=== PATIENT | female | born 1935 | race Caucasian/White ===

== ENCOUNTER → 2017-06-23 15:14 | Outpatient (CLI) | payer MEDICARE, MEDICAID, SELFPAY ==
[2017-06-23 16:36] LABS: Absolute Lymphocyte Count 1.92 X10^3/ul (0.83-4.51); Absolute Neutrophil Count 1.9 X10^3/uL (2.0-7.7); Basophil# 0.05 X10^3/uL; Basophil% 1.1 % (0-1); Eosinophil# 0.12 X10^3/uL; Eosinophils% 2.5 % (0-5); Hematocrit 35.6 % (37-47); Hemoglobin 11.7 g/dl (12.0-15.0); Lymphocyte # 1.92 X10^3/ul (4.0); Lymphocyte % 40.7 % (19-41); Mean Corp Hgb Conc 32.9 g/gl (32-36); Mean Corpuscular Hgb 28.5 pg (27.0-32.0); Mean Corpuscular Volume 86.8 fL (81-99); Mean Platelet Vol. 11.1 fl (6.2-12.0); Monocyte# 0.74 X10^3/uL; Monocyte% 15.7 % (0-10); Neutrophil # 1.89 X10^3/uL (2.7-7.7); Platelet Count 269 K/mm3 (150-450); RBC Distribution Width CV 16.8 % (11.6-14.6); RBC Distribution Width SD 52.7 fl (35.1-43.9); White Blood Count 4.7 K/mm3 (4.4-11.0)
[2017-06-23 16:58] LABS: POSITIVE COUNT NO; POSITIVE DIFFERENTIAL NO; POSITIVE MORPHOLOGY NO
[2017-06-23 17:02] LABS: ALB/GLOB Ratio 0.8 RATIO (0.9-2.4); AST(SGOT) 22 U/L (15-37); Alanine Aminotransfer ALT/SGPT 17 U/L (13-56); Albumin, Serum 3.4 g/dL (3.2-5.0); Alkaline Phosphatase 83 U/L (45-117); Anion Gap 9 (5-15); BUN 13 mg/dL (7-18); BUN/Creat Ratio 24.4 RATIO (10-20); Calcium,Total 8.8 mg/dL (8.5-10.1); Chloride 101 mmol/L (98-107); Creatinine, Serum 0.53 mg/dL (0.55-1.02); EST Glomerular Filtration Rate 117 mL/min (>60); Est Glom Filt Rate - Afr Amer 142 mL/min (>60); Glucose 79 mg/dL (74-106); Potassium 3.8 mmol/L (3.5-5.1); Protein, Total 7.4 g/dL (6.4-8.2); Sodium Level 138 mmol/L (136-145); Thyroid Stim Hormone (TSH) 1.51 uIU/mL (0.358-3.74)
[2017-06-24 08:25] LABS: Vitamin D,25 Hydroxy 19.9 ng/mL (29.95-100.01)
== END ==
PROVIDERS: Family Provider Family Medicine Geriatric Medicine; PCP Family Medicine Geriatric Medicine; Visit Provider Family Medicine Geriatric Medicine
DX: I10 Essential (primary) hypertension (principal); E55.9 Vitamin D deficiency, unspecified
CPT/HCPCS: 36415; 80053; 82306; 84443; 85025

== ENCOUNTER → 2017-07-20 14:45 | Outpatient (CLI) | payer MEDICARE, MEDICAID, SELFPAY ==
--- NOTE | 2017-07-20 14:55 | RAD_ITS ---
STUDY: X-RAY CHEST REASON FOR EXAM: Female, 81 years old. Productive cough, bronchitis. TECHNIQUE: PA and lateral chest COMPARISON: 01/13/2017 FINDINGS: Cholecystectomy. There is chronic prominent elevation of the right hemidiaphragm, bowel interposed between the hemidiaphragm and the superior surface of the liver (Chilaiditi sign). Stable compared to prior imaging of 2017. The right lung appears to be otherwise clear. The right lung base is obscured. On the left very mild hazy interstitial opacities in the lung without dense focal infiltrate or consolidation and without effusion or pneumothorax. These features may be chronic. They may also reflect mild pneumonitis. There is no significant cardiomegaly. Mildly ectatic aortic arch with mild atherosclerosis and tortuous descending thoracic aorta. Normal arlene and pleural margins. No acute osseous or upper abdominal process. RAD/Chest PA and Lateral IMPRESSION: Minimal hazy interstitial opacities of the left lung, probably chronic. Mild pneumonitis may be present. No dense focal pneumonia. Electronically Signed: Julio Castaneda, at 16:46 EDT Tel , Service support ,
== END ==
PROVIDERS: Family Provider Family Medicine Geriatric Medicine; PCP Family Medicine Geriatric Medicine; Visit Provider Family Medicine Geriatric Medicine
DX: J40 Bronchitis, not specified as acute or chronic (principal); R68.83 Chills (without fever)
CPT/HCPCS: 71046; 87633

== ENCOUNTER 2017-09-15 14:35 | Emergency (ER) | payer MEDICARE, MEDICAID, SELFPAY ==
[2017-09-15 14:36] VITALS: BP 127/67; PULSE 105; RESP 16; TEMP 36.7; O2SAT 92; BMI 33.3
--- NOTE | 2017-09-15 15:13 | ED.VISSUMM ---
- ER Visit Summary Date of Service: 09/15/17 Chief Complaint: Atraumatic left elbow pain History of Present Illness: The patient is a 81 F hand dominant. Said yesterday morning she noticed pain in her left elbow worse with movement. Denies any redness, fever, chills or swelling. Absolutely no trauma. She is right-hand dominant. She denies ever having any surgery on the entire left upper extremity. She has normal left hand top dyeing machine tender strength and sensation. Physical Examination: Well-appearing older female. Vital signs are stable afebrile. No distress. H EENT exam unremarkable. Neck nontender no lymphadenopathy. Lungs clear to auscultation bilaterally. Heart regular rhythm rate about 95. 3/6 systolic ejection murmur. Abdomen is soft and nontender. Normal bowel sounds no peritoneal signs. Extremities she is moving all 4. Neurovascularly intact. She has trace edema both lower extremities. The left elbow is bent at about 45?. She does not do full extension. There is no gross bony deformity. There appears to be some chronic bone changes. There is no significant swelling. No redness or warmth. She has increasing discomfort trying to do full extension but she does not do full extension. The left shoulder is nontender. There is no lymphadenopathy. No deformity. The left forearm wrist and hand are nontender neurovascular intact with 5 out of 5 top dyeing machine tender strength. Normal touch sensation. Strong radial pulse. Test Results: X-ray was obtained of the left elbow multiple views which showed some soft tissue swelling and significant degenerative arthrosis consistent with arthritis. Cannot rule out old healed fractures but no obvious acute fracture. That would also go along with her history of trauma. This was read both by myself and radiologist. Emergency Department Course and Treatment: 1 p.o. [place] here. Treatment Plan: [place] for pain. Ice to decrease inflammation. And follow-up with orthopedic surgeon. Dr. Samm Bingham is on-call today. Disposition: Discharge Impression: Acute left elbow pain secondary to degenerative arthritis This note was generated with [employer] dictation software. It may contain incorrect words, spelling, and punctuation that were not noted in review of the chart prior to signing ED Disposition - Plan for ED Patient: Chief Complaint: Upper Extremity Injury Referrals: Sunday Mclaughlin Chi, MD [Primary Care Provider] -
--- NOTE | 2017-09-15 15:16 | ED.DCSUM_ITS ---
- ER Visit Summary Date of Service: 09/15/17 Chief Complaint: Atraumatic left elbow pain History of Present Illness: The patient is a 81 F hand dominant. Said yesterday morning she noticed pain in her left elbow worse with movement. Denies any redness, fever, chills or swelling. Absolutely no trauma. She is right-hand dominant. She denies ever having any surgery on the entire left upper extremity. She has normal left hand foreign language stenographer strength and sensation. Physical Examination: Well-appearing older female. Vital signs are stable afebrile. No distress. H EENT exam unremarkable. Neck nontender no lymphadenopathy. Lungs clear to auscultation bilaterally. Heart regular rhythm rate about 95. 3/6 systolic ejection murmur. Abdomen is soft and nontender. Normal bowel sounds no peritoneal signs. Extremities she is moving all 4. Neurovascularly intact. She has trace edema both lower extremities. The left elbow is bent at about 45?. She does not do full extension. There is no gross bony deformity. There appears to be some chronic bone changes. There is no significant swelling. No redness or warmth. She has increasing discomfort trying to do full extension but she does not do full extension. The left shoulder is nontender. There is no lymphadenopathy. No deformity. The left forearm wrist and hand are nontender neurovascular intact with 5 out of 5 foreign language stenographer strength. Normal touch sensation. Strong radial pulse. Test Results: X-ray was obtained of the left elbow multiple views which showed some soft tissue swelling and significant degenerative arthrosis consistent with arthritis. Cannot rule out old healed fractures but no obvious acute fracture. That would also go along with her history of trauma. This was read both by myself and radiologist. Emergency Department Course and Treatment: 1 p.o. [place] here. Treatment Plan: [place] for pain. Ice to decrease inflammation. And follow-up with orthopedic surgeon. Dr. Samm Bingham is on-call today. Disposition: Discharge Impression: Acute left elbow pain secondary to degenerative arthritis This note was generated with [employer] dictation software. It may contain incorrect words, spelling, and punctuation that were not noted in review of the chart prior to signing ED Disposition - Plan for ED Patient: Chief Complaint: Upper Extremity Injury Referrals: Sunday Mclaughlin Chi, MD [Primary Care Provider] -
--- NOTE | 2017-09-15 15:35 | RAD_ITS ---
STUDY: X-RAY - LEFT ELBOW REASON FOR EXAM: Female, 81 years old. Pain swelling TECHNIQUE: For view(s) of the elbow. COMPARISON: None. FINDINGS: The bones are diffusely demineralized, contour abnormality is noted in the distal humerus and proximal radius and ulna consistent with old healed fractures. There is degenerative arthrosis. No demonstrated acute fracture but there is diffuse soft tissue swelling and a subtle occult fracture cannot be excluded. If fracture is a strong clinical concern, recommend further evaluation with cross-sectional imaging. RAD/Elbow min 3 Views IMPRESSION: Diffuse osteopenia with contour abnormality suggesting old healed fractures of the distal humerus in both the proximal radius and ulna. Degenerative arthrosis, no demonstrated fracture but there is soft tissue swelling if acute fracture is a strong clinical suspicion, recommend further evaluation with cross-sectional imaging Electronically Signed: Vladimir Solitario MD at 16:09 EDT , Service support ,
[2017-09-15] MEDS: HYDROcodone Bitartrate/Apap 5/325 Tablet PO (15:56)
--- NOTE | 2017-09-15 16:22 | ED.DEP ---
ED Disposition - Plan for ED Patient: Disposition: Home or Assisted Living Chief Complaint: Upper Extremity Injury Instructions: ED Degenerative Joint Disease Prescriptions: Hydrocodone/Acetaminophen [[place] 5-325 Tablet] 1 ea PO Q4H PRN PRN #20 tab PRN Reason: Pain Referrals: Sunday Mclaughlin Chi, MD [Primary Care Provider] - As Needed Samm Bingham MD [STAFF PHYSICIAN] - Additional Instructions: Ice 2? left elbow pain and swelling. [place] for pain. Call and follow-up with the orthopedic surgeon for further evaluation.
--- NOTE | 2017-09-15 16:29 | DCINST.ED_ITS ---
ED Disposition - Plan for ED Patient: Disposition: Home or Assisted Living Chief Complaint: Upper Extremity Injury Instructions: ED Degenerative Joint Disease Prescriptions: Hydrocodone/Acetaminophen [[place] 5-325 Tablet] 1 ea PO Q4H PRN PRN #20 tab PRN Reason: Pain Referrals: Sunday Mclaughlin Chi, MD [Primary Care Provider] - As Needed Samm Bingham MD [STAFF PHYSICIAN] - Additional Instructions: Ice 2? left elbow pain and swelling. [place] for pain. Call and follow-up with the orthopedic surgeon for further evaluation.
== END 2017-09-15 16:40 | disposition home or self-care (01) ==
PROVIDERS: Emergency Provider Emergency Medicine; Family Provider Family Medicine Geriatric Medicine; PCP Family Medicine Geriatric Medicine
DX: M19.022 Primary osteoarthritis, left elbow (principal); R01.1 Cardiac murmur, unspecified
CPT/HCPCS: 73080; 99282

== ENCOUNTER → 2017-10-25 14:54 | Outpatient (CLI) | payer MEDICARE, MEDICAID, SELFPAY | PROVIDERS: Family Provider Family Medicine Geriatric Medicine; PCP Family Medicine Geriatric Medicine; Visit Provider Family Medicine Geriatric Medicine | DX: M54.9 Dorsalgia, unspecified (principal) | CPT/HCPCS: 72114 ==

== ENCOUNTER → 2017-10-26 14:07 | Outpatient (CLI) | payer MEDICARE, MEDICAID, SELFPAY | PROVIDERS: Family Provider Family Medicine Geriatric Medicine; PCP Family Medicine Geriatric Medicine; Visit Provider Family Medicine Geriatric Medicine | DX: N39.0 Urinary tract infection, site not specified (principal) | CPT/HCPCS: 87086; 87088 ==

== ENCOUNTER 2017-11-04 00:26 | Inpatient (IN) | payer MEDICARE, MEDICAID, SELFPAY ==
[2017-11-04] VITALS (10 sets, daily range): BP systolic 99–150; BP diastolic 54–90; PULSE 78–108; RESP 12–18; TEMP 36.6–37.1; O2SAT 89–96; BMI 28.5; BMI 21.5
[2017-11-04] MEDS: Ondansetron 4 MG/2 ML Vial IM (01:05)
[2017-11-04] MEDS: Morphine 4 MG/ML Syringe IM (01:09)
--- NOTE | 2017-11-04 02:54 | ED.VISSUMM ---
- ER Visit Summary Date of Service: 11/04/17 Chief Complaint: [Fall and injury to both knees] History of Present Illness: The patient is a 81 F [presents the emergency department after sustaining a fall from her wheelchair this evening. Patient's family member was pushing her in the wheelchair when she slipped out and fell onto both knees. Patient denies striking her head. She had no loss of consciousness. Patient is normally wheelchair-bound and unable to extend her legs at the knees. Patient denies any neck pain. She denies chest pain. She denies abdominal pain. Patient denies back pain.] Physical Examination: [HEENT-PERRLA, EOMI. Cranial nerves II through XII grossly intact. TMs clear. Mucous membranes moist. No adenopathy. No C-spine tenderness on palpation. No external evidence of trauma to her head. Cardiovascular-regular rate and rhythm without murmur or ectopy Lungs-clear to auscultation, chest wall stable without crepitus or subcu emphysema Abdomen-normoactive bowel sounds, soft, nontender, no rebound or rigidity, no peritoneal signs. Extremities-intact ?4, normal range of motion, normal pulses. Right knee-patient has tenderness diffusely about the right knee with some ecchymosis and bruising noted. Patient has some mild soft tissue swelling. Patient has tenderness over the proximal tibia. She has normal range of motion at the knee. Left knee-patient has diffuse tenderness with soft tissue swelling noted. Patient has some faint ecchymosis noted. She is nervously intact distally. Again patient unable to move the knees. Test Results: [X-ray of the right knee showed a fracture of the proximal tibia. X-rays of the left knee showed a fracture of the distal femur. Pelvis x-rays were unremarkable.] Emergency Department Course and Treatment: [Patient on arrival was medicated with morphine 4 mg IM and Zofran 4 mg IM] Treatment Plan: [Admit for pain control and orthopedic evaluation.] Disposition: [Admit] Impression: [Right proximal tibia fracture Left distal femur fracture Fall] This note was generated with [employer] dictation software. It may contain incorrect words, spelling, and punctuation that were not noted in review of the chart prior to signing ED Disposition - Plan for ED Patient: Chief Complaint: Fall Referrals: Sunday Mclaughlin Chi, MD [Primary Care Provider] -
--- NOTE | 2017-11-04 02:56 | HP.PCM_ITS ---
Problem List (1) HTN (hypertension), benign Status: Chronic (2) Depression Status: Chronic (3) Anxiety Status: Chronic (4) Hypertension Status: Chronic (5) Hyperkalemia Status: Acute (6) Hypocalcemia Status: Acute (7) Abdominal pain Status: Resolved (8) Cellulitis of right lower extremity Status: Resolved (9) Incarcerated left inguinal hernia Status: Resolved History of Present Illness Date of Admission: 11/04/17 Chief Complaint: Fall The patient is a 81 year old F with a significant history of hypertension, depression, anxiety; bilateral knee; replacements and wheelchair-bound who presents with a fall. Patient was being wheeled by family and she slipped out of her wheelchair landing on her knees. She complained of bilateral knee pain of 10 out of 10. 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; EGD 09/2012 - mild gastritis, grade 2 esophageal varices (liver biopsy no cirrhosis) History of Clostridium difficile infection (Chronic) Depression (Chronic) Anxiety (Chronic) Hypokalemia (Chronic) OAB (overactive bladder) (Chronic) GERD (gastroesophageal reflux disease) (Chronic) Constipation (Chronic) Diarrhea (Chronic) Edema (Chronic) Debility (Chronic) IBS (irritable bowel syndrome) (Chronic) Knee pain (Chronic) Generalized osteoarthritis (Chronic) GI bleed (Chronic) Esophageal varices (Chronic) Hypertension (Chronic) Allergies belladonna alkaloids [Belladonna Alkaloids] Allergy (Verified 11/04/17 00:31) Unknown celecoxib [From Celebrex] Adverse Reaction (Verified 11/04/17 00:31) Diarrhea Home Medications: Ambulatory Orders Medication Instructions Recorded Famotidine [Pepcid] 40 mg PO DAILY 04/14/16 Lorazepam [Ativan] 0.5 mg PO DAILY PRN PRN #3 tablet 01/13/17 Iron Polysaccharide Complex 150 mg PO DAILYCM #30 capsule 01/24/17 [Ferrex 150] Cholestyramine (with Sugar) 4 g PO DAILY 09/15/17 [Cholestyramine Powder] Furosemide [Lasix] 40 mg PO DAILY 09/15/17 Hydrocodone/Acetaminophen [[place] 1 ea PO Q4H PRN PRN #20 tab 09/15/17 5-325 Tablet] Megestrol Acetate [Megace Udc] 400 mg PO DAILY 09/15/17 Mirabegron [Myrbetriq] 25 mg PO DAILY 09/15/17 Potassium Chloride [Klor-Con M20] 20 meq PO TID 09/15/17 Surgical History: appendectomy, cataract, cholecystectomy, herniorrhaphy, hysterectomy, total knee arthroplasty - Bilateral. 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 Skin: Denies: Rash, Wounds Neurological: Denies: Numbness, Tingling, Focal weakness Psychiatric: Denies: Anxiety, Depression, Homicidal Ideations, Suicidal Ideations Hematologic/ Lymphatic: Denies: Easy Bruising, Easy Bleeding VTE Information - Inpt Only VTE Present on Admission: No VTE Mechan Device Prophylaxis: None VTE Pharm Prophylaxis ordered?: Yes Patient Problems: Active and Suspected Problems Hyperkalemia (Acute) Hypocalcemia (Acute) - Physical Exam General: Alert, Oriented x3, Cooperative HEENT: Atraumatic, PERRLA, EOMI, Normocephalic Neck: Supple, No JVD, Negative Carotid Bruits Lungs: Clear to auscultation, Normal air movement Cardiovascular: Normal S1, Normal S2, Tachycardic Abdomen: Bowel Sounds Present, Soft, Non Tender Extremities: Tenderness - Bilateral sosa proximal to knee. Skin: No rashes, No breakdown, - - Ecchymosis of right sosa proximal to the knee. Musculoskeletal: - - Deformed bilateral legs. Neurological: Cranial nerves II-XII grossly intact Psych/Mental Status: Normal Affect, Appropriate Vital Signs Temp Pulse Resp BP Pulse Ox 98.7 F 108 H 18 150/90 H 94 11/04/17 00:27 11/04/17 00:27 11/04/17 00:27 11/04/17 00:27 11/04/17 00:27 Oxygen Delivery Method Room Air Weight: 66.3 kg Body Mass Index (BMI) 28.5 Assessment/Plan All Active Problems Hyperkalemia (Acute) Hypocalcemia (Acute) Cellulitis of right lower extremity (Resolved) Abdominal pain (Resolved) Incarcerated left inguinal hernia (Resolved) The patient is a 81 year old F with a significant history of hypertension, depression, anxiety; bilateral knee; replacements and wheelchair-bound who slipped out of her wheelchair; complaining of excruciating pain; and with radiographic findings of acute oblique proximal tibia fracture; and nondisplaced distal femur fracture. Fall with acute oblique proximal tibia fracture; and nondisplaced distal femur fracture Home hydrocodone-acetaminophen as needed continued Morphine as needed ordered. Orthopedic consult. Hyperkalemia Potassium on admission was 5.4 Home potassium held Home Lasix continued Trend BMP Hypocalcemia Calcium on admit was 7.9 We will check albumin level. Anxiety Ativan continued GERD Pepcid continue DVT prophylaxis with subcutaneous heparin. Code Visit OBSV E&M: 05351 Initial observation care L3
[2017-11-04 03:11] LABS: Absolute Lymphocyte Count 0.77 X10^3/ul (0.83-4.51); Absolute Neutrophil Count 10.7 X10^3/uL (2.0-7.7); Basophil# 0.02 X10^3/uL; Basophil% 0.1 % (0-1); Eosinophil# 0.02 X10^3/uL; Eosinophils% 0.1 % (0-5); Hematocrit 25.8 % (37-47); Hemoglobin 8.8 g/dl (12.0-15.0); Lymphocyte # 0.77 X10^3/ul (4.0); Lymphocyte % 5.6 % (19-41); Mean Corp Hgb Conc 34.1 g/gl (32-36); Mean Corpuscular Hgb 29.9 pg (27.0-32.0); Mean Corpuscular Volume 87.8 fL (81-99); Mean Platelet Vol. 10.6 fl (6.2-12.0); Monocyte# 2.22 X10^3/uL; Neutrophil # 10.67 X10^3/uL (2.7-7.7); Neutrophil % 77.1 % (47-70); Platelet Count 298 K/mm3 (150-450); RBC Distribution Width CV 15.8 % (11.6-14.6); Red Blood Count 2.94 M/mm3 (4.2-5.4); White Blood Count 13.9 K/mm3 (4.4-11.0)
[2017-11-04 03:14] LABS: Differential Indicated SCAN CRITERIA MET; POSITIVE COUNT NO; POSITIVE DIFFERENTIAL YES; POSITIVE MORPHOLOGY NO
[2017-11-04 03:35] LABS: Differential Comment SCANNED
[2017-11-04 03:51] LABS: Anion Gap 7 (5-15); BUN 34 mg/dL (7-18); BUN/Creat Ratio 55.3 RATIO (10-20); Calcium,Total 7.9 mg/dL (8.5-10.1); Chloride 101 mmol/L (98-107); Creatinine, Serum 0.62 mg/dL (0.55-1.02); EST Glomerular Filtration Rate 99 mL/min (>60); Est Glom Filt Rate - Afr Amer 120 mL/min (>60); Estimated Creatinine Clearance 31.69 ml/min; Glucose 102 mg/dL (74-106); Potassium 5.4 mmol/L (3.5-5.1); Sodium Level 135 mmol/L (136-145)
[2017-11-04 04:58] LABS: Albumin, Serum 2.9 g/dL (3.2-5.0)
[2017-11-04] MEDS: HYDROcodone Bitartrate/Apap 5/325 Tablet PO ×3 (09:16→21:31)
[2017-11-04] MEDS: Iron Polysaccharide Complex 150 MG CAPSULE PO (10:13)
[2017-11-04] MEDS: Heparin Injection (Vial) 5,000 UNIT/ML VIAL 5000 UNIT SC ×2 (10:14→21:32)
[2017-11-04] MEDS: Megestrol Acetate 400 MG/10 ML UDC PO (10:14)
[2017-11-04] MEDS: Furosemide 40 MG Tablet PO (10:14)
[2017-11-04] MEDS: Famotidine 20 MG Tablet 40 MG PO (10:15)
[2017-11-04] MEDS: Mirabegron 25 MG TAB.ER.24H PO (10:15)
[2017-11-04] MEDS: Senna Tablet 1 TABLET PO ×2 (10:15→21:31)
[2017-11-04] MEDS: Cholestyramine/Sucrose 4 GM/PACKET PO (10:15)
--- NOTE | 2017-11-04 11:45 | CASEMGMT ---
GABRIEL OLIVAS Face to Face with patient for initial transition planning/care coordination assessment. RN BRENDON introduced self and role at [facility]. Patient lying in bed, alert and oriented. Patient willing to participate in assessment and is able to answer all questions appropriately. Care providers, pharmacy, and demographics verified. See link attached. Patient wishes to discharge home, patient unsure if HHC needed. Currently has aide services through [facility]. Receives Passport/Waiver program. Patient states she has no further needs or concerns at this time. CM to follow for discharge planning needs that may arise. Disposition Plan: Patient to discharge home with family support, resumption of aide services, and follow-up plans in place. Patient currently on oxygen will monitor for need for home oxygen setup. Meghann CABAN, RN, CM
--- NOTE | 2017-11-04 11:55 | PCM.CONS.GEN ---
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; EGD 09/2012 - mild gastritis, grade 2 esophageal varices (liver biopsy no cirrhosis) History of Clostridium difficile infection (Chronic) Depression (Chronic) Anxiety (Chronic) Hypokalemia (Chronic) OAB (overactive bladder) (Chronic) GERD (gastroesophageal reflux disease) (Chronic) Constipation (Chronic) Diarrhea (Chronic) Edema (Chronic) Debility (Chronic) IBS (irritable bowel syndrome) (Chronic) Knee pain (Chronic) Generalized osteoarthritis (Chronic) GI bleed (Chronic) Esophageal varices (Chronic) Hypertension (Chronic) Allergies belladonna alkaloids [Belladonna Alkaloids] Allergy (Verified 11/04/17 00:31) Unknown celecoxib [From Celebrex] Adverse Reaction (Verified 11/04/17 00:31) Diarrhea Home Medications: Ambulatory Orders Medication Instructions Recorded Famotidine [Pepcid] 40 mg PO DAILY 04/14/16 Lorazepam [Ativan] 0.5 mg PO DAILY PRN PRN #3 tablet 01/13/17 Iron Polysaccharide Complex 150 mg PO DAILYCM #30 capsule 01/24/17 [Ferrex 150] Cholestyramine (with Sugar) 4 g PO DAILY 09/15/17 [Cholestyramine Powder] Furosemide [Lasix] 40 mg PO DAILY 09/15/17 Hydrocodone/Acetaminophen [[place] 1 ea PO Q4H PRN PRN #20 tab 09/15/17 5-325 Tablet] Megestrol Acetate [Megace Udc] 400 mg PO DAILY 09/15/17 Mirabegron [Myrbetriq] 25 mg PO DAILY 09/15/17 Potassium Chloride [Klor-Con M20] 20 meq PO TID 09/15/17 Surgical History: appendectomy, cataract, cholecystectomy, herniorrhaphy, hysterectomy, total knee arthroplasty - Bilateral. 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 Lives: With Family Smoking Status: Never smoker Alcohol: None - *Family History Maternal History Items: No pertinent history Review of Systems Musculoskeletal: Reports: Joint stiffness, Leg Pain Neurological: Reports: Numbness - denies Patient Problems: Active and Suspected Problems Hyperkalemia (Acute) Hypocalcemia (Acute) - Physical Exam General: Alert, Oriented x3, Cooperative Extremities: Edema - 2-3+chronic b/l LE, Tenderness - Left femur and right tibia, R>L Psych/Mental Status: Normal Affect, Appropriate Vital Signs Temp Pulse Resp BP Pulse Ox 98.3 F 78 12 118/57 L 96 11/04/17 08:06 11/04/17 08:06 11/04/17 08:06 11/04/17 08:06 11/04/17 08:06 Oxygen Delivery Method Room Air Weight: 129 lb 10.109 oz Body Mass Index (BMI) 21.5 Intake and Output for Last 24 Hours 11/02/17 11/03/17 11/04/17 23:59 23:59 23:59 Intake Total 300 / 300 Balance 300 / 300 Assessment/Plan All Active Problems Hyperkalemia (Acute) Hypocalcemia (Acute) Cellulitis of right lower extremity (Resolved) Abdominal pain (Resolved) Incarcerated left inguinal hernia (Resolved) Left periprosthetic femur fracture Right periprosthetic tibia fracture 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 No operative intervention for either fracture at this time. NWB b/l LE Follow up in office 1 week post discharge for new xrays of b/l knees. DVT prophylaxis would be appropriate per hospitalist.
--- NOTE | 2017-11-04 12:18 | NURSING ---
Primary RN aware of vital signs
--- NOTE | 2017-11-04 14:56 | CASEMGMT ---
Social Work Note RN BRENDON Anderson updated this worker that pt has PASSPORT services and pt's CM is either Gilson or Nicole. SW placed a call to [facility] and pt's CM is Nicole Gonzalez. NISHANT left message for Nicole updating her on pt's admission into [facility]. Per GABRIEL Hannaah Monica pt had complaints that some of her aides don't show up on days that they are supposed to to give her a bath. NISHANT updated Nicole of this. Meghann Estevez ORDER CONTROL CLERK BLOOD BANK, [employer]
--- NOTE | 2017-11-04 15:09 | PCM.HOSP.N ---
Hospitalist Note The patient is a 81 year old F with a significant history of hypertension, depression, anxiety; bilateral knee; replacements and wheelchair-bound who slipped out of her wheelchair; complaining of excruciating pain; and with radiographic findings of acute oblique proximal tibia fracture; and nondisplaced distal femur fracture. Patient seen by orthopedic surgeon, Dr. Hunt. 1. left periprosthetic femur fracture and right periprosthetic tibial fracture No operative intervention for either fracture was recommended by orthopedic surgeon. Patient is wheelchair-bound is very low functional capacity. Patient has chronic flexion contractures of both legs, therefore would not tolerate immobilizers. Nonweightbearing of both lower extremities. Pain control. Follow-up in office 1 week post discharge for new x-ray bilateral knees. Hyperkalemia, K5.4 most probably from home potassium supplement. Patient is on Lasix. Hold potassium. Repeat BMP tomorrow a.m. Hypocalcemia, calcium 7.9. Albumin 2.9. Corrected calcium is 8.78. On heparin 5000 subcu units twice daily
[2017-11-05] MEDS: Morphine 2 MG/ML Syringe IV (00:07)
[2017-11-05 05:17] VITALS: BP 121/54; PULSE 86; RESP 16; TEMP 36.8; O2SAT 98
[2017-11-05] MEDS: HYDROcodone Bitartrate/Apap 5/325 Tablet PO ×3 (05:36→20:13)
--- NOTE | 2017-11-05 05:36 | NURSING ---
PT EXPRESSES CONCERNS ABOUT GOING HOME AND PUTTING STRESS ON FAMILY. PT EXPRESSES CONCERN ABOUT FAMILY'S ABILITY TO HANDLE HER CARE AT THIS POINT IN TIME. PT REASSURED. REPOSITIONED AND RESTING IN BED COMFORTABLY
[2017-11-05 07:20] LABS: Hematocrit 22.8 % (37-47); Hemoglobin 7.6 g/dl (12.0-15.0); Mean Corp Hgb Conc 33.3 g/gl (32-36); Mean Corpuscular Hgb 29.1 pg (27.0-32.0); Mean Corpuscular Volume 87.4 fL (81-99); Mean Platelet Vol. 9.9 fl (6.2-12.0); Platelet Count 234 K/mm3 (150-450); RBC Distribution Width CV 16.2 % (11.6-14.6); Red Blood Count 2.61 M/mm3 (4.2-5.4); White Blood Count 12.6 K/mm3 (4.4-11.0)
[2017-11-05 07:21] LABS: Scan Indicated on CBC? Y/N NO
[2017-11-05 07:29] LABS: Anion Gap 8 (5-15); BUN 28 mg/dL (7-18); Calcium,Total 7.5 mg/dL (8.5-10.1); Chloride 98 mmol/L (98-107); Creatinine, Serum 0.42 mg/dL (0.55-1.02); EST Glomerular Filtration Rate 154 mL/min (>60); Est Glom Filt Rate - Afr Amer 187 mL/min (>60); Glucose 92 mg/dL (74-106); Potassium 4.3 mmol/L (3.5-5.1); Sodium Level 132 mmol/L (136-145)
[2017-11-05] MEDS: Iron Polysaccharide Complex 150 MG CAPSULE PO (09:28)
[2017-11-05] MEDS: Heparin Injection (Vial) 5,000 UNIT/ML VIAL 5000 UNIT SC ×2 (09:30→21:52)
[2017-11-05] MEDS: Famotidine 20 MG Tablet 40 MG PO (09:31)
[2017-11-05] MEDS: Cholestyramine/Sucrose 4 GM/PACKET PO (09:31)
[2017-11-05] MEDS: Furosemide 40 MG Tablet PO (09:31)
[2017-11-05] MEDS: Senna Tablet 1 TABLET PO (09:32)
[2017-11-05] MEDS: Megestrol Acetate 400 MG/10 ML UDC PO (09:32)
--- NOTE | 2017-11-05 09:47 | CASEMGMT ---
SW was told that patient is concerned about going home as she needs more care than her family can provide. SW spoke with patient, introduced self and role at [facility]. Patient said she has been to [facility] before and her daughter works at [facility]. She asked SW to talk with her daughter. SW explained to her that she will be here at [facility] until her insurance approves her to go to a SNF. SW told her SW will make referrals and the SW on Tuesday will follow up with her. NISHANT called patient's daughter, Delaney. She agreed it would be best if patient went to a SNF short term. She was okay with [facility] or [facility]. NISHANT told her SW can fax referrals and the SW on Tuesday can follow up with both facilities. SW told her the SW will contact her as well as keep patient informed. She thanked NISHANT. NISHANT faxed referrals to [facility] and [facility]. Convalescent started on . SW to follow up on Tuesday. Coretta LÓPEZ MSW
[2017-11-05 11:00] VITALS: BP 138/69; PULSE 98; RESP 18; TEMP 37.1; O2SAT 95
[2017-11-05] MEDS: oxyCODONE CR 15 MG Tablet PO ×2 (12:19→21:50)
[2017-11-05] MEDS: Polyethylene Glycol 3350 17 GM PACKET PO (12:20)
[2017-11-05] MEDS: Senna/Docusate Sodium 1 Tablet 2 TABLET PO ×2 (12:20→21:58)
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
[2017-11-05 15:56] VITALS: BP 105/61; PULSE 82; RESP 18; TEMP 36.8; O2SAT 95
[2017-11-05 16:56] VITALS: PULSE 80; RESP 18
[2017-11-05] MEDS: Menthol/Lanolin/Calamine/Znox 113 GM Tube 1 APPLIC TOPICAL (21:58)
[2017-11-05] MEDS: Nystatin Powder 15gm Bottle 1 APPLIC TOPICAL (21:59)
[2017-11-05 22:00] VITALS: BP 139/73; PULSE 92; RESP 16; TEMP 37.1; O2SAT 97
[2017-11-06] VITALS (7 sets, daily range): BP systolic 101–112; BP diastolic 47–68; PULSE 78–96; RESP 16; TEMP 36.6–37; O2SAT 80–100
[2017-11-06] MEDS: oxyCODONE 5 MG Tablet 10 MG PO ×2 (06:30→14:17)
[2017-11-06] MEDS: Nystatin Powder 15gm Bottle 1 APPLIC TOPICAL ×3 (06:31→22:10)
[2017-11-06] MEDS: Menthol/Lanolin/Calamine/Znox 113 GM Tube 1 APPLIC TOPICAL ×3 (06:31→22:10)
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
[2017-11-06] MEDS: Heparin Injection (Vial) 5,000 UNIT/ML VIAL 5000 UNIT SC (09:50)
[2017-11-06] MEDS: Iron Polysaccharide Complex 150 MG CAPSULE PO (09:50)
[2017-11-06] MEDS: Mirabegron 25 MG TAB.ER.24H PO (09:51)
[2017-11-06] MEDS: Famotidine 20 MG Tablet 40 MG PO (09:51)
[2017-11-06] MEDS: Furosemide 40 MG Tablet PO (09:51)
[2017-11-06] MEDS: Cholestyramine/Sucrose 4 GM/PACKET PO (09:51)
[2017-11-06] MEDS: Megestrol Acetate 400 MG/10 ML UDC PO (09:51)
[2017-11-06] MEDS: oxyCODONE CR 15 MG Tablet PO ×2 (09:57→22:08)
[2017-11-06] MEDS: Senna/Docusate Sodium 1 Tablet 2 TABLET PO ×2 (09:58→22:09)
[2017-11-06] MEDS: Polyethylene Glycol 3350 17 GM PACKET PO (10:03)
--- NOTE | 2017-11-06 10:51 | PCM.PN.HOSP ---
Patient Problems: Active and Suspected Problems Hyperkalemia (Acute) Hypocalcemia (Acute) Subjective: SOB on 3 L/m of O2. Has functional debility in pain. H/o cryptogenic cirrhosis decompensated with esophageal varices on lasix 40 mg daily. Low HH, DROPPED to 8.8 to 7.6 gm%. No obvious external bleeding. Heparin discontinued. Vitals/I&O's: Vital Signs Temp Pulse Resp BP Pulse Ox 98.6 F 96 16 112/54 L 90 11/06/17 08:05 11/06/17 08:05 11/06/17 08:05 11/06/17 08:05 11/06/17 08:05 Oxygen Flow Rate (L/min) 4 Oxygen Delivery Method Nasal Cannula Weight: 129 lb 10.109 oz Body Mass Index (BMI) 21.5 Intake and Output for Last 24 Hours 11/04/17 11/05/17 11/06/17 23:59 23:59 23:59 Intake Total 1200 / 1200 900 / 900 Balance 1200 / 1200 900 / 900 General: Alert, Oriented x3, Cooperative HEENT: Atraumatic, PERRLA, EOMI, Normocephalic Neck: Supple, No JVD, Negative Carotid Bruits Lungs: Diminished, Rales, Short of Breath Cardiovascular: Regular rate, Normal S1, Normal S2, Murmur Abdomen: Bowel Sounds Present, Soft, Non Tender, Non-Distended Extremities: Capillary Refill Less than 3 Seconds, Edema Skin: No rashes, No breakdown Musculoskeletal: Arthritic Changes, Muscle Wasting, Tenderness - of B/L Lower legs with fracture and contractures Neurological: Cranial nerves II-XII grossly intact Psych/Mental Status: Normal Affect, Appropriate Current Medications Hydrocodone Bitart/Acetaminophen ([place] 5mg-325mg) 1 tablet PO Q4H PRN PRN PRN Reason: mod pain Last Admin: 11/05/17 20:13 Dose: 1 tablet Calamine/Phenol (Calmoseptine Ointment) 1 applic TOPICAL TID [facility] PRN Reason: Protocol Last Admin: 11/06/17 06:31 Dose: 1 applicatio Cholestyramine Resin (Questran 4gm Packet) 4 gm PO DAILY [facility] Last Admin: 11/06/17 09:51 Dose: 4 gm Famotidine (Pepcid) 40 mg PO DAILY [facility] Last Admin: 11/06/17 09:51 Dose: 40 mg Furosemide (Lasix) 40 mg PO DAILY [facility] Last Admin: 11/06/17 09:51 Dose: 40 mg Furosemide (Lasix) 20 mg IV X1 ONE Stop: 11/06/17 10:48 Lorazepam (Ativan) 0.5 mg PO DAILY PRN PRN PRN Reason: ANXIETY Magnesium Hydroxide (Milk Of Magnesia) 30 ml PO DAILY PRN PRN PRN Reason: Constipation Megestrol Acetate (Megace Udc) 400 mg PO DAILY [facility] Last Admin: 11/06/17 09:51 Dose: 400 mg Morphine Sulfate () 1 - 2 mg IV Q4H PRN PRN PRN Reason: SEVERE PAIN (6-10/10) Last Admin: 11/05/17 00:07 Dose: 2 mg Nutritional Formula (Lactose Free) (Ensure Enlive) 120 ml PO 4X/DAY [facility] Last Admin: 11/06/17 09:58 Dose: 120 ml Nystatin (Mycostatin Powder) 1 applic TOPICAL TID [facility] PRN Reason: Protocol Last Admin: 11/06/17 06:31 Dose: 1 applicatio Oxycodone HCl (Oxyir) 10 mg PO Q4H PRN PRN PRN Reason: SEVERE PAIN (6-10/10) Last Admin: 11/06/17 06:30 Dose: 10 mg Oxycodone HCl (Oxycontin) 15 mg PO BID [facility] Last Admin: 11/06/17 09:57 Dose: 15 mg Polyethylene Glycol (Miralax) 17 gm PO DAILY [facility] Last Admin: 11/06/17 10:03 Dose: 17 gm Polysaccharide Iron Complex ([facility]rex 150) [facility] Last Admin: 11/06/17 09:50 Dose: 150 mg Senna/Docusate Sodium (Senokot-S, Lynette-Colace) 2 tablet PO BID [facility] Last Admin: 11/06/17 09:58 Dose: 2 tablet Medical Necessity - Tobacco Use Smoking Status: Never smoker Assessment/Plan All Active Problems Hyperkalemia (Acute) Hypocalcemia (Acute) Cellulitis of right lower extremity (Resolved) Abdominal pain (Resolved) Incarcerated left inguinal hernia (Resolved) This is a 81-year-old female with history of hypertension, depression, anxiety; bilateral knee; replacements and wheelchair-and bedbound and has not been on feet for long time was admitted with fall. Patient was being wheeled by family and she slipped out of her wheelchair landing on her knees. She complained of bilateral knee pain of 10 out of 10. Patient is functionally debilitated. She had bilateral knee replacement in the past. 1. Pathological fracture of left periprosthetic femur fracture and right periprosthetic tibial fracture: Has chronic flexion contracture of both lower legs and hands notable tolerated immobilizers. No operative intervention for fracture.Nonweightbearing on both lower extremities. Seen by orthopedic surgeon and recommended follow-up in office 1 week postdischarge. Patient has venous edema on dependent portion of legs because of weight. X-rays shows diffuse demineralization of the bones and osteoporosis. Needs position change every 2 hours to avoid bedsore/pressure ulcer. Nutritional care. 2. Acute on chronic anemia, possible due to cirrhosis or chronic disease or heparin SQ: Stool for occult BLOOD. CBC now AND HH monitoring. DC Heparin SQ. SCDs. 3 Acute hypoxic resp failure Present since admission, probably due to IV fluid and cirrhosis, hypervolemia state. CXR Portable ordered. Lasix 40 mg daily and extra dose ordered. Functional debilitation with failure to thrive: Nursing care. Needs halfway placement. 4 Hyperkalemia, K5.4 most probably from home potassium supplement. Patient is on Lasix. Potassium is 4.3. Hyperkalemia corrected. Hypocalcemia, calcium 7.9. Albumin 2.9. Corrected calcium is 8.78. D/C Heparin and B/L SCDS Clinical Impression(s) from Imaging Studies Pelvis X-Ray 11/04/17 00:53 IMPRESSION: Limited evaluation by overlying artifact. There is no displaced fracture or dislocation identified. If there is continuing clinical concern consider removal of the artifact and repeat radiograph. Alternatively CT scan can be performed to further evaluate. Knee X-Ray 11/04/17 00:55 IMPRESSION: Nondisplaced distal femur fracture. Age-indeterminate patella janett. Knee X-Ray 11/04/17 01:35 IMPRESSION: Acute oblique fracture of the proximal tibia as described. Laboratory Results 11/05/17 06:30: Sodium 132 L, Potassium 4.3, Chloride 98, Carbon Dioxide 26.0, Anion Gap 8, BUN 28 H, Creatinine 0.42 L, Estim Creat Clear Calc 39.70, Est GFR (MDRD) Af Amer 187, Est GFR (MDRD) Non-Af 154, BUN/Creatinine Ratio 67.0 H, Glucose 92, Calcium 7.5 L 11/05/17 06:30: WBC 12.6 H, RBC 2.61 L, Hgb 7.6 L, Hct 22.8 L, MCV 87.4, MCH 29.1, MCHC 33.3, RDW 16.2 H, RDW Differential 51.0 H, Plt Count 234, MPV 9.9 Code Visit Inpatient E&M: 57862 Subs Hosp L3
--- NOTE | 2017-11-06 10:56 | PN_ITS ---
Patient Problems: Active and Suspected Problems Hyperkalemia (Acute) Hypocalcemia (Acute) Subjective: SOB on 3 L/m of O2. Has functional debility in pain. H/o cryptogenic cirrhosis decompensated with esophageal varices on lasix 40 mg daily. Low HH, DROPPED to 8.8 to 7.6 gm%. No obvious external bleeding. Heparin discontinued. Vitals/I&O's: Vital Signs Temp Pulse Resp BP Pulse Ox 98.6 F 96 16 112/54 L 90 11/06/17 08:05 11/06/17 08:05 11/06/17 08:05 11/06/17 08:05 11/06/17 08:05 Oxygen Flow Rate (L/min) 4 Oxygen Delivery Method Nasal Cannula Weight: 129 lb 10.109 oz Body Mass Index (BMI) 21.5 Intake and Output for Last 24 Hours 11/04/17 11/05/17 11/06/17 23:59 23:59 23:59 Intake Total 1200 / 1200 900 / 900 Balance 1200 / 1200 900 / 900 General: Alert, Oriented x3, Cooperative HEENT: Atraumatic, PERRLA, EOMI, Normocephalic Neck: Supple, No JVD, Negative Carotid Bruits Lungs: Diminished, Rales, Short of Breath Cardiovascular: Regular rate, Normal S1, Normal S2, Murmur Abdomen: Bowel Sounds Present, Soft, Non Tender, Non-Distended Extremities: Capillary Refill Less than 3 Seconds, Edema Skin: No rashes, No breakdown Musculoskeletal: Arthritic Changes, Muscle Wasting, Tenderness - of B/L Lower legs with fracture and contractures Neurological: Cranial nerves II-XII grossly intact Psych/Mental Status: Normal Affect, Appropriate Current Medications Hydrocodone Bitart/Acetaminophen ([place] 5mg-325mg) 1 tablet PO Q4H PRN PRN PRN Reason: mod pain Last Admin: 11/05/17 20:13 Dose: 1 tablet Calamine/Phenol (Calmoseptine Ointment) 1 applic TOPICAL TID [facility] PRN Reason: Protocol Last Admin: 11/06/17 06:31 Dose: 1 applicatio Cholestyramine Resin (Questran 4gm Packet) 4 gm PO DAILY [facility] Last Admin: 11/06/17 09:51 Dose: 4 gm Famotidine (Pepcid) 40 mg PO DAILY [facility] Last Admin: 11/06/17 09:51 Dose: 40 mg Furosemide (Lasix) 40 mg PO DAILY [facility] Last Admin: 11/06/17 09:51 Dose: 40 mg Furosemide (Lasix) 20 mg IV X1 ONE Stop: 11/06/17 10:48 Lorazepam (Ativan) 0.5 mg PO DAILY PRN PRN PRN Reason: ANXIETY Magnesium Hydroxide (Milk Of Magnesia) 30 ml PO DAILY PRN PRN PRN Reason: Constipation Megestrol Acetate (Megace Udc) 400 mg PO DAILY [facility] Last Admin: 11/06/17 09:51 Dose: 400 mg Morphine Sulfate () 1 - 2 mg IV Q4H PRN PRN PRN Reason: SEVERE PAIN (6-10/10) Last Admin: 11/05/17 00:07 Dose: 2 mg Nutritional Formula (Lactose Free) (Ensure Enlive) 120 ml PO 4X/DAY [facility] Last Admin: 11/06/17 09:58 Dose: 120 ml Nystatin (Mycostatin Powder) 1 applic TOPICAL TID [facility] PRN Reason: Protocol Last Admin: 11/06/17 06:31 Dose: 1 applicatio Oxycodone HCl (Oxyir) 10 mg PO Q4H PRN PRN PRN Reason: SEVERE PAIN (6-10/10) Last Admin: 11/06/17 06:30 Dose: 10 mg Oxycodone HCl (Oxycontin) 15 mg PO BID [facility] Last Admin: 11/06/17 09:57 Dose: 15 mg Polyethylene Glycol (Miralax) 17 gm PO DAILY [facility] Last Admin: 11/06/17 10:03 Dose: 17 gm Polysaccharide Iron [facility] ([facility]rex 150) [facility] Last Admin: 11/06/17 09:50 Dose: 150 mg Senna/Docusate Sodium (Senokot-S, Lynette-Colace) 2 tablet PO BID [facility] Last Admin: 11/06/17 09:58 Dose: 2 tablet Medical Necessity - Tobacco Use Smoking Status: Never smoker Assessment/Plan All Active Problems Hyperkalemia (Acute) Hypocalcemia (Acute) Cellulitis of right lower extremity (Resolved) Abdominal pain (Resolved) Incarcerated left inguinal hernia (Resolved) This is a 81-year-old female with history of hypertension, depression , anxiety; bilateral knee; replacements and wheelchair-and bedbound and has not been on feet for long time was admitted with fall. Patient was being wheeled by family and she slipped out of her wheelchair landing on her knees. She complained of bilateral knee pain of 10 out of 10. Patient is functionally debilitated. She had bilateral knee replacement in the past. 1. Pathological fracture of left periprosthetic femur fracture and right periprosthetic tibial fracture: Has chronic flexion contracture of both lower legs and hands notable tolerated immobilizers. No operative intervention for fracture.Nonweightbearing on both lower extremities. Seen by orthopedic surgeon and recommended follow-up in office 1 week postdischarge. Patient has venous edema on dependent portion of legs because of weight. X- rays shows diffuse demineralization of the bones and osteoporosis. Needs position change every 2 hours to avoid bedsore/pressure ulcer. Nutritional care. 2. Acute on chronic anemia, possible due to cirrhosis or chronic disease or heparin SQ: Stool for occult BLOOD. CBC now AND HH monitoring. DC Heparin SQ. SCDs. 3 Acute hypoxic resp failure Present since admission, probably due to IV fluid and cirrhosis, hypervolemia state. CXR Portable ordered. Lasix 40 mg daily and extra dose ordered. Functional debilitation with failure to thrive: Nursing care. Needs custodial placement. 4 Hyperkalemia, K5.4 most probably from home potassium supplement. Patient is on Lasix. Potassium is 4.3. Hyperkalemia corrected. Hypocalcemia, calcium 7.9. Albumin 2.9. Corrected calcium is 8.78. D/C Heparin and B/L SCDS Clinical Impression(s) from Imaging Studies Pelvis X-Ray 11/04/17 00:53 IMPRESSION: Limited evaluation by overlying artifact. There is no displaced fracture or dislocation identified. If there is continuing clinical concern consider removal of the artifact and repeat radiograph. Alternatively CT scan can be performed to further evaluate. Knee X-Ray 11/04/17 00:55 IMPRESSION: Nondisplaced distal femur fracture. Age-indeterminate patella janett. Knee X-Ray 11/04/17 01:35 IMPRESSION: Acute oblique fracture of the proximal tibia as described. Laboratory Results 11/05/17 06:30: Sodium 132 L, Potassium 4.3, Chloride 98, Carbon Dioxide 26.0, Anion Gap 8, BUN 28 H, Creatinine 0.42 L, Estim Creat Clear Calc 39.70, Est GFR (MDRD) Af Amer 187, Est GFR (MDRD) Non-Af 154, BUN/Creatinine Ratio 67.0 H, Glucose 92, Calcium 7.5 L 11/05/17 06:30: WBC 12.6 H, RBC 2.61 L, Hgb 7.6 L, Hct 22.8 L, MCV 87.4, MCH 29.1, MCHC 33.3, RDW 16.2 H, RDW Differential 51.0 H, Plt Count 234, MPV 9.9 Code Visit Inpatient E&M: [id number] Subs Hosp L3
[2017-11-06 12:16] LABS: Absolute Lymphocyte Count 0.76 X10^3/ul (0.83-4.51); Absolute Neutrophil Count 11.3 X10^3/uL (2.0-7.7); Eosinophil# 0.11 X10^3/uL; Eosinophils% 0.8 % (0-5); Hematocrit 22.4 % (37-47); Hemoglobin 7.5 g/dl (12.0-15.0); Lymphocyte # 0.76 X10^3/ul (4.0); Lymphocyte % 5.3 % (19-41); Mean Corp Hgb Conc 33.5 g/gl (32-36); Mean Corpuscular Hgb 29.5 pg (27.0-32.0); Mean Corpuscular Volume 88.2 fL (81-99); Mean Platelet Vol. 9.8 fl (6.2-12.0); Monocyte# 2.26 X10^3/uL; Monocyte% 15.6 % (0-10); Neutrophil # 11.26 X10^3/uL (2.7-7.7); Neutrophil % 77.7 % (47-70); Platelet Count 235 K/mm3 (150-450); RBC Distribution Width CV 16.3 % (11.6-14.6); RBC Distribution Width SD 51.4 fl (35.1-43.9); Red Blood Count 2.54 M/mm3 (4.2-5.4); White Blood Count 14.5 K/mm3 (4.4-11.0)
[2017-11-06 12:17] LABS: Differential Indicated SCAN CRITERIA MET; POSITIVE COUNT NO; POSITIVE DIFFERENTIAL YES; POSITIVE MORPHOLOGY NO
[2017-11-06] MEDS: Furosemide 20 MG/2 ML VIAL IV (12:34)
[2017-11-06 12:41] LABS: ALB/GLOB Ratio 0.8 RATIO (0.9-2.4); AST(SGOT) 27 U/L (15-37); Alanine Aminotransfer ALT/SGPT 21 U/L (13-56); Albumin, Serum 2.4 g/dL (3.2-5.0); Alkaline Phosphatase 65 U/L (45-117); Anion Gap 8 (5-15); BUN 20 mg/dL (7-18); BUN/Creat Ratio 52.9 RATIO (10-20); Bilirubin, Direct 0.16 mg/dL (0.00-0.30); Calcium,Total 7.7 mg/dL (8.5-10.1); Chloride 96 mmol/L (98-107); Creatinine, Serum 0.38 mg/dL (0.55-1.02); EST Glomerular Filtration Rate 173 mL/min (>60); Est Glom Filt Rate - Afr Amer 210 mL/min (>60); Globulin 2.9 g/dL (2.2-4.2); Glucose 116 mg/dL (74-106); Potassium 4.1 mmol/L (3.5-5.1); Protein, Total 5.3 g/dL (6.4-8.2); Sodium Level 132 mmol/L (136-145)
--- NOTE | 2017-11-06 20:05 | NURSING ---
pt straight cath'ed x1 via sterile technique for order for urine samples- as pt completely incontinent. (Pt had been incontinent with x-lg amt urine prior. care provided) Pt had 550cc of urine out as result of straight cath. this RN notified shift boss to monitor- as pt may be retaining and overflow is what is coming out- will make pt susceptible to uti.
[2017-11-06 20:07] LABS: M R Staph aureus DNA By PCR Negative (Negative); Probe Check PASS; Specimen Processing Control PASS
[2017-11-06 20:25] LABS: Hematocrit 22.3 % (37-47); Hemoglobin 7.3 g/dl (12.0-15.0)
[2017-11-06 20:41] LABS: Bacteria 0 SEEN /hpf (None Seen); Mucous, Urine 0 SEEN /hpf (<or=2+); Red Blood Cells-Urine 0 SEEN /hpf (0-5); Squamous Epithelial Cells - UA 0 SEEN /hpf (5-10)
[2017-11-06 20:43] LABS: Color, Urine Yellow (Yellow); Glucose, Dipstick Normal (Normal); Ketone-Dipstick Negative (Negative); Leukocyte Esterase-Dipstick 25 /ul (Negative); Nitrite-Dipstick Negative (Negative); Occult Blood-Urine Negative /ul (Negative); Protein-Dipstick Negative (Negative); Urine Bilirubin Dipstick Negative (Negative); Urine Clarity Clear (Clear); Urine Urobilinogen Normal (Normal)
[2017-11-06 20:57] LABS: White Blood Cells 0-5 SEEN /hpf (0-5)
[2017-11-07] VITALS (10 sets, daily range): BP systolic 113–150; BP diastolic 61–76; PULSE 86–98; RESP 16–18; TEMP 36.5–37.3; O2SAT 92–98
[2017-11-07] MEDS: oxyCODONE 5 MG Tablet 10 MG PO ×2 (04:31→19:18)
[2017-11-07] MEDS: Nystatin Powder 15gm Bottle 1 APPLIC TOPICAL ×3 (04:47→21:17)
[2017-11-07] MEDS: Menthol/Lanolin/Calamine/Znox 113 GM Tube 1 APPLIC TOPICAL ×3 (04:47→21:17)
[2017-11-07 06:32] LABS: Absolute Lymphocyte Count 0.85 X10^3/ul (0.83-4.51); Absolute Neutrophil Count 10.4 X10^3/uL (2.0-7.7); Basophil# 0.02 X10^3/uL; Basophil% 0.1 % (0-1); Eosinophil# 0.12 X10^3/uL; Eosinophils% 0.9 % (0-5); Hematocrit 21.5 % (37-47); Hemoglobin 7.1 g/dl (12.0-15.0); Lymphocyte # 0.85 X10^3/ul (4.0); Lymphocyte % 6.3 % (19-41); Mean Corpuscular Hgb 29.7 pg (27.0-32.0); Mean Platelet Vol. 10.5 fl (6.2-12.0); Monocyte# 1.87 X10^3/uL; Neutrophil # 10.41 X10^3/uL (2.7-7.7); Neutrophil % 77.8 % (47-70); Platelet Count 259 K/mm3 (150-450); RBC Distribution Width CV 16.5 % (11.6-14.6); RBC Distribution Width SD 50.9 fl (35.1-43.9); Red Blood Count 2.39 M/mm3 (4.2-5.4); White Blood Count 13.4 K/mm3 (4.4-11.0)
[2017-11-07 06:55] LABS: Differential Indicated SCAN CRITERIA MET; POSITIVE COUNT NO; POSITIVE DIFFERENTIAL YES; POSITIVE MORPHOLOGY NO
[2017-11-07 06:57] LABS: Anion Gap 9 (5-15); BUN 19 mg/dL (7-18); BUN/Creat Ratio 47.9 RATIO (10-20); Calcium,Total 7.9 mg/dL (8.5-10.1); Chloride 95 mmol/L (98-107); EST Glomerular Filtration Rate 164 mL/min (>60); Est Glom Filt Rate - Afr Amer 198 mL/min (>60); Glucose 104 mg/dL (74-106); Potassium 4.7 mmol/L (3.5-5.1); Sodium Level 132 mmol/L (136-145)
[2017-11-07 07:26] LABS: Differential Comment SCANNED
[2017-11-07 09:21] LABS: Vitamin B12 200 pg/mL (211-911)
--- NOTE | 2017-11-07 09:52 | CASEMGMT ---
Addendum entered by Meghann Estevez 11/07/17 10:41: SW received message from Marta at [facility]. Per Marta she has no female beds available. SW waiting to hear from [facility] if they are able to accept pt. Original Note: Social Work Note SW placed a call to both [facility] and [facility] to check on referrals that were sent over the weekend. SW waiting to hear back from [facility] and [facility] in regards to referral. Plan: SNF pending acceptance and pre-cert Meghann Estevez AIR ANALYST, BPM DEVELOPER
[2017-11-07] MEDS: Furosemide 40 MG Tablet PO (10:44)
[2017-11-07] MEDS: Megestrol Acetate 400 MG/10 ML UDC PO (10:44)
[2017-11-07] MEDS: Iron Polysaccharide Complex 150 MG CAPSULE PO (10:44)
[2017-11-07] MEDS: Famotidine 20 MG Tablet 40 MG PO (10:45)
[2017-11-07] MEDS: Mirabegron 25 MG TAB.ER.24H PO (10:45)
[2017-11-07] MEDS: Cholestyramine/Sucrose 4 GM/PACKET PO (10:46)
[2017-11-07] MEDS: 0.9% NaCl Peripheral Flush Adult/Peds IV ×2 (10:50→21:18)
[2017-11-07] MEDS: oxyCODONE CR 15 MG Tablet PO ×2 (10:50→21:17)
[2017-11-07] MEDS: Senna/Docusate Sodium 1 Tablet 2 TABLET PO ×2 (11:01→21:18)
[2017-11-07] MEDS: Polyethylene Glycol 3350 17 GM PACKET PO (11:01)
--- NOTE | 2017-11-07 11:18 | PCM.PN.HOSP ---
Patient Problems: Active and Suspected Problems Hyperkalemia (Acute) Hypocalcemia (Acute) Subjective: In good spirits, pain controlled, no lighteadedness or dizziness Objective: General: Alert, Oriented x3, Cooperative HEENT: Atraumatic, EOMI, Normocephalic Neck: Supple, No JVD Lungs: Diminished, CTAB no wrrc Cardiovascular: Regular rate, regular rhythm, Normal S1, Normal S2, 3/6 RAFIQ at the apex Abdomen: Soft, Non Tender, Non-Distended Extremities: Capillary Refill Less than 3 Seconds, Edema Skin: No rashes, No breakdown Musculoskeletal: Arthritic Changes, Muscle Wasting, Tenderness - of B/L Lower legs with fracture and contractures Psych/Mental Status: Normal Affect, Appropriate Vitals/I&O's: Vital Signs Temp Pulse Resp BP Pulse Ox 98.8 F 87 17 122/61 H 98 11/07/17 10:07 11/07/17 10:07 11/07/17 10:07 11/07/17 10:07 11/07/17 10:07 Oxygen Flow Rate (L/min) 2 Oxygen Delivery Method Nasal Cannula Weight: 129 lb 10.109 oz Body Mass Index (BMI) 21.5 Intake and Output for Last 24 Hours 11/05/17 11/06/17 11/07/17 23:59 23:59 23:59 Intake Total 900 / 900 1000 / 1000 662 / 662 Output Total 550 / 550 Balance 900 / 900 450 / 450 662 / 662 Microbiology Past 72 Hours 11/06/17 16:30 Urine Catheter - Catheter Streptococcus pneumoniae Antigen (M - Final 11/06/17 16:30 Urine Catheter - Catheter Legionella Antigen - Final Laboratory Results 11/06/17 12:03: Sodium 132 L, Potassium 4.1, Chloride 96 L, Carbon Dioxide 28.0, Anion Gap 8, BUN 20 H, Creatinine 0.38 L, Estim Creat Clear Calc 39.70, Est GFR (MDRD) Af Amer 210, Est GFR (MDRD) Non-Af 173, BUN/Creatinine Ratio 52.9 H, Glucose 116 H, Calcium 7.7 L, Total Bilirubin 0.60, Direct Bilirubin 0.16, AST 27, ALT 21, Alkaline Phosphatase 65, Total Protein 5.3 L, Albumin 2.4 L, Globulin 2.9, Albumin/Globulin Ratio 0.8 L 11/06/17 12:03: WBC 14.5 H, RBC 2.54 L, Hgb 7.5 L, Hct 22.4 L, MCV 88.2, MCH 29.5, MCHC 33.5, RDW 16.3 H, RDW Differential 51.4 H, Plt Count 235, MPV 9.8, Immature Gran % (Auto) 0.600, Neut % (Auto) 77.7 H, Lymph % (Auto) 5.3 L, [place] % (Auto) 15.6 H, Eos % (Auto) 0.8, Baso % (Auto) 0.0, Absolute Neuts (auto) 11.3 H, Absolute Lymphs (auto) 0.76 L, Total Counted Not Reportable, Diff Path Review [facility] 11/06/17 16:30: Urine Color Yellow, Urine Clarity Clear, Urine pH 6.0, Ur Specific [place] 1.010, Urine Protein Negative, Urine Glucose (UA) Normal, Urine Ketones Negative, Urine Occult Blood Negative, Urine Nitrite Negative, Urine Bilirubin Negative, Urine Urobilinogen Normal, Ur Leukocyte Esterase 25 H, Urine RBC 0 SEEN, Urine WBC 0-5 SEEN, Ur Squamous Epith Cells 0 SEEN, Urine Bacteria 0 SEEN, Urine Mucus 0 SEEN 11/06/17 16:40: MRSA (PCR) Negative 11/06/17 19:57: Hgb 7.3 L, Hct 22.3 L 11/07/17 06:04: WBC 13.4 H, RBC 2.39 L, Hgb 7.1 L, Hct 21.5 L, MCV 90.0, MCH 29.7, MCHC 33.0, RDW 16.5 H, RDW Differential 50.9 H, Plt Count 259, MPV 10.5, Immature Gran % (Auto) 0.900, Neut % (Auto) 77.8 H, Lymph % (Auto) 6.3 L, [place] % (Auto) 14.0 H, Eos % (Auto) 0.9, Baso % (Auto) 0.1, Absolute Neuts (auto) 10.4 H, Absolute Lymphs (auto) 0.85, Total Counted Not Reportable, Differential Comment SCANNED, Diff Path Review [facility] 11/07/17 06:04: Sodium 132 L, Potassium 4.7, Chloride 95 L, Carbon Dioxide 28.0, Anion Gap 9, BUN 19 H, Creatinine 0.40 L, Estim Creat Clear Calc 39.70, Est GFR (MDRD) Af Amer 198, Est GFR (MDRD) Non-Af 164, BUN/Creatinine Ratio 47.9 H, Glucose 104, Calcium 7.9 L, Folate 14.50 11/07/17 06:04: Vitamin B12 200 L, Vitamin D 25-Hydroxy 12.0 L 11/07/17 08:10: Blood Type A POSITIVE, Antibody Screen NEGATIVE, Crossmatch See Detail Current Medications Hydrocodone Bitart/Acetaminophen ([place] 5mg-325mg) 1 tablet PO Q4H PRN PRN PRN Reason: mod pain Last Admin: 11/05/17 20:13 Dose: 1 tablet Calamine/Phenol (Calmoseptine Ointment) 1 applic TOPICAL TID [facility] PRN Reason: Protocol Last Admin: 11/07/17 04:47 Dose: 1 applicatio Cholestyramine Resin (Questran 4gm Packet) 4 gm PO DAILY [facility] Last Admin: 11/07/17 10:46 Dose: 4 gm Famotidine (Pepcid) 40 mg PO DAILY [facility] Last Admin: 11/07/17 10:45 Dose: 40 mg Furosemide (Lasix) 40 mg PO DAILY [facility] Last Admin: 11/07/17 10:44 Dose: 40 mg Pantoprazole Sodium 40 mg/ (Sodium Chloride) 110 mls @ 330 mls/hr IV Q12 [facility] Last Admin: 11/07/17 10:46 Dose: 330 mls/hr Lorazepam (Ativan) 0.5 mg PO DAILY PRN PRN PRN Reason: ANXIETY Magnesium Hydroxide (Milk Of Magnesia) 30 ml PO DAILY PRN PRN PRN Reason: Constipation Megestrol Acetate (Megace Udc) 400 mg PO DAILY [facility] Last Admin: 11/07/17 10:44 Dose: 400 mg Morphine Sulfate () 1 - 2 mg IV Q4H PRN PRN PRN Reason: SEVERE PAIN (6-12/07) Last Admin: 11/05/17 00:07 Dose: 2 mg Nutritional Formula (Lactose Free) (Ensure Enlive) 120 ml PO 4X/DAY [facility] Last Admin: 11/07/17 11:01 Dose: 120 ml Nystatin (Mycostatin Powder) 1 applic TOPICAL TID [place] PRN Reason: Protocol Last Admin: 11/07/17 04:47 Dose: 1 applicatio Oxycodone HCl (Oxyir) 10 mg PO Q4H PRN PRN PRN Reason: SEVERE PAIN (-12/07) Last Admin: 11/07/17 04:31 Dose: 10 mg Oxycodone HCl (Oxycontin) 15 mg PO BID [facility] Last Admin: 11/07/17 10:50 Dose: 15 mg Polyethylene Glycol (Miralax) 17 gm PO DAILY [facility] Last Admin: 11/07/17 11:01 Dose: 17 gm [facility]ysaccharide [facility] ([facility] 150[facility] Last Admin: 11/07/17 10:44 Dose: 150 mg Senna/Docusate Sodium (Senokot-S, Lynette-Colace) 2 tablet PO BID [facility] Last Admin: 11/07/17 11:01 Dose: 2 tablet Medical Necessity - Tobacco Use Smoking Status: Never smoker Assessment/Plan All Active Problems Hyperkalemia (Acute) Hypocalcemia (Acute) Cellulitis of right lower extremity (Resolved) Abdominal pain (Resolved) Incarcerated left inguinal hernia (Resolved) 1. 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 Acute hypoxic resp failure- resolved - given an extra dose of lasix - Will monitor 3. Cirrhosis - LFT normal but has a history of varices 4. Murmur - In here apex 3-/6 - No echo in recent history and given her current health, no intervention could be performed 5. 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
--- NOTE | 2017-11-07 12:17 | CASEMGMT ---
Addendum entered by Meghann Estevez 11/07/17 15:05: NISHANT spoke with Bel at [facility]. Per PT/OT notes pt has refused to work with PT/OT at this time. Bel states that can [facility]. Bel states that she needs convalescent 7000 completed in [facility] NISHANT completed convalescent 7000 in [place] and faxed to Bel at [facility]. Bel asked for documentation regarding ADLs. SW in to speak with pt. SW informed pt that at a SNF she will have to participate in therapy and she needs to attempt therapy at [facility]. Pt states understanding. SW informed pt that she will need to have a skilled need for insurance to pay and if she doesn't then it would be private pay. Pt states understanding. Pt states that she lives at home with her , daughter, daughter's fiance and granddaughter. Pt states that she has good relationships with these family members. Pt denied physical/emotional abuse. Pt states that she has a history of anxiety and depression and is currently taking medications. Pt states that she gets anxiety and depression medication through her PCP. NISHANT placed a call to Bel at [facility] and updated her that this SW encouraged pt to attempt PT/OT so pre-cert can be obtained. Bel states that [facility] Original Note: Social Work Note SW received message from Bel at [facility] stating that she is able to accept pt. NISHANT faxed updated clinicals including PT/OT to Bel at [facility] and informed Bel to submit for pre-cert. Plan: [facility] pending pre-cert Meghann Estevez ARCHEOLOGIST, FOOD PREPARATION SUPERVISOR
[2017-11-07 13:59] LABS: Pathologist Review Reviewed
[2017-11-07 14:02] LABS: Pathologist Review Reviewed
--- NOTE | 2017-11-07 19:18 | NURSING ---
came to desk yelling at nurses that his was not getting care. This RN to bedside and and patient arguing. Patient reports she is in pain and food has been withheld all day. This nurse heated up the dinner that was sat within reach. And medicated for pain.
[2017-11-07] MEDS: LORazepam 0.5 MG Tablet PO (21:17)
[2017-11-08 03:00] VITALS: BP 130/81; PULSE 97; RESP 18; TEMP 37.2; O2SAT 94
[2017-11-08] MEDS: Menthol/Lanolin/Calamine/Znox 113 GM Tube 1 APPLIC TOPICAL ×3 (05:54→21:02)
[2017-11-08] MEDS: Nystatin Powder 15gm Bottle 1 APPLIC TOPICAL ×3 (05:55→21:02)
[2017-11-08 06:06] LABS: Absolute Neutrophil Count 11.7 X10^3/uL (2.0-7.7); Basophil# 0.01 X10^3/uL; Basophil% 0.1 % (0-1); Differential Indicated SCAN CRITERIA MET; Eosinophil# 0.25 X10^3/uL; Eosinophils% 1.7 % (0-5); Hemoglobin 7.2 g/dl (12.0-15.0); Lymphocyte % 5.3 % (19-41); Mean Corp Hgb Conc 32.7 g/gl (32-36); Mean Corpuscular Hgb 29.3 pg (27.0-32.0); Mean Corpuscular Volume 89.4 fL (81-99); Mean Platelet Vol. 10.3 fl (6.2-12.0); Monocyte# 2.26 X10^3/uL; Neutrophil # 11.69 X10^3/uL (2.7-7.7); Neutrophil % 77.4 % (47-70); POSITIVE COUNT NO; POSITIVE DIFFERENTIAL YES; POSITIVE MORPHOLOGY NO; Platelet Count 234 K/mm3 (150-450); RBC Distribution Width CV 16.4 % (11.6-14.6); RBC Distribution Width SD 50.6 fl (35.1-43.9); Red Blood Count 2.46 M/mm3 (4.2-5.4); White Blood Count 15.1 K/mm3 (4.4-11.0)
[2017-11-08 06:11] LABS: Anion Gap 7 (5-15); BUN 19 mg/dL (7-18); BUN/Creat Ratio 54.6 RATIO (10-20); Calcium,Total 7.8 mg/dL (8.5-10.1); Chloride 97 mmol/L (98-107); Creatinine, Serum 0.35 mg/dL (0.55-1.02); EST Glomerular Filtration Rate 191 mL/min (>60); Est Glom Filt Rate - Afr Amer 231 mL/min (>60); Glucose 104 mg/dL (74-106); Potassium 4.5 mmol/L (3.5-5.1); Sodium Level 134 mmol/L (136-145)
[2017-11-08 06:45] LABS: Differential Comment SCANNED
[2017-11-08 09:00] VITALS: BP 116/65; PULSE 102; RESP 18; TEMP 37.3; O2SAT 96
--- NOTE | 2017-11-08 09:40 | CASEMGMT ---
Addendum entered by Meghann Estevez 11/08/17 12:13: SW received message from Bel at [facility] stating that she got approval from pt's [facility] to bring pt to [facility]. Per Physician pt is not ready for discharge today. SW placed a call to Bel at [facility] and updated her on this. Pt is able to discharge to [facility] when medically cleared. Original Note: Social Work Note NISHANT faxed updated clinicals to Bel at [facility]. Plan: [facility] pending pre-cert Meghann Estevez INSIDE WIREMAN, TANK FILLER
[2017-11-08] MEDS: Cholestyramine/Sucrose 4 GM/PACKET PO (10:13)
[2017-11-08] MEDS: Polyethylene Glycol 3350 17 GM PACKET PO (10:13)
[2017-11-08] MEDS: Mirabegron 25 MG TAB.ER.24H PO (10:14)
[2017-11-08] MEDS: Senna/Docusate Sodium 1 Tablet 2 TABLET PO ×2 (10:14→21:02)
[2017-11-08] MEDS: Furosemide 40 MG Tablet PO (10:14)
[2017-11-08] MEDS: Iron Polysaccharide Complex 150 MG CAPSULE PO (10:15)
[2017-11-08] MEDS: Famotidine 20 MG Tablet 40 MG PO (10:17)
[2017-11-08] MEDS: Megestrol Acetate 400 MG/10 ML UDC PO (10:17)
[2017-11-08] MEDS: oxyCODONE CR 15 MG Tablet PO ×2 (10:26→21:03)
[2017-11-08] MEDS: Cyanocobalamin 500 MCG Tablet 1000 MCG PO (10:26)
--- NOTE | 2017-11-08 10:41 | PCM.PN.HOSP ---
Patient Problems: Active and Suspected Problems Hyperkalemia (Acute) Hypocalcemia (Acute) Subjective: States she is feeling ok today and her pain is controlled, no lightheadedness or dizziness Objective: General: Alert, Oriented x3, Cooperative HEENT: Atraumatic, EOMI, Normocephalic Neck: Supple, No JVD Lungs: Diminished, CTAB no wrrc Cardiovascular: Regular rate, regular rhythm, Normal S1, Normal S2, 3/6 RAFIQ at the apex Abdomen: Soft, Non Tender, Non-Distended Extremities: Capillary Refill Less than 3 Seconds, Edema Skin: No rashes, No breakdown Musculoskeletal: Arthritic Changes, Muscle Wasting, Tenderness - of B/L Lower legs with fracture and contractures, significant ecchymosis of the RLE Psych/Mental Status: Normal Affect, Appropriate Vitals/I&O's: Vital Signs Temp Pulse Resp BP Pulse Ox 99 F 97 18 130/81 H 94 11/08/17 03:00 11/08/17 03:00 11/08/17 03:00 11/08/17 03:00 11/08/17 03:00 Oxygen Flow Rate (L/min) 2 Oxygen Delivery Method Nasal Cannula Weight: 129 lb 10.109 oz Body Mass Index (BMI) 21.5 Intake and Output for Last 24 Hours 11/06/17 11/07/17 11/08/17 23:59 23:59 23:59 Intake Total 1000 / 1000 1475 / 1475 750 / 750 Output Total 550 / 550 250 / 250 Balance 450 / 450 1225 / 1225 750 / 750 Microbiology Past 72 Hours 11/07/17 12:10 Stool Stool Occult Blood (GRIS) - Final Occult Blood Positive 11/06/17 16:30 Urine Catheter - Catheter Streptococcus pneumoniae Antigen (M - Final 11/06/17 16:30 Urine Catheter - Catheter Legionella Antigen - Final Laboratory Results 11/06/17 12:03: Diff Path Review Reviewed 11/07/17 06:04: Diff Path Review Reviewed 11/07/17 08:10: Blood Type A POSITIVE, Antibody Screen NEGATIVE, Crossmatch See Detail 11/08/17 05:20: WBC 15.1 H, RBC 2.46 L, Hgb 7.2 L, Hct 22.0 L, MCV 89.4, MCH 29.3, MCHC 32.7, RDW 16.4 H, RDW Differential 50.6 H, Plt Count 234, MPV 10.3, Immature Gran % (Auto) 0.500, Neut % (Auto) 77.4 H, Lymph % (Auto) 5.3 L, [place] % (Auto) 15.0 H, Eos % (Auto) 1.7, Baso % (Auto) 0.1, Absolute Neuts (auto) 11.7 H, Absolute Lymphs (auto) 0.80 L, Total Counted Not Reportable, Differential Comment SCANNED, Diff Path Review June [facility]oll 11/08/17 05:20: Sodium 134 L, Potassium 4.5, Chloride 97 L, Carbon Dioxide 30.0, Anion Gap 7, BUN 19 H, Creatinine 0.35 L, Estim Creat Clear Calc 39.70, Est GFR (MDRD) Af Amer 231, Est GFR (MDRD) Non-Af 191, BUN/Creatinine Ratio 54.6 H, Glucose 104, Calcium 7.8 L Current Medications Hydrocodone Bitart/Acetaminophen ([place] 5mg-325mg) 1 tablet PO Q4H PRN PRN PRN Reason: mod pain Last Admin: 11/05/17 20:13 Dose: 1 tablet Calamine/Phenol (Calmoseptine Ointment) 1 applic TOPICAL TID [facility] PRN Reason: Protocol Last Admin: 11/08/17 05:54 Dose: 1 applicatio Cholestyramine Resin (Questran 4gm Packet) 4 gm PO DAILY [facility] Last Admin: 11/08/17 10:13 Dose: 4 gm Cyanocobalamin (Vitamin B12) 1,000 mcg PO DAILY@0800 [facility] Last Admin: 11/08/17 10:26 Dose: 1,000 mcg Ergocalciferol (Vitamin D) 50,000 unit PO Q7D [facility] Last Admin: 11/08/17 10:26 Dose: 50,000 unit Famotidine (Pepcid) 40 mg PO DAILY [facility] Last Admin: 11/08/17 10:17 Dose: 40 mg Furosemide (Lasix) 40 mg PO DAILY [facility] Last Admin: 11/08/17 10:14 Dose: 40 mg Lorazepam (Ativan) 0.5 mg PO DAILY PRN PRN PRN Reason: ANXIETY Last Admin: 11/07/17 21:17 Dose: 0.5 mg Magnesium Hydroxide (Milk Of Magnesia) 30 ml PO DAILY PRN PRN PRN Reason: Constipation Megestrol Acetate (Megace Udc) 400 mg PO DAILY [facility] Last Admin: 11/08/17 10:17 Dose: 400 mg Morphine Sulfate () 1 - 2 mg IV Q4H PRN PRN PRN Reason: SEVERE PAIN (6-12/07) Last Admin: 11/05/17 00:07 Dose: 2 mg Nutritional Formula (Lactose Free) (Ensure Enlive) 120 ml PO 4X/DAY [facility] Last Admin: 11/08/17 10:17 Dose: 120 ml Nystatin (Mycostatin Powder) 1 applic TOPICAL TID [facility] PRN Reason: Protocol Last Admin: 11/08/17 05:55 Dose: 1 applicatio Oxycodone HCl (Oxyir) 10 mg PO Q4H PRN PRN PRN Reason: SEVERE PAIN (6-12/07) Last Admin: 11/07/17 19:18 Dose: 10 mg Oxycodone HCl (Oxycontin) 15 mg PO BID [facility] Last Admin: 11/08/17 10:26 Dose: 15 mg Polyethylene Glycol (Miralax) 17 gm PO DAILY [facility] Last Admin: 11/08/17 10:13 Dose: 17 gm Polysaccharide Iron [facility] (Ferrex 150) [facility] Last Admin: 11/08/17 10:15 Dose: 150 mg Senna/Docusate Sodium (Senokot-S, Lynette-Colace) 2 tablet PO BID [facility] Last Admin: 11/08/17 10:14 Dose: 2 tablet Medical Necessity - Tobacco Use Smoking Status: Never smoker Assessment/Plan All Active Problems Hyperkalemia (Acute) Hypocalcemia (Acute) Cellulitis of right lower extremity (Resolved) Abdominal pain (Resolved) Incarcerated left inguinal hernia (Resolved) 1. fracture of the left femur and right tibial fracture after fall/chronic contractures/Anemia acute on chronic - She is chronically imobile and is wheel chair bound and has her to transfer her - Ortho wants non-op management given her chronic contractures - H/H is dropping which is concerning in the setting of a femur fracture, will transfuse and monitor H/H - The anemia may force repair, if necessary will contact ortho - Hemoccult is positive for blood and given her h/o GI Bleed, will switch from pepcid to a PPI and c/s surgery for possible EGD - She had an AVM in her ascending colon and that may be where it is again - DC DVT ppx 2. Acute hypoxic resp failure- resolved - given an extra dose of lasix - Will monitor 3. Cirrhosis - LFT normal but has a history of varices 4. Murmur - In here apex 3-06/03 - No echo in recent history and given her current health, no intervention could be performed 5. 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
--- NOTE | 2017-11-08 10:44 | PN_ITS ---
Patient Problems: Active and Suspected Problems Hyperkalemia (Acute) Hypocalcemia (Acute) Subjective: States she is feeling ok today and her pain is controlled, no lightheadedness or dizziness Objective: General: Alert, Oriented x3, Cooperative HEENT: Atraumatic, EOMI, Normocephalic Neck: Supple, No JVD Lungs: Diminished, CTAB no wrrc Cardiovascular: Regular rate, regular rhythm, Normal S1, Normal S2, 3/6 RAFIQ at the apex Abdomen: Soft, Non Tender, Non-Distended Extremities: Capillary Refill Less than 3 Seconds, Edema Skin: No rashes, No breakdown Musculoskeletal: Arthritic Changes, Muscle Wasting, Tenderness - of B/L Lower legs with fracture and contractures, significant ecchymosis of the RLE Psych/Mental Status: Normal Affect, Appropriate Vitals/I&O's: Vital Signs Temp Pulse Resp BP Pulse Ox 99 F 97 18 130/81 H 94 11/08/17 03:00 11/08/17 03:00 11/08/17 03:00 11/08/17 03:00 11/08/17 03:00 Oxygen Flow Rate (L/min) 2 Oxygen Delivery Method Nasal Cannula Weight: 129 lb 10.109 oz Body Mass Index (BMI) 21.5 Intake and Output for Last 24 Hours 11/06/17 11/07/17 11/08/17 23:59 23:59 23:59 Intake Total 1000 / 1000 1475 / 1475 750 / 750 Output Total 550 / 550 250 / 250 Balance 450 / 450 1225 / 1225 750 / 750 Microbiology Past 72 Hours 11/07/17 12:10 Stool Stool Occult Blood (GRIS) - Final Occult Blood Positive 11/06/17 16:30 Urine Catheter - Catheter Streptococcus pneumoniae Antigen ( M - Final 11/06/17 16:30 Urine Catheter - Catheter Legionella Antigen - Final Laboratory Results 11/06/17 12:03: Diff Path Review Reviewed 11/07/17 06:04: Diff Path Review Reviewed 11/07/17 08:10: Blood Type A POSITIVE, Antibody Screen NEGATIVE, Crossmatch See Detail 11/08/17 05:20: WBC 15.1 H, RBC 2.46 L, Hgb 7.2 L, Hct 22.0 L, MCV 89.4, MCH 29.3, MCHC 32.7, RDW 16.4 H, RDW Differential 50.6 H, Plt Count 234, MPV 10.3, Immature Gran % (Auto) 0.500, Neut % (Auto) 77.4 H, Lymph % (Auto) 5.3 L, [place] % (Auto) 15.0 H, Eos % (Auto) 1.7, Baso % (Auto) 0.1, Absolute Neuts (auto) 11.7 H, Absolute Lymphs (auto) 0.80 L, Total Counted Not Reportable, Differential Comment SCANNED, Diff Path Review June foll 11/08/17 05:20: Sodium 134 L, Potassium 4.5, Chloride 97 L, Carbon Dioxide 30.0 , Anion Gap 7, BUN 19 H, Creatinine 0.35 L, Estim Creat Clear Calc 39.70, Est GFR (MDRD) Af Amer 231, Est GFR (MDRD) Non-Af 191, BUN/Creatinine Ratio 54.6 H, Glucose 104, Calcium 7.8 L Current Medications Hydrocodone Bitart/Acetaminophen ([place] 5mg-325mg) 1 tablet PO Q4H PRN PRN PRN Reason: mod pain Last Admin: 11/05/17 20:13 Dose: 1 tablet Calamine/Phenol (Calmoseptine Ointment) 1 applic TOPICAL TID [facility] PRN Reason: Protocol Last Admin: 11/08/17 05:54 Dose: 1 applicatio Cholestyramine Resin (Questran 4gm Packet) 4 gm PO DAILY [facility] Last Admin: 11/08/17 10:13 Dose: 4 gm Cyanocobalamin (Vitamin B12) 1,000 mcg PO DAILY@0800 [facility] Last Admin: 11/08/17 10:26 Dose: 1,000 mcg Ergocalciferol (Vitamin D) 50,000 unit PO Q7D [facility] Last Admin: 11/08/17 10:26 Dose: 50,000 unit Famotidine (Pepcid) 40 mg PO DAILY [facility] Last Admin: 11/08/17 10:17 Dose: 40 mg Furosemide (Lasix) 40 mg PO DAILY [facility] Last Admin: 11/08/17 10:14 Dose: 40 mg Lorazepam (Ativan) 0.5 mg PO DAILY PRN PRN PRN Reason: ANXIETY Last Admin: 11/07/17 21:17 Dose: 0.5 mg Magnesium Hydroxide (Milk Of Magnesia) 30 ml PO DAILY PRN PRN PRN Reason: Constipation Megestrol Acetate (Megace Udc) 400 mg PO DAILY [facility] Last Admin: 11/08/17 10:17 Dose: 400 mg Morphine Sulfate () 1 - 2 mg IV Q4H PRN PRN PRN Reason: SEVERE PAIN (6-12/07) Last Admin: 11/05/17 00:07 Dose: 2 mg Nutritional Formula (Lactose Free) (Ensure Enlive) 120 ml PO 4X/DAY [facility] Last Admin: 11/08/17 10:17 Dose: 120 ml Nystatin (Mycostatin Powder) 1 applic TOPICAL TID [facility] PRN Reason: Protocol Last Admin: 11/08/17 05:55 Dose: 1 applicatio Oxycodone HCl (Oxyir) 10 mg PO Q4H PRN PRN PRN Reason: SEVERE PAIN (6-12/07) Last Admin: 11/07/17 19:18 Dose: 10 mg Oxycodone HCl (Oxycontin) 15 mg PO BID [facility] Last Admin: 11/08/17 10:26 Dose: 15 mg Polyethylene Glycol (Miralax) 17 gm PO DAILY [facility] Last Admin: 11/08/17 10:13 Dose: 17 gm Polysaccharide [facility] ([facility]rex 150) [facility] Last Admin: 11/08/17 10:15 Dose: 150 mg Senna/Docusate Sodium (Senokot-S, Lynette-Colace) 2 tablet PO BID [facility] Last Admin: 11/08/17 10:14 Dose: 2 tablet Medical Necessity - Tobacco Use Smoking Status: Never smoker Assessment/Plan All Active Problems Hyperkalemia (Acute) Hypocalcemia (Acute) Cellulitis of right lower extremity (Resolved) Abdominal pain (Resolved) Incarcerated left inguinal hernia (Resolved) 1. fracture of the left femur and right tibial fracture after fall/chronic contractures/Anemia acute on chronic - She is chronically imobile and is wheel chair bound and has her to transfer her - Ortho wants non-op management given her chronic contractures - H/H is dropping which is concerning in the setting of a femur fracture, will transfuse and monitor H/H - The anemia may force repair, if necessary will contact ortho - Hemoccult is positive for blood and given her h/o GI Bleed, will switch from pepcid to a PPI and c/s surgery for possible EGD - She had an AVM in her ascending colon and that may be where it is again - DC DVT ppx 2. Acute hypoxic resp failure- resolved - given an extra dose of lasix - Will monitor 3. Cirrhosis - LFT normal but has a history of varices 4. Murmur - In here apex 3-06/03 - No echo in recent history and given her current health, no intervention could be performed 5. 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
[2017-11-08 11:12] VITALS: O2SAT 93
[2017-11-08 11:21] VITALS: O2SAT 93
[2017-11-08] MEDS: oxyCODONE 5 MG Tablet 10 MG PO ×2 (13:23→18:53)
--- NOTE | 2017-11-08 14:31 | CHAPLAIN ---
patient was eating lunch; pt agreed that coming back another time would be better so she can focus on eating lunch;
[2017-11-08 15:00] VITALS: BP 136/84; PULSE 101; RESP 18; TEMP 36.8; O2SAT 97
[2017-11-08 15:09] LABS: Absolute Lymphocyte Count 0.67 X10^3/ul (0.83-4.51); Basophil# 0.01 X10^3/uL; Basophil% 0.1 % (0-1); Eosinophil# 0.09 X10^3/uL; Eosinophils% 0.5 % (0-5); Hematocrit 24.1 % (37-47); Hemoglobin 8.1 g/dl (12.0-15.0); Lymphocyte # 0.67 X10^3/ul (4.0); Lymphocyte % 4.1 % (19-41); Mean Corp Hgb Conc 33.6 g/gl (32-36); Mean Corpuscular Hgb 30.3 pg (27.0-32.0); Mean Corpuscular Volume 90.3 fL (81-99); Mean Platelet Vol. 9.8 fl (6.2-12.0); Monocyte# 1.71 X10^3/uL; Monocyte% 10.3 % (0-10); Neutrophil # 13.98 X10^3/uL (2.7-7.7); Neutrophil % 84.5 % (47-70); Platelet Count 252 K/mm3 (150-450); RBC Distribution Width CV 16.5 % (11.6-14.6); RBC Distribution Width SD 51.2 fl (35.1-43.9); Red Blood Count 2.67 M/mm3 (4.2-5.4); White Blood Count 16.5 K/mm3 (4.4-11.0)
[2017-11-08 15:15] LABS: Differential Indicated SCAN CRITERIA MET; POSITIVE COUNT NO; POSITIVE DIFFERENTIAL YES; POSITIVE MORPHOLOGY NO
[2017-11-08 15:16] LABS: Pathologist Review Reviewed
--- NOTE | 2017-11-08 15:23 | ECHOD_ITS ---
Reason For Study: MURMUR Procedure This was a 2D Doppler, Color Flow transthoracic echocardiogram. The study was technically difficult. Pt supine and tachycardic. Exam performed portable in patient room. Left Ventricle Normal LV size. Left ventricular systolic function is hyperdynamic. The estimated ejection fraction is 70 %. Transmitral and pulmonary venous doppler flow suggestive of impaired relaxation of left ventricle. Transmitral diastolic flow velocities suggest mild (stage 1) diastolic dysfunction (reversed pattern). No regional wall motion abnormalities noted. Right Ventricle Normal RV size. Normal systolic function. Atria Normal left atrium. Normal right atrium. Mitral Valve Normal mitral valve. Tricuspid Valve Normal tricuspid valve. Mild (1+) tricuspid valve insufficiency. Pulmonary artery systolic pressure is 33 mmHg. Aortic Valve Trisinus/trileaflet aortic valve. Moderate focal aortic valve calcification. Mild to moderate aortic stenosis. Peak aortic valve gradient 38 mmHg. Mean aortic valve gradient 27 mmHg. Calculated aortic valve area (continuity equation) is 1.4 cm2. Pulmonic Valve Normal pulmonic valve. Great Vessels Normal aortic root. The pulmonary artery is normal size. Normal inferior vena cava. Pericardium/Pleural No pericardial effusion. MMode/2D Measurements & Calculations LVIDd: 3.3 cm IVSd: 1.1 cm LVOT diam: 2.0 cm LVIDs: 1.9 cm LVPWd: 1.0 cm LVOT area: 3.1 cm2 FS: 43.2 % Ao root diam: 3.4 cm LAV(MOD-bp): 82.5 ml Aortic Valve Planimetry: 1.4 cm2 LA dimension: 4.3 cm LAV(MOD-bp) Indexed: 50.3 ml/m2 LAV(MOD-sp2): 107.3 ml LAV(MOD-sp4): 50.6 ml LA A4 area: 18.2 cm2 RA A4 area: 12.7 cm2 Time Measurements MV dec time: 0.22 sec Doppler Measurements & Calculations MV E max balwinder: 92.6 cm/sec Lat Peak E' Balwinder: 9.4 cm/sec Med Peak E' Balwinder: 6.2 cm/sec MV A max balwinder: 205.0 cm/sec E/E' lat: 9.9 E/E' med: 14.8 MV E/A: 0.45 MV V2 max: 238.4 cm/sec Ao V2 max: 308.8 cm/sec TR max balwinder: 264.6 cm/sec MV max P.8 mmHg Ao max P.6 mmHg TR max P.0 mmHg MV V2 mean: 137.4 cm/sec Ao V2 mean: 251.7 cm/sec MV mean P.1 mmHg Ao mean P.8 mmHg MV V2 VTI: 32.6 cm Ao V2 VTI: 44.7 cm Interpretation Summary Normal LV size. Left ventricular systolic function is hyperdynamic. The estimated ejection fraction is 70 %. Transmitral diastolic flow velocities suggest mild (stage 1) diastolic dysfunction (reversed pattern). Moderate focal aortic valve calcification. Mild to moderate aortic stenosis. Calculated aortic valve area (continuity equation) is 1.4 cm2. Ordering Physician: Kotsonis, Reid Referring Physician: SHERICE GUTIÉRREZ CHI Performed By: Margaret Mccarthy, MARY, RVT
--- NOTE | 2017-11-08 16:43 | CASEMGMT ---
Social Work Note SW placed a call to pt's CM Nicole Dubon at [facility] and left her a message informing her that pt is still at [facility] and the plan is for pt to go to [facility] when medically cleared. Meghann Estevez AIRCRAFT FUSELAGE FRAMER, VULCANIZING MACHINE OPERATOR
[2017-11-08] MEDS: HYDROcodone Bitartrate/Apap 5/325 Tablet PO (16:55)
--- NOTE | 2017-11-08 17:20 | CON.PCM_ITS ---
Reason for Consult Date of Consultation: 11/08/17 Reason for Consultation: Hemoccult positive stools, anemia History of Present Illness: The patient is a 81 year old F with a complex medical history. She fell last week on both knees. She sustained a right tibial fracture and a left distal femur fracture. the patient was noted to have anemia when she presented. Since hospitalization, her hemoglobin has dropped mildly, but continuously. she received one unit of packed red cells yesterday but her hemoglobin did not respond appropriately. Stool was obtained for Hemoccult and this was Hemoccult positive. The patient denies abdominal pain. She notes no nausea or vomiting or other GI complaints. She noted darker stools a few months previously, but now notes relatively normal to slightly yuriy-colored stools. She denies true melena, hematochezia, or hematemesis. I performed upper and lower endoscopy for GI bleeding in 2012. At that time, the patient was found to have mild gastritis and mild duodenitis with what appeared to be some old blood in the stomach. She was also noted to have grade 2 esophageal varices but those were not felt to have been a cause of recent bleeding. Colonoscopy was performed which was normal save for a very small AVM in the ascending colon. Currently, the patient notes significant leg pain with moving. Due to her overall debilitated status, the fact that she is pretty much wheelchair dependent, and that she cannot straighten her legs currently due to contractures , it was not felt that splinting or surgical repair would be advisable. The patient notes pain with attempts to move her bowels just from movement trying to get on and off the commode. 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; EGD 09/2012 - mild gastritis, grade 2 esophageal varices (liver biopsy no cirrhosis) History of Clostridium difficile infection (Chronic) Depression (Chronic) Anxiety (Chronic) Hypokalemia (Chronic) OAB (overactive bladder) (Chronic) GERD (gastroesophageal reflux disease) (Chronic) Constipation (Chronic) Diarrhea (Chronic) Edema (Chronic) Debility (Chronic) IBS (irritable bowel syndrome) (Chronic) Knee pain (Chronic) Generalized osteoarthritis (Chronic) GI bleed (Chronic) Esophageal varices (Chronic) Hypertension (Chronic) Allergies belladonna alkaloids [Belladonna Alkaloids] Allergy (Verified 11/04/17 00:31) Unknown celecoxib [From Celebrex] Adverse Reaction (Verified 11/04/17 00:31) Diarrhea Home Medications: Ambulatory Orders Medication Instructions Recorded Famotidine [Pepcid] 40 mg PO DAILY 04/14/16 Lorazepam [Ativan] 0.5 mg PO DAILY PRN PRN #3 tablet 01/13/17 Iron Polysaccharide Complex 150 mg PO DAILYCM #30 capsule 01/24/17 [Ferrex 150] Cholestyramine (with Sugar) 4 g PO DAILY 09/15/17 [Cholestyramine Powder] Furosemide [Lasix] 40 mg PO DAILY 09/15/17 Hydrocodone/Acetaminophen [[place] 1 ea PO Q4H PRN PRN #20 tab 09/15/17 5-325 Tablet] Megestrol Acetate [Megace Udc] 400 mg PO DAILY 09/15/17 Mirabegron [Myrbetriq] 25 mg PO DAILY 09/15/17 Potassium Chloride [Klor-Con M20] 20 meq PO TID 09/15/17 Surgical History: appendectomy, cataract, cholecystectomy, herniorrhaphy, hysterectomy, total knee arthroplasty - Bilateral. 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 CONSULTANT History: No pertinent SUCCESSFACTORS CONSULTANT history Lives: With Family Smoking Status: Never smoker Alcohol: None - *Family History Maternal History Items: No pertinent history Review of Systems Constitutional: Reports: Weakness, Fatigue Cardiovascular: Denies: Chest Pain, Palpitations Respiratory: Denies: Cough, Shortness of breath at rest, Sputum production Gastrointestinal: Denies: Abdominal Pain, Nausea, Vomiting Patient Problems: Active and Suspected Problems Hyperkalemia (Acute) Hypocalcemia (Acute) - Physical Exam General: Alert, Oriented x3, Cooperative Lungs: Clear to auscultation, Normal air movement Cardiovascular: Regular rate, Murmur - loud systolic murmur which seems to radiate to both carotid arteries Abdomen: Bowel Sounds Present, Soft, Non Tender Vital Signs Temp Pulse Resp BP Pulse Ox 98.2 F 101 H 18 136/84 H 97 11/08/17 15:00 11/08/17 15:00 11/08/17 15:00 11/08/17 15:00 11/08/17 15:00 Oxygen Flow Rate (L/min) 2 Oxygen Delivery Method Nasal Cannula Weight: 58.8 kg Body Mass Index (BMI) 21.5 Intake and Output for Last 24 Hours 11/06/17 11/07/17 11/08/17 23:59 23:59 23:59 Intake Total 1000 / 1000 1475 / 1475 750 / 750 Output Total 550 / 550 250 / 250 Balance 450 / 450 1225 / 1225 750 / 750 Microbiology Past 72 Hours 11/06/17 16:30 Urine Culture - Final Urine Catheter - Catheter Gabi albicans 11/07/17 12:10 Stool Occult Blood (GRIS) - Final Stool Occult Blood Positive 11/06/17 16:30 Streptococcus pneumoniae Antigen (M - Final Urine Catheter - Catheter 11/06/17 16:30 Legionella Antigen - Final Urine Catheter - Catheter Laboratory Tests Past 24 Hrs 11/07/17 11/08/17 11/08/17 08:10 05:20 05:20 WBC 15.1 H RBC 2.46 L Hgb 7.2 L Hct 22.0 L MCV 89.4 MCH 29.3 MCHC 32.7 RDW 16.4 H RDW Differential 50.6 H Plt Count 234 MPV 10.3 Immature Gran % (Auto) 0.500 Neut % (Auto) 77.4 H Lymph % (Auto) 5.3 L Glynn % (Auto) 15.0 H Eos % (Auto) 1.7 Baso % (Auto) 0.1 Absolute Neuts (auto) 11.7 H Absolute Lymphs (auto) 0.80 L Total Counted Not Reportable Differential Comment SCANNED Diff Path Review Reviewed Sodium 134 L Potassium 4.5 Chloride 97 L Carbon Dioxide 30.0 Anion Gap 7 BUN 19 H Creatinine 0.35 L Estim Creat Clear Calc 39.70 Est GFR (MDRD) Af Amer 231 Est GFR (MDRD) Non-Af 191 BUN/Creatinine Ratio 54.6 H Glucose 104 Calcium 7.8 L Crossmatch See Detail 11/08/17 14:45 WBC 16.5 H RBC 2.67 L Hgb 8.1 L Hct 24.1 L MCV 90.3 MCH 30.3 MCHC 33.6 RDW 16.5 H RDW Differential 51.2 H Plt Count 252 MPV 9.8 Immature Gran % (Auto) 0.500 Neut % (Auto) 84.5 H Lymph % (Auto) 4.1 L Glynn % (Auto) 10.3 H Eos % (Auto) 0.5 Baso % (Auto) 0.1 Absolute Neuts (auto) 14.0 H Absolute Lymphs (auto) 0.67 L Total Counted Not Reportable Differential Comment Diff Path Review May foll Sodium Potassium Chloride Carbon Dioxide Anion Gap BUN Creatinine Estim Creat Clear Calc Est GFR (MDRD) Af Amer Est GFR (MDRD) Non-Af BUN/Creatinine Ratio Glucose Calcium Crossmatch Assessment/Plan All Active Problems Hyperkalemia (Acute) Hypocalcemia (Acute) Cellulitis of right lower extremity (Resolved) Abdominal pain (Resolved) Incarcerated left inguinal hernia (Resolved) Hemoccult positive stools, questionable chronic GI bleed, GI history as noted above, bilateral lower extremity fractures, questionable murmur consistent with aortic stenosis. the patient was found to be Hemoccult-positive, but does not seem to be have any significant active bleeding currently. Bowel preparation would be a challenge given the patient's lower leg fractures and mobility difficulties. She does not seem to clinically have bleeding consistent with variceal bleeding , or even a true ulcer. At this point in time, I would be inclined to place her on a proton pump inhibitor and follow her clinical hemoglobin level. I agree that some of the drop in hematocrit could be due to her femur fracture. The exact etiology of the anemia is therefore somewhat challenging. I would ask that an echocardiogram be obtained to assess if this truly is a murmur consistent with aortic stenosis, as this would increase her risk for sedation. If the patient's hemoglobin seemed to drop more precipitously, I would consider/recommend a bleeding scan to see if this did seem to be more lower in origin or upper. If her hemoglobin continues to decrease more quickly than we expect at this point, I would be comfortable performing upper endoscopy. I discussed with the patient the options of bowel prep for colonoscopy, upper endoscopy, bleeding scan, or doing no active treatment at this time other than proton pump inhibitors. The patient was uncertain which way she wished to proceed.-I will reevaluate the patient the morning and ask her opinion that time.
[2017-11-08 19:26] VITALS: BP 119/66; PULSE 100; RESP 16; TEMP 36.8; O2SAT 97
[2017-11-09 03:01] VITALS: BP 137/66; PULSE 96; RESP 20; TEMP 36.9; O2SAT 97
[2017-11-09] MEDS: Menthol/Lanolin/Calamine/Znox 113 GM Tube 1 APPLIC TOPICAL ×2 (05:26→16:11)
[2017-11-09] MEDS: Nystatin Powder 15gm Bottle 1 APPLIC TOPICAL ×2 (05:27→16:11)
[2017-11-09 06:21] LABS: Anion Gap 6 (5-15); BUN 16 mg/dL (7-18); BUN/Creat Ratio 49.7 RATIO (10-20); Calcium,Total 8.1 mg/dL (8.5-10.1); Chloride 95 mmol/L (98-107); Creatinine, Serum 0.32 mg/dL (0.55-1.02); EST Glomerular Filtration Rate 209 mL/min (>60); Est Glom Filt Rate - Afr Amer 252 mL/min (>60); Glucose 96 mg/dL (74-106); Potassium 4.6 mmol/L (3.5-5.1); Sodium Level 131 mmol/L (136-145)
[2017-11-09 06:52] VITALS: O2SAT 92
[2017-11-09 06:59] LABS: Absolute Lymphocyte Count 1.15 X10^3/ul (0.83-4.51); Absolute Neutrophil Count 12.2 X10^3/uL (2.0-7.7); Basophil# 0.01 X10^3/uL; Basophil% 0.1 % (0-1); Eosinophil# 0.24 X10^3/uL; Eosinophils% 1.5 % (0-5); Hematocrit 23.7 % (37-47); Hemoglobin 7.7 g/dl (12.0-15.0); Lymphocyte # 1.15 X10^3/ul (4.0); Lymphocyte % 7.2 % (19-41); Mean Corp Hgb Conc 32.5 g/gl (32-36); Mean Corpuscular Hgb 29.4 pg (27.0-32.0); Mean Corpuscular Volume 90.5 fL (81-99); Mean Platelet Vol. 10.3 fl (6.2-12.0); Monocyte# 2.34 X10^3/uL; Monocyte% 14.6 % (0-10); Neutrophil # 12.21 X10^3/uL (2.7-7.7); Neutrophil % 76.1 % (47-70); Platelet Count 251 K/mm3 (150-450); RBC Distribution Width CV 16.5 % (11.6-14.6); RBC Distribution Width SD 51.8 fl (35.1-43.9); Red Blood Count 2.62 M/mm3 (4.2-5.4)
[2017-11-09 07:02] LABS: Differential Indicated SCAN CRITERIA MET; POSITIVE COUNT NO; POSITIVE DIFFERENTIAL YES; POSITIVE MORPHOLOGY NO
[2017-11-09] MEDS: oxyCODONE CR 15 MG Tablet PO (08:59)
[2017-11-09] MEDS: HYDROcodone Bitartrate/Apap 5/325 Tablet PO (08:59)
[2017-11-09] MEDS: Furosemide 40 MG Tablet PO (09:00)
[2017-11-09] MEDS: Mirabegron 25 MG TAB.ER.24H PO (09:00)
[2017-11-09] MEDS: Iron Polysaccharide Complex 150 MG CAPSULE PO (09:00)
[2017-11-09] MEDS: Cyanocobalamin 500 MCG Tablet 1000 MCG PO (09:00)
[2017-11-09] MEDS: Senna/Docusate Sodium 1 Tablet 2 TABLET PO (09:00)
[2017-11-09] MEDS: Polyethylene Glycol 3350 17 GM PACKET PO (09:01)
[2017-11-09] MEDS: Megestrol Acetate 400 MG/10 ML UDC PO (09:01)
[2017-11-09] MEDS: Cholestyramine/Sucrose 4 GM/PACKET PO (09:02)
[2017-11-09 10:55] VITALS: BP 131/67; PULSE 104; RESP 20; TEMP 37.2; O2SAT 95
[2017-11-09] MEDS: Pantoprazole Sodium 40 MG Tablet PO (10:57)
[2017-11-09] MEDS: oxyCODONE 5 MG Tablet 10 MG PO ×2 (11:00→19:52)
--- NOTE | 2017-11-09 15:56 | DCINST_ITS ---
- Discharge Diagnoses Current Active Problems: Current Active and Chronic Problems Left femur periprosthetic pathological fracture Right tibial periprosthetic pathological fracture failure to thrive Contractures Hyperkalemia (Acute) Hypocalcemia (Acute) You will use the following diet at home:: No restrictions, Regular Your food should be the consistency of: Regular Allergies/Adverse Reactions: Allergies belladonna alkaloids [Belladonna Alkaloids] Allergy (Verified 11/04/17 00:31) Unknown celecoxib [From Celebrex] Adverse Reaction (Verified 11/04/17 00:31) Diarrhea Medications to take at Discharge Lorazepam [Ativan] 0.5 mg PO DAILY PRN PRN #3 tablet 01/13/17 Iron Polysaccharide Complex [Ferrex 150] 150 mg PO DAILYCM #30 capsule 01/24/17 Cholestyramine (with Sugar) [Cholestyramine Powder] 4 g PO DAILY 09/15/17 Megestrol Acetate [Megace Suspension] 400 mg PO DAILY 09/15/17 Mirabegron [Myrbetriq] 25 mg PO DAILY 09/15/17 Calcium Carbonate 500 mg PO TID 30 Days #90 tab 11/09/17 Cyanocobalamin [Vitamin B12] 1,000 mcg PO DAILY@0800 tablet 11/09/17 Ensure Enlive 120 ml PO 4X/DAY liquid 11/09/17 Ergocalciferol [Vitamin D] 50,000 unit PO Q7D capsule 11/09/17 Furosemide [Lasix] 20 mg PO DAILY #0 11/09/17 Magnesium Hydroxide [Milk Of Magnesia] 30 ml PO DAILY PRN PRN udc 11/09/17 Menthol/Lanolin/Calamine/Znox [Calmoseptine Ointment] 1 applic TOPICAL TID tube 11/09/17 Oxycodone CR [Oxycontin] 15 mg PO BID 7 Days #14 tablet 11/09/17 Oxycodone [Oxyir] 10 mg PO Q4H PRN PRN 7 Days #42 tablet 11/09/17 Pantoprazole Sodium [Protonix] 40 mg PO DAILY tablet 11/09/17 Polyethylene Glycol 3350 [Miralax] 17 gm PO DAILY packet 11/09/17 Potassium Chloride [Klor-Con M20] 20 meq PO DAILY #30 11/09/17 Senna/Docusate Sodium [Senokot-S] 2 tablet PO BID tablet 11/09/17 The following prescriptions were given: Oxycodone [Oxyir] 10 mg PO Q4H PRN PRN 7 Days #42 tablet PRN Reason: Severe Pain (-12/07) Oxycodone CR [Oxycontin] 15 mg PO BID 7 Days #14 tablet Calcium Carbonate 500 mg PO TID 30 Days #90 tab Primary Care Physician: Sunday Mclaughlin Chi, MD [Primary Care Provider] - Test Results: Test results from this visit will be discussed in further detail at your follow- up appointment, if applicable. Proposed Discharge Date: 11/09/17
--- NOTE | 2017-11-09 15:56 | PCM.TXEXTCAR ---
- Diet 11/04/17 04:09 Diet: Regular Diet Food consistency:: Regular Liquid Consistency:: Regular/Thin - Wound(s) Right Buttock/Hip Wound Type: Blisters - Therapies Weight Bearing: Non weight bearing Extremity Affected:: Bilateral Lower Physical Therapy: Eval and Treat Occupational Therapy: Eval and Treat - Allergies/Procedures Done in Hospital Allergies/Adverse Reactions: Allergies belladonna alkaloids [Belladonna Alkaloids] Allergy (Verified 11/04/17 00:31) Unknown celecoxib [From Celebrex] Adverse Reaction (Verified 11/04/17 00:31) Diarrhea - Type of Care/Length of Stay Estimated LOS: More Than 30 Days Type of Care Needed: Skilled Rehab Potential: Poor Prognosis: Fair - Additional Orders/Day of Discharge Day of Discharge: 11/09/17 - Dietary and Speech Recommendations Dietitian Recommendations/Changes: Continue Regular diet and ensure enlive on medpass. - Follow Up Care Primary Care Physician: Sunday Mclaughlin Chi, MD [Primary Care Provider] -
--- NOTE | 2017-11-09 15:57 | PCM.DC.SUM ---
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; EGD 09/2012 - mild gastritis, grade 2 esophageal varices (liver biopsy no cirrhosis) History of Clostridium difficile infection (Chronic) Depression (Chronic) Anxiety (Chronic) Hypokalemia (Chronic) OAB (overactive bladder) (Chronic) GERD (gastroesophageal reflux disease) (Chronic) Constipation (Chronic) Diarrhea (Chronic) Edema (Chronic) Debility (Chronic) IBS (irritable bowel syndrome) (Chronic) Knee pain (Chronic) Generalized osteoarthritis (Chronic) GI bleed (Chronic) Esophageal varices (Chronic) Hypertension (Chronic) Hospital Course and Treatment orthopedic surgery Operations: None, - - Hernia repair. Procedures: None Summary of Care Provided: The patient is a 81 year old F who is essentially wheelchair bound and with significant contractures. unfortunately fell out of her wheelchair and landed on her knees and suffered bilateral fractures involving the left femur and right tibia. These were periprosthetic and likely pathological fractures. Patient was seen by orthopedic surgery but due to he contractures deemed not to be a candidate for surgery. Treatment therefore will be nonoperative and patient will be going to rehab in a SNF She is stable otherwise. Pain has been well controlled.[] Weight Bearing Status: No weight bearing Home Medications: Medications to take at Discharge Lorazepam [Ativan] 0.5 mg PO DAILY PRN PRN #3 tablet 01/13/17 Iron Polysaccharide Complex [Ferrex 150] 150 mg PO DAILYCM #30 capsule 01/24/17 Cholestyramine (with Sugar) [Cholestyramine Powder] 4 g PO DAILY 09/15/17 Megestrol Acetate [Megace Suspension] 400 mg PO DAILY 09/15/17 Mirabegron [Myrbetriq] 25 mg PO DAILY 09/15/17 Calcium Carbonate 500 mg PO TID 30 Days #90 tab 11/09/17 Cyanocobalamin [Vitamin B12] 1,000 mcg PO DAILY@0800 tablet 11/09/17 Ensure Enlive 120 ml PO 4X/DAY liquid 11/09/17 Ergocalciferol [Vitamin D] 50,000 unit PO Q7D capsule 11/09/17 Furosemide [Lasix] 20 mg PO DAILY #0 11/09/17 Magnesium Hydroxide [Milk Of Magnesia] 30 ml PO DAILY PRN PRN udc 11/09/17 Menthol/Lanolin/Calamine/Znox [Calmoseptine Ointment] 1 applic TOPICAL TID tube 11/09/17 Oxycodone CR [Oxycontin] 15 mg PO BID 7 Days #14 tablet 11/09/17 Oxycodone [Oxyir] 10 mg PO Q4H PRN PRN 7 Days #42 tablet 11/09/17 Pantoprazole Sodium [Protonix] 40 mg PO DAILY tablet 11/09/17 Polyethylene Glycol 3350 [Miralax] 17 gm PO DAILY packet 11/09/17 Potassium Chloride [Klor-Con M20] 20 meq PO DAILY #30 11/09/17 Senna/Docusate Sodium [Senokot-S] 2 tablet PO BID tablet 11/09/17 Following Prescrptions Were Given to Patient: Oxycodone [Oxyir] 10 mg PO Q4H PRN PRN 7 Days #42 tablet PRN Reason: Severe Pain (6-10/10) Oxycodone CR [Oxycontin] 15 mg PO BID 7 Days #14 tablet Calcium Carbonate 500 mg PO TID 30 Days #90 tab Primary Care Physician: Sunday Mclaughlin Chi, MD [Primary Care Provider] - Disposition: Intermediate facility Minutes spent on discharge:: 30 Patient Condition:: Fair Medical Necessity - Tobacco Use Smoking Status: Never smoker Meaningful Use Info Meaningful Use Diagnoses (Choose all that apply): None applicable Code Visit Inpatient E&M: 75388 Disch Hosp
[2017-11-09 16:07] VITALS: BP 126/65; PULSE 101; RESP 18; TEMP 37; O2SAT 95
--- NOTE | 2017-11-09 17:02 | CASEMGMT ---
Social Work Note Pt is being discharged to [facility] today. NISHANT waiting for script for Oxycodone as per med list pt will be discharged on this. NISHANT updated Dr. Allen that script is needed for Oxycodone. NISHANT updated [place] that once the physician completes script for Oxycodone, the transfer to extended care facility, signed medication list and script will need to be faxed to [facility]. NISHANT went ahead and set up transportation through [place] via cot for 7:30pm. Transportation form on SNF folder and copy on pt's chart. NISHANT completed [facility] in [place]. Original in SNF folder and copy on pt's chart. NISHANT updated GABRIEL Troy, financial secretary Leigh, pt, and placed a call to Bel at [facility] to update on transportation time. Pt states that she would like this worker to call her daughter to update her on discharge. NISHANT placed a call to pt's daughter Delaney and left her a message informing her on discharge. Plan: Pt to discharge to [facility] today via cot through [place] at 7:30pm. Meghann Estevez COAL DIGGER, SPRING UP SUPERVISOR
--- NOTE | 2017-11-09 17:06 | CHAPLAIN ---
Type of Pastoral Visit ___ Initial Visit _x__ Follow-up Visit ___ On-call Visit ___ General Patient Visit ___ Spiritual Assessment ___ Family Conference ___ Bereavement ___ Rapid Response ___ Code Blue ___ Other (describe below) Pastoral Care Referral From _x__ Patient ___ Family ___ Nurse ___ Physician ___ Farm Assistant ___ Log Clerk ___ Other (describe below) Sacrament/Intervention _x__ Active listening ___ Anointing ___ Hindu ___ Bereavement ___ Communion ___ Anika exploration ___ ___ Life review _x__ Prayer ___ Reconciliation ___ Sacrament of Sick _x__ Supportive presence ___ Wedding ___ Other (describe below) Pastoral Comments patient describes discouragement over fall and resulting health need; pt reveals emotional state of accepting how the fall occurred at home; pt is Congregational but not active in any advent; pt would like this room cleaner to pray for her; pt is tearful
--- NOTE | 2017-11-09 18:07 | PCM.PN.SRG ---
Patient Problems: Active and Suspected Problems Hyperkalemia (Acute) Hypocalcemia (Acute) Subjective: no complaints of bleeding - Physical Exam General: Alert, Oriented x3 Lungs: Clear to auscultation, Normal air movement Cardiovascular: Regular rate, Murmur - 2/3 over 6 systolic ejection Abdomen: Bowel Sounds Present, Soft, Non Tender Vital Signs Temp Pulse Resp BP Pulse Ox 98.6 F 101 H 18 126/65 H 95 11/09/17 16:07 11/09/17 16:07 11/09/17 16:07 11/09/17 16:07 11/09/17 16:07 Oxygen Flow Rate (L/min) 2 Oxygen Delivery Method Nasal Cannula Weight: 58.8 kg Body Mass Index (BMI) 21.5 Intake and Output for Last 24 Hours 11/07/17 11/08/17 11/09/17 23:59 23:59 23:59 Intake Total 1475 / 1475 750 / 750 100 / 100 Output Total 250 / 250 Balance 1225 / 1225 750 / 750 100 / 100 Microbiology Past 72 Hours 11/06/17 16:30 Urine Culture - Final Urine Catheter - Catheter Gabi albicans 11/07/17 12:10 Stool Occult Blood (GRIS) - Final Stool Occult Blood Positive 11/06/17 16:30 Streptococcus pneumoniae Antigen (M - Final Urine Catheter - Catheter 11/06/17 16:30 Legionella Antigen - Final Urine Catheter - Catheter Laboratory Tests Past 24 Hrs 11/09/17 11/09/17 05:36 05:36 WBC 16.0 H RBC 2.62 L Hgb 7.7 L Hct 23.7 L MCV 90.5 MCH 29.4 MCHC 32.5 RDW 16.5 H RDW Differential 51.8 H Plt Count 251 MPV 10.3 Immature Gran % (Auto) 0.500 Neut % (Auto) 76.1 H Lymph % (Auto) 7.2 L [place] % (Auto) 14.6 H Eos % (Auto) 1.5 Baso % (Auto) 0.1 Absolute Neuts (auto) 12.2 H Absolute Lymphs (auto) 1.15 Total Counted Not Reportable Diff Path Review May foll Sodium 131 L Potassium 4.6 Chloride 95 L Carbon Dioxide 30.0 Anion Gap 6 BUN 16 Creatinine 0.32 L Estim Creat Clear Calc 39.70 Est GFR (MDRD) Af Amer 252 Est GFR (MDRD) Non-Af 209 BUN/Creatinine Ratio 49.7 H Glucose 96 Calcium 8.1 L Medical Necessity - Tobacco Use Smoking Status: Never smoker Assessment/Plan All Active Problems Hyperkalemia (Acute) Hypocalcemia (Acute) Cellulitis of right lower extremity (Resolved) Abdominal pain (Resolved) Incarcerated left inguinal hernia (Resolved) Hemoccult positive stools, questionable chronic GI bleed, GI history as noted above, bilateral lower extremity fractures, questionable murmur consistent with aortic stenosis. the patient was found to be Hemoccult-positive, but does not seem to be have any significant active bleeding currently. Bowel preparation would be a challenge given the patient's lower leg fractures and mobility difficulties. She does not seem to clinically have bleeding consistent with variceal bleeding, or even a true ulcer. At this point in time, I would be inclined to place her on a proton pump inhibitor and follow her clinical hemoglobin level. I agree that some of the drop in hematocrit could be due to her femur fracture. The exact etiology of the anemia is therefore somewhat challenging. Echocardiogram does demonstrate aortic stenosis which is consistent with the auscultated murmur consistent with aortic stenosis, as this would be a mild increase her risk for sedation. If the patient's hemoglobin seemed to drop more precipitously, I would consider/recommend a bleeding scan to see if this did seem to be more lower in origin or upper. If her hemoglobin continues to decrease more quickly than we expect at this point, I would be comfortable performing upper endoscopy. I discussed with the patient the options of bowel prep for colonoscopy, upper endoscopy, bleeding scan, or doing no active treatment at this time other than proton pump inhibitors. The patient was uncertain which way she wished to proceed.- I discussed the options with the patient again, this morning. we will hold off on endoscopy at this time.
[2017-11-09 20:20] VITALS: BP 141/74; PULSE 104; RESP 20; TEMP 37.2; O2SAT 94
[2017-11-09 20:36] VITALS: O2SAT 94
[2017-11-10 14:15] LABS: Pathologist Review Reviewed
[2017-11-10 14:18] LABS: Pathologist Review Reviewed
== END 2017-11-09 20:40 | disposition skilled nursing facility (03) | DRG 542 ==
LOC: ED 01:18 → MS3 03:05
PROVIDERS: Family Medicine; Internal Medicine; Admitting Provider Hospitalist; Emergency Provider Emergency Medicine; Family Provider Family Medicine Geriatric Medicine; PCP Family Medicine Geriatric Medicine; Visit Provider Internal Medicine
DX: M84.461A Pathological fracture, right tibia, initial encounter for fracture (principal); J96.01 Acute respiratory failure with hypoxia; M97.11XA Periprosthetic fracture around internal prosthetic right knee joint, initial encounter; M97.12XA Periprosthetic fracture around internal prosthetic left knee joint, initial encounter; E87.1 Hypo-osmolality and hyponatremia; M84.452A Pathological fracture, left femur, initial encounter for fracture; Z99.3 Dependence on wheelchair; I10 Essential (primary) hypertension; E87.5 Hyperkalemia; E83.51 Hypocalcemia; K21.9 Gastro-esophageal reflux disease without esophagitis; F41.9 Anxiety disorder, unspecified; R62.7 Adult failure to thrive; K74.69 Other cirrhosis of liver; D64.9 Anemia, unspecified
CPT/HCPCS: 36415; 71045; 72170; 73562; 80048; 80053; 80076; 81001; 82040; 82274; 82306; 82607; 82746; 85014; 85018; 85025; 85027; 86850; 86900; 86920; 86922; 87086; 87088; 87449; 87641; 93306; 97162; 97166; 97530; 97802; 99284; J7040; P9016; A4216; J1940; J2405

== ENCOUNTER → 2017-11-16 08:15 | Outpatient (CLI) | payer MEDICARE, MEDICAID, SELFPAY ==
[2017-11-16] VITALS (9 sets, daily range): BP systolic 104–138; BP diastolic 60–76; PULSE 45–99; RESP 18–22; TEMP 36.6–37.5; O2SAT 93–96; BMI 24.2
[2017-11-16] MEDS: oxyCODONE 5 MG Tablet 10 MG PO (11:33)
--- NOTE | 2017-11-16 15:29 | NURSING ---
PT TURNED, CHANGED BRIEF AND BEDDING. PT CLEANED WITH WIPES. [facility] CALLED AND TOLD PT IS WAITING FOR SQUAD BACK TO [facility]ISON. [facility] INFORMED BY GABRIEL COMBS THAT PT RECEIVED 10MG OXYCODONE AT 1133 AND WILL NEED SAME MEDICATION WHEN SHE GETS BACK TO PRISON PER PT REQUEST AND 4HOUR PRN ORDER.
== END ==
PROVIDERS: Family Provider Family Medicine Geriatric Medicine; PCP Family Medicine Geriatric Medicine; Visit Provider Family Medicine
DX: K92.2 Gastrointestinal hemorrhage, unspecified (principal)
CPT/HCPCS: 36415; 36430; 86850; 86900; 86920; 86922; J7040; P9016; A4216

== ENCOUNTER 2018-01-03 17:26 | Inpatient (IN) | payer MEDICARE, MEDICAID, SELFPAY ==
[2018-01-03 17:28] VITALS: BP 138/67; PULSE 129; RESP 18; TEMP 38.1; O2SAT 95; BMI 32.9
--- NOTE | 2018-01-03 17:47 | EKG12_ITS ---
Test Reason : TACHY Blood Pressure : / mmHG Vent. Rate : 126 BPM Atrial Rate : 126 BPM P-R Int : 140 ms QRS Dur : 070 ms QT Int : 300 ms P-R-T Axes : 028 025 044 degrees QTc Int : 434 ms Sinus tachycardia Low voltage QRS Borderline ECG Confirmed by DMITRY GONZALEZ MD ([id number]), desk editor NU DECKER ([id number]) on 01/05/2018 3:17:41 PM Referred By: Elieser Nicholson Confirmed By:DMITRY GONZALEZ MD
--- NOTE | 2018-01-03 17:55 | RAD_ITS ---
STUDY: X-RAY CHEST REASON FOR EXAM: Female, 82 years old. Hypoxia TECHNIQUE: Single frontal view of the chest. COMPARISON: November 06, 2017 FINDINGS: As well as the right hemidiaphragm elevated. The lungs are clear and expanded. There is no demonstrated pleural abnormality. Normal size heart. Normal mediastinum and arlene. Normal visualized pulmonary arteries. Normal visualized aortic arch and descending thoracic aorta. Normal visualized thoracic spine. There is degenerative osteoarthritis of the bilateral shoulders. There is no demonstrated abnormality of the visualized soft tissue structures of the upper abdomen. RAD/Chest 1 View (Portable) IMPRESSION: No acute disease Electronically Signed: Gabriel Whipple MD at 18:40 EST , Service support ,
[2018-01-03 18:30] LABS: Absolute Lymphocyte Count 0.42 X10^3/ul (0.83-4.51); Absolute Neutrophil Count 16.8 X10^3/uL (2.0-7.7); Basophil# 0.03 X10^3/uL; Basophil% 0.2 % (0-1); Differential Indicated SCAN CRITERIA MET; Eosinophil# 0.01 X10^3/uL; Eosinophils% 0.1 % (0-5); Hematocrit 31.4 % (37-47); Hemoglobin 10.4 g/dl (12.0-15.0); International Normalized Ratio 1.3; Lymphocyte # 0.42 X10^3/ul (4.0); Lymphocyte % 2.3 % (19-41); Mean Corp Hgb Conc 33.1 g/gl (32-36); Mean Corpuscular Hgb 28.2 pg (27.0-32.0); Mean Corpuscular Volume 85.1 fL (81-99); Mean Platelet Vol. 10.1 fl (6.2-12.0); Monocyte# 0.94 X10^3/uL; Monocyte% 5.2 % (0-10); Neutrophil # 16.81 X10^3/uL (2.7-7.7); POSITIVE COUNT NO; POSITIVE DIFFERENTIAL YES; POSITIVE MORPHOLOGY NO; Partial Thromboplast Time 32.6 Seconds (24.1-36.2); Platelet Count 471 K/mm3 (150-450); Prothrombin Time (Protime)PT. 15.7 SECONDS (11.7-14.9); RBC Distribution Width CV 16.8 % (11.6-14.6); RBC Distribution Width SD 51.1 fl (35.1-43.9); Red Blood Count 3.69 M/mm3 (4.2-5.4); White Blood Count 18.3 K/mm3 (4.4-11.0)
[2018-01-03 18:38] LABS: ALB/GLOB Ratio 0.5 RATIO (0.9-2.4); AST(SGOT) 24 U/L (15-37); Alanine Aminotransfer ALT/SGPT 12 U/L (13-56); Albumin, Serum 2.1 g/dL (3.2-5.0); Alkaline Phosphatase 199 U/L (45-117); Anion Gap 4 (5-15); BUN 7 mg/dL (7-18); BUN/Creat Ratio 21.2 RATIO (10-20); Calcium,Total 7.8 mg/dL (8.5-10.1); Chloride 95 mmol/L (98-107); Creatinine, Serum 0.33 mg/dL (0.55-1.02); EST Glomerular Filtration Rate 203 mL/min (>60); Est Glom Filt Rate - Afr Amer 245 mL/min (>60); Globulin 4.1 g/dL (2.2-4.2); Glucose 98 mg/dL (74-106); Potassium 4.1 mmol/L (3.5-5.1); Protein, Total 6.2 g/dL (6.4-8.2); Sodium Level 132 mmol/L (136-145)
[2018-01-03 18:39] LABS: Lactic Acid 1.3 mmol/L (0.4-2.0)
[2018-01-03 18:51] LABS: Acanthocytes 1+
[2018-01-03 18:52] LABS: Crenated RBC RARE; Ovalocyte 1+; Schistocytes RARE
[2018-01-03 18:54] LABS: Hypochromasia 1+; Target Cells RARE
[2018-01-03 18:55] LABS: Differential Comment SCANNED
[2018-01-03 18:57] LABS: Bacteria 0 SEEN /hpf (None Seen); Mucous, Urine 0 SEEN /hpf (<or=2+); Squamous Epithelial Cells - UA 0 SEEN /hpf (5-10)
[2018-01-03 18:59] LABS: Color, Urine Yellow (Yellow); Glucose, Dipstick Normal (Normal); Ketone-Dipstick 5 mg/dl (Negative); Leukocyte Esterase-Dipstick 100 /ul (Negative); Nitrite-Dipstick Negative (Negative); Occult Blood-Urine 10 /ul (Negative); Protein-Dipstick Negative (Negative); Urine Bilirubin Dipstick Negative (Negative); Urine Clarity Clear (Clear); Urine Urobilinogen 1 mg/dl (Normal)
[2018-01-03] MEDS: Acetaminophen 325 MG Tablet 650 MG PO (18:59)
[2018-01-03] MEDS: 0.9% Normal Saline 1,000 ML 150 ML IV (18:59)
[2018-01-03 19:02] VITALS: BP 132/83; PULSE 124; RESP 27; TEMP 39; O2SAT 93
[2018-01-03 19:08] LABS: Red Blood Cells-Urine 0-5 SEEN /hpf (0-5); White Blood Cells 0-5 SEEN /hpf (0-5); Yeast-Urine 2+ /hpf (None Seen)
--- NOTE | 2018-01-03 19:46 | ED.VISSUMM ---
- ER Visit Summary Date of Service: 01/03/18 Chief Complaint: [facility] from [facility] facility because of low pulse ox. History of Present Illness: The patient is a 82 F who is not a good informant. was unable to add much. He did inform me that she is on chronic oxygen. She may have had a slight cough. She does not complain of much. Physical Examination: Vital signs are remarkable for a temperature 102.2 respiratory rate of 27 and a heart rate of 124. 02 saturation on oxygen is 93% patient is arousable. HEENT exam is remarkable for dry mucosa. Heart is rapid and regular. Lungs reveal end inspiratory rales. She is tachypnic. Abdomen is soft nontender. She has lymphedema of the right upper extremity, right lower extremity and left lower externally. She has significant contractures. There is evidence of cellulitis involving the left patella region. There is a wound medial side of the right knee with granulation tissue. There is no evidence of cellulitis. Question of inguinal lymphadenopathy on the left. Difficult to perform neurologic exam. Test Results: White count is 18.3 thousand 92 segs no bands. H&H 10.4 and 31.4. Electro panels marked for an elevated CO2 of 33. Hepatic profile is unremarkable. Coags are unremarkable. Urine is remarkable for yeast. Single view chest x-ray was no acute process. EKG reveals a sinus tachycardia rate of 124 with low voltage. The AR interval is normal. QRS durations are normal. QT interval is normal and axis is normal. Lactate is normal at 1.2 Emergency Department Course and Treatment: Sepsis workup was undertaken. Presume this is secondary to scan will obtain chest x-ray because she is tachypnic and pulse ox was low at the jail facility. Since her source is scant and concern for streptococcal versus staphylococcal source she was treated with vancomycin. Treatment Plan: The hospitalist was contacted for admission. She is DNR CC arrest. Disposition: Admission medical surgical floor Impression: 1. Sepsis 2. Cellulitis left knee 3. Chronic respiratory failure with hypoxia This note was generated with [employer] dictation software. It may contain incorrect words, spelling, and punctuation that were not noted in review of the chart prior to signing ED Disposition - Plan for ED Patient: Chief Complaint: Upper Extremity Injury Referrals: Sunday Mclaughlin Chi, MD [Primary Care Provider] -
--- NOTE | 2018-01-03 19:51 | ED.DCSUM_ITS ---
- ER Visit Summary Date of Service: 01/03/18 Chief Complaint: Sent from assisted facility because of low pulse ox. History of Present Illness: The patient is a 82 F who is not a good informant. was unable to add much. He did inform me that she is on chronic oxygen. She may have had a slight cough. She does not complain of much. Physical Examination: Vital signs are remarkable for a temperature 102.2 respiratory rate of 27 and a heart rate of 124. 02 saturation on oxygen is 93% patient is arousable. HEENT exam is remarkable for dry mucosa. Heart is rapid and regular. Lungs reveal end inspiratory rales. She is tachypnic. Abdomen is soft nontender. She has lymphedema of the right upper extremity, right lower extremity and left lower externally. She has significant contractures. There is evidence of cellulitis involving the left patella region. There is a wound medial side of the right knee with granulation tissue. There is no evidence of cellulitis. Question of inguinal lymphadenopathy on the left. Difficult to perform neurologic exam. Test Results: White count is 18.3 thousand 92 segs no bands. H&H 10.4 and 31.4. Electro panels marked for an elevated CO2 of 33. Hepatic profile is unremarkable. Coags are unremarkable. Urine is remarkable for yeast. Single view chest x-ray was no acute process. EKG reveals a sinus tachycardia rate of 124 with low voltage. The VA interval is normal. QRS durations are normal. QT interval is normal and axis is normal. Lactate is normal at 1.2 Emergency Department Course and Treatment: Sepsis workup was undertaken. Presume this is secondary to scan will obtain chest x-ray because she is tachypnic and pulse ox was low at the assisted facility. Since her source is scant and concern for streptococcal versus staphylococcal source she was treated with vancomycin. Treatment Plan: The hospitalist was contacted for admission. She is DNR CC arrest. Disposition: Admission medical surgical floor Impression: 1. Sepsis 2. Cellulitis left knee 3. Chronic respiratory failure with hypoxia This note was generated with [employer] dictation software. It may contain incorrect words, spelling, and punctuation that were not noted in review of the chart prior to signing ED Disposition - Plan for ED Patient: Chief Complaint: Upper Extremity Injury Referrals: Sunday Mclaughlin Chi, MD [Primary Care Provider] -
[2018-01-03 20:03] VITALS: BP 114/61; PULSE 117; RESP 24; TEMP 38.8; O2SAT 94
--- NOTE | 2018-01-03 20:31 | HP.PCM_ITS ---
Problem List (1) Cellulitis Status: Acute (2) Hyperkalemia Status: Acute (3) Hypocalcemia Status: Acute (4) Anxiety Status: Chronic (5) Constipation Status: Chronic (6) Cryptogenic cirrhosis Status: Chronic (7) Debility Status: Chronic (8) Depression Status: Chronic (9) Diarrhea Status: Chronic (10) Edema Status: Chronic (11) Esophageal varices Status: Chronic (12) GERD (gastroesophageal reflux disease) Status: Chronic (13) GI bleed Status: Chronic (14) Generalized osteoarthritis Status: Chronic (15) HTN (hypertension), benign Status: Chronic (16) History of Clostridium difficile infection Status: Chronic (17) History of GI bleed Status: Chronic Comment: Colonoscopy 09/2012 - 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; EGD 09/2012 - mild gastritis, grade 2 esophageal varices (liver biopsy no cirrhosis) (18) Hypertension Status: Chronic (19) Hypokalemia Status: Chronic (20) IBS (irritable bowel syndrome) Status: Chronic (21) Knee pain Status: Chronic (22) OAB (overactive bladder) Status: Chronic (23) Abdominal pain Status: Resolved (24) Cellulitis of right lower extremity Status: Resolved History of Present Illness Date of Admission: 01/03/18 Chief Complaint: Shortness of breath cellulitis and right upper extremity swelling The patient is a 82 year old F with multiple comorbidities but not diabetes mellitus was sent from [facility] for shortness of breath, right arm swelling. In ED, she was found to have left knee cellulitis with purulent and bloody discharge from a small ulcer and right knee ulcer, chronic in nature. She also has right arm swelling for which she was sent to ER. Patient is poor historian and is not able to tell the duration of right arm swelling but in ER she was found to have temperature 102.2?F, respiratory rate 27, heart rate 124. Patient has contracture of bilateral lower extremities and has not stated her knees I think probably for last 5 years and has been on wheelchair/sedentary for about 10 years as per the who is near the bedside. Patient is on 2 L l of oxygen and probably as per alf documentation was 88% on 2 L of oxygen in ED, she is 93% on 3 L of oxygen. The is also not able to add much on the history. 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; EGD 09/2012 - mild gastritis, grade 2 esophageal varices (liver biopsy no cirrhosis) History of Clostridium difficile infection (Chronic) Depression (Chronic) Anxiety (Chronic) Hypokalemia (Chronic) OAB (overactive bladder) (Chronic) GERD (gastroesophageal reflux disease) (Chronic) Constipation (Chronic) Diarrhea (Chronic) Edema (Chronic) Debility (Chronic) IBS (irritable bowel syndrome) (Chronic) Knee pain (Chronic) Generalized osteoarthritis (Chronic) GI bleed (Chronic) Esophageal varices (Chronic) Hypertension (Chronic) Allergies belladonna alkaloids [Belladonna Alkaloids] Allergy (Verified 01/03/18 17:36) Unknown halobetasol Allergy (Verified 01/03/18 17:36) Unknown celecoxib [From Celebrex] Adverse Reaction (Verified 01/03/18 17:36) Diarrhea Home Medications: Ambulatory Orders Medication Instructions Recorded Calcium Carbonate 500 mg PO TID 30 Days #90 tab 11/09/17 Magnesium Hydroxide [Milk Of 30 ml PO DAILY PRN PRN udc 11/09/17 Magnesia] Oxycodone [Oxyir] 10 mg PO Q4H PRN PRN 7 Days #42 11/09/17 tablet Cephalexin [Keflex] 500 mg PO BID 11/16/17 Omeprazole [Prilosec] 20 mg PO BID 11/16/17 Iron Polysaccharide Complex 150 mg PO TIDCM 01/03/18 [Ferrex 150] Mag Hydrox/Al Hydrox/Simeth 30 ml PO Q4H PRN PRN 01/03/18 [Antacid Suspension] Menthol/Lanolin/Calamine/Znox 1 applic TOPICAL TID 01/03/18 [Calmoseptine Ointment] Oxycodone CR [Oxycontin] 15 mg PO BID 01/03/18 Polyethylene Glycol 3350 [Miralax] 17 gm PO DAILY 01/03/18 Potassium Chloride [Klor-Con M20] 20 meq PO DAILY 01/03/18 Senna/Docusate Sodium [Senokot-S] 2 tablet PO BID 01/03/18 Surgical History: appendectomy, cataract, cholecystectomy, herniorrhaphy, hysterectomy, total knee arthroplasty - Bilateral. 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 pertinent TONGUE LINING STITCHER history Smoking Status: Former smoker - *Family History Maternal History Items: No pertinent history Review of Systems Constitutional: Reports: Weakness, Fatigue HEENT: Denies: Head Aches, Sinus Congestion, Sinus Drainage Respiratory: Reports: Shortness of Breath Musculoskeletal: Reports: Joint Pain, Joint stiffness, Leg Pain, Muscle pain Skin: Reports: Rash, Skin Changes, Wounds Unable to obtain accurate/complete ROS d/t: Probably due to dementia/lethargy VTE Information - Inpt Only VTE Present on Admission: No VTE Mechan Device Prophylaxis: None VTE Pharm Prophylaxis ordered?: Yes Patient Problems: Active and Suspected Problems Cellulitis (Acute) - Physical Exam General: Cooperative, Disoriented - To time but oriented to place and person, Lethargic HEENT: Atraumatic, PERRLA, EOMI, Normocephalic Oral: Dry Mucosa Neck: Supple, No JVD, Negative Carotid Bruits Lungs: Clear to auscultation, No rhonchi, No wheeze, No rales, Diminished - Air entry diminished in bilateral lung bases Cardiovascular: Regular rate, Regular Rhythm, Normal S1, Normal S2, No murmurs Abdomen: Bowel Sounds Present, Soft, Non Tender, Non-Distended Extremities: Capillary Refill Less than 3 Seconds, Edema Skin: Ulcer/ Wound, Rash Present - Erythema present with a small ulcer with purulent and sanguinous discharge on medial portion of left knee. Chronic ulcer on the medial portion of the right knee. Both lower extremities cannot be exam ined secondary to chronic contracture which is not able to straighten. Musculoskeletal: No Tenderness to Palpation of Joints or Extremities Neurological: Cranial nerves II-XII grossly intact Psych/Mental Status: Normal Affect, Appropriate Vital Signs Temp Pulse Resp BP Pulse Ox 101.9 F H 117 H 24 H 114/61 94 01/03/18 20:03 01/03/18 20:03 01/03/18 20:03 01/03/18 20:03 01/03/18 20:03 Oxygen Flow Rate (L/min) 3 Oxygen Delivery Method Nasal Cannula Weight: 180 lb Body Mass Index (BMI) 32.9 Laboratory Tests Past 24 Hrs 01/03/18 01/03/18 01/03/18 18:10 18:10 18:10 WBC 18.3 H RBC 3.69 L Hgb 10.4 L Hct 31.4 L MCV 85.1 MCH 28.2 MCHC 33.1 RDW 16.8 H RDW Differential 51.1 H Plt Count 471 H MPV 10.1 Immature Gran % (Auto) 0.200 Neut % (Auto) 92.0 H Lymph % (Auto) 2.3 L [place] % (Auto) 5.2 Eos % (Auto) 0.1 Baso % (Auto) 0.2 Absolute Neuts (auto) 16.8 H Absolute Lymphs (auto) 0.42 L Total Counted Not Reportable Differential Comment SCANNED RBC Morphology RARE Hypochromasia 1+ Target Cells RARE Ovalocytes 1+ Acanthocytes (Spur) 1+ Schistocytes RARE PT 15.7 H INR 1.3 APTT 32.6 Sodium 132 L Potassium 4.1 Chloride 95 L Carbon Dioxide 33.0 H Anion Gap 4 L BUN 7 Creatinine 0.33 L Estim Creat Clear Calc 34.30 Est GFR (MDRD) Af Amer 245 Est GFR (MDRD) Non-Af 203 BUN/Creatinine Ratio 21.2 H Glucose 98 Lactic Acid Calcium 7.8 L Total Bilirubin 0.60 AST 24 ALT 12 L Alkaline Phosphatase 199 H Total Protein 6.2 L Albumin 2.1 L Globulin 4.1 Albumin/Globulin Ratio 0.5 L Urine Color Urine Clarity Urine pH Ur Specific [place] Urine Protein Urine Glucose (UA) Urine Ketones Urine Occult Blood Urine Nitrite Urine Bilirubin Urine Urobilinogen Ur Leukocyte Esterase Urine RBC Urine WBC Ur Squamous Epith Cells Urine Bacteria Urine Mucus Urine Yeast 01/03/18 01/03/18 18:10 18:52 WBC RBC Hgb Hct MCV MCH MCHC RDW RDW Differential Plt Count MPV Immature Gran % (Auto) Neut % (Auto) Lymph % (Auto) [place] % (Auto) Eos % (Auto) Baso % (Auto) Absolute Neuts (auto) Absolute Lymphs (auto) Total Counted Differential Comment RBC Morphology Hypochromasia Target Cells Ovalocytes Acanthocytes (Spur) Schistocytes PT INR APTT Sodium Potassium Chloride Carbon Dioxide Anion Gap BUN Creatinine Estim Creat Clear Calc Est GFR (MDRD) Af Amer Est GFR (MDRD) Non-Af BUN/Creatinine Ratio Glucose Lactic Acid 1.3 Calcium Total Bilirubin AST ALT Alkaline Phosphatase Total Protein Albumin Globulin Albumin/Globulin Ratio Urine Color Yellow Urine Clarity Clear Urine pH 7.0 Ur Specific [place] 1.010 Urine Protein Negative Urine Glucose (UA) Normal Urine Ketones 5 H Urine Occult Blood 10 H Urine Nitrite Negative Urine Bilirubin Negative Urine Urobilinogen 1 H Ur Leukocyte Esterase 100 H Urine RBC 0-5 SEEN Urine WBC 0-5 SEEN Ur Squamous Epith Cells 0 SEEN Urine Bacteria 0 SEEN Urine Mucus 0 SEEN Urine Yeast 2+ Assessment/Plan All Active Problems Hyperkalemia (Acute) Hypocalcemia (Acute) Cellulitis (Acute) Cellulitis of right lower extremity (Resolved) Abdominal pain (Resolved) Incarcerated left inguinal hernia (Resolved) The patient is a 82 year old F with multiple comorbidities but not diabetes mellitus was sent from [facility] for shortness of breath, right arm swelling. In ED, she was found to have left knee cellulitis with purulent and bloody discharge from a small ulcer and right knee ulcer, chronic in nature. She also has right arm swelling for which she was sent to ER. Patient is poor historian and is not able to tell the duration of right arm swelling but in ER she was found to have temperature 102.2?F, respiratory rate 27, heart rate 124. Patient has contracture of bilateral lower extremities and has not stated her knees I think probably for last 5 years and has been on wheelchair/sedentary for about 10 years as per the who is near the bedside. Patient is on 2 L l of oxygen and probably as per alf documentation was 88% on 2 L of oxygen in ED, she is 93% on 3 L of oxygen. The is also not able to add much on the history. 1. SIRS with sepsis (fever, 102.2 Fahrenheit, tachycardia, tachypnea and hypoxia) mostly secondary to skin/soft tissue cellulitis with left knee ulcer with possibility of knee joint infection, present on admission: Bedside right knee was tried to aspirated but because of contracture of knee/position, about 1 mL purulent and bloody aspirate near the left knee ulcer site. This was sent for culture. Orthotic consult, Dr. Samm Bingham for further opinion and recommendation. ID consult. Patient was started on IV vancomycin and Zosyn. Blood culture and urine culture is ordered. MRSA wound culture. Wound nurse consult. Lower extremity venous Doppler ordered. 2. Chronic ulcer over the medial aspect of the right knee, present since admission 3. 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 4. Patient has calcium 7.8 but corrected calcium is 9.32 with patient albumin 2.1. Does not need correction. 4. Recent hospital admission in October 2017 for right tibial periprosthetic and pathological fracture and left femur fracture which was deemed nonoperative because of chronic knee contractures and wheelchair and bedbound. At that time patient was seen by Dr. Hunt. 5. Multiple comorbidities include generalized osteoarthritis, history of cryptogenic cirrhosis with esophageal varices, previous history of GI bleed, neurogenic bladder, anxiety and depression, hypertension, very low functional capacity with wheelchair and bedbound for many years with contracture. DVT prophylaxis: On Lovenox 40 mg subcut daily Code Visit Inpatient E&M: 82671 Init Hosp L3 Procedures: n/Inj garcía/juanita w/o us
--- NOTE | 2018-01-03 20:32 | RAD_ITS ---
STUDY: X-RAY - LEFT KNEE REASON FOR EXAM: Female, 82 years old. Left knee ulcer. Swelling. TECHNIQUE: 3 view(s) of the knee. COMPARISON: November 04, 2017. FINDINGS: Alignment is normal. Patella janett also noted previously. There is callus formation at the level of a previously noted fracture distal femoral diaphysis slightly proximal to the total knee arthroplasty. Due to patient positioning is difficult to determine if the femoral component of the total knee arthroplasty is in normal alignment. Tibial component appears in normal position. Calcifications in the region of the patellar tendon noted previously. There is now significant edema of the upper leg including the soft tissue adjacent to the knee. RAD/Knee 1 or 2 Views IMPRESSION: Soft tissue edema of the upper leg and adjacent to the knee. No ulcer identified. Limited evaluation of the total knee arthroplasty. Patella janett. Fracture of the distal femur noted previously with findings suggestive of healing. If further imaging is warranted consider CT. Electronically Signed: Morgan Greenberg MD at 0:10 EST , Service support ,
[2018-01-03 20:34] VITALS: BP 110/60; PULSE 117; RESP 24; TEMP 38.2; O2SAT 96
[2018-01-03 20:37] VITALS: BMI 25.2
[2018-01-03 21:04] LABS: Erythrocyte Sedimentation Rate 44 mm/hr (0-30)
--- NOTE | 2018-01-03 21:22 | PCM.OP.BLANK ---
Problem List (1) Cellulitis Status: Acute (2) Hyperkalemia Status: Acute (3) Hypocalcemia Status: Acute (4) Anxiety Status: Chronic (5) Constipation Status: Chronic (6) Cryptogenic cirrhosis Status: Chronic (7) Debility Status: Chronic (8) Depression Status: Chronic (9) Diarrhea Status: Chronic (10) Edema Status: Chronic (11) Esophageal varices Status: Chronic (12) GERD (gastroesophageal reflux disease) Status: Chronic (13) GI bleed Status: Chronic (14) Generalized osteoarthritis Status: Chronic (15) HTN (hypertension), benign Status: Chronic (16) History of Clostridium difficile infection Status: Chronic (17) History of GI bleed Status: Chronic Comment: Colonoscopy 09/2012 - 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 Small ulcer with purulent bloody discharge with surrounding cellulitis. With 18-gauge needle about 1 mL sanguinous and purulent discharge was aspirated and sent to culture. Unsuccessful attempt for left knee arthrocentesis Code Visit Procedures: Drn/Inj jnt/brsa w/o us
[2018-01-03 21:23] LABS: Hemoglobin A1c 5.3 % (4.2-6.3)
[2018-01-03 21:24] VITALS: BMI 25.2
[2018-01-03] MEDS: Piperacil/Tazobactam 3.375 GM/50 ML ML IV (22:08)
[2018-01-03] MEDS: 0.9% Normal Saline 1,000 ML 100 ML IV (22:09)
[2018-01-03] MEDS: Enoxaparin 40 MG/0.4 ML Syringe SC (22:09)
[2018-01-03 22:13] VITALS: BP 108/59; PULSE 111; RESP 24; TEMP 37.4; O2SAT 96
[2018-01-03 22:34] LABS: M R Staph aureus DNA By PCR POSITIVE (Negative); Probe Check PASS; Staph aureus DNA By PCR POSITIVE (Negative)
--- NOTE | 2018-01-03 23:00 | RAD_ITS ---
STUDY: X-RAY - RIGHT KNEE REASON FOR EXAM: Female, 82 years old. Knee swelling, ulcer. TECHNIQUE: 3 view(s) of the knee. COMPARISON: November 04, 2017. FINDINGS: Again noted is a total knee arthroplasty is in normal alignment. Patella janett noted previously. There is diffuse demineralization. Fractures of the proximal tibial and fibular diaphyses. The proximal tibial fracture was present previously. Due to patient positioning it is difficult to determine alignment on AP view. The fractures of the tibia and fibula appear displaced. Multiple ovoid calcifications in the soft tissue of the lower leg. No significant soft tissue swelling appreciated. RAD/Knee 1 or 2 Views IMPRESSION: Fractures of the proximal tibia and fibula. Diffuse demineralization. Total knee arthroplasty. Patella janett. Consider correlation with CT. Electronically Signed: Morgan Greenberg MD at 0:44 EST , Service support ,
[2018-01-03 23:15] VITALS: BP 103/58; PULSE 108; RESP 22; TEMP 36.9; O2SAT 94
--- NOTE | 2018-01-03 23:31 | PCM.RX.CS ---
Consult Pharmacy has been consulted to manage selected antiobiotic: Vancomycin Type of Consult: New start Suspected Infection: Skin/Soft tissue Prior Doses of Antibiotics Received/Current Regimen: Medications Vancomycin HCl 750 mg/ Sodium (Chloride) 265 mls @ 250 mls/hr IV Q24H [facility] Discontinued Medications Vancomycin HCl 1,250 mg/ (Sodium Chloride) 275 mls @ 167 mls/hr IV X1 ONE Stop: 01/03/18 21:38 Last Admin: 01/03/18 20:03 Dose: 167 mls/hr Labs: Sodium 132 mmol/L (136-145) L 01/03/18 18:10 Potassium 4.1 mmol/L (3.5-5.1) 01/03/18 18:10 Chloride 95 mmol/L (98-107) L 01/03/18 18:10 Carbon Dioxide 33.0 mmol/L (21.0-32.0) H 01/03/18 18:10 Anion Gap 4 (5-15) L 01/03/18 18:10 BUN 7 mg/dL (7-18) 01/03/18 18:10 Creatinine 0.33 mg/dL (0.55-1.02) L 01/03/18 18:10 Est GFR (MDRD) Af Amer 245 mL/min (>60) 01/03/18 18:10 Est GFR (MDRD) Non-Af 203 mL/min (>60) 01/03/18 18:10 BUN/Creatinine Ratio 21.2 RATIO (10-20) H 01/03/18 18:10 Glucose 98 mg/dL (74-106) 01/03/18 18:10 Weight used for dosin.5 kg Estimated Creatinine Clearance: 34 Goal Trough: 10-15 mcg/mL Pharmacy Plan for Drug Dosing: Pharmacy Service will continue to monitor and adjust dosing as required. Follow-Up Labs: Trough Vancomycin Labs to be done on [date and time ordered]: 01/05/18 @1930
[2018-01-04] VITALS (15 sets, daily range): BP systolic 101–131; BP diastolic 59–76; PULSE 91–115; RESP 22–26; TEMP 36.6–37.3; O2SAT 94–99
[2018-01-04] MEDS: Menthol/Lanolin/Calamine/Znox 113 GM Tube 1 APPLIC TOPICAL ×3 (02:26→20:09)
[2018-01-04] MEDS: 0.9% Normal Saline 1,000 ML 999 ML IV (02:26)
[2018-01-04] MEDS: Nystatin Powder 15gm Bottle 1 APPLIC TOPICAL ×3 (02:26→22:17)
[2018-01-04] MEDS: 0.9% Normal Saline 1,000 ML 150 ML IV ×2 (03:35→11:24)
[2018-01-04] MEDS: Piperacil/Tazobactam 3.375 GM/50 ML ML IV (05:05)
[2018-01-04 05:59] LABS: Absolute Lymphocyte Count 1.06 X10^3/ul (0.83-4.51); Absolute Neutrophil Count 11.4 X10^3/uL (2.0-7.7); Basophil# 0.02 X10^3/uL; Basophil% 0.1 % (0-1); Eosinophil# 0.04 X10^3/uL; Eosinophils% 0.3 % (0-5); Hematocrit 27.5 % (37-47); Lymphocyte # 1.06 X10^3/ul (4.0); Lymphocyte % 7.7 % (19-41); Mean Corp Hgb Conc 32.7 g/gl (32-36); Mean Corpuscular Hgb 28.1 pg (27.0-32.0); Mean Corpuscular Volume 85.9 fL (81-99); Mean Platelet Vol. 10.3 fl (6.2-12.0); Monocyte# 1.14 X10^3/uL; Monocyte% 8.3 % (0-10); Neutrophil # 11.44 X10^3/uL (2.7-7.7); Neutrophil % 83.4 % (47-70); Platelet Count 405 K/mm3 (150-450); RBC Distribution Width CV 16.6 % (11.6-14.6); RBC Distribution Width SD 50.2 fl (35.1-43.9); White Blood Count 13.7 K/mm3 (4.4-11.0)
[2018-01-04 06:03] LABS: POSITIVE COUNT NO; POSITIVE DIFFERENTIAL NO; POSITIVE MORPHOLOGY NO
[2018-01-04 06:07] LABS: Anion Gap 7 (5-15); BUN 8 mg/dL (7-18); BUN/Creat Ratio 33.6 RATIO (10-20); Calcium,Total 7.4 mg/dL (8.5-10.1); Chloride 101 mmol/L (98-107); Creatinine, Serum 0.24 mg/dL (0.55-1.02); EST Glomerular Filtration Rate 296 mL/min (>60); Est Glom Filt Rate - Afr Amer 358 mL/min (>60); Glucose 88 mg/dL (74-106); Potassium 3.6 mmol/L (3.5-5.1); Sodium Level 137 mmol/L (136-145)
--- NOTE | 2018-01-04 08:48 | NURSING ---
wound photo: left medial lower leg
--- NOTE | 2018-01-04 08:49 | NURSING ---
wound photo: bilateral knees
--- NOTE | 2018-01-04 10:03 | CASEMGMT ---
Social Work Note Physician put in consult for Hospice. SW placed a call to Emilie at [facility] and provided referral. SW faxed referral to [facility]. Meghann Estevez EMPLOYMENT SECURITY OFFICER, EMBEDDED NURSE
--- NOTE | 2018-01-04 11:00 | CASEMGMT ---
Social work Note SW met with pt to confirm discharge plans as pt is listed as being from [facility]. SW introduced self and role at [facility]. Pt is alert and orientated. Pt states that she came from [facility] but she wasn't a truck terminal manager resident. Pt states that she is unsure if she wants to return to [facility] at discharge. SW asked pt where else she would like to go. Pt states that she would like to go to [facility]. SW explained that this worker will have to check if [facility] is in network with pt's insurance. Pt states understanding. SW checked [employer] Medicare website, and [facility] is not in network with pt's insurance. Hospice is to meet with pt later today. SW will check with Hospice later today and will meet with pt to confirm discharge plans. Plan: SNF pending acceptance and pre-cert Meghann Estevez SHOWROOM SALES ASSISTANT, STABLE ATTENDANT
--- NOTE | 2018-01-04 11:25 | PCM.PN.HOSP ---
Patient Problems: Active and Suspected Problems Cellulitis (Acute) Subjective: Patient seen and examined. She was admitted from a alf with a complaint of shortness of breath, right upper extremity swelling and left knee cellulitis with purulent drainage as well as right knee also which is chronic in nature. She was found to be hypoxic as well saturating 88% on 2 L of oxygen which improved to 93% on 3 L of oxygen. She is been admitted to be managed for sepsis due to cellulitis of the knee. Patient seen. He states he feels much better than yesterday. Head is still swollen but is less painful. She denies any fever or chills, any shortness of breath, abdominal pain, any diarrhea vomiting. Review of systems otherwise negative. Discussed with Dr. Bingham of orthopedics this morning. He stated that he has been seeing patient in the clinic and I recommended bilateral above-knee amputation because of the chronic ulcers are not resolving. This is worsened by her severe contractures. Patient and her family had refused above-knee amputation. Dr. Bingham was of the opinion that patient should be presented with the option of emergent bilateral above-knee amputation during this admission; if she refused that, then the next option would be DNR CC. These options were presented to patient that she wants hospice to be consulted to evaluate her and then should be able to make a decision about above-knee amputation or comfort care and hospice. Vitals/I&O's: Vital Signs Temp Pulse Resp BP Pulse Ox 98.8 F 98 22 H 116/68 98 01/04/18 08:06 01/04/18 08:06 01/04/18 08:06 01/04/18 08:06 01/04/18 08:06 Oxygen Flow Rate (L/min) 3 Oxygen Delivery Method Nasal Cannula Weight: 137 lb 12.623 oz Body Mass Index (BMI) 25.2 Intake and Output for Last 24 Hours 01/02/18 01/03/18 01/04/18 23:59 23:59 23:59 Intake Total 2079 / 2079 Output Total 295 / 295 Balance 1785 / 1785 General: Alert, Oriented x3, Cooperative, No apparent distress HEENT: Atraumatic, PERRLA, EOMI, Normocephalic Oral: Moist Mucosa Neck: Supple, No JVD, Negative Carotid Bruits Lungs: Clear to auscultation, Normal air movement, No rhonchi, No wheeze, No rales Cardiovascular: Regular rate, Regular Rhythm, Normal S1, Normal S2, No murmurs Abdomen: Bowel Sounds Present, Soft, Non Tender, Non-Distended, No Hepato-splenomegaly Extremities: - - moderate swelling of RUE; no tenderness or ulceration. Skin: Ulcer/ Wound - over both knees. Musculoskeletal: - - severe contractures of LEs bilaterally. Has ulcerations over medial aspect of both knees, covered with dressing. Was dressed by wound care this morning. Lymphatic: No Cervical, Supraclavicular, or Inguinal Adenopathy Neurological: Cranial nerves II-XII grossly intact Psych/Mental Status: Normal Affect, Appropriate, Alert and oriented to time, place, person, mood and affect Microbiology Past 72 Hours 01/03/18 20:50 Wound Drainage - Leg Gram Stain - Final Laboratory Results 01/03/18 18:10: WBC 18.3 H, RBC 3.69 L, Hgb 10.4 L, Hct 31.4 L, MCV 85.1, MCH 28.2, MCHC 33.1, RDW 16.8 H, RDW Differential 51.1 H, Plt Count 471 H, MPV 10.1, Immature Gran % (Auto) 0.200, Neut % (Auto) 92.0 H, Lymph % (Auto) 2.3 L, [place] % (Auto) 5.2, Eos % (Auto) 0.1, Baso % (Auto) 0.2, Absolute Neuts (auto) 16.8 H, Absolute Lymphs (auto) 0.42 L, Total Counted Not Reportable, Differential Comment SCANNED, RBC Morphology RARE, Hypochromasia 1+, Target Cells RARE, Ovalocytes 1+, Acanthocytes (Spur) 1+, Schistocytes RARE 01/03/18 18:10: PT 15.7 H, INR 1.3, APTT 32.6 01/03/18 18:10: Sodium 132 L, Potassium 4.1, Chloride 95 L, Carbon Dioxide 33.0 H, Anion Gap 4 L, BUN 7, Creatinine 0.33 L, Estim Creat Clear Calc 34.30, Est GFR (MDRD) Af Amer 245, Est GFR (MDRD) Non-Af 203, BUN/Creatinine Ratio 21.2 H, Glucose 98, Calcium 7.8 L, Total Bilirubin 0.60, AST 24, ALT 12 L, Alkaline Phosphatase 199 H, Total Protein 6.2 L, Albumin 2.1 L, Globulin 4.1, Albumin/Globulin Ratio 0.5 L 01/03/18 18:10: Lactic Acid 1.3 01/03/18 18:10: ESR 44 H 01/03/18 18:10: Hemoglobin A1c 5.3 01/03/18 18:52: Urine Color Yellow, Urine Clarity Clear, Urine pH 7.0, Ur Specific [place] 1.010, Urine Protein Negative, Urine Glucose (UA) Normal, Urine Ketones 5 H, Urine Occult Blood 10 H, Urine Nitrite Negative, Urine Bilirubin Negative, Urine Urobilinogen 1 H, Ur Leukocyte Esterase 100 H, Urine RBC 0-5 SEEN, Urine WBC 0-5 SEEN, Ur Squamous Epith Cells 0 SEEN, Urine Bacteria 0 SEEN, Urine Mucus 0 SEEN, Urine Yeast 2+ 01/03/18 20:50: S.aureus Protein A PCR POSITIVE H, MRSA (PCR) POSITIVE H 01/04/18 05:14: WBC 13.7 H, RBC 3.20 L, Hgb 9.0 L, Hct 27.5 L, MCV 85.9, MCH 28.1, MCHC 32.7, RDW 16.6 H, RDW Differential 50.2 H, Plt Count 405, MPV 10.3, Immature Gran % (Auto) 0.200, Neut % (Auto) 83.4 H, Lymph % (Auto) 7.7 L, [place] % (Auto) 8.3, Eos % (Auto) 0.3, Baso % (Auto) 0.1, Absolute Neuts (auto) 11.4 H, Absolute Lymphs (auto) 1.06, Total Counted Not Reportable 01/04/18 05:14: Sodium 137, Potassium 3.6, Chloride 101, Carbon Dioxide 29.0, Anion Gap 7, BUN 8, Creatinine 0.24 L, Estim Creat Clear Calc 34.30, Est GFR (MDRD) Af Amer 358, Est GFR (MDRD) Non-Af 296, BUN/Creatinine Ratio 33.6 H, Glucose 88, Calcium 7.4 L Diagnostic Data Chest X-Ray 01/03/18 17:55 IMPRESSION: No acute disease Electronically Signed: Gabriel Whipple MD at 18:40 EST , Service support , Knee X-Ray 01/03/18 23:00 IMPRESSION: Fractures of the proximal tibia and fibula. Diffuse demineralization. Total knee arthroplasty. Patella janett. Consider correlation with CT. Electronically Signed: Morgan Greenberg MD at 0:44 EST , Service support , Current Medications Acetaminophen (Tylenol) 650 mg PO Q6H PRN PRN PRN Reason: Mild Pain (scale 0-3)/T>100.7 Bisacodyl (Dulcolax) 10 mg RECTAL DAILY PRN PRN PRN Reason: Constipation Calamine/Phenol (Calmoseptine Ointment) 1 applic TOPICAL BID [facility]; Protocol Last Admin: 01/04/18 02:26 Dose: 1 applicatio Docusate Sodium (Colace) 200 mg PO BID PRN PRN PRN Reason: Constipation Enoxaparin Sodium (Lovenox) 40 mg SC DAILY [facility] Piperacillin Sod/Tazobactam Sod (Zosyn) 3.375 gm in 50 mls @ 12.5 mls/hr IV Q8 [facility] Last Admin: 01/04/18 05:05 Dose: 12.5 mls/hr Vancomycin IV Pharmacy to Dose (1 ea/ Sodium Chloride) 500 mls @ 250 mls/hr IV PRN PRN; Protocol Sodium Chloride () 250 mls @ 15 mls/hr IV .[id number] PRN PRN Reason: SALINE FLUSH Vancomycin HCl 750 mg/ Sodium (Chloride) 265 mls @ 250 mls/hr IV Q24H [facility] Sodium Chloride () 1,000 mls @ 150 mls/hr IV .[id number] [facility] Last Admin: 01/04/18 03:35 Dose: 150 mls/hr Morphine Sulfate () 1 - 2 mg IV Q4H PRN PRN PRN Reason: SEVERE PAIN (6-10/10) Nutritional Formula (Lactose Free) (Ensure Enlive) 120 ml PO 4X/DAY [facility] Nystatin (Mycostatin Powder) 1 applic TOPICAL BID [facility]; Protocol Last Admin: 01/04/18 02:26 Dose: 1 applicatio Ondansetron HCl (Zofran) 4 mg IV Q8H PRN PRN PRN Reason: Nausea Oxycodone HCl (Oxyir) 5 mg PO Q4H PRN PRN PRN Reason: Moderate Pain (pain scale 4-5) Polyethylene Glycol (Miralax) 17 gm PO DAILY [facility] Sodium Chloride () 5 - 30 ml IV UD PRN PRN Reason: SALINE FLUSH Medical Necessity - Tobacco Use Smoking Status: Former smoker Assessment/Plan All Active Problems Hyperkalemia (Acute) Hypocalcemia (Acute) Cellulitis (Acute) Cellulitis of right lower extremity (Resolved) Abdominal pain (Resolved) Incarcerated left inguinal hernia (Resolved) 1. Sepsis due to soft tissue cellulits of the knee Patient had SIRS criteria 3 out of 4 on admission yesterday. Temperatures trended down and was 99 Fahrenheit at time of review this morning. Remains tachypneic. White cell count has trended down to 13.7 from 18.3 on admission. On IV vancomycin and IV Zosyn. Blood cultures and urine cultures pending. Aspirate of the abscess done and sent for analysis. Cultures pending. continue IV vancomycin and IV zosyn. ID consulted. await [facility]'s wound nurse on board Patient was offered option of above-knee amputation by orthopedic surgeon on outpatient basis. However she and family refused. Patient counseled this morning again about above knee amputation, as per ortho, it will need to be done in a tertiary center as it cannot be done here. Other option is hospice evaluation. patient agreed to hospice evaluation to help her make up her mind. Duplex of lower extremities was ordered but it was not done on account of severe contractures. orthopedics on board 2. Chronic ulcers over right knee (medial aspect) has been present since admission. Wound care on board. 3. Right upper extremity swelling duplex was negative likely due to lymphedema will monitor 4. Hyponatremia: Resolved. Sodium was 132 on admission is now down to 137. 5. Hypocalcemia: Calcium is 7.4. However corrected for albumin is 8.9. We will continue to monitor. 6. Right tibial periprosthetic fracture and left femur fracture Chronic. Was admitted and October 2017 for this and decision was made for to be nonoperative due to chronic knee contractures because she is bedbound. 7. Cryptogenic cirrhosis with esophageal varices stable ALP is 199; AST and ALT not elevated will monitor 8. History of GI bleed: Stable. 9. Fungal rash: Erythematous rash over abdominal pannus. Nystatin powder. 10. Hypertension: Controlled. Not on medication. Blood pressure has been running in 100 systolic. We will continue to monitor. 11. Anxiety and depression: Stable DVT prophylaxis: lovenox GI prophylaxis: pantoprazole Code Visit Inpatient E&M: 08999 Subs Hosp L3
--- NOTE | 2018-01-04 11:31 | PN_ITS ---
Patient Problems: Active and Suspected Problems Cellulitis (Acute) Subjective: Patient seen and examined. She was admitted from a [facility] with a complaint of shortness of breath, right upper extremity swelling and left knee cellulitis with purulent drainage as well as right knee also which is chronic in nature. She was found to be hypoxic as well saturating 88% on 2 L of oxygen which improved to 93% on 3 L of oxygen. She is been admitted to be managed for sepsis due to cellulitis of the knee. Patient seen. He states he feels much better than yesterday. Head is still swollen but is less painful. She denies any fever or chills, any shortness of breath, abdominal pain, any diarrhea vomiting. Review of systems otherwise negative. Discussed with Dr. Bingham of orthopedics this morning. He stated that he has been seeing patient in the clinic and I recommended bilateral above- knee amputation because of the chronic ulcers are not resolving. This is worsened by her severe contractures. Patient and her family had refused above- knee amputation. Dr. Bingham was of the opinion that patient should be presented with the option of emergent bilateral above-knee amputation during this admission; if she refused that, then the next option would be DNR CC. These options were presented to patient that she wants hospice to be consulted to evaluate her and then should be able to make a decision about above-knee amputation or comfort care and hospice. Vitals/I&O's: Vital Signs Temp Pulse Resp BP Pulse Ox 98.8 F 98 22 H 116/68 98 01/04/18 08:06 01/04/18 08:06 01/04/18 08:06 01/04/18 08:06 01/04/18 08:06 Oxygen Flow Rate (L/min) 3 Oxygen Delivery Method Nasal Cannula Weight: 137 lb 12.623 oz Body Mass Index (BMI) 25.2 Intake and Output for Last 24 Hours 01/02/18 01/03/18 01/04/18 23:59 23:59 23:59 Intake Total 2079 / 2079 Output Total 295 / 295 Balance 1785 / 1785 General: Alert, Oriented x3, Cooperative, No apparent distress HEENT: Atraumatic, PERRLA, EOMI, Normocephalic Oral: Moist Mucosa Neck: Supple, No JVD, Negative Carotid Bruits Lungs: Clear to auscultation, Normal air movement, No rhonchi, No wheeze, No rales Cardiovascular: Regular rate, Regular Rhythm, Normal S1, Normal S2, No murmurs Abdomen: Bowel Sounds Present, Soft, Non Tender, Non-Distended, No Hepato- splenomegaly Extremities: - - moderate swelling of RUE; no tenderness or ulceration. Skin: Ulcer/ Wound - over both knees. Musculoskeletal: - - severe contractures of LEs bilaterally. Has ulcerations over medial aspect of both knees, covered with dressing. Was dressed by wound care this morning. Lymphatic: No Cervical, Supraclavicular, or Inguinal Adenopathy Neurological: Cranial nerves II-XII grossly intact Psych/Mental Status: Normal Affect, Appropriate, Alert and oriented to time, place, person, mood and affect Microbiology Past 72 Hours 01/03/18 20:50 Wound Drainage - Leg Gram Stain - Final Laboratory Results 01/03/18 18:10: WBC 18.3 H, RBC 3.69 L, Hgb 10.4 L, Hct 31.4 L, MCV 85.1, MCH 28.2, MCHC 33.1, RDW 16.8 H, RDW Differential 51.1 H, Plt Count 471 H, MPV 10.1, Immature Gran % (Auto) 0.200, Neut % (Auto) 92.0 H, Lymph % (Auto) 2.3 L, [place] % (Auto) 5.2, Eos % (Auto) 0.1, Baso % (Auto) 0.2, Absolute Neuts (auto) 16.8 H, Absolute Lymphs (auto) 0.42 L, Total Counted Not Reportable, Differential Comment SCANNED, RBC Morphology RARE, Hypochromasia 1+, Target Cells RARE, Ovalocytes 1+, Acanthocytes (Spur) 1+, Schistocytes RARE 01/03/18 18:10: PT 15.7 H, INR 1.3, APTT 32.6 01/03/18 18:10: Sodium 132 L, Potassium 4.1, Chloride 95 L, Carbon Dioxide 33.0 H, Anion Gap 4 L, BUN 7, Creatinine 0.33 L, Estim Creat Clear Calc 34.30, Est GFR (MDRD) Af Amer 245, Est GFR (MDRD) Non-Af 203, BUN/Creatinine Ratio 21.2 H, Glucose 98, Calcium 7.8 L, Total Bilirubin 0.60, AST 24, ALT 12 L, Alkaline Phosphatase 199 H, Total Protein 6.2 L, Albumin 2.1 L, Globulin 4.1, Albumin/Globulin Ratio 0.5 L 01/03/18 18:10: Lactic Acid 1.3 01/03/18 18:10: ESR 44 H 01/03/18 18:10: Hemoglobin A1c 5.3 01/03/18 18:52: Urine Color Yellow, Urine Clarity Clear, Urine pH 7.0, Ur Specific [place] 1.010, Urine Protein Negative, Urine Glucose (UA) Normal, Urine Ketones 5 H, Urine Occult Blood 10 H, Urine Nitrite Negative, Urine Bilirubin Negative, Urine Urobilinogen 1 H, Ur Leukocyte Esterase 100 H, Urine RBC 0-5 SEEN, Urine WBC 0-5 SEEN, Ur Squamous Epith Cells 0 SEEN, Urine Bacteria 0 SEEN, Urine Mucus 0 SEEN, Urine Yeast 2+ 01/03/18 20:50: S.aureus Protein A PCR POSITIVE H, MRSA (PCR) POSITIVE H 01/04/18 05:14: WBC 13.7 H, RBC 3.20 L, Hgb 9.0 L, Hct 27.5 L, MCV 85.9, MCH 28.1, MCHC 32.7, RDW 16.6 H, RDW Differential 50.2 H, Plt Count 405, MPV 10.3, Immature Gran % (Auto) 0.200, Neut % (Auto) 83.4 H, Lymph % (Auto) 7.7 L, [place] % (Auto) 8.3, Eos % (Auto) 0.3, Baso % (Auto) 0.1, Absolute Neuts (auto) 11.4 H, Absolute Lymphs (auto) 1.06, Total Counted Not Reportable 01/04/18 05:14: Sodium 137, Potassium 3.6, Chloride 101, Carbon Dioxide 29.0, Anion Gap 7, BUN 8, Creatinine 0.24 L, Estim Creat Clear Calc 34.30, Est GFR (MDRD) Af Amer 358, Est GFR (MDRD) Non-Af 296, BUN/Creatinine Ratio 33.6 H, Glucose 88, Calcium 7.4 L Diagnostic Data Chest X-Ray 01/03/18 17:55 IMPRESSION: No acute disease Electronically Signed: Gabriel Whipple MD at 18:40 EST , Service support , Knee X-Ray 01/03/18 23:00 IMPRESSION: Fractures of the proximal tibia and fibula. Diffuse demineralization. Total knee arthroplasty. Patella janett. Consider correlation with CT. Electronically Signed: Morgan Greenberg MD at 0:44 EST , Service support , Current Medications Acetaminophen (Tylenol) 650 mg PO Q6H PRN PRN PRN Reason: Mild Pain (scale 0-3)/T>100.7 Bisacodyl (Dulcolax) 10 mg RECTAL DAILY PRN PRN PRN Reason: Constipation Calamine/Phenol (Calmoseptine Ointment) 1 applic TOPICAL BID [facility]; Protocol Last Admin: 01/04/18 02:26 Dose: 1 applicatio Docusate Sodium (Colace) 200 mg PO BID PRN PRN PRN Reason: Constipation Enoxaparin Sodium (Lovenox) 40 mg SC DAILY [facility] Piperacillin Sod/Tazobactam Sod (Zosyn) 3.375 gm in 50 mls @ 12.5 mls/hr IV Q8 [facility] Last Admin: 01/04/18 05:05 Dose: 12.5 mls/hr Vancomycin IV Pharmacy to Dose (1 ea/ Sodium Chloride) 500 mls @ 250 mls/hr IV PRN PRN; Protocol Sodium Chloride () 250 mls @ 15 mls/hr IV .[id number] PRN PRN Reason: SALINE FLUSH Vancomycin HCl 750 mg/ Sodium (Chloride) 265 mls @ 250 mls/hr IV Q24H [facility] Sodium Chloride () 1,000 mls @ 150 mls/hr IV .[id number] [facility] Last Admin: 01/04/18 03:35 Dose: 150 mls/hr Morphine Sulfate () 1 - 2 mg IV Q4H PRN PRN PRN Reason: SEVERE PAIN (6-10/10) Nutritional Formula (Lactose Free) (Ensure Enlive) 120 ml PO 4X/DAY [facility] Nystatin (Mycostatin Powder) 1 applic TOPICAL BID [facility]; Protocol Last Admin: 01/04/18 02:26 Dose: 1 applicatio Ondansetron HCl (Zofran) 4 mg IV Q8H PRN PRN PRN Reason: Nausea Oxycodone HCl (Oxyir) 5 mg PO Q4H PRN PRN PRN Reason: Moderate Pain (pain scale 4-5) Polyethylene Glycol (Miralax) 17 gm PO DAILY [facility] Sodium Chloride () 5 - 30 ml IV UD PRN PRN Reason: SALINE FLUSH Medical Necessity - Tobacco Use Smoking Status: Former smoker Assessment/Plan All Active Problems Hyperkalemia (Acute) Hypocalcemia (Acute) Cellulitis (Acute) Cellulitis of right lower extremity (Resolved) Abdominal pain (Resolved) Incarcerated left inguinal hernia (Resolved) 1. Sepsis due to soft tissue cellulits of the knee * Patient had SIRS criteria 3 out of 4 on admission yesterday. * Temperatures trended down and was 99 Fahrenheit at time of review this morning. Remains tachypneic. * White cell count has trended down to 13.7 from 18.3 on admission. * On IV vancomycin and IV Zosyn. * Blood cultures and urine cultures pending. * Aspirate of the abscess done and sent for analysis. Cultures pending. * continue IV vancomycin and IV zosyn. * ID consulted. await rec's * wound nurse on board * Patient was offered option of above-knee amputation by orthopedic surgeon on outpatient basis. However she and family refused. Patient counseled this morning again about above knee amputation, as per ortho, it will need to be done in a tertiary center as it cannot be done here. Other option is hospice evaluation. * patient agreed to hospice evaluation to help her make up her mind. * Duplex of lower extremities was ordered but it was not done on account of se wally contractures. * orthopedics on board * 2. Chronic ulcers over right knee (medial aspect) * has been present since admission. Wound care on board. * 3. Right upper extremity swelling * duplex was negative * likely due to lymphedema * will monitor * 4. Hyponatremia: Resolved. Sodium was 132 on admission is now down to 137. 5. Hypocalcemia: Calcium is 7.4. However corrected for albumin is 8.9. We will continue to monitor. 6. Right tibial periprosthetic fracture and left femur fracture * Chronic. Was admitted and October 2017 for this and decision was made for to be nonoperative due to chronic knee contractures because she is bedbound. 7. Cryptogenic cirrhosis with esophageal varices * stable * ALP is 199; AST and ALT not elevated * will monitor * 8. History of GI bleed: Stable. 9. Fungal rash: Erythematous rash over abdominal pannus. Nystatin powder. 10. Hypertension: Controlled. Not on medication. Blood pressure has been running in 100 systolic. We will continue to monitor. 11. Anxiety and depression: Stable DVT prophylaxis: lovenox GI prophylaxis: pantoprazole Code Visit Inpatient E&M: 25805 Subs Hosp L3
--- NOTE | 2018-01-04 12:31 | PCM.HP.ID ---
Problem List (1) Cellulitis Status: Acute Reason for Consult: sepsis Consulted by: Dr. Nicholson History of Present Illness: The patient is a 82 year old F who presented with confusion, fever. Had several days of RUE swelling and redness. Fell out of wheelchair a few months ago, developed progressive swelling/redness/pain in knees with ulceration. Had fever in ED to 102.2, started on vanc/zosyn, admitted. Ortho consulted. Pus aspirated and showing MRSA. Feeling better today. Full ROS performed and neg except as noted above. 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; EGD 09/2012 - mild gastritis, grade 2 esophageal varices (liver biopsy no cirrhosis) History of Clostridium difficile infection (Chronic) Depression (Chronic) Anxiety (Chronic) Hypokalemia (Chronic) OAB (overactive bladder) (Chronic) GERD (gastroesophageal reflux disease) (Chronic) Constipation (Chronic) Diarrhea (Chronic) Edema (Chronic) Debility (Chronic) IBS (irritable bowel syndrome) (Chronic) Knee pain (Chronic) Generalized osteoarthritis (Chronic) GI bleed (Chronic) Esophageal varices (Chronic) Hypertension (Chronic) Allergies/Adverse Reactions: Allergies belladonna alkaloids [Belladonna Alkaloids] Allergy (Verified 01/03/18 17:36) Unknown halobetasol Allergy (Verified 01/03/18 17:36) Unknown celecoxib [From Celebrex] Adverse Reaction (Verified 01/03/18 17:36) Diarrhea Home Medications: Ambulatory Orders Medication Instructions Recorded Magnesium Hydroxide [Milk Of 30 ml PO DAILY PRN PRN udc 11/09/17 Magnesia] Oxycodone [Oxyir] 10 mg PO Q4H PRN PRN 7 Days #42 11/09/17 tablet Cephalexin [Keflex] 500 mg PO BID 11/16/17 Omeprazole [Prilosec] 20 mg PO BID 11/16/17 Calcium Carbonate 500 mg PO TID 01/03/18 Iron Polysaccharide Complex 150 mg PO TIDCM 01/03/18 [Ferrex 150] Mag Hydrox/Al Hydrox/Simeth 30 ml PO Q4H PRN PRN 01/03/18 [Antacid Suspension] Menthol/Lanolin/Calamine/Znox 1 applic TOPICAL TID 01/03/18 [Calmoseptine Ointment] Oxycodone CR [Oxycontin] 15 mg PO BID 01/03/18 Polyethylene Glycol 3350 [Miralax] 17 gm PO QHS 01/03/18 Potassium Chloride [Klor-Con M20] 20 meq PO DAILY 01/03/18 Senna/Docusate Sodium [Senokot-S] 2 tablet PO BID 01/03/18 - Social History SMOKING STATUS:: Former smoker Vital Signs Temp Pulse Resp BP Pulse Ox 99.0 F 98 24 H 101/60 98 01/04/18 10:30 01/04/18 10:30 01/04/18 10:30 01/04/18 10:30 01/04/18 10:30 Oxygen Flow Rate (L/min) 3 Oxygen Delivery Method Nasal Cannula Weight: 62.5 kg Body Mass Index (BMI) 25.2 Microbiology Past 72 Hours 01/03/18 20:50 Gram Stain - Final Wound Drainage - Leg Wound Culture - Preliminary Gram positive organism Laboratory Tests Past 24 Hrs 01/03/18 01/03/18 01/03/18 18:10 18:10 18:10 WBC 18.3 H RBC 3.69 L Hgb 10.4 L Hct 31.4 L MCV 85.1 MCH 28.2 MCHC 33.1 RDW 16.8 H RDW Differential 51.1 H Plt Count 471 H MPV 10.1 Immature Gran % (Auto) 0.200 Neut % (Auto) 92.0 H Lymph % (Auto) 2.[address] [place] % (Auto) 5.2 Eos % (Auto) 0.1 Baso % (Auto) 0.2 Absolute Neuts (auto) 16.8 H Absolute Lymphs (auto) 0.42 L Total Counted Not Reportable Differential Comment SCANNED RBC Morphology RARE Hypochromasia 1+ Target Cells RARE Ovalocytes 1+ Acanthocytes (Spur) 1+ Schistocytes RARE ESR PT 15.7 H INR 1.3 APTT 32.6 Sodium 132 L Potassium 4.1 Chloride 95 L Carbon Dioxide 33.0 H Anion Gap 4 L BUN 7 Creatinine 0.33 L Estim Creat Clear Calc 34.30 Est GFR (MDRD) Af Amer 245 Est GFR (MDRD) Non-Af 203 BUN/Creatinine Ratio 21.2 H Glucose 98 Hemoglobin A1c Lactic Acid Calcium 7.8 L Total Bilirubin 0.60 AST 24 ALT 12 L Alkaline Phosphatase 199 H Total Protein 6.2 L Albumin 2.1 L Globulin 4.1 Albumin/Globulin Ratio 0.5 L Urine Color Urine Clarity Urine pH Ur Specific [place] Urine Protein Urine Glucose (UA) Urine Ketones Urine Occult Blood Urine Nitrite Urine Bilirubin Urine Urobilinogen Ur Leukocyte Esterase Urine RBC Urine WBC Ur Squamous Epith Cells Urine Bacteria Urine Mucus Urine Yeast S.aureus Protein A PCR MRSA (PCR) 01/03/18 01/03/18 01/03/18 18:10 18:10 18:10 WBC RBC Hgb Hct MCV MCH MCHC RDW RDW Differential Plt Count MPV Immature Gran % (Auto) Neut % (Auto) Lymph % (Auto) [place] % (Auto) Eos % (Auto) Baso % (Auto) Absolute Neuts (auto) Absolute Lymphs (auto) Total Counted Differential Comment RBC Morphology Hypochromasia Target Cells Ovalocytes Acanthocytes (Spur) Schistocytes ESR 44 H PT INR APTT Sodium Potassium Chloride Carbon Dioxide Anion Gap BUN Creatinine Estim Creat Clear Calc Est GFR (MDRD) Af Amer Est GFR (MDRD) Non-Af BUN/Creatinine Ratio Glucose Hemoglobin A1c 5.3 Lactic Acid 1.3 Calcium Total Bilirubin AST ALT Alkaline Phosphatase Total Protein Albumin Globulin Albumin/Globulin Ratio Urine Color Urine Clarity Urine pH Ur Specific [place] Urine Protein Urine Glucose (UA) Urine Ketones Urine Occult Blood Urine Nitrite Urine Bilirubin Urine Urobilinogen Ur Leukocyte Esterase Urine RBC Urine WBC Ur Squamous Epith Cells Urine Bacteria Urine Mucus Urine Yeast S.aureus Protein A PCR MRSA (PCR) 01/03/18 01/03/18 01/04/18 18:52 20:50 05:14 WBC 13.7 H RBC 3.20 L Hgb 9.0 L Hct 27.5 L MCV 85.9 MCH 28.1 MCHC 32.7 RDW 16.6 H RDW Differential 50.2 H Plt Count 405 MPV 10.3 Immature Gran % (Auto) 0.200 Neut % (Auto) 83.4 H Lymph % (Auto) 7.[address] [place] % (Auto) 8.3 Eos % (Auto) 0.3 Baso % (Auto) 0.1 Absolute Neuts (auto) 11.4 H Absolute Lymphs (auto) 1.06 Total Counted Not Reportable Differential Comment RBC Morphology Hypochromasia Target Cells Ovalocytes Acanthocytes (Spur) Schistocytes ESR PT INR APTT Sodium Potassium Chloride Carbon Dioxide Anion Gap BUN Creatinine Estim Creat Clear Calc Est GFR (MDRD) Af Amer Est GFR (MDRD) Non-Af BUN/Creatinine Ratio Glucose Hemoglobin A1c Lactic Acid Calcium Total Bilirubin AST ALT Alkaline Phosphatase Total Protein Albumin Globulin Albumin/Globulin Ratio Urine Color Yellow Urine Clarity Clear Urine pH 7.0 Ur Specific [place] 1.010 Urine Protein Negative Urine Glucose (UA) Normal Urine Ketones 5 H Urine Occult Blood 10 H Urine Nitrite Negative Urine Bilirubin Negative Urine Urobilinogen 1 H Ur Leukocyte Esterase 100 H Urine RBC 0-5 SEEN Urine WBC 0-5 SEEN Ur Squamous Epith Cells 0 SEEN Urine Bacteria 0 SEEN Urine Mucus 0 SEEN Urine Yeast 2+ S.aureus Protein A PCR POSITIVE H MRSA (PCR) POSITIVE H 01/04/18 05:14 WBC RBC Hgb Hct MCV MCH MCHC RDW RDW Differential Plt Count MPV Immature Gran % (Auto) Neut % (Auto) Lymph % (Auto) [place] % (Auto) Eos % (Auto) Baso % (Auto) Absolute Neuts (auto) Absolute Lymphs (auto) Total Counted Differential Comment RBC Morphology Hypochromasia Target Cells Ovalocytes Acanthocytes (Spur) Schistocytes ESR PT INR APTT Sodium 137 Potassium 3.6 Chloride 101 Carbon Dioxide 29.0 Anion Gap 7 BUN 8 Creatinine 0.24 L Estim Creat Clear Calc 34.30 Est GFR (MDRD) Af Amer 358 Est GFR (MDRD) Non-Af 296 BUN/Creatinine Ratio 33.6 H Glucose 88 Hemoglobin A1c Lactic Acid Calcium 7.4 L Total Bilirubin AST ALT Alkaline Phosphatase Total Protein Albumin Globulin Albumin/Globulin Ratio Urine Color Urine Clarity Urine pH Ur Specific [place] Urine Protein Urine Glucose (UA) Urine Ketones Urine Occult Blood Urine Nitrite Urine Bilirubin Urine Urobilinogen Ur Leukocyte Esterase Urine RBC Urine WBC Ur Squamous Epith Cells Urine Bacteria Urine Mucus Urine Yeast S.aureus Protein A PCR MRSA (PCR) - Other Studies Radiology: [] reviewed Other Studies: [] Route of nutrition/ use of supplements: [] Nutritional Intake: [] IV Site: [] Bradshaw Catheter: [] - Physical Exam General: Alert, Oriented x3, Cooperative, No apparent distress HEENT: Atraumatic, PERRLA, EOMI Neck: Supple, No Nodes Lungs: Clear to auscultation, Normal air movement Cardiovascular: Regular rate, Regular Rhythm, Murmur Abdomen: Soft, Non Tender, Non-Distended Extremities: Edema Skin: Ulcer/ Wound - Bilateral knee ulcers with redness IV Site: Peripheral, without redness Musculoskeletal: No Tenderness to Palpation of Joints or Extremities Neurological: Cranial nerves II-XII grossly intact - Assessment/Plan Antibiotics: [] Assessment/Plan: [] Active and Suspected Problems Cellulitis (Acute) Sepsis due to MRSA knee infected ulcer and abscess - cx with staph aureus. Ortho to see. Bilateral TKAs. R knee xray showed fracture. Continue vanc, will narrow zosyn to cefazolin for now. Will follow, thank you.
[2018-01-04] MEDS: Acetaminophen 325 MG Tablet 650 MG PO ×2 (14:16→22:35)
[2018-01-04] MEDS: Cefazolin 2 GM in 0.9% Normal Saline 100 ML IV ×2 (14:17→22:16)
--- NOTE | 2018-01-04 14:38 | PCA ---
Hospice is here to talk to patient and family. Hospice wanted me to go in to see if patient knows she is coming in to talk to her about it so she don't get upset. Patient told me doctor did say a lot of stuff this morning but she is confused and also the nurse told her hospice was coming at 1430 to talk to her. I went and talked to the patient and the patient told me there is a lot going on and she wants hospice to talk to the family first to explain it to them first before they meet as a family so she can better understand what the hospice nurse is trying to explain, that it is better for her to comprehend when they do it that way.
[2018-01-04] MEDS: oxyCODONE 5 MG Tablet PO ×2 (17:01→22:35)
[2018-01-04] MEDS: 0.9% Normal Saline 1,000 ML 100 ML IV (18:48)
[2018-01-04] MEDS: Enoxaparin 40 MG/0.4 ML Syringe SC (22:16)
--- NOTE | 2018-01-04 23:04 | RAD_ITS ---
STUDY: X-RAY CHEST REASON FOR EXAM: Female, 82 years old. Shortness of breath. TECHNIQUE: Single AP portable view of the chest. COMPARISON: January 03, 2018. FINDINGS: Again seen is elevation right hemidiaphragm. There is patchy infiltrate in the left hilar region not previously seen. Lungs appear otherwise clear. There is no demonstrated pleural abnormality. Normal size heart. Normal mediastinum and arlene. Normal visualized pulmonary arteries. There is atherosclerotic calcification of the aortic arch with tortuosity. No visualized osseous changes. Dilated loops of bowel beneath the right hemidiaphragm. RAD/Chest 1 View (Portable) IMPRESSION: 1. Questionable patchy infiltrate in the left mid lung not seen on the prior study. 2. No other significant interval change. Electronically Signed: Zain Shin DO at 23:18 EST Tel [phone], Service support ,
[2018-01-04] MEDS: Furosemide 20 MG/2 ML VIAL IV (23:11)
[2018-01-04] MEDS: 0.9% NaCl Peripheral Flush Adult/Peds IV (23:12)
[2018-01-05 00:15] VITALS: BP 120/76; PULSE 95; RESP 20; TEMP 36.6; O2SAT 99
[2018-01-05] MEDS: oxyCODONE 5 MG Tablet PO ×4 (03:47→22:55)
[2018-01-05 03:57] VITALS: BP 124/74; PULSE 93; RESP 16; TEMP 36.8; O2SAT 98
[2018-01-05] MEDS: Cefazolin 2 GM in 0.9% Normal Saline 100 ML IV (06:00)
[2018-01-05 06:07] LABS: Anion Gap 8 (5-15); BUN 7 mg/dL (7-18); BUN/Creat Ratio 31.8 RATIO (10-20); Calcium,Total 7.3 mg/dL (8.5-10.1); Chloride 101 mmol/L (98-107); Creatinine, Serum 0.22 mg/dL (0.55-1.02); EST Glomerular Filtration Rate 324 mL/min (>60); Est Glom Filt Rate - Afr Amer 392 mL/min (>60); Glucose 76 mg/dL (74-106); Potassium 2.9 mmol/L (3.5-5.1); Sodium Level 137 mmol/L (136-145)
[2018-01-05 06:08] LABS: Absolute Lymphocyte Count 0.61 X10^3/ul (0.83-4.51); Absolute Neutrophil Count 5.4 X10^3/uL (2.0-7.7); Basophil# 0.03 X10^3/uL; Basophil% 0.4 % (0-1); Eosinophil# 0.09 X10^3/uL; Eosinophils% 1.3 % (0-5); Hematocrit 29.5 % (37-47); Hemoglobin 9.5 g/dl (12.0-15.0); Lymphocyte # 0.61 X10^3/ul (4.0); Lymphocyte % 8.6 % (19-41); Mean Corp Hgb Conc 32.2 g/gl (32-36); Mean Corpuscular Hgb 27.8 pg (27.0-32.0); Mean Corpuscular Volume 86.3 fL (81-99); Mean Platelet Vol. 10.5 fl (6.2-12.0); Monocyte# 0.95 X10^3/uL; Monocyte% 13.3 % (0-10); Neutrophil # 5.41 X10^3/uL (2.7-7.7); Platelet Count 417 K/mm3 (150-450); RBC Distribution Width CV 16.9 % (11.6-14.6); RBC Distribution Width SD 51.5 fl (35.1-43.9); Red Blood Count 3.42 M/mm3 (4.2-5.4); White Blood Count 7.1 K/mm3 (4.4-11.0)
[2018-01-05] MEDS: Acetaminophen 325 MG Tablet 650 MG PO (06:11)
[2018-01-05 06:33] LABS: POSITIVE COUNT NO; POSITIVE DIFFERENTIAL NO; POSITIVE MORPHOLOGY NO
[2018-01-05 08:25] VITALS: O2SAT 98
[2018-01-05] MEDS: Menthol/Lanolin/Calamine/Znox 113 GM Tube 1 APPLIC TOPICAL ×2 (09:20→22:56)
[2018-01-05] MEDS: Enoxaparin 40 MG/0.4 ML Syringe SC (09:20)
[2018-01-05] MEDS: Nystatin Powder 15gm Bottle 1 APPLIC TOPICAL ×2 (09:26→22:56)
[2018-01-05 09:53] VITALS: BP 164/80; PULSE 83; RESP 18; TEMP 36.8; O2SAT 98
--- NOTE | 2018-01-05 11:12 | PN.ID_ITS ---
Patient Problems: Active and Suspected Problems Cellulitis (Acute) Subjective: Has decided to go with hospice. No fever, legs feeling ok. - Physical Exam General: Alert, Cooperative, No apparent distress Lungs: Clear to auscultation, Normal air movement Cardiovascular: Regular rate, Regular Rhythm Abdomen: Soft, Non Tender, Non-Distended Skin: Ulcer/ Wound - bandaged Vital Signs Temp Pulse Resp BP Pulse Ox 98.3 F 83 18 164/80 H 98 01/05/18 09:53 01/05/18 09:53 01/05/18 09:53 01/05/18 09:53 01/05/18 09:53 Oxygen Flow Rate (L/min) 3 Oxygen Delivery Method Nasal Cannula Weight: 62.5 kg Body Mass Index (BMI) 25.2 Intake and Output for Last 24 Hours 01/03/18 01/04/18 01/05/18 23:59 23:59 23:59 Intake Total 4560 / 4560 1345 / 1345 Output Total 670 / 670 900 / 900 Balance 3890 / 3890 445 / 445 Microbiology Past 72 Hours 01/03/18 20:50 Gram Stain - Final Wound Drainage - Leg Wound Culture - Preliminary Gram negative carmen Staphylococcus aureus Anaerobic Culture - Preliminary Checking for anaerobes, further studies to follow. Laboratory Tests Past 24 Hrs 01/05/18 01/05/18 05:16 05:16 WBC 7.1 RBC 3.42 L Hgb 9.5 L Hct 29.5 L MCV 86.3 MCH 27.8 MCHC 32.2 RDW 16.9 H RDW Differential 51.5 H Plt Count 417 MPV 10.5 Immature Gran % (Auto) 0.400 Neut % (Auto) 76.0 H Lymph % (Auto) 8.6 L [place] % (Auto) 13.3 H Eos % (Auto) 1.3 Baso % (Auto) 0.4 Absolute Neuts (auto) 5.4 Absolute Lymphs (auto) 0.61 L Total Counted Not Reportable Sodium 137 Potassium 2.9 L Chloride 101 Carbon Dioxide 28.0 Anion Gap 8 BUN 7 Creatinine 0.22 L Estim Creat Clear Calc 34.30 Est GFR (MDRD) Af Amer 392 Est GFR (MDRD) Non-Af 324 BUN/Creatinine Ratio 31.8 H Glucose 76 Calcium 7.3 L Medical Necessity - Tobacco Use Smoking Status: Former smoker Route of nutrition/ use of supplements: [] Nutritional Intake: [] IV Site: [] Bradshaw Catheter: [] - Assessment/Plan Antibiotics: [] Assessment/Plan: [] Active and Suspected Problems Cellulitis (Acute) Sepsis due to MRSA knee infected ulcer and abscess - cx with staph aureus and proteus-like. Pt has decided to go with hospice. Will narrow iv abx to po doxy and omnicef, susceptibilities should be back tomorrow. Plan on d/c to [facility]CF with 10 days po abx. Will follow
--- NOTE | 2018-01-05 11:12 | PCM.PN.HOSP ---
Patient Problems: Active and Suspected Problems Cellulitis (Acute) Subjective: Patient seen and examined. He had no complaints and had an uneventful night. She denied any fever or chills, any cough or chest pain, shortness of breath, abdominal pain, any diarrhea vomiting. Hospice spoke to patient yesterday and according to her, she was having a coughing spell at the time hospice was talking to her so she quit a year with it was saying. However per discussion with nurse, hospice discussed with patient and her family about hospice options and decide on for hospice care at her [place] [facility] when she is stable for discharge. Review of systems otherwise negative. Vitals/I&O's: Vital Signs Temp Pulse Resp BP Pulse Ox 98.3 F 83 18 164/80 H 98 01/05/18 09:53 01/05/18 09:53 01/05/18 09:53 01/05/18 09:53 01/05/18 09:53 Oxygen Flow Rate (L/min) 3 Oxygen Delivery Method Nasal Cannula Weight: 137 lb 12.623 oz Body Mass Index (BMI) 25.2 Intake and Output for Last 24 Hours 01/03/18 01/04/18 01/05/18 23:59 23:59 23:59 Intake Total 4560 / 4560 1345 / 1345 Output Total 670 / 670 900 / 900 Balance 3890 / 3890 445 / 445 General: Alert, Oriented x3, Cooperative, No apparent distress HEENT: Atraumatic, PERRLA, EOMI, Normocephalic Oral: Moist Mucosa Neck: Supple, No JVD, Negative Carotid Bruits, Negative Hepatojugular Reflux, No Nodes Lungs: - - few crackles bibasally. No wheezing or rhonchi Cardiovascular: Regular rate, Regular Rhythm, Normal S1, Normal S2, No murmurs Abdomen: Bowel Sounds Present, Soft, Non Tender, Non-Distended, No Hepato-splenomegaly Extremities: Edema - 2+ pitting edema of both LEs, - Skin: - - ulcerations and chronic wounds on both LEs at knees. WOunds currently dressed Musculoskeletal: - - severe contractures of both LEs, especially at her knees. Ulcerations on both LEs bilaterally. Lymphatic: No Cervical, Supraclavicular, or Inguinal Adenopathy Neurological: Cranial nerves II-XII grossly intact Psych/Mental Status: Normal Affect, Appropriate, Alert and oriented to time, place, person, mood and affect Microbiology Past 72 Hours 01/03/18 20:50 Wound Drainage - Leg Gram Stain - Final 01/03/18 20:50 Wound Drainage - Leg Wound Culture - Preliminary Gram negative carmen Staphylococcus aureus 01/03/18 20:50 Wound Drainage - Leg Anaerobic Culture - Preliminary Checking for anaerobes, further studies to follow. Laboratory Results 01/05/18 05:16: WBC 7.1, RBC 3.42 L, Hgb 9.5 L, Hct 29.5 L, MCV 86.3, MCH 27.8, MCHC 32.2, RDW 16.9 H, RDW Differential 51.5 H, Plt Count 417, MPV 10.5, Immature Gran % (Auto) 0.400, Neut % (Auto) 76.0 H, Lymph % (Auto) 8.6 L, [place] % (Auto) 13.3 H, Eos % (Auto) 1.3, Baso % (Auto) 0.4, Absolute Neuts (auto) 5.4, Absolute Lymphs (auto) 0.61 L, Total Counted Not Reportable 01/05/18 05:16: Sodium 137, Potassium 2.9 L, Chloride 101, Carbon Dioxide 28.0, Anion Gap 8, BUN 7, Creatinine 0.22 L, Estim Creat Clear Calc 34.30, Est GFR (MDRD) Af Amer 392, Est GFR (MDRD) Non-Af 324, BUN/Creatinine Ratio 31.8 H, Glucose 76, Calcium 7.3 L Diagnostic Data Knee X-Ray 01/03/18 23:00 IMPRESSION: Fractures of the proximal tibia and fibula. Diffuse demineralization. Total knee arthroplasty. Patella janett. Consider correlation with CT. Electronically Signed: Morgan Greenberg MD at 0:44 EST , Service support , Chest X-Ray 01/04/18 23:04 IMPRESSION: 1. Questionable patchy infiltrate in the left mid lung not seen on the prior study. 2. No other significant interval change. Electronically Signed: Zain Shin DO at 23:18 EST Tel [phone], Service support , Current Medications Acetaminophen (Tylenol) 650 mg PO Q6H PRN PRN PRN Reason: Mild Pain (scale 0-3)/T>100.7 Last Admin: 01/05/18 06:11 Dose: 650 mg Bisacodyl (Dulcolax) 10 mg RECTAL DAILY PRN PRN PRN Reason: Constipation Calamine/Phenol (Calmoseptine Ointment) 1 applic TOPICAL BID [facility]; Protocol Last Admin: 01/05/18 09:20 Dose: 1 applicatio Cefdinir (Omnicef [Equiv]) 300 mg PO Q12 [facility] Docusate Sodium (Colace) 200 mg PO BID PRN PRN PRN Reason: Constipation Doxycycline Monohydrate (Doxycycline) 100 mg PO BID [facility] Enoxaparin Sodium (Lovenox) 40 mg SC DAILY [facility] Last Admin: 01/05/18 09:20 Dose: 40 mg Potassium Chloride (Kcl 10meq/100ml) 10 meq in 100 mls @ 100 mls/hr IV BOLUS Q1H [facility] Stop: 01/05/18 11:59 Last Admin: 01/05/18 09:19 Dose: 100 mls/hr Morphine Sulfate () 1 - 2 mg IV Q4H PRN PRN PRN Reason: SEVERE PAIN (6-10/10) Nutritional Formula (Lactose Free) (Ensure Enlive) 120 ml PO 4X/DAY [facility] Last Admin: 01/05/18 09:20 Dose: 120 ml Nystatin (Mycostatin Powder) 1 applic TOPICAL BID [facility]; Protocol Last Admin: 01/05/18 09:26 Dose: 1 applicatio Ondansetron HCl (Zofran) 4 mg IV Q8H PRN PRN PRN Reason: Nausea Oxycodone HCl (Oxyir) 5 mg PO Q4H PRN PRN PRN Reason: Moderate Pain (pain scale 4-5) Last Admin: 01/05/18 10:48 Dose: 5 mg Polyethylene Glycol (Miralax) 17 gm PO DAILY [facility] Last Admin: 01/05/18 09:21 Dose: Not Given Sodium Chloride () 5 - 30 ml IV UD PRN PRN Reason: SALINE FLUSH Last Admin: 01/04/18 23:12 Dose: 5 ml Medical Necessity - Tobacco Use Smoking Status: Former smoker Assessment/Plan All Active Problems Hyperkalemia (Acute) Hypocalcemia (Acute) Cellulitis (Acute) Cellulitis of right lower extremity (Resolved) Abdominal pain (Resolved) Incarcerated left inguinal hernia (Resolved) 1. Sepsis due to soft tissue cellulits of the knee Resolving. Temperature settled and white cell count has trended out to 9. Has no complaints today. Had I&D done of abscess of the knee. Was on IV vancomycin and IV Zosyn. ID on board and is transition her to oral doxycycline and cefdinir wound care and orthopedics on board abscess cultures Staph aureus and proteus like organism per ID, plan is for PO antibiotics for 10 days Duplex of lower extremities not done as vascular said they could not do it on account of his severe lower extremity contractures. Patient does not want above-knee amputation as recommended by orthopedics and would prefer to go back to her SNF with hospice. 2. 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 Wound care on board. 3. Right upper extremity swelling duplex was negative likely due to lymphedema will monitor 4. Hyponatremia: Resolved. 5. Hypocalcemia: Calcium is 7.3. is WNL when corrected for albumin. 6. Right tibial periprosthetic fracture and left femur fracture Chronic. Was admitted in October 2017 for this and decision was made for to be nonoperative due to chronic knee contractures because she is bedbound. 7. Cryptogenic cirrhosis with esophageal varices stable will monitor 8. History of GI bleed: Stable. 9. Fungal rash: Erythematous rash over abdominal pannus. Nystatin powder. 10. Hypertension: Controlled for age. continue to monitor. 11. Anxiety and depression: Stable DVT prophylaxis: lovenox GI prophylaxis: pantoprazole Disposition: for DC to SNF with hospice once patient is stable. Patient states due to cough and felt she did not remember what hospital yesterday. However her family had a good sign of hospice per documentation from yesterday. However patient states that hospice is coming back to talk to her today. Likely DC tomorrow after hospice speaks to her again. Code status: DNRCCA Code Visit Inpatient E&M: 63014 Subs Hosp L3
--- NOTE | 2018-01-05 11:18 | PN_ITS ---
Patient Problems: Active and Suspected Problems Cellulitis (Acute) Subjective: Patient seen and examined. He had no complaints and had an uneventful night. She denied any fever or chills, any cough or chest pain, shortness of breath, abdominal pain, any diarrhea vomiting. Hospice spoke to patient yesterday and according to her, she was having a coughing spell at the time hospice was talking to her so she quit a year with it was saying. However per discussion with nurse, hospice discussed with patient and her family about hospice options and decide on for hosp[facility] care at her [facility] when she is stable for discharge. Review of systems otherwise negative. Vitals/I&O's: Vital Signs Temp Pulse Resp BP Pulse Ox 98.3 F 83 18 164/80 H 98 01/05/18 09:53 01/05/18 09:53 01/05/18 09:53 01/05/18 09:53 01/05/18 09:53 Oxygen Flow Rate (L/min) 3 Oxygen Delivery Method Nasal Cannula Weight: 137 lb 12.623 oz Body Mass Index (BMI) 25.2 Intake and Output for Last 24 Hours 01/03/18 01/04/18 01/05/18 23:59 23:59 23:59 Intake Total 4560 / 4560 1345 / 1345 Output Total 670 / 670 900 / 900 Balance 3890 / 3890 445 / 445 General: Alert, Oriented x3, Cooperative, No apparent distress HEENT: Atraumatic, PERRLA, EOMI, Normocephalic Oral: Moist Mucosa Neck: Supple, No JVD, Negative Carotid Bruits, Negative Hepatojugular Reflux, No Nodes Lungs: - - few crackles bibasally. No wheezing or rhonchi Cardiovascular: Regular rate, Regular Rhythm, Normal S1, Normal S2, No murmurs Abdomen: Bowel Sounds Present, Soft, Non Tender, Non-Distended, No Hepato- splenomegaly Extremities: Edema - 2+ pitting edema of both LEs, - Skin: - - ulcerations and chronic wounds on both LEs at knees. WOunds currently dressed Musculoskeletal: - - severe contractures of both LEs, especially at her knees. Ulcerations on both LEs bilaterally. Lymphatic: No Cervical, Supraclavicular, or Inguinal Adenopathy Neurological: Cranial nerves II-XII grossly intact Psych/Mental Status: Normal Affect, Appropriate, Alert and oriented to time, place, person, mood and affect Microbiology Past 72 Hours 01/03/18 20:50 Wound Drainage - Leg Gram Stain - Final 01/03/18 20:50 Wound Drainage - Leg Wound Culture - Preliminary Gram negative carmen Staphylococcus aureus 01/03/18 20:50 Wound Drainage - Leg Anaerobic Culture - Preliminary Checking for anaerobes, further studies to follow. Laboratory Results 01/05/18 05:16: WBC 7.1, RBC 3.42 L, Hgb 9.5 L, Hct 29.5 L, MCV 86.3, MCH 27.8, MCHC 32.2, RDW 16.9 H, RDW Differential 51.5 H, Plt Count 417, MPV 10.5, Immature Gran % (Auto) 0.400, Neut % (Auto) 76.0 H, Lymph % (Auto) 8.6 L, [place] % (Auto) 13.3 H, Eos % (Auto) 1.3, Baso % (Auto) 0.4, Absolute Neuts (auto) 5.4, Absolute Lymphs (auto) 0.61 L, Total Counted Not Reportable 01/05/18 05:16: Sodium 137, Potassium 2.9 L, Chloride 101, Carbon Dioxide 28.0, Anion Gap 8, BUN 7, Creatinine 0.22 L, Estim Creat Clear Calc 34.30, Est GFR (MDRD) Af Amer 392, Est GFR (MDRD) Non-Af 324, BUN/Creatinine Ratio 31.8 H, Glucose 76, Calcium 7.3 L Diagnostic Data Knee X-Ray 01/03/18 23:00 IMPRESSION: Fractures of the proximal tibia and fibula. Diffuse demineralization. Total knee arthroplasty. Patella janett. Consider correlation with CT. Electronically Signed: Morgan Greenberg MD at 0:44 EST , Service support , Chest X-Ray 01/04/18 23:04 IMPRESSION: 1. Questionable patchy infiltrate in the left mid lung not seen on the prior study. 2. No other significant interval change. Electronically Signed: Zain Shin DO at 23:18 EST Tel [phone], Service support , Current Medications Acetaminophen (Tylenol) 650 mg PO Q6H PRN PRN PRN Reason: Mild Pain (scale 0-3)/T>100.7 Last Admin: 01/05/18 06:11 Dose: 650 mg Bisacodyl (Dulcolax) 10 mg RECTAL DAILY PRN PRN PRN Reason: Constipation Calamine/Phenol (Calmoseptine Ointment) 1 applic TOPICAL BID [facility]; Protocol Last Admin: 01/05/18 09:20 Dose: 1 applicatio Cefdinir (Omnicef [Equiv]) 300 mg PO Q12 [facility] Docusate Sodium (Colace) 200 mg PO BID PRN PRN PRN Reason: Constipation Doxycycline Monohydrate (Doxycycline) 100 mg PO BID [facility] Enoxaparin Sodium (Lovenox) 40 mg SC DAILY [facility] Last Admin: 01/05/18 09:20 Dose: 40 mg Potassium Chloride (Kcl 10meq/100ml) 10 meq in 100 mls @ 100 mls/hr IV BOLUS Q1H [facility] Stop: 01/05/18 11:59 Last Admin: 01/05/18 09:19 Dose: 100 mls/hr Morphine Sulfate () 1 - 2 mg IV Q4H PRN PRN PRN Reason: SEVERE PAIN (6-10/10) Nutritional Formula (Lactose Free) (Ensure Enlive) 120 ml PO 4X/DAY [facility] Last Admin: 01/05/18 09:20 Dose: 120 ml Nystatin (Mycostatin Powder) 1 applic TOPICAL BID [facility]; Protocol Last Admin: 01/05/18 09:26 Dose: 1 applicatio Ondansetron HCl (Zofran) 4 mg IV Q8H PRN PRN PRN Reason: Nausea Oxycodone HCl (Oxyir) 5 mg PO Q4H PRN PRN PRN Reason: Moderate Pain (pain scale 4-5) Last Admin: 01/05/18 10:48 Dose: 5 mg Polyethylene Glycol (Miralax) 17 gm PO DAILY [facility] Last Admin: 01/05/18 09:21 Dose: Not Given Sodium Chloride () 5 - 30 ml IV UD PRN PRN Reason: SALINE FLUSH Last Admin: 01/04/18 23:12 Dose: 5 ml Medical Necessity - Tobacco Use Smoking Status: Former smoker Assessment/Plan All Active Problems Hyperkalemia (Acute) Hypocalcemia (Acute) Cellulitis (Acute) Cellulitis of right lower extremity (Resolved) Abdominal pain (Resolved) Incarcerated left inguinal hernia (Resolved) 1. Sepsis due to soft tissue cellulits of the knee * Resolving. Temperature settled and white cell count has trended out to 9. * Has no complaints today. Had I&D done of abscess of the knee. * Was on IV vancomycin and IV Zosyn. ID on board and is transition her to oral doxycycline and cefdinir * wound care and orthopedics on board * abscess cultures Staph aureus and proteus like organism * per ID, plan is for PO antibiotics for 10 days * Duplex of lower extremities not done as vascular said they could not do it on account of his severe lower extremity contractures. * Patient does not want above-knee amputation as recommended by orthopedics and would prefer to go back to her SNF with hospice. * * 2. 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 Wound care on board. * 3. Right upper extremity swelling * duplex was negative * likely due to lymphedema * will monitor * 4. Hyponatremia: Resolved. 5. Hypocalcemia: Calcium is 7.3. is WNL when corrected for albumin. 6. Right tibial periprosthetic fracture and left femur fracture * Chronic. * Was admitted in October 2017 for this and decision was made for to be nonoperative due to chronic knee contractures because she is bedbound. 7. Cryptogenic cirrhosis with esophageal varices * stable * will monitor * 8. History of GI bleed: Stable. 9. Fungal rash: Erythematous rash over abdominal pannus. Nystatin powder. 10. Hypertension: Controlled for age. continue to monitor. 11. Anxiety and depression: Stable DVT prophylaxis: lovenox GI prophylaxis: pantoprazole Disposition: for DC to SNF with hospice once patient is stable. Patient states due to cough and felt she did not remember what hospital yesterday. However her family had a good sign of hospice per documentation from yesterday. However patient states that hospice is coming back to talk to her today. Likely DC tomorrow after hospice speaks to her again. Code status: DNRCCA Code Visit Inpatient E&M: 33343 Subs Hosp L3
[2018-01-05] MEDS: Doxycycline 100 MG CAPSULE PO ×2 (12:38→22:55)
[2018-01-05] MEDS: Cefdinir 300 MG Capsule PO ×2 (12:38→22:55)
--- NOTE | 2018-01-05 12:56 | CASEMGMT ---
Addendum entered by Meghann Estevez 01/05/18 14:36: Physician states she is not discharging pt today. NISHANT faxed updated clinicals to Bel at [facility] and updated her that pt is not ready for discharge today. Original Note: Social Work Note SW spoke with [facility] who states pt and pt's family signed Hospice paperwork yesterday. Per previous conversation, pt is interested in [facility]. NISHANT placed a call to Marta at [facility] who states she doesn't have beds at this time and [facility] isn't in network with pt's primary insurance. SW updated pt of this. Pt unsure of what other SNF she could go to. NISHANT explained that the only other one in [place] is [facility] but that this worker is unsure if she would be accepted to [facility]. Pt gave this worker permission to call her daughter Delaney to confirm plans. NISHANT placed a call to pt's daughter Delaney. Delaney states that pt will be returning to [facility] at discharge. Delaney asked this worker about [facility]. NISHANT informed Delaney that [facility] is not in network with pt's insurance and they currently don't have beds. NISHANT explained that once pt is at [facility] pt can always transition to a different SNF. Delaney states understanding. NISHANT met with pt. NISHANT explained that this worker spoke with Delaney and she would like pt to return to [facility] and then pt could transition to a different facility from [facility]. Pt agreeable to returning to [facility] at this time. NISHANT updated physician of this. Per previous notes, pt is able to return to [facility] when medically cleared Meghann Estevez FLATTENING MACHINE OPERATOR, SALES [employer]NA[employer]MENT [employer]AD
[2018-01-05 15:08] VITALS: BP 134/85; PULSE 108; RESP 18; TEMP 37.1; O2SAT 98
[2018-01-05 20:25] LABS: Vancomycin, Trough Level 6.7 ug/mL (5.0-15.0)
[2018-01-05 22:48] VITALS: BP 128/76; PULSE 111; RESP 22; TEMP 37.1; O2SAT 97
[2018-01-06] VITALS (9 sets, daily range): BP systolic 121–139; BP diastolic 73–76; PULSE 97–111; RESP 20–24; TEMP 36.6–37.1; O2SAT 94–98
[2018-01-06] MEDS: Furosemide 20 MG/2 ML VIAL IV (02:37)
[2018-01-06] MEDS: 0.9% NaCl Peripheral Flush Adult/Peds IV (02:37)
[2018-01-06] MEDS: Ipratropium/Albuterol Sulfate 3 ML AMPUL.NEB INHALATION (02:50)
[2018-01-06] MEDS: oxyCODONE 5 MG Tablet PO ×2 (06:11→11:47)
[2018-01-06 06:18] LABS: Absolute Neutrophil Count 5.2 X10^3/uL (2.0-7.7); Basophil# 0.03 X10^3/uL; Basophil% 0.4 % (0-1); Eosinophil# 0.14 X10^3/uL; Hematocrit 30.6 % (37-47); Lymphocyte % 11.3 % (19-41); Mean Corp Hgb Conc 32.7 g/gl (32-36); Mean Corpuscular Hgb 27.9 pg (27.0-32.0); Mean Corpuscular Volume 85.5 fL (81-99); Monocyte# 0.87 X10^3/uL; Monocyte% 12.3 % (0-10); Neutrophil # 5.22 X10^3/uL (2.7-7.7); Neutrophil % 73.7 % (47-70); Platelet Count 419 K/mm3 (150-450); RBC Distribution Width CV 16.9 % (11.6-14.6); RBC Distribution Width SD 51.2 fl (35.1-43.9); Red Blood Count 3.58 M/mm3 (4.2-5.4); White Blood Count 7.1 K/mm3 (4.4-11.0)
[2018-01-06 06:21] LABS: POSITIVE COUNT NO; POSITIVE DIFFERENTIAL NO; POSITIVE MORPHOLOGY NO
[2018-01-06 06:29] LABS: Anion Gap 8 (5-15); BUN 9 mg/dL (7-18); BUN/Creat Ratio 35.2 RATIO (10-20); Calcium,Total 7.7 mg/dL (8.5-10.1); Chloride 100 mmol/L (98-107); Creatinine, Serum 0.26 mg/dL (0.55-1.02); EST Glomerular Filtration Rate 272 mL/min (>60); Est Glom Filt Rate - Afr Amer 329 mL/min (>60); Glucose 90 mg/dL (74-106); Potassium 3.2 mmol/L (3.5-5.1); Sodium Level 136 mmol/L (136-145)
[2018-01-06] MEDS: Morphine 2 MG/ML Syringe IV (08:55)
[2018-01-06] MEDS: Enoxaparin 40 MG/0.4 ML Syringe SC (09:05)
[2018-01-06] MEDS: Menthol/Lanolin/Calamine/Znox 113 GM Tube 1 APPLIC TOPICAL (09:11)
[2018-01-06] MEDS: Nystatin Powder 15gm Bottle 1 APPLIC TOPICAL (09:12)
[2018-01-06] MEDS: Polyethylene Glycol 3350 17 GM PACKET PO (09:13)
--- NOTE | 2018-01-06 10:27 | PCM.TXEXTCAR ---
- Diet 01/03/18 21:46 Diet: 2 Gram Sodium Is pt able to select menu?: Yes - Routine Orders/Code Status Enema Type: Fleetz Enema Frequency: Daily PRN Suppository Type: Dulcolax 10mg Suppository Frequency: Daily PRN O2 Liters per Minute: 2 O2 Frequency: Continuous Code Status: DNC-A - Wound(s) Left Knee Wound Type: Pressure Injury Dressing Change: Mepilex Left Leg Wound Type: Stasis Ulcer Dressing Change: Dry Sterile Dressing Right Knee Wound Type: Pressure Injury Dressing Change: Mepilex - Therapies Weight Bearing: Weight bearing as tolerated Physical Therapy: Eval and Treat Occupational Therapy: Eval and Treat - Allergies/Procedures Done in Hospital Allergies/Adverse Reactions: Allergies belladonna alkaloids [Belladonna Alkaloids] Allergy (Verified 01/03/18 17:36) Unknown halobetasol Allergy (Verified 01/03/18 17:36) Unknown celecoxib [From Celebrex] Adverse Reaction (Verified 01/03/18 17:36) Diarrhea Procedures: None - Type of Care/Length of Stay Estimated LOS: Convalescent Care Less Than 30 days Type of Care Needed: Skilled - with hospice Rehab Potential: Poor Prognosis: Fair - Additional Orders/Day of Discharge Day of Discharge: 01/06/18 - Dietary and Speech Recommendations Dietitian Recommendations/Changes: Recommend continuing 2g sodium diet. Will continue to provide Ensure Enlive w/ medpass and will add Ensure Pudding TID w/ meals d/t poor intake. May benefit from 1 packet Chalo BID for skin healing. - Follow Up Care Primary Care Physician: Sunday Mclaughlin Chi, MD [Primary Care Provider] - Please follow up with your Primary Care Physician in: one week
--- NOTE | 2018-01-06 10:31 | PCM.DC.SUM ---
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; EGD 09/2012 - mild gastritis, grade 2 esophageal varices (liver biopsy no cirrhosis) History of Clostridium difficile infection (Chronic) Depression (Chronic) Anxiety (Chronic) Hypokalemia (Chronic) OAB (overactive bladder) (Chronic) GERD (gastroesophageal reflux disease) (Chronic) Constipation (Chronic) Diarrhea (Chronic) Edema (Chronic) Debility (Chronic) IBS (irritable bowel syndrome) (Chronic) Knee pain (Chronic) Generalized osteoarthritis (Chronic) GI bleed (Chronic) Esophageal varices (Chronic) Hypertension (Chronic) Hospital Course and Treatment Imaging Results: Diagnostic Data Knee X-Ray 01/03/18 23:00 IMPRESSION: Fractures of the proximal tibia and fibula. Diffuse demineralization. Total knee arthroplasty. Patella janett. Consider correlation with CT. Electronically Signed: Morgan Greenberg MD at 0:44 EST , Service support , Chest X-Ray 01/04/18 23:04 IMPRESSION: 1. Questionable patchy infiltrate in the left mid lung not seen on the prior study. 2. No other significant interval change. Electronically Signed: Zain Shin DO at 23:18 EST Tel [phone], Service support , Consultations 01/03/18 21:10 Consult: Onc/Wound/upholstery sewer Routine Comment: ID- Dr Guerra orthopedic surgery- Dr Bingham Operations: None, - - Hernia repair. Procedures: None Summary of Care Provided: Patient is an 82-year-old female with an extensive past medical history as listed below. She was admitted from her group home from [facility] complaint of shortness of breath and right arm swelling. She has a history of severe contractures and ulcers of both knees. In the ED she was found to have left knee cellulitis with purulent and bloody discharge and also chronic right knee ulcer. She also had right upper arm swelling is acute. Duplex done of the right upper extremity was negative. Vitals in the ED showed respiratory rate of 27, heart rate of 124 and temperature of 102.2 Fahrenheit. She was managed for sepsis due to cellulitis. She was started on IV vancomycin and IV Zosyn orthopedics was consulted as well as ID. Blood and urine cultures were ordered and wound culture ordered after an aspirate of the left knee abscess with that. Discussed with orthopedics, patient had been seen on outpatient basis and offered above-knee amputation bilaterally and secured to her severe cellulitis and ulcerations. However patient refused. Orthopedics, she was therefore hospice of emergent bilateral above-knee amputation. Hospice was consulted and per extensive discussion with patient and her family, decision was made to discharge patient to a group home with hospice. Wound culture MRSA and Proteus mirabilis. Per discussion with ID, patient was discharged to group home with hospice on a 10-day course of p.o. doxycycline and p.o. Omnicef. She is follow-up with her primary care doctor, and ID. Patient seen and examined prior to discharge. She felt well and had no complaints. She denied any fever or chills, she is on her baseline 2 L of oxygen. She denied any cough or chest pain, shortness of breath, abdominal pain, diarrhea vomiting. Review of systems otherwise negative. Labs and vitals reviewed. Patient does have concerns about going to [facility] as she said she was not sure that could provide level of care that she needed. However per discussion with case work aide, her insurance is not covering the group home that she wants to go to. He had been discussed with patient and daughter extensively and they had agreed to go to [facility] again. Home medications reveiwed and reconciled prior to discharge. o/e Vital Signs Height 5 ft 2 in Weight: 137 lb 12.623 oz Weight in Pounds 137.8 lbs Pulse Ox 94 Temperature 98.6 F Pulse Rate 107 Respiratory Rate 20 Blood Pressure 127/74 Blood Pressure Position Semi-Fowlers General: Alert, Oriented x3, Cooperative, No apparent distress HEENT: Atraumatic, PERRLA, EOMI, Normocephalic Oral: Moist Mucosa Neck: Supple, No JVD, Negative Carotid Bruits, Negative Hepatojugular Reflux, No Nodes Lungs: - - few crackles bibasally. No wheezing or rhonchi Cardiovascular: Regular rate, Regular Rhythm, Normal S1, Normal S2, No murmurs Abdomen: Bowel Sounds Present, Soft, Non Tender, Non-Distended, No Hepato-splenomegaly Extremities: Edema - 2+ pitting edema of both LEs, - Skin: - - ulcerations and chronic wounds on both LEs at knees. WOunds currently dressed Musculoskeletal: - - severe contractures of both LEs, especially at her knees. Ulcerations on both LEs bilaterally. Lymphatic: No Cervical, Supraclavicular, or Inguinal Adenopathy Neurological: Cranial nerves II-XII grossly intact Psych/Mental Status: Normal Affect, Appropriate, Alert and oriented to time, place, person, mood and affect Plan as stated above. She is being discharged to her SNF under hospice care. Patient Problems: Active and Suspected Problems Cellulitis (Acute) - Physical Exam Vital Signs Temp Pulse Resp BP Pulse Ox 98.6 F 102 H 20 H 128/76 H 97 01/06/18 08:59 01/06/18 08:59 01/06/18 08:59 01/06/18 08:59 01/06/18 08:59 Oxygen Flow Rate (L/min) 2 Oxygen Delivery Method Nasal Cannula Weight: 137 lb 12.623 oz Body Mass Index (BMI) 25.2 Intake and Output for Last 24 Hours 01/04/18 01/05/18 01/06/18 23:59 23:59 23:59 Intake Total 4560 / 4560 2595 / 2595 500 / 500 Output Total 670 / 670 1230 / 1230 900 / 900 Balance 3890 / 3890 1365 / 1365 -400 / -400 Microbiology Past 72 Hours 01/03/18 20:50 Gram Stain - Final Wound Drainage - Leg Wound Culture - Final Proteus mirabilis Meth. resistant Staph. aureus Anaerobic Culture - Final No anaerobic bacteria isolated. 01/03/18 18:10 Blood Culture - Preliminary Blood Culture (Wb) - Anticubital Left No growth in 48 hours. 01/03/18 18:16 Blood Culture - Preliminary Blood Culture (Wb) - Left Forearm No growth in 48 hours. 01/03/18 18:52 Urine Culture - Final Urine Catheter - Catheter Presumptive C albicans Laboratory Tests Past 24 Hrs 01/05/18 01/06/18 01/06/18 19:28 05:48 05:48 WBC 7.1 RBC 3.58 L Hgb 10.0 L Hct 30.6 L MCV 85.5 MCH 27.9 MCHC 32.7 RDW 16.9 H RDW Differential 51.2 H Plt Count 419 MPV 10.0 Immature Gran % (Auto) 0.300 Neut % (Auto) 73.7 H Lymph % (Auto) 11.3 L [place] % (Auto) 12.3 H Eos % (Auto) 2.0 Baso % (Auto) 0.4 Absolute Neuts (auto) 5.2 Absolute Lymphs (auto) 0.80 L Total Counted Not Reportable Sodium 136 Potassium 3.2 L Chloride 100 Carbon Dioxide 28.0 Anion Gap 8 BUN 9 Creatinine 0.26 L Estim Creat Clear Calc 34.30 Est GFR (MDRD) Af Amer 329 Est GFR (MDRD) Non-Af 272 BUN/Creatinine Ratio 35.2 H Glucose 90 Calcium 7.7 L Vancomycin Trough 6.7 Discharge Diet: Low fat/ Low Cholesterol Weight Bearing Status: Weight bearing as tolerated Call your doctor if you observe: Fever of 101 or Higher, Increased palpitations (irregular heartbeat) Home Medications: Medications to take at Discharge Magnesium Hydroxide [Milk Of Magnesia] 30 ml PO DAILY PRN PRN udc 11/09/17 Oxycodone [Oxyir] 10 mg PO Q4H PRN PRN 7 Days #42 tablet 11/09/17 Omeprazole [Prilosec] 20 mg PO BID 11/16/17 Calcium Carbonate 500 mg PO TID 01/03/18 Iron Polysaccharide Complex [Ferrex 150] 150 mg PO TIDCM 01/03/18 Mag Hydrox/Al Hydrox/Simeth [Antacid Suspension] 30 ml PO Q4H PRN PRN 01/03/18 Menthol/Lanolin/Calamine/Znox [Calmoseptine Ointment] 1 applic TOPICAL TID 01/03/18 Oxycodone CR [Oxycontin] 15 mg PO BID 01/03/18 Polyethylene Glycol 3350 [Miralax] 17 gm PO QHS 01/03/18 Potassium Chloride [Klor-Con M20] 20 meq PO DAILY 01/03/18 Senna/Docusate Sodium [Senokot-S] 2 tablet PO BID 01/03/18 Cefdinir [Omnicef [equiv]] 300 mg PO Q12 #20 capsule 01/06/18 Doxycycline 100 mg PO BID #20 capsule 01/06/18 Following Prescrptions Were Given to Patient: Cefdinir [Omnicef [equiv]] 300 mg PO Q12 #20 capsule Doxycycline 100 mg PO BID #20 capsule Primary Care Physician: Sunday Mclaughlin Chi, MD [Primary Care Provider] - Please follow up with your Primary Care Physician in: one week Disposition: Retirement facility - with hospice Minutes spent on discharge:: 35 Patient Condition:: Fair Medical Necessity - Tobacco Use Smoking Status: Former smoker Meaningful Use Info Meaningful Use Diagnoses (Choose all that apply): None applicable Code Visit Inpatient E&M: 11324 Disch Hosp
--- NOTE | 2018-01-06 11:33 | CASEMGMT ---
Social Work Note Physician is discharging pt today. SW spoke with pt. Pt confirms that she will be returning to [facility] at discharge. SW explained that once pt returns to [facility] and if she would like to transition to a different usp she is able to do so and the usp can assist with that. Pt states understanding. SW will fax discharge paperwork once available. SW waiting for signed medication list and any scripts. NISHANT spoke with Jose at [facility] and updated them that pt will be discharged today and that once transportation is set up this worker will call [facility] and updated them on transportation time. Plan: Discharge to [facility] today Meghann Estevez AMPOULE FILLER AND SEALER, FIRST AID TRAINER
--- NOTE | 2018-01-06 11:50 | PCM.PN.ID ---
Patient Problems: Active and Suspected Problems Cellulitis (Acute) Subjective: Feeling ok, legs sore, no fever, no n/v/d. - Physical Exam General: Alert, Cooperative, No apparent distress Lungs: Clear to auscultation, Normal air movement Cardiovascular: Regular rate, Regular Rhythm Abdomen: Soft, Non Tender, Non-Distended Skin: Ulcer/ Wound - on knees Vital Signs Temp Pulse Resp BP Pulse Ox 98.6 F 102 H 20 H 128/76 H 95 01/06/18 08:59 01/06/18 08:59 01/06/18 08:59 01/06/18 08:59 01/06/18 10:49 Oxygen Flow Rate (L/min) 2 Oxygen Delivery Method Nasal Cannula Weight: 62.5 kg Body Mass Index (BMI) 25.2 Intake and Output for Last 24 Hours 01/04/18 01/05/18 01/06/18 23:59 23:59 23:59 Intake Total 4560 / 4560 2595 / 2595 500 / 500 Output Total 670 / 670 1230 / 1230 900 / 900 Balance 3890 / 3890 1365 / 1365 -400 / -400 Microbiology Past 72 Hours 01/03/18 20:50 Gram Stain - Final Wound Drainage - Leg Wound Culture - Final Proteus mirabilis Meth. resistant Staph. aureus Anaerobic Culture - Final No anaerobic bacteria isolated. 01/03/18 18:10 Blood Culture - Preliminary Blood Culture (Wb) - Anticubital Left No growth in 48 hours. 01/03/18 18:16 Blood Culture - Preliminary Blood Culture (Wb) - Left Forearm No growth in 48 hours. 01/03/18 18:52 Urine Culture - Final Urine Catheter - Catheter Presumptive C albicans Laboratory Tests Past 24 Hrs 01/05/18 01/06/18 01/06/18 19:28 05:48 05:48 WBC 7.1 RBC 3.58 L Hgb 10.0 L Hct 30.6 L MCV 85.5 MCH 27.9 MCHC 32.7 RDW 16.9 H RDW Differential 51.2 H Plt Count 419 MPV 10.0 Immature Gran % (Auto) 0.300 Neut % (Auto) 73.7 H Lymph % (Auto) 11.3 L [place] % (Auto) 12.3 H Eos % (Auto) 2.0 Baso % (Auto) 0.4 Absolute Neuts (auto) 5.2 Absolute Lymphs (auto) 0.80 L Total Counted Not Reportable Sodium 136 Potassium 3.2 L Chloride 100 Carbon Dioxide 28.0 Anion Gap 8 BUN 9 Creatinine 0.26 L Estim Creat Clear Calc 34.30 Est GFR (MDRD) Af Amer 329 Est GFR (MDRD) Non-Af 272 BUN/Creatinine Ratio 35.2 H Glucose 90 Calcium 7.7 L Vancomycin Trough 6.7 Medical Necessity - Tobacco Use Smoking Status: Former smoker Route of nutrition/ use of supplements: [] Nutritional Intake: [] IV Site: [] Bradshaw Catheter: [] - Assessment/Plan Antibiotics: [] Assessment/Plan: [] Active and Suspected Problems Cellulitis (Acute) Sepsis due to MRSA knee infected ulcer and abscess - cx with MRSA and proteus. Pt has decided to go with hospice. Narrowed v abx to po doxy and omnicef, susceptibilities reviewed. Plan on d/c to ECF with 10 days po abx. Will follow
--- NOTE | 2018-01-06 12:58 | CASEMGMT ---
Social Work: TC to [facility]. Ambulance transport scheduled for 3:00pm. Vidhi, home health outreach coordinator, aware of D/C time. Spoke with Kylie at [facility]. CC aware of D/C time. SW to stay available if additional needs arise. CASSIE Oneal
--- NOTE | 2018-01-06 13:02 | CASEMGMT ---
Social work: TC to [facility]. Spoke with Sarita. Sarita aware that patient will be discharged from [facility] today at 3:00pm. Sarita to give message to CASSIE Shelby
[2018-01-06] MEDS: Cefdinir 300 MG Capsule PO (13:55)
[2018-01-06] MEDS: Doxycycline 100 MG CAPSULE PO (13:55)
--- NOTE | 2018-01-06 14:02 | CASEMGMT ---
Social Work Note NISHANT faxed completed discharge paperwork to [facility] including transfer to extended care facility, signed medication list and any scripts. Originals in SNF folder and copy on pt's chart. HENS is not needed as pt is from [employer] side at [facility] and will be returning to correction tide at [facility]. Pt had informed this worker earlier that she would like her daughter to be notified when she discharges. SW placed a call to pt's daughter Delaney and updated her on transportation time for pt. Plan: Pt to discharge to [facility] today at 3:00pm with [facility] transporting via cot Meghann Estevez FIRST OFFICER AND FLIGHT INSTRUCTOR, LACTATION SPECIALIST
--- NOTE | 2018-01-06 15:06 | NURSING ---
REPORT CALLED TO ITZEL @ [facility]
--- NOTE | 2018-01-06 16:05 | NURSING ---
REPORT CALLED TO [facility]
== END 2018-01-06 15:22 | disposition hospice, inpatient (51) | DRG 871 ==
LOC: ED 18:05 → MS3 20:05
PROVIDERS: Admitting Provider Internal Medicine; Emergency Provider Emergency Medicine; Family Provider Family Medicine Geriatric Medicine; PCP Family Medicine Geriatric Medicine; Referring Provider Internal Medicine; Visit Provider Student in an Organized Health Care Education/Training Program
DX: A41.9 Sepsis, unspecified organism (principal); L89.893 Pressure ulcer of other site, stage 3; J96.11 Chronic respiratory failure with hypoxia; L03.116 Cellulitis of left lower limb; E87.1 Hypo-osmolality and hyponatremia; L02.416 Cutaneous abscess of left lower limb; Z66 Do not resuscitate; Z99.81 Dependence on supplemental oxygen; N31.9 Neuromuscular dysfunction of bladder, unspecified; M24.562 Contracture, left knee; M24.561 Contracture, right knee; Z74.01 Bed confinement status; K74.69 Other cirrhosis of liver; E83.51 Hypocalcemia; B95.62 Methicillin resistant Staphylococcus aureus infection as the cause of diseases classified elsewhere; Z51.5 Encounter for palliative care; B96.4 Proteus (mirabilis) (morganii) as the cause of diseases classified elsewhere; M97.11XD Periprosthetic fracture around internal prosthetic right knee joint, subsequent encounter; B36.9 Superficial mycosis, unspecified; M15.9 Polyosteoarthritis, unspecified; F41.9 Anxiety disorder, unspecified; F32.9 Major depressive disorder, single episode, unspecified; I89.0 Lymphedema, not elsewhere classified; Z87.891 Personal history of nicotine dependence; L89.890 Pressure ulcer of other site, unstageable; I87.2 Venous insufficiency (chronic) (peripheral)
CPT/HCPCS: 36415; 51702; 71045; 73560; 80048; 80053; 80202; 81001; 83036; 83605; 85025; 85610; 85652; 85730; 87040; 87070; 87075; 87077; 87086; 87088; 87186; 87205; 87640; 93005; 93971; 94640; 97802; 99285; J7030; J7040; J7050; A4216; J1940

== ENCOUNTER → 2018-03-10 10:00 | Outpatient (REF) | payer MEDICARE, MEDICAID, SELFPAY | LOC: OLS.WCC 10:00 | DX: T81.30XA Disruption of wound, unspecified, initial encounter (principal) | CPT/HCPCS: 87070; 87075; 87077; 87186; 87205 ==

== ENCOUNTER → 2018-03-19 19:30 | Outpatient (REF) | payer MEDICARE, MEDICAID, SELFPAY ==
--- OUTSIDE RECORDS SUMMARY | 2018-05-22 15:24 | XMS RPT_ITS ---
:1935 Author Organization OHIP Support Name Relationship Address Phone Rhianna Barrazaoy Unavailable [address] + [place] [address] Kearnes, Thang Unavailable [address] + [place] [address] R Unavailable Unavailable Unavailable Weston, Juanito Unavailable [address] + [place] [address] Kearnes, Thang Unavailable [address] + [place] [address] R Unavailable Unavailable Unavailable Weston, Juanito Unavailable [address] + [place] [address] Kearnes, Thang Unavailable [address] + [place] [address] R Unavailable Unavailable Unavailable CHRISTI, JUANITO Unavailable [address] + [place] [address] KEARNES, THANG Unavailable [address] + [place] [address] R Unavailable Unavailable Unavailable CHRISTI, JUANITO Unavailable [address] + [place] [address] KEARNES, THANG Unavailable [address] + [place] [address] R Unavailable Unavailable Unavailable CHRISTI, JUANITO Unavailable [address] + [place] [address] KEARNES, THANG Unavailable [address] + [place] [address] R Unavailable Unavailable Unavailable CHRISTI, JUANITO Unavailable [address] + [place] [address] KEARNES, THANG Unavailable [address] + [place] [address] R Unavailable Unavailable Unavailable CHRISTI, JUANITO Unavailable [address] + [place] [address] KEARAVIS, THANG Unavailable [address] + [place] [address] R Unavailable Unavailable Unavailable CHRISTI, JUANITO Unavailable [address] + [place] [address] KEARNES, THANG Unavailable [address] + [place] [address] R Unavailable Unavailable Unavailable CHRISTI, JUANITO Unavailable [address] + [place] [address] KEARNES THANG Unavailable [address] + [place] [address] R Unavailable Unavailable Unavailable CHRISTI, JUANITO Unavailable [address] + [place] [address] KECASSYNES THANG Unavailable [address] + [place] [address] R Unavailable Unavailable Unavailable CHRISTI, JUANITO Unavailable [address] + [place] [address] KEARNES THANG Unavailable [address] + [place] [address] R Unavailable Unavailable Unavailable CHRISTI, JUANITO Unavailable [address] + [place] [address] KECASSYNES THANG Unavailable [address] + [place] [address] R Unavailable Unavailable Unavailable CHIRSTI, JUANITO Unavailable [address] + [place] [address] KEARNES, THANG Unavailable [address] + [place] [address] R Unavailable Unavailable Unavailable CHRISTI, JUANITO Unavailable [address] + [place] [address] KEARNES, THANG Unavailable [address] + [place] [address] R Unavailable Unavailable Unavailable CHRISTI, JUANITO Unavailable [address] + [place] [address] KEARNES, THANG Unavailable [address] + [place] [address] R Unavailable Unavailable Unavailable CHRISTI, JUANITO Unavailable [address] + [place] [address] KEARNES, THANG Unavailable [address] + [place] [address] R Unavailable Unavailable Unavailable CHRISTI, JUANITO Unavailable [address] + [place] [address] KEARNES, THANG Unavailable [address] + [place] [address] R Unavailable Unavailable Unavailable CHRISTI, JUANITO Unavailable [address] + [place] [address] KEARNES, THANG Unavailable [address] + [place] [address] R Unavailable Unavailable Unavailable CHRISTI, JUANITO Unavailable [address] + [place] [address] KEARNES, THANG Unavailable [address] + [place] [address] R Unavailable Unavailable Unavailable CHRISTI, JUANITO Unavailable [address] + [place] [address] KEARNES, THANG Unavailable [address] + [place] [address] R Unavailable Unavailable Unavailable CHRISTI, JUANITO Unavailable [address] + [place] [address] KEARNES, THANG Unavailable [address] + [place] [address] R Unavailable Unavailable Unavailable Care Team Providers Name Role Phone LATOSHA CRAFT Attending Unavailable ARNOLDO, SUNDAY CHI Referring Unavailable LATOSHA CRAFT Admitting Unavailable LATOSHA CRAFT Attending Unavailable [facility] Attending Unavailable Fabien Decker Attending Unavailable Arnoldo, Sunday Chi Attending Unavailable Arnoldo, Sunday Chi Primary Care Unavailable Arnoldo, Sunday Chi Attending Unavailable Arnoldo, Sunday Chi Referring Unavailable Arnoldo, Sunday Chi Primary Care Unavailable Arnoldo, Sunday Chi Primary Care Unavailable Aries Garay Attending Unavailable [facility] Attending Unavailable Arnoldo, Sunday Chi Attending Unavailable Arnoldo, Sunday Chi Referring Unavailable Arnoldo, Sunday Chi Primary Care Unavailable Arnoldo, Sunday Chi Attending Unavailable Arnoldo, Sunday Chi Primary Care Unavailable Arnoldo, Sunday Chi Primary Care Unavailable Ungur, Remus Referring Unavailable Agyepong, Bart Admitting Unavailable WayLevar mckenzie Consulting Unavailable Orville Allen Attending Unavailable Latosha Craft Consulting Unavailable Agyepong, Bart Admitting Unavailable Agyepong, Bart Attending Unavailable Ungur, Remus Referring Unavailable Arnoldo, Sunday Chi Primary Care Unavailable WaytLevar Consulting Unavailable [facility], Elieser Consulting Unavailable Agyepong, Bart Admitting Unavailable [facility], Elieser Attending Unavailable Ungur, Remus Referring Unavailable Arnoldo, Sunday Chi Primary Care Unavailable Wayt, Levar Consulting Unavailable [facility], Elieser Consulting Unavailable Agyepong, Bart Admitting Unavailable [facility], Elieser Attending Unavailable Ungur, Remus Referring Unavailable Arnoldo, Sunday Chi Primary Care Unavailable WaytLevar Consulting Unavailable [facility], Elieser Consulting Unavailable Agyepong, Bart Admitting Unavailable Reid Yanez Attending Unavailable Ungur, Remus Referring Unavailable Arnoldo, Sunday Chi Primary Care Unavailable WayLevar mckenzie Consulting Unavailable Reid Yanez Consulting Unavailable Agyepong, Bart Admitting Unavailable Reid Yanez Attending Unavailable Ungur, Remus Referring Unavailable Arnoldo, Sunday Chi Primary Care Unavailable WayLevar mckenzie Consulting Unavailable Reid Ynaez Consulting Unavailable Agyepong, Bart Admitting Unavailable Ungur, Remus Referring Unavailable Arnoldo, Sunday Chi Primary Care Unavailable WaytLevar Consulting Unavailable Colleen Edmonds Attending Unavailable Latosha Craft Consulting Unavailable Orville Allen Consulting Unavailable Mj Card Attending Unavailable Mj Card Referring Unavailable Arnoldo, Sunday Chi Primary Care Unavailable Kehinde Ortiz Attending Unavailable Fariba Yanezs F Referring Unavailable Arnoldo, Sunday Chi Primary Care Unavailable Bharat, Elieser Admitting Unavailable Bharat, Elieser Referring Unavailable Payam Guerra Consulting Unavailable Gely Haynes Attending Unavailable Rex Hastings Consulting Unavailable Bharat, Elieser Admitting Unavailable [facility], Elieser Attending Unavailable [facility], Elieser Referring Unavailable Arnoldo, Sunday Chi Primary Care Unavailable [facility], Elieser Consulting Unavailable [facility], Elieser Admitting Unavailable Koram, Gely Jacquelyn Attending Unavailable [facility], Elieser Referring Unavailable Arnoldo, Sunday Chi Primary Care Unavailable Payam Gurera Consulting Unavailable Samm Decker Consulting Unavailable Venkata, Rex Consulting Unavailable Koram, Gely Jacquelyn Consulting Unavailable [facility], Elieser Admitting Unavailable Koram, Gely Jacquelyn Attending Unavailable Bharat, Elieser Referring Unavailable Arnoldo, Sunday Chi Primary Care Unavailable Mari, Payam Consulting Unavailable Venkata, Rex Consulting Unavailable Koram, Gely Jacquelyn Consulting Unavailable [facility], Elieser Admitting Unavailable Koram, Gely Jacquelyn Attending Unavailable Bharat, Elieser Referring Unavailable Arnoldo, Sunday Chi Primary Care Unavailable Payam Guerra Consulting Unavailable Venkata, Rex Consulting Unavailable Koram, Gely Jacquelyn Consulting Unavailable PROBLEMS PROBLEMS DATE TYPE CONDITION / CODE ATTENDING STATUS SOURCE 01/20/2018 Unknown A41.9 - Sepsis, Koram, Gely Jacquelyn Active [facility] unspecified Community organism / Hospital A41.9(ICD-10) Repository 12/15/2017 Active Anemia, unspecified LUANA, Active [facility] / D64.9(ICD-10) LATOSHA Augustus Other [place] Repository 11/18/2017 Unknown S72.92XA - Sementi, Active [facility] Unspecified Colleen Community fracture of left Hospital femur, initial Repository encounter for closed fracture / S72.92XA(ICD-10) 12/06/2017 Unknown 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, Kehinde Active [facility] 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 / Repository I36.1(ICD-10) 10/26/2017 Unknown N39.0 - Urinary Arnoldo, Sunday Chi Active [facility] tract infection, Community site not specified Hospital / N39.0(ICD-10) Repository 10/25/2017 Unknown M54.9 - Dorsalgia, Arnoldo, Sunday Chi Active [place] unspecified / Community M54.9(ICD-10) Hospital Repository 09/15/2017 Unknown M19.90 - Aries Garay Active [facility] Unspecified Community osteoarthritis, Hospital unspecified site / Repository M19.90(ICD-10) 07/20/2017 Unknown J40 - Bronchitis, Arnoldo, Sunday Chi Active [place] not specified as Community acute or chronic / Hospital J40(ICD-10) Repository 07/20/2017 Unknown R68.83 - Chills Arnoldo, Sunday Chi Active [facility] (without fever) / Community R68.83(ICD-10) Hospital Repository 06/23/2017 Unknown E55.9 - Vitamin D Arnoldo, Sunday Chi Active [place] deficiency, Community unspecified / Hospital E55.9(ICD-10) Repository 06/23/2017 Unknown I10 - Essential Arnoldo, Sunday Chi Active [place] (primary) Community hypertension / Hospital I10(ICD-10) Repository PROCEDURES PROCEDURES No Procedure Records FoundRESULTS RESULTS BASIC METABOLIC Collected: 03/22/2018 Status: F Source: [place] PROFILE (BMP) 5:45 AM [facility] REPOSITORY Order Comment: 110-2 TYPE CODE TESTS RESULT OUT OF RANGE REFERENCE UNITS LAB L501.0100 74-106 mg/dL Low GLU 70 Result Comment: Please note revised GLUCOSE reference range effective 2017. LAB L501.1000 7-18 mg/dL Low BUN 6 LAB L501.1100 0.55-1.02 mg/dL Low CREAT,SERUM 0.45 Result Comment: The validity of the calculated GFR AND GFRAA in patients over 70 years has not been determined. Clinical correlation is essential. LAB L501.1110 >60 mL/min Normal EST GFR 141 Result Comment: Non- GFR Calc LAB L501.1115 >60 mL/min Normal EST GFR - AA 170 Result Comment: GFR Calc LAB L501.1300 10-20 RATIO Normal BUN/CRE 13.2 LAB L501.2200 8.5-10.1 mg/dL Low CA 7.6 LAB L501.5300 136-145 mmol/L NA Normal 137 LAB L501.5600 3.5-5.1 mmol/L K Normal 3.6 LAB L501.5900 98-107 mmol/L CL Normal 98 LAB L501.6100 21.0-32.0 mmol/L Normal CO2 31.0 LAB L501.6200 5-15 Normal GAP 8 Performed By: #### L500.2500, L501.1800 #### [facility] [address] [place], [address] ALBUMIN, SERUM Collected: 03/22/2018 Status: F Source: [place] 5:45 AM [facility] REPOSITORY Order Comment: 110-2 TYPE CODE TESTS RESULT OUT OF RANGE REFERENCE UNITS LAB L501.1800 3.2-5.0 g/dL Low ALB 1.7 Performed By: #### L500.2500, L501.1800 #### [facility] [address], [place], [address] CBC-COMPLETE BLOOD CNT Collected: 03/22/2018 Status: F Source: [place] NO DIFF 5:45 AM [facility] REPOSITORY TYPE CODE TESTS RESULT OUT OF RANGE REFERENCE UNITS LAB L100.1000 4.4-11.0 K/mm3 Normal WBC 4.7 LAB L100.1200 4.2-5.4 M/mm3 Low RBC 2.82 LAB L100.1300 12.0-15.0 g/dl Low HGB 7.7 LAB L100.1400 37-47 % Low HCT 22.8 LAB L100.1500 81-99 fL Low MCV 80.9 LAB L100.1600 27.0-32.0 pg Normal MCH 27.3 LAB L100.1700 32-36 g/gl Normal MCHC 33.8 LAB L100.1810 11.6-14.6 % High RDW CV 18.6 LAB L100.1820 35.1-43.9 fl High RDW SD 51.5 LAB L100.1900 150-450 K/mm3 Normal PLT 367 LAB L100.2000 6.2-12.0 fl Normal MPV 11.5 Performed By: #### L100.0500 #### [facility] [address] [place], [place], [address] IMMUNOGLOBULIN M Collected: 03/22/2018 Status: F Source: [place] 5:45 AM [facility] REPOSITORY Order Comment: Is Patient Fasting? Y TYPE CODE TESTS RESULT OUT OF RANGE REFERENCE UNITS LAB L3200.1500 26-217 mg/dL Normal IMMUNOGL M 26 Result Comment: Performed at: - [facility] [address] [id number] [employer]: Richard Sneed PhD, Phone: [phone] Performed By: #### L3200.1500 #### [facility] (refer to report for specific site) refer to report for address and phone number Observed: 03/19/2018 Status: F Source: [place] CULTURE, WOUND 7:30 PM [facility] REPOSITORY RIGHT BALL OF FOOT Gram Stain Gram Stain Rare Red Blood Cells 1+ Gram positive rods Wound Culture #2 Clinical correlation necessary, Possible skin contamination. ORGANISM 1: Proteus mirabilis Amount Growth 2+ ORGANISM 2: Corynebacterium striatum Amount Growth Growth Proteus mirabilis: REACTION Ampicillin $ >=32 R Ampicillin/Sulbactam $ 8 S Cefazolin $ 8 S Cefepime $ <=0.12 S Ceftazidime *NF <=1 S Ceftriaxone $ <=0.25 S Ciprofloxacin $ >=4 R Ertapenim $$$ <=0.12 S Gentamicin $ <=1 S Imipenem *NF 8 I Levofloxacin $ 4 I Piperacillin/Tazobactam $$ <=4 S Tobramycin $ <=1 S Trimethoprim/Sulfametho $ >=320 R (NF) indicates non-formulary drug at [facility]. Approval by Infectious Disease Specialist required before non-formulary drugs may be ordered and/or dispensed. Performed By: #### M100.1400 #### [facility] [address] [place], [place], [address] Observed: 03/19/2018 Status: F Source: [place] CULTURE, WOUND 7:30 PM [facility] REPOSITORY RIGHT KNEE Gram Stain Gram Stain Rare Red Blood Cells 2+ Gram positive rods Wound Culture There are no CLSI standards for interpretation of this Drug/Organism combination. ORGANISM 1: Corynebacterium striatum Amount Growth 3+ Performed By: #### M100.1400 #### [facility] [address] [place], [address] Observed: 03/10/2018 Status: F Source: [place] CULTURE, DEEP WOUND 10:00 AM [facility] REPOSITORY Comments: PURULENT DRAINAGE Gram Stain Gram Stain 4+ Gram positive cocci 2+ Gram negative rods 2+ Gram positive rods No White Blood Cells Wound Culture #4 There are no CLSI standards for interpretation of this Drug/Organism combination. ESBL/MRSA RESULTS CALLED TO [facility] 03/14/18 0742 Almita Pina. REPORT READ BACK BY SAME. Copy of report sent to Infection Control Printer [id number] 03/14/18 0743 JENNIFER. ORGANISM 1: Escherichia coli Amount Growth 2+ MARKER ESBL producing Organism ORGANISM 2: Proteus mirabilis Amount Growth 2+ ORGANISM 3: Meth. resistant Staph. aureus Amount Growth 3+ ORGANISM 4: Corynebacterium striatum Amount Growth 3+ Escherichia coli: REACTION Amikacin $ <=2 S Aztreonam $$$ 2 R Meropenem $ <=0.25 S (NF) indicates non-formulary drug at [facility]. Approval by Infectious Disease Specialist required before non-formulary drugs may be ordered and/or dispensed. Escherichia coli: REACTION Amoxacillin/Clavulanic Acid $ 8 S Ampicillin $ >=32 R Ampicillin/Sulbactam $ 16 I Cefazolin $ >=64 R Cefepime $ 2 R Ceftriaxone $ >=64 R Ciprofloxacin $ >=4 R ESBL + Ertapenim $$$ <=0.5 S Gentamicin $ <=1 S Imipenem *NF <=0.25 S Levofloxacin $ >=8 R Piperacillin/Tazobactam $$ <=4 S Tobramycin $ <=1 S Trimethoprim/Sulfametho $ <=20 S (NF) indicates non-formulary drug at [facility]. Approval by Infectious Disease Specialist required before non-formulary drugs may be ordered and/or dispensed. Proteus mirabilis: REACTION Amoxacillin/Clavulanic Acid $ 4 S Ampicillin $ >=32 R Ampicillin/Sulbactam $ 8 S Cefazolin $ 8 S Cefepime $ <=1 S Ceftriaxone $ <=1 S Ciprofloxacin $ >=4 R Ertapenim $$$ <=0.5 S Gentamicin $ <=1 S Levofloxacin $ 4 I Piperacillin/Tazobactam $$ <=4 S Tobramycin $ <=1 S Trimethoprim/Sulfametho $ >=320 R (NF) indicates non-formulary drug at [facility]. Approval by Infectious Disease Specialist required before non-formulary drugs may be ordered and/or dispensed. Meth. resistant Staph. aureus: REACTION Benzylpenicillin NF >=0.5 R Cefoxitin *NF + Clindamycin $$ <=0.25 R Inducable Clindamycin Resistan + Erythromycin $ >=8 R Gentamicin $ <=0.5 S Levofloxacin $ >=8 R Linezolid $$$$ 2 S Oxacillin NF >=4 R Tigecycline $$$$ <=0.12 S Rifampin $$ <=0.5 S Tetracycline NF <=1 S Trimethoprim/Sulfametho $ <=10 S Vancomycin $ 1 S (NF) indicates non-formulary drug at [facility]. Approval by Infectious Disease Specialist required before non-formulary drugs may be ordered and/or dispensed. * CLSI guidelines does not recommend testing of cephalosporins. This interpretation is deduced from Beta-lactam/penicillin results. Cult, Anaerobic Studies have confirmed that Anaerobic Gram Positive Cocci are routinely susceptible to: Penicillin/Ampicillin, Ampicillin/Sulbactam, Piperacillin/Tazobactam, Cefoxatin, Ertapenem, Imipenem, Meropenem and Metronidazole and vary in resistance to: Clindamycin and Moxifloxacin. ORGANISM 1: Anaerobic cocci Performed By: #### M100.1500 #### [facility] [address] [place], [address] Observed: 03/10/2018 Status: F Source: [place] CULTURE, DEEP WOUND 10:00 AM [facility] REPOSITORY Comments: PURULENT DRAINAGE Gram Stain Gram Stain 1+ Gram positive rods 1+ Red Blood Cells No White Blood Cells Wound Culture RESULTS CALLED TO [place] 03/13/18 0739 Almita Pina. REPORT READ BACK BY SAME . Copy of report sent to Infection Control Printer [id number] 03/13/18 0740 [place]. ORGANISM 1: Meth. resistant Staph. aureus Amount Growth 2+ ORGANISM 2: Corynebacterium amycolatum/xer Amount Growth 3+ Meth. resistant Staph. aureus: REACTION Benzylpenicillin NF >=0.5 R Cefoxitin *NF + Clindamycin $$ <=0.25 R Inducable Clindamycin Resistan + Erythromycin $ >=8 R Gentamicin $ <=0.5 S Levofloxacin $ 4 I Linezolid $$$$ 2 S Oxacillin NF >=4 R Tigecycline $$$$ <=0.12 S Rifampin $$ <=0.5 S Tetracycline NF <=1 S Trimethoprim/Sulfametho $ <=10 S Vancomycin $ <=0.5 S (NF) indicates non-formulary drug at [facility]. Approval by Infectious Disease Specialist required before non-formulary drugs may be ordered and/or dispensed. * CLSI guidelines does not recommend testing of cephalosporins. This interpretation is deduced from Beta-lactam/penicillin results. Cult, Anaerobic No anaerobic bacteria isolated. Performed By: #### M100.1500 #### [facility] [address] [place], [address] DISCHARGE SUMMARY Observed: 01/06/2018 Status: F Source: [place] 2:57 PM [facility] REPOSITORY [facility] Medical Records Department [address] [place] [address] Discharge Summary 01/06/18 1031 MR#: [id number] Acct: [id number] Name: JONELLE BARRAZA Rep #: [id number] : [id number] From: Gely Haynes MD PCP: Arnoldo HYATT,Sunday Barbosa Status: ADM IN Y Location: [place] [address] 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; EGD 09/2012 - mild gastritis, grade 2 esophageal varices (liver biopsy no cirrhosis) History of Clostridium difficile infection (Chronic) Depression (Chronic) Anxiety (Chronic) Hypokalemia (Chronic) OAB (overactive bladder) (Chronic) GERD (gastroesophageal reflux disease) (Chronic) Constipation (Chronic) Diarrhea (Chronic) Edema (Chronic) Debility (Chronic) IBS (irritable bowel syndrome) (Chronic) Knee pain (Chronic) Generalized osteoarthritis (Chronic) GI bleed (Chronic) Esophageal varices (Chronic) Hypertension (Chronic) Hospital Course and Treatment Imaging Results: Diagnostic Data Knee X-Ray 01/03/18 23:00 IMPRESSION: Fractures of the proximal tibia and fibula. Diffuse demineralization. Total knee arthroplasty. Patella janett. Consider correlation with CT. Electronically Signed: Morgan Greenberg MD at 0:44 EST , Service support , Chest X-Ray 01/04/18 23:04 IMPRESSION: 1. Questionable patchy infiltrate in the left mid lung not seen on the prior study. 2. No other significant interval change. Electronically Signed: Zain Shin, at 23:18 EST Tel [phone], Service support , Consultations 01/03/18 21:10 Consult: Onc/Wound/commercial construction project manager Routine Comment: ID- Dr Guerra orthopedic surgery- Dr Decker Operations: None, - - Hernia repair. Procedures: None Summary of Care Provided: Patient is an 82-year-old female with an extensive past medical history as listed below. She was admitted from her skilled nursing from [facility] complaint of shortness of breath and right arm swelling. She has a history of severe contractures and ulcers of both knees. In the ED she was found to have left knee cellulitis with purulent and bloody discharge and also chronic right knee ulcer. She also had right upper arm swelling is acute. Duplex done of the right upper extremity was negative. Vitals in the ED showed respiratory rate of 27, heart rate of 124 and temperature of 102.2 Fahrenheit. She was managed for sepsis due to cellulitis. She was started on IV vancomycin and IV Zosyn orthopedics was consulted as well as ID. Blood and urine cultures were ordered and wound culture ordered after an aspirate of the left knee abscess with that. Discussed with orthopedics, patient had been seen on outpatient basis and offered above-knee amputation bilaterally and secured to her severe cellulitis and ulcerations. However patient refused. Orthopedics, she was therefore hospice of emergent bilateral above-knee amputation. Hospice was consulted and per extensive discussion with patient and her family, decision was made to discharge patient to a skilled nursing with hospice. Wound culture MRSA and Proteus mirabilis. Per discussion with ID, patient was discharged to skilled nursing with hospice on a 10-day course of p.o. doxycycline and p.o. Omnicef. She is follow-up with her primary care doctor, and ID. Patient seen and examined prior to discharge. She felt well and had no complaints. She denied any fever or chills, she is on her baseline 2 L of oxygen. She denied any cough or chest pain, shortness of breath, abdominal pain, diarrhea vomiting. Review of systems otherwise negative. Labs and vitals reviewed. Patient does have concerns about going to [facility] as she said she was not sure that could provide level of care that she needed. However per discussion with telephonic nurse case manager, her insurance is not covering the skilled nursing that she wants to go to. He had been discussed with patient and daughter extensively and they had agreed to go to [facility] again. Home medications reveiwed and reconciled prior to discharge. o/e Vital Signs Height 5 ft 2 in Weight: 137 lb 12.623 oz Weight in Pounds 137.8 lbs Pulse Ox 94 General: Alert, Oriented x3, Cooperative, No apparent distress HEENT: Atraumatic, PERRLA, EOMI, Normocephalic Oral: Moist Mucosa Neck: Supple, No JVD, Negative Carotid Bruits, Negative Hepatojugular Reflux, No Nodes Lungs: - - few crackles bibasally. No wheezing or rhonchi Cardiovascular: Regular rate, Regular Rhythm, Normal S1, Normal S2, No murmurs Abdomen: Bowel Sounds Present, Soft, Non Tender, Non-Distended, No Hepato-splenomegaly Extremities: Edema - 2+ pitting edema of both LEs, - Skin: - - ulcerations and chronic wounds on both LEs at knees. WOunds currently dressed Musculoskeletal: - - severe contractures of both LEs, especially at her knees. Ulcerations on both LEs bilaterally. Lymphatic: No Cervical, Supraclavicular, or Inguinal Adenopathy Neurological: Cranial nerves II-XII grossly intact Psych/Mental Status: Normal Affect, Appropriate, Alert and oriented to time, place, person, mood and affect Plan as stated above. She is being discharged to her SNF under hospice care. Patient Problems: Active and Suspected Problems Cellulitis (Acute) - Physical Exam Vital Signs Temp Pulse Resp BP Pulse Ox 98.6 F 102 H 20 H 128/76 H 97 01/06/18 08:59 18 08:59 01/06/18 08:59 01/06/18 08:59 01/06/18 08:59 Oxygen Flow Rate (L/min) 2 Oxygen Delivery Method Nasal Cannula Weight: 137 lb 12.623 oz Body Mass Index (BMI) 25.2 Intake and Output for Last 24 Hours Intake Total 4560 / 4560 2595 / 2595 500 / 500 Output Total 670 / 670 1230 / 1230 900 / 900 Balance 3890 / 3890 1365 / 1365 -400 / -400 Microbiology Past 72 Hours 01/03/18 20:50 Gram Stain - Final Wound Drainage - Leg Wound Culture - Final Laboratory Tests Past 24 Hrs Discharge Diet: Low fat/ Low Cholesterol Weight Bearing Status: Weight bearing as tolerated Call your doctor if you observe: Fever of 101 or Higher, Increased palpitations (irregular heartbeat) Home Medications: Medications to take at Discharge Magnesium Hydroxide [Milk Of Magnesia] 30 ml PO DAILY PRN PRN udc 11/09/17 Oxycodone [Oxyir] 10 mg PO Q4H PRN PRN 7 Days #42 tablet 11/09/17 Omeprazole [Prilosec] 20 mg PO BID 11/16/17 Calcium Carbonate 500 mg PO TID 01/03/18 Iron Polysaccharide Complex [Ferrex 150] 150 mg PO TIDCM 01/03/18 Mag Hydrox/Al Hydrox/Simeth [Antacid Suspension] 30 ml PO Q4H PRN PRN 01/03/18 Menthol/Lanolin/Calamine/Znox [Calmoseptine Ointment] 1 applic TOPICAL TID 01/03/18 Oxycodone CR [Oxycontin] 15 mg PO BID 01/03/18 Polyethylene Glycol 3350 [Miralax] 17 gm PO QHS 01/03/18 Potassium Chloride [Klor-Con M20] 20 meq PO DAILY 01/03/18 Senna/Docusate Sodium [Senokot-S] 2 tablet PO BID 01/03/18 Cefdinir [Omnicef [equiv]] 300 mg PO Q12 #20 capsule 01/06/18 Doxycycline 100 mg PO BID #20 capsule 01/06/18 Following Prescrptions Were Given to Patient: Cefdinir [Omnicef [equiv]] 300 mg PO Q12 #20 capsule Doxycycline 100 mg PO BID #20 capsule Primary Care Physician: Sunday Gutiérrez Chi, MD [Primary Care Provider] - Please follow up with your Primary Care Physician in: one week Disposition: Intermediate facility - with hospice Minutes spent on discharge:: 35 Patient Condition:: Fair Medical Necessity - Tobacco Use Smoking Status: Former smoker Meaningful Use Info Meaningful Use Diagnoses (Choose all that apply): None applicable Code Visit Inpatient E AND M: 94943 Disch Hosp 01/06/18 1457 <Electronically signed by Gely Haynes MD> Date Gely Haynes MD Cosigner Signature (if applicable): Date CC: Gely Haynes MD; Sunday Gutiérrez MD Signed TRANSFER TO [facility] Observed: 01/06/2018 Status: F Source: [facility] 10:31 AM [facility] REPOSITORY [facility] Medical Records Department [address] [place] [id number] Transfer to [facility] MR#: [id number] Acct: [id number] Name: JONELLE BARRAZA Nasir Rep #: [id number] : 1935 82 From: Gely Haynes MD PCP: Sunday Gutiérrez MD, Chi Status: ADM IN [facility]RISTIJON[facility]LE Nasir (Patient) (Health Ins. Claim No.) (Day of Discharge to Facility) Certification of patient admission REQUIRED AT TIME OF ADMISSION. I CERTIFY THAT [facility] SERVICES ARE REQUIRED TO BE GIVEN ON AN IN-PATIENT BASIS BECAUSE OF THE ABOVE NAMED PATIENT'S NEED FOR SHELTER CARE ON A CONTINUING BASIS FOR THE CONDITION(S) FOR WHICH HE/SHE WAS RECEIVING IN-PATIENT HOSPITAL SERVICES PRIOR TO HIS/HER TRANSFER TO THE [facility]. 01/06/18 1031 <Electronically signed by Gely Haynes MD> Date Gely Haynes MD - Diet 01/03/18 21:46 Diet: 2 Gram Sodium Is pt able to select menu?: Yes - Routine Orders/Code Status Enema Type: Fleetz Enema Frequency: Daily PRN Suppository Type: Dulcolax 10mg Suppository Frequency: Daily PRN O2 Liters per Minute: 2 O2 Frequency: Continuous Code Status: DNRCC-A - Wound(s) Left Knee Wound Type: Pressure Injury Dressing Change: Mepilex Left Leg Wound Type: Stasis Ulcer Dressing Change: Dry Sterile Dressing Right Knee Wound Type: Pressure Injury Dressing Change: Mepilex - Therapies Weight Bearing: Weight bearing as tolerated Physical Therapy: Eval and Treat Occupational Therapy: Eval and Treat - Allergies/Procedures Done in Hospital Allergies/Adverse Reactions: Allergies belladonna alkaloids [Belladonna Alkaloids] Allergy (Verified 01/03/18 17:36) Unknown halobetasol Allergy (Verified 01/03/18 17:36) Unknown celecoxib [From Celebrex] Adverse Reaction (Verified 01/03/18 17:36) Diarrhea Procedures: None - Type of Care/Length of Stay Estimated LOS: Convalescent Care Less Than 30 days Type of Care Needed: Skilled - with hospice Rehab Potential: Poor Prognosis: Fair - Additional Orders/Day of Discharge Day of Discharge: 01/06/18 - Dietary and Speech Recommendations Dietitian Recommendations/Changes: Recommend continuing 2g sodium diet. Will continue to provide Ensure Enlive w/ medpass and will add Ensure Pudding TID w/ meals d/t poor intake. May benefit from 1 packet Chalo BID for skin healing. - Follow Up Care Primary Care Physician: Sunday Gutiérrez Chi, MD [Primary Care Provider] - Please follow up with your Primary Care Physician in: one week 01/06/18 1031 <Electronically signed by Gely Haynes MD> Date Gely Haynes MD CC: Rex Hastings DO; Payam Guerra MD; Sunday Gutiérrez MD Signed CBC W/DIFF, AUTOMATED Collected: 01/06/2018 Status: F Source: [facility] 5:48 AM [facility] REPOSITORY TYPE CODE TESTS RESULT OUT OF RANGE REFERENCE UNITS LAB L100.1000 4.4-11.0 K/mm3 Normal WBC 7.1 LAB L100.1200 4.2-5.4 M/mm3 Low RBC 3.58 LAB L100.1300 12.0-15.0 g/dl Low HGB 10.0 LAB L100.1400 37-47 % Low HCT 30.6 LAB L100.1500 81-99 fL Normal MCV 85.5 LAB L100.1600 27.0-32.0 pg Normal MCH 27.9 LAB L100.1700 32-36 g/gl Normal MCHC 32.7 LAB L100.1810 11.6-14.6 % High RDW CV 16.9 LAB L100.1820 35.1-43.9 fl High RDW SD 51.2 LAB L100.1900 150-450 K/mm3 Normal PLT 419 LAB L100.2000 6.2-12.0 fl Normal MPV 10.0 LAB L100.2100 47-70 % High NEUT% 73.7 LAB L100.2200 19-41 % Low LY% 11.3 LAB L100.2300 0-10 % High MONO% 12.3 LAB L100.2400 0-5 % Normal EO% 2.0 LAB L100.2500 0-1 % Normal BASO% 0.4 LAB L100.2550 0.0-0.9 % Normal IM GRAN % 0.300 Result Comment: IG% - Immature Granulocytes (promyelocytes, myelocytes and metamyelocytes) > 1% indicates that a LEFT SHIFT is Present. LAB L100.2620 2.0-7.7 X10 3/uL Normal Absolute Neut 5.2 LAB L100.2720 0.83-4.51 X10 3/ul Low Absolute Lymph 0.80 Performed By: #### L100.0100 #### [facility] [address] [facility]. [place], [place], [address] BASIC METABOLIC Collected: 01/06/2018 Status: F Source: [facility] PROFILE ([facility]) 5:48 AM [facility] REPOSITORY TYPE CODE TESTS RESULT OUT OF RANGE REFERENCE UNITS LAB L501.0100 74-106 mg/dL Normal GLU 90 Result Comment: Please note revised GLUCOSE reference range effective 2017. LAB L501.1000 7-18 mg/dL Normal BUN 9 LAB L501.1100 0.55-1.02 mg/dL Low CREAT,SERUM 0.26 Result Comment: The validity of the calculated GFR AND GFRAA in patients over 70 years has not been determined. Clinical correlation is essential. LAB L501.1110 >60 mL/min Normal EST GFR 272 Result Comment: Non- GFR Calc LAB L501.1115 >60 mL/min Normal EST GFR - AA 329 Result Comment: GFR Calc LAB L501.1255 ml/min Normal Estimated CRCL 34.30 LAB L501.1300 10-20 RATIO High BUN/CRE 35.2 LAB L501.2200 8.5-10 mg/dL Low .1 CA 7.7 LAB L501.5300 136-14 mmol/L Normal 5 NA 136 LAB L501.5600 3.5-5. mmol/L Low 1 K 3.2 LAB L501.5900 98-107 mmol/L Normal CL 100 LAB L501.6100 21.0-3 mmol/L Normal 2.0 CO2 28.0 LAB L501.6200 5-15 Normal GAP 8 Performed By: #### L500.2500 #### [facility] [address] [facility] [place], [address] VANCOMYCIN, TROUGH Collected: 01/05/2018 Status: F Source: [facility] LEVEL 7:28 PM [facility] REPOSITORY Order Comment: Comments: Draw 30 min prior to vanco dose due @1999. Time Medication is to be Given? 1999 TYPE CODE TESTS RESULT OUT OF RANGE REFERENCE UNITS LAB L501.8820 5.0-15.0 ug/mL Normal VANCO, TROUGH 6.7 Result Comment: VANCOMYCIN STANDARED DRUG THERAPY TROUGH LEVEL: 5.0 - 15.0 mg/L VANCOMYCIN HIGH INTENSITY THERAPY TROUGH LEVEL: 15.0 - 20.0 mg/L High Intensity therapy recommended for serious life threatening infections include: - Meningitis -Endocarditis -Pneumonia (Ventilator/Healtcare Associated) -Sepsis PLEASE CONTACT PHARMACY SERVICES (#[id number]) FOR INTERPRETATION OF RESULTS. Performed By: #### L501.8820 #### [facility] [address] [facility] [place], [address] 12 LEAD ELECTROCARDIOGRAM Observed: 01/05/2018 Status: F Source: [facility] 3:17 PM [facility] REPOSITORY [facility] Cardiovascular Services [address] [facility] [place] [address] 12 Lead EKG 11/06/18 1738 MR#: [id number] Acct: [id number] Name: JONELLE BARRAZA Rep #: [id number] : 1935 82 From: Kehinde Ortiz MD Attending Dr: Gely Haynes MD Status: ADM IN Ordering Dr: Cholo Quintero MD Date: 01/03/18 Location: AR[facility] Sex: F C Admitted: 01/03/18 Test Reason : TACHY Blood Pressure : / mmHG Vent. Rate : 126 BPM Atrial Rate : 126 BPM P-R Int : 140 ms QRS Dur : 070 ms QT Int : 300 ms P-R-T Axes : 028 025 044 degrees QTc Int : 434 ms Sinus tachycardia Low voltage QRS Borderline ECG Confirmed by ANGEL HYATT, KEHINDE ([id number]), marketing editor NU DECKER ([id number]) on 01/05/2018 3:17:41 PM Referred By: Elieser Nicholson Confirmed By:KEHINDE ORTIZ MD 01/05/18 1517 Date Kehinde Ortiz MD CC: Gely Haynes MD; Elieser Nicholson MD; Sunday Gutiérrez MD; Cholo Quintero MD Signed BASIC METABOLIC Collected: 01/05/2018 Status: F Source: [facility] PROFILE (BMP) 5:16 AM [facility] REPOSITORY TYPE CODE TESTS RESULT OUT OF RANGE REFERENCE UNITS LAB L501.0100 74-106 mg/dL Normal GLU 76 Result Comment: Please note revised GLUCOSE reference range effective 2017. LAB L501.1000 7-18 mg/dL Normal BUN 7 LAB L501.1100 0.55-1.02 mg/dL Low CREAT,SERUM 0.22 Result Comment: The validity of the calculated GFR AND GFRAA in patients over 70 years has not been determined. Clinical correlation is essential. LAB L501.1110 >60 mL/min Normal EST GFR 324 Result Comment: Non- GFR Calc LAB L501.1115 >60 mL/min Normal EST GFR - AA 392 Result Comment: GFR Calc LAB L501.1255 ml/min Normal Estimated CRCL 34.30 LAB L501.1300 10-20 RATIO High BUN/CRE 31.8 LAB L501.2200 8.5-10 mg/dL Low .1 CA 7.3 LAB L501.5300 136-14 mmol/L Normal 5 NA 137 LAB L501.5600 3.5-5. mmol/L Low 1 K 2.9 LAB L501.5900 98-107 mmol/L Normal CL 101 LAB L501.6100 21.0-3 mmol/L Normal 2.0 CO2 28.0 LAB L501.6200 5-15 Normal GAP 8 Performed By: #### L500.2500 #### [facility] [address] [place], [address] CBC W/DIFF, AUTOMATED Collected: 01/05/2018 Status: F Source: [facility] 5:16 AM [facility] REPOSITORY TYPE CODE TESTS RESULT OUT OF RANGE REFERENCE UNITS LAB L100.1000 4.4-11.0 K/mm3 Normal WBC 7.1 LAB L100.1200 4.2-5.4 M/mm3 Low RBC 3.42 LAB L100.1300 12.0-15.0 g/dl Low HGB 9.5 LAB L100.1400 37-47 % Low HCT 29.5 LAB L100.1500 81-99 fL Normal MCV 86.3 LAB L100.1600 27.0-32.0 pg Normal MCH 27.8 LAB L100.1700 32-36 g/gl Normal MCHC 32.2 LAB L100.1810 11.6-14.6 % High RDW CV 16.9 LAB L100.1820 35.1-43.9 fl High RDW SD 51.5 LAB L100.1900 150-450 K/mm3 Normal PLT 417 LAB L100.2000 6.2-12.0 fl Normal MPV 10.5 LAB L100.2100 47-70 % High NEUT% 76.0 LAB L100.2200 19-41 % Low LY% 8.6 LAB L100.2300 0-10 % High MONO% 13.3 LAB L100.2400 0-5 % Normal EO% 1.3 LAB L100.2500 0-1 % Normal BASO% 0.4 LAB L100.2550 0.0-0.9 % Normal IM GRAN % 0.400 Result Comment: IG% - Immature Granulocytes (promyelocytes, myelocytes and metamyelocytes) > 1% indicates that a LEFT SHIFT is Present. LAB L100.2620 2.0-7.7 X10 3/uL Normal Absolute Neut 5.4 LAB L100.2720 0.83-4.51 X10 3/ul Low Absolute Lymph 0.61 Performed By: #### L100.0100 #### [facility] [address] [facility] [place], [address] CHEST 1 VIEW Observed: 01/04/2018 Status: F Source: [facility] (PORTABLE) 10:46 PM [facility] REPOSITORY [facility] Imaging Services [address] [place] [address] Chest 1 View (Portable) MR#: [id number] Acct: [id number] Name: JONELLE BARRAZA Rep #: [id number] : 1935 F 82 From: Zain Shin DO PCP: Arnoldo HYATT,[facility] Status: ADM IN Study: Chest 1 View (Portable) Date of Exam: 01/04/18 Exam# [id number] Ordering Dr: Elieser Nicholson MD STUDY: X-RAY CHEST REASON FOR EXAM: Female, 82 years old. Shortness of breath. TECHNIQUE: Single AP portable view of the chest. COMPARISON: January 03, 2018. FINDINGS: Again seen is elevation right hemidiaphragm. There is patchy infiltrate in the left hilar region not previously seen. Lungs appear otherwise clear. There is no demonstrated pleural abnormality. Normal size heart. Normal mediastinum and arlene. Normal visualized pulmonary arteries. There is atherosclerotic calcification of the aortic arch with tortuosity. No visualized osseous changes. Dilated loops of bowel beneath the right hemidiaphragm. RAD/Chest 1 View (Portable) IMPRESSION: 1. Questionable patchy infiltrate in the left mid lung not seen on the prior study. 2. No other significant interval change. Electronically Signed: Zain Shin DO at 23:18 EST Tel [phone], Service support , CC: Elieser Nicholson MD; Sunday Gutiérrez MD Chrome Worker: Signed CONSULTATION Observed: 01/04/2018 Status: F Source: [facility] 12:35 PM [facility] REPOSITORY [facility] Medical Records Department [address] [place] [address] Consultation 01/04/18 1231 MR#: [id number] Acct: [id number] Name: JONELLE BARRAZA Rep #: [id number] : 1935 82 From: Payam Guerra MD PCP: Sunday Gutiérrez MD, Chi Status: ADM IN Y Location: [place] [address] Problem List (1) Cellulitis Status: Acute Reason for Consult: sepsis Consulted by: Dr. Nicholson History of Present Illness: The patient is a 82 year old F who presented with confusion, fever. Had several days of RUE swelling and redness. Fell out of wheelchair a few months ago, developed progressive swelling/redness/pain in knees with ulceration. Had fever in ED to 102.2, started on vanc/zosyn, admitted. Ortho consulted. Pus aspirated and showing MRSA. Feeling better today. Full ROS performed and neg except as noted above. 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; EGD 09/2012 - mild gastritis, grade 2 esophageal varices (liver biopsy no cirrhosis) History of Clostridium difficile infection (Chronic) Depression (Chronic) Anxiety (Chronic) Hypokalemia (Chronic) OAB (overactive bladder) (Chronic) GERD (gastroesophageal reflux disease) (Chronic) Constipation (Chronic) Diarrhea (Chronic) Edema (Chronic) Debility (Chronic) IBS (irritable bowel syndrome) (Chronic) Knee pain (Chronic) Generalized osteoarthritis (Chronic) GI bleed (Chronic) Esophageal varices (Chronic) Hypertension (Chronic) Allergies/Adverse Reactions: Allergies belladonna alkaloids [Belladonna Alkaloids] Allergy (Verified 01/03/18 17:36) Unknown halobetasol Allergy (Verified 01/03/18 17:36) Unknown celecoxib [From Celebrex] Adverse Reaction (Verified 01/03/18 17:36) Diarrhea Home Medications: Ambulatory Orders Medication Instructions Recorded Magnesium Hydroxide [Milk Of 30 ml PO DAILY PRN PRN udc 11/09/17 Magnesia] Oxycodone [Oxyir] 10 mg PO Q4H PRN PRN 7 Days #42 11/09/17 Cephalexin [Keflex] 500 mg PO BID 11/16/17 - Social History SMOKING STATUS:: Former smoker Vital Signs Temp Pulse Resp BP Pulse Ox 99.0 F 98 24 H 101/60 98 01/04/18 10:30 01/04/18 10:30 01/04/18 10:30 01/04/18 10:30 01/04/18 10:30 Oxygen Flow Rate (L/min) 3 Oxygen Delivery Method Nasal Cannula Weight: 62.5 kg Body Mass Index (BMI) 25.2 Microbiology Past 72 Hours 01/03/18 20:50 Gram Stain - Final Wound Drainage - Leg Wound Culture - Preliminary Laboratory Tests Past 24 Hrs WBC RBC Hgb Hct MCV MCH MCHC RDW RDW Differential Plt Count MPV Immature Gran % (Auto) WBC RBC Hgb Hct - Other Studies Radiology: [] reviewed Other Studies: [] Route of nutrition/ use of supplements: [] Nutritional Intake: [] IV Site: [] Bradshaw Catheter: [] - Physical Exam General: Alert, Oriented x3, Cooperative, No apparent distress HEENT: Atraumatic, PERRLA, EOMI Neck: Supple, No Nodes Lungs: Clear to auscultation, Normal air movement Cardiovascular: Regular rate, Regular Rhythm, Murmur Abdomen: Soft, Non Tender, Non-Distended Extremities: Edema Skin: Ulcer/ Wound - Bilateral knee ulcers with redness IV Site: Peripheral, without redness Musculoskeletal: No Tenderness to Palpation of Joints or Extremities Neurological: Cranial nerves II-XII grossly intact - Assessment/Plan Antibiotics: [] Assessment/Plan: [] Active and Suspected Problems Cellulitis (Acute) Sepsis due to MRSA knee infected ulcer and abscess - cx with staph aureus. Ortho to see. Bilateral TKAs. R knee xray showed fracture. Continue vanc, will narrow zosyn to cefazolin for now. Will follow, thank you. 01/04/18 1235 <Electronically signed by Payam Guerra MD> Date Payam Guerra MD Cosigner Signature (if applicable): Date CC: Rex Hastings DO; Elieser Nicholson MD; Payam Guerra MD; Samm Decker MD; Sunday Gutiérrez MD Signed CBC W/DIFF, AUTOMATED Collected: 01/04/2018 Status: F Source: [facility] 5:14 AM [facility] REPOSITORY TYPE CODE TESTS RESULT OUT OF RANGE REFERENCE UNITS LAB L100.1000 4.4-11.0 K/mm3 High WBC 13.7 LAB L100.1200 4.2-5.4 M/mm3 Low RBC 3.20 LAB L100.1300 12.0-15.0 g/dl Low HGB 9.0 LAB L100.1400 37-47 % Low HCT 27.5 LAB L100.1500 81-99 fL Normal MCV 85.9 LAB L100.1600 27.0-32.0 pg Normal MCH 28.1 LAB L100.1700 32-36 g/gl Normal MCHC 32.7 LAB L100.1810 11.6-14.6 % High RDW CV 16.6 LAB L100.1820 35.1-43.9 fl High RDW SD 50.2 LAB L100.1900 150-450 K/mm3 Normal PLT 405 LAB L100.2000 6.2-12.0 fl Normal MPV 10.3 LAB L100.2100 47-70 % High NEUT% 83.4 LAB L100.2200 19-41 % Low LY% 7.7 LAB L100.2300 0-10 % Normal MONO% 8.3 LAB L100.2400 0-5 % Normal EO% 0.3 LAB L100.2500 0-1 % Normal BASO% 0.1 LAB L100.2550 0.0-0.9 % Normal IM GRAN % 0.200 Result Comment: IG% - Immature Granulocytes (promyelocytes, myelocytes and metamyelocytes) > 1% indicates that a LEFT SHIFT is Present. LAB L100.2620 2.0-7.7 X10 3/uL High Absolute Neut 11.4 LAB L100.2720 0.83-4.51 X10 3/ul Normal Absolute Lymph 1.06 Performed By: #### L100.0100 #### [facility] [address] [place], [place], [address] BASIC METABOLIC Collected: 01/04/2018 Status: F Source: AV[facility] PROFILE (BMP) 5:14 AM [facility] REPOSITORY TYPE CODE TESTS RESULT OUT OF RANGE REFERENCE UNITS LAB L501.0100 74-106 mg/dL Normal GLU 88 Result Comment: Please note revised GLUCOSE reference range effective 2017. LAB L501.1000 7-18 mg/dL Normal BUN 8 LAB L501.1100 0.55-1.02 mg/dL Low CREAT,SERUM 0.24 Result Comment: The validity of the calculated GFR AND GFRAA in patients over 70 years has not been determined. Clinical correlation is essential. LAB L501.1110 >60 mL/min Normal EST GFR 296 Result Comment: Non- GFR Calc LAB L501.1115 >60 mL/min Normal EST GFR - AA 358 Result Comment: GFR Calc LAB L501.1255 ml/min Normal Estimated CRCL 34.30 LAB L501.1300 10-20 RATIO High BUN/CRE 33.6 LAB L501.2200 8.5-10 mg/dL Low .1 CA 7.4 LAB L501.5300 136-14 mmol/L Normal 5 NA 137 LAB L501.5600 3.5-5. mmol/L Normal 1 K 3.6 LAB L501.5900 98-107 mmol/L Normal CL 101 LAB L501.6100 21.0-3 mmol/L Normal 2.0 CO2 29.0 LAB L501.6200 5-15 Normal GAP 7 Performed By: #### L500.2500 #### [facility] [address] [facility] [address] [place], [place], [address] OPERATIVE REPORT Observed: 01/03/2018 Status: F Source: [facility]NI 9:23 PM [facility] REPOSITORY [facility] Medical Records Department [address] [place] [address] Operative Report 01/03/182121 MR#: [id number] Acct: [id number] Name: JONELLE BARRAZA Rep #: [id number] : 1935 82 From: Elieser Nicholson MD PCP: Arnoldo HYATT,Sunday Barbosa Status: ADM IN Y Location: AR3 [id number] Problem List (1) Cellulitis Status: Acute (2) Hyperkalemia Status: Acute (3) Hypocalcemia Status: Acute (4) Anxiety Status: Chronic (5) Constipation Status: Chronic (6) Cryptogenic cirrhosis Status: Chronic (7) Debility Status: Chronic (8) Depression Status: Chronic (9) Diarrhea Status: Chronic (10) Edema Status: Chronic (11) Esophageal varices Status: Chronic (12) GERD (gastroesophageal reflux disease) Status: Chronic (13) GI bleed Status: Chronic (14) Generalized osteoarthritis Status: Chronic (15) HTN (hypertension), benign Status: Chronic (16) History of Clostridium difficile infection Status: Chronic (17) History of GI bleed Status: Chronic Comment: Colonoscopy 09/2012 - 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 Small ulcer with purulent bloody discharge with surrounding cellulitis. With 18-gauge needle about 1 mL sanguinous and purulent discharge was aspirated and sent to culture. Unsuccessful attempt for left knee arthrocentesis Code Visit Procedures: Drn/Inj jnt/brsa w/o us 01/03/182122 <Electronically signed by Elieser Nicholson MD> Date Elieser Nicholson MD CC: Elieser Nicholson MD; Sunday Gutiérrez MD Signed HISTORY AND PHYSICAL Observed: 01/03/2018 Status: F Source: AVNI EXAM 9:21 PM [facility] REPOSITORY [facility] Medical Records Department [address] [place] [address] History and Physical 01/03/182026 MR#: [id number] Acct: [id number] Name: JONELLE BARRAZA Rep #: [id number] : 1935 82 From: Elieser Nicholson MD PCP: Sunday Gutiérrez MD, Chi Status: ADM IN Y Location: AR3 [id number] Problem List (1) Cellulitis Status: Acute (2) Hyperkalemia Status: Acute (3) Hypocalcemia Status: Acute (4) Anxiety Status: Chronic (5) Constipation Status: Chronic (6) Cryptogenic cirrhosis Status: Chronic (7) Debility Status: Chronic (8) Depression Status: Chronic (9) Diarrhea Status: Chronic (10) Edema Status: Chronic (11) Esophageal varices Status: Chronic (12) GERD (gastroesophageal reflux disease) Status: Chronic (13) GI bleed Status: Chronic (14) Generalized osteoarthritis Status: Chronic (15) HTN (hypertension), benign Status: Chronic (16) History of Clostridium difficile infection Status: Chronic (17) History of GI bleed Status: Chronic Comment: Colonoscopy 09/2012 - 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; EGD 09/2012 - mild gastritis, grade 2 esophageal varices (liver biopsy no cirrhosis) (18) Hypertension Status: Chronic (19) Hypokalemia Status: Chronic (20) IBS (irritable bowel syndrome) Status: Chronic (21) Knee pain Status: Chronic (22) OAB (overactive bladder) Status: Chronic (23) Abdominal pain Status: Resolved (24) Cellulitis of right lower extremity Status: Resolved History of Present Illness Date of Admission: 01/03/18 Chief Complaint: Shortness of breath cellulitis and right upper extremity swelling The patient is a 82 year old F with multiple comorbidities but not diabetes mellitus was sent from [facility] for shortness of breath, right arm swelling. In ED, she was found to have left knee cellulitis with purulent and bloody discharge from a small ulcer and right knee ulcer, chronic in nature. She also has right arm swelling for which she was sent to ER. Patient is poor historian and is not able to tell the duration of right arm swelling but in ER she was found to have temperature 102.2 F, respiratory rate 27, heart rate 124. Patient has contracture of bilateral lower extremities and has not stated her knees I think probably for last 5 years and has been on wheelchair/sedentary for about 10 years as per the who is near the bedside. Patient is on 2 L l of oxygen and probably as per skilled nursing documentation was 88% on 2 L of oxygen in ED, she is 93% on 3 L of oxygen. The is also not able to add much on the history. 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; EGD 09/2012 - mild gastritis, grade 2 esophageal varices (liver biopsy no cirrhosis) History of Clostridium difficile infection (Chronic) Depression (Chronic) Anxiety (Chronic) Hypokalemia (Chronic) OAB (overactive bladder) (Chronic) GERD (gastroesophageal reflux disease) (Chronic) Constipation (Chronic) Diarrhea (Chronic) Edema (Chronic) Debility (Chronic) IBS (irritable bowel syndrome) (Chronic) Knee pain (Chronic) Generalized osteoarthritis (Chronic) GI bleed (Chronic) Esophageal varices (Chronic) Hypertension (Chronic) Allergies belladonna alkaloids [Belladonna Alkaloids] Allergy (Verified 01/03/18 17:36) Unknown halobetasol Allergy (Verified 01/03/18 17:36) Unknown celecoxib [From Celebrex] Adverse Reaction (Verified 01/03/18 17:36) Diarrhea Home Medications: Ambulatory Orders Medication Instructions Recorded Surgical History: appendectomy, cataract, cholecystectomy, herniorrhaphy, hysterectomy, total knee arthroplasty - Bilateral. 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 Smoking Status: Former smoker - *Family History Maternal History Items: No pertinent history Review of Systems Constitutional: Reports: Weakness, Fatigue HEENT: Denies: Head Aches, Sinus Congestion, Sinus Drainage Respiratory: Reports: Shortness of Breath Musculoskeletal: Reports: Joint Pain, Joint stiffness, Leg Pain, Muscle pain Skin: Reports: Rash, Skin Changes, Wounds Unable to obtain accurate/complete ROS d/t: Probably due to dementia/lethargy VTE Information - Inpt Only VTE Present on Admission: No VTE Mechan Device Prophylaxis: None VTE Pharm Prophylaxis ordered?: Yes Patient Problems: Active and Suspected Problems Cellulitis (Acute) - Physical Exam General: Cooperative, Disoriented - To time but oriented to place and person, Lethargic HEENT: Atraumatic, PERRLA, EOMI, Normocephalic Oral: Dry Mucosa Neck: Supple, No JVD, Negative Carotid Bruits Lungs: Clear to auscultation, No rhonchi, No wheeze, No rales, Diminished - Air entry diminished in bilateral lung bases Cardiovascular: Regular rate, Regular Rhythm, Normal S1, Normal S2, No murmurs Abdomen: Bowel Sounds Present, Soft, Non Tender, Non-Distended Extremities: Capillary Refill Less than 3 Seconds, Edema Skin: Ulcer/ Wound, Rash Present - Erythema present with a small ulcer with purulent and sanguinous discharge on medial portion of left knee. Chronic ulcer on the medial portion of the right knee. Both lower extremities cannot be examined secondary to chronic contracture which is not able to straighten. Musculoskeletal: No Tenderness to Palpation of Joints or Extremities Neurological: Cranial nerves II-XII grossly intact Psych/Mental Status: Normal Affect, Appropriate Vital Signs Temp Pulse Resp BP Pulse Ox 101.9 F H 117 H 24 H 114/61 94 01/03/18 20:03 01/03/18 20:03 01/03/18 20:03 01/03/18 20:03 01/03/18 20:03 Oxygen Flow Rate (L/min) 3 Oxygen Delivery Method Nasal Cannula Weight: 180 lb Body Mass Index (BMI) 32.9 Laboratory Tests Past 24 Hrs WBC 18.3 H RBC 3.69 L Hgb 10.4 L Hct 31.4 L MCV 85.1 MCH 28.2 MCHC 33.1 RDW 16.8 H RDW Differential 51.1 H WBC RBC Hgb Hct MCV MCH MCHC RDW RDW Differential Plt Count Assessment/Plan All Active Problems Hyperkalemia (Acute) Hypocalcemia (Acute) Cellulitis (Acute) Cellulitis of right lower extremity (Resolved) Abdominal pain (Resolved) Incarcerated left inguinal hernia (Resolved) The patient is a 82 year old F with multiple comorbidities but not diabetes mellitus was sent from [facility] for shortness of breath, right arm swelling. In ED, she was found to have left knee cellulitis with purulent and bloody discharge from a small ulcer and right knee ulcer, chronic in nature. She also has right arm swelling for which she was sent to ER. Patient is poor historian and is not able to tell the duration of right arm swelling but in ER she was found to have temperature 102.2 F, respiratory rate 27, heart rate 124. Patient has contracture of bilateral lower extremities and has not stated her knees I think probably for last 5 years and has been on wheelchair/sedentary for about 10 years as per the who is near the bedside. Patient is on 2 L l of oxygen and probably as per skilled nursing documentation was 88% on 2 L of oxygen in ED, she is 93% on 3 L of oxygen. The is also not able to add much on the history. 1. SIRS with sepsis (fever, 102.2 Fahrenheit, tachycardia, tachypnea and hypoxia) mostly secondary to skin/soft tissue cellulitis with left knee ulcer with possibility of knee joint infection, present on admission: Bedside right knee was tried to aspirated but because of contracture of knee/position, about 1 mL purulent and bloody aspirate near the left knee ulcer site. This was sent for culture. Orthotic consult, Dr. Samm Decker for further opinion and recommendation. ID consult. Patient was started on IV vancomycin and Zosyn. Blood culture and urine culture is ordered. MRSA wound culture. Wound nurse consult. Lower extremity venous Doppler ordered. 2. Chronic ulcer over the medial aspect of the right knee, present since admission 3. 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 4. Patient has calcium 7.8 but corrected calcium is 9.32 with patient albumin 2.1. Does not need correction. 4. Recent hospital admission in October 2017 for right tibial periprosthetic and pathological fracture and left femur fracture which was deemed nonoperative because of chronic knee contractures and wheelchair and bedbound. At that time patient was seen by Dr. Hunt. 5. Multiple comorbidities include generalized osteoarthritis, history of cryptogenic cirrhosis with esophageal varices, previous history of GI bleed, neurogenic bladder, anxiety and depression, hypertension, very low functional capacity with wheelchair and bedbound for many years with contracture. DVT prophylaxis: On Lovenox 40 mg subcut daily Code Visit Inpatient E AND M: 73010 Init Hosp L3 Procedures: 24150 Drn/Inj jnt/brsa w/o us 01/03/182120 <Electronically signed by Elieser Nicholson MD> Date Elieser Nicholson MD Cosigner Signature: Date (if applicable) CC: Elieser Nicholson MD; Sunday Gutiérrez MD Signed MRSA WOUND DNA BY Collected: 01/03/2018 Status: F Source: [place] PCR 8:50 PM [facility] REPOSITORY TYPE CODE TESTS RESULT OUT OF REFERENCE UNITS RANGE LAB L8200.1100 Negative High MRSA POSITIVE RESULT Result Comment: CRITICAL VALUE VERIFIED. CALLED TO Trigence 01/03/18 2234 Rosi Javier. RESULTS READ BACK BY SAME. LAB L8200.1150 Negative High SA RESULT POSITIVE Performed By: #### L8200.1075 #### [facility] [address] [place], [address] Observed: 01/03/2018 Status: F Source: [place] CULTURE, DEEP WOUND 8:50 PM [facility] REPOSITORY Copy of report sent to Infection Control Printer [id number] 01/06/18 0811 SIMBA. Gram Stain Gram Stain 4+ Gram positive cocci Rare Gram positive rods No cells seen Wound Culture ORGANISM 1: Proteus mirabilis Amount Growth 1+ ORGANISM 2: Meth. resistant Staph. aureus Amount Growth 1+ Proteus mirabilis: REACTION Amoxacillin/Clavulanic Acid $ 8 S Ampicillin $ >=32 R Ampicillin/Sulbactam $ 8 S Cefazolin $ 8 S Cefepime $ <=1 S Ceftriaxone $ <=1 S Ciprofloxacin $ >=4 R Ertapenim $$$ <=0.5 S Gentamicin $ <=1 S Levofloxacin $ >=8 R Piperacillin/Tazobactam $$ <=4 S Tobramycin $ <=1 S Trimethoprim/Sulfametho $ >=320 R (NF) indicates non-formulary drug at [facility]. Approval by Infectious Disease Specialist required before non-formulary drugs may be ordered and/or dispensed. Meth. resistant Staph. aureus: REACTION Benzylpenicillin NF >=0.5 R Cefoxitin *NF + Clindamycin $$ <=0.25 R Inducable Clindamycin Resistan + Erythromycin $ >=8 R Gentamicin $ <=0.5 S Levofloxacin $ 4 I Linezolid $$$$ 2 S Oxacillin NF >=4 R Tigecycline $$$$ <=0.12 S Rifampin $$ <=0.5 S Tetracycline NF <=1 S Trimethoprim/Sulfametho $ <=10 S Vancomycin $ 1 S (NF) indicates non-formulary drug at [facility]. Approval by Infectious Disease Specialist required before non-formulary drugs may be ordered and/or dispensed. * CLSI guidelines does not recommend testing of cephalosporins. This interpretation is deduced from Beta-lactam/penicillin results. Cult, Anaerobic No anaerobic bacteria isolated. Performed By: #### M100.1500 #### [facility] [address] [facility] [place], [address] KNEE 1 OR 2 VIEWS Observed: 01/03/2018 Status: F Source: [place] 8:33 PM [facility] REPOSITORY [facility] Imaging Services [address] [place] [address] Knee 1 or 2 Views MR#: [id number] Acct: [id number] Name: JONELLE BARRAZA Rep #: [id number] : 1935 F 82 From: Morgan Greenberg PCP: Arnoldo HYATT,[employer] Status: ADM IN Study: Knee 1 or 2 Views Date of Exam: 01/03/18 Exam# [id number] Ordering Dr: Elieser Nicholson MD STUDY: X-RAY - LEFT KNEE REASON FOR EXAM: Female, 82 years old. Left knee ulcer. Swelling. TECHNIQUE: 3 view(s) of the knee. COMPARISON: November 04, 2017. FINDINGS: Alignment is normal. Patella janett also noted previously. There is callus formation at the level of a previously noted fracture distal femoral diaphysis slightly proximal to the total knee arthroplasty. Due to patient positioning is difficult to determine if the femoral component of the total knee arthroplasty is in normal alignment. Tibial component appears in normal position. Calcifications in the region of the patellar tendon noted previously. There is now significant edema of the upper leg including the soft tissue adjacent to the knee. RAD/Knee 1 or 2 Views IMPRESSION: Soft tissue edema of the upper leg and adjacent to the knee. No ulcer identified. Limited evaluation of the total knee arthroplasty. Patella janett. Fracture of the distal femur noted previously with findings suggestive of healing. If further imaging is warranted consider CT. Electronically Signed: Morgan Greenberg MD at 0:10 EST , Service support , CC: Elieser Nicholson MD; Sunday Gutiérrez MD Chrome Worker: Signed KNEE 1 OR 2 VIEWS Observed: 01/03/2018 Status: F Source: [place] 8:33 PM [facility] REPOSITORY [facility] Imaging Services [address] [place] [address] Knee 1 or 2 Views MR#: [id number] Acct: [id number] Name: JONELLE BARRAZA Rep #: [id number] : 1935 F 82 From: Morgan Greenberg PCP: Arnoldo HYATT,Sunday Barbosa Status: ADM IN Study: Knee 1 or 2 Views Date of Exam: 01/03/18 Exam# [id number] Ordering Dr: Elieser Nicholson MD STUDY: X-RAY - RIGHT KNEE REASON FOR EXAM: Female, 82 years old. Knee swelling, ulcer. TECHNIQUE: 3 view(s) of the knee. COMPARISON: November 04, 2017. FINDINGS: Again noted is a total knee arthroplasty is in normal alignment. Patella janett noted previously. There is diffuse demineralization. Fractures of the proximal tibial and fibular diaphyses. The proximal tibial fracture was present previously. Due to patient positioning it is difficult to determine alignment on AP view. The fractures of the tibia and fibula appear displaced. Multiple ovoid calcifications in the soft tissue of the lower leg. No significant soft tissue swelling appreciated. RAD/Knee 1 or 2 Views IMPRESSION: Fractures of the proximal tibia and fibula. Diffuse demineralization. Total knee arthroplasty. Patella janett. Consider correlation with CT. Electronically Signed: Morgan Greenberg MD at 0:44 EST , Service support , CC: Elieser Nicholson MD; Sunday Gutiérrez MD Chrome Worker: Signed EMERGENCY DEPARTMENT Observed: 01/03/2018 Status: F Source: [place] SUMMARY 7:51 PM [facility] REPOSITORY [facility] Medical Records Department [address] [place] [address] Emergency Department Summary 01/03/181945 MR#: [id number] Acct: [id number] Name: JONELLE BARRAZA Rep #: [id number] : 1935 82 From: Cholo Quintero MD PCP: Sunday Gutiérrez MD, Chi Status: REG ER - ER Visit Summary Date of Service: 01/03/18 Chief Complaint: [facility] because of low pulse ox. History of Present Illness: The patient is a 82 F who is not a good informant. was unable to add much. He did inform me that she is on chronic oxygen. She may have had a slight cough. She does not complain of much. Physical Examination: Vital signs are remarkable for a temperature 102.2 respiratory rate of 27 and a heart rate of 124. 02 saturation on oxygen is 93% patient is arousable. HEENT exam is remarkable for dry mucosa. Heart is rapid and regular. Lungs reveal end inspiratory rales. She is tachypnic. Abdomen is soft nontender. She has lymphedema of the right upper extremity, right lower extremity and left lower externally. She has significant contractures. There is evidence of cellulitis involving the left patella region. There is a wound medial side of the right knee with granulation tissue. There is no evidence of cellulitis. Question of inguinal lymphadenopathy on the left. Difficult to perform neurologic exam. Test Results: White count is 18.3 thousand 92 segs no bands. H AND H 10.4 and 31.4. Electro panels marked for an elevated CO2 of 33. Hepatic profile is unremarkable. Coags are unremarkable. Urine is remarkable for yeast. Single view chest x-ray was no acute process. EKG reveals a sinus tachycardia rate of 124 with low voltage. The ME interval is normal. QRS durations are normal. QT interval is normal and axis is normal. Lactate is normal at 1.2 Emergency Department Course and Treatment: Sepsis workup was undertaken. Presume this is secondary to scan will obtain chest x-ray because she is tachypnic and pulse ox was low [facility] the [facility]. Since her source is scant and concern for streptococcal versus staphylococcal source she was treated with vancomycin. Treatment Plan: The hospitalist was contacted for admission. She is DNR CC arrest. Disposition: Admission medical surgical floor Impression: 1. Sepsis 2. Cellulitis left knee 3. Chronic respiratory failure with hypoxia This note was generated with Teburu dictation software. It may contain incorrect words, spelling, and punctuation that were not noted in review of the chart prior to signing ED Disposition - Plan for ED Patient: Chief Complaint: Upper Extremity Injury Referrals: Sunday Gutiérrez Chi, MD [Primary Care Provider] - What to do if you have Problems For any increased pain, shortness of breath, bleeding, nausea or vomiting, chest pain, or any unexpected problems, contact your Primary Care Provider. Call [facility] ([phone]) or report to the closest Emergency Room. Call 911 if necessary. 01/03/181950 <Electronically signed by Cholo Quintero MD> Date Cholo Quintero MD Cosigner Signature (If Indicated): Date CC: Sunday Gutiérrez MD URINALYSIS, COMPLETE Collected: 01/03/2018 Status: F Source: AVNI 6:52 PM [facility] REPOSITORY Order Comment: How was Urine Obtained? SWITCHBOARD WIRER TO SPECIFY TYPE CODE TESTS RESULT OUT OF RANGE REFERENCE UNITS LAB L400.3000 Yellow COLOR Normal Yellow LAB L400.3050 Clear Normal CLARITY Clear LAB L400.3200 Normal mg/dl Normal GLUCOSE, UR Normal LAB L400.3300 Negative mg/dL Normal BILIRUBIN URINE Negative LAB L400.3400 Negative mg/dl High 5 KETONE UR LAB L400.3465 1.002-1.030 Normal SP.GR. DIPSTX 1.010 LAB L400.3550 5.0 - 8.0 pH UR Normal 7.0 LAB L400.3600 Negative mg/dl PROT Normal DIPSTX Negative LAB L400.3700 Normal mg/dl High 1 UROBILI LAB L400.3750 Negative Normal NITRITE UR Negative LAB L400.3780 Negative /ul High 10 OCCULT BLOOD-UR LAB L400.3800 Negative /ul High LEUK ESTERASE 100 LAB L400.4050 0-5 /hpf WBC Normal 0-5 SEEN LAB L400.4100 0-5 /hpf Normal RBC-UA 0-5 SEEN LAB L400.4150 5-10 /hpf SQUAM 0 Normal EPI SEEN LAB L400.4300 None Seen /hpf 0 Normal BACTERIA SEEN LAB L400.4350 <or=2+ /hpf 0 Normal MUCUS, URINE SEEN LAB L400.5200 None Seen /hpf 2+ Normal YEAST-URINE Performed By: #### L400.0001 #### [facility] [address] [place], [place], [address] Observed: 01/03/2018 Status: F Source: AVNI CULTURE, URINE 6:52 PM [facility] REPOSITORY Urine Culture ORGANISM 1: Presumptive C albicans [place] Count 50,000-80,000 Performed By: #### M100.0650 #### [facility] [address] [facility] [place], [address] Observed: 01/03/2018 Status: F Source: AVNI CULTURE, BLOOD (WB) 6:16 PM [facility] REPOSITORY BC No growth in 5 days. Performed By: #### M200.1000 #### [facility] [address] [place], [address] CBC W/DIFF, AUTOMATED Collected: 01/03/2018 Status: F Source: AVNI 6:10 PM [facility] REPOSITORY TYPE CODE TESTS RESULT OUT OF RANGE REFERENCE UNITS LAB L100.1000 4.4-11.0 K/mm3 High WBC 18.3 LAB L100.1200 4.2-5.4 M/mm3 Low RBC 3.69 LAB L100.1300 12.0-15.0 g/dl Low HGB 10.4 LAB L100.1400 37-47 % Low HCT 31.4 LAB L100.1500 81-99 fL Normal MCV 85.1 LAB L100.1600 27.0-32.0 pg Normal MCH 28.2 LAB L100.1700 32-36 g/gl Normal MCHC 33.1 LAB L100.1810 11.6-14.6 % High RDW CV 16.8 LAB L100.1820 35.1-43.9 fl High RDW SD 51.1 LAB L100.1900 150-450 K/mm3 High PLT 471 LAB L100.2000 6.2-12.0 fl Normal MPV 10.1 LAB L100.2100 47-70 % High NEUT% 92.0 LAB L100.2200 19-41 % Low LY% 2.3 LAB L100.2300 0-10 % Normal MONO% 5.2 LAB L100.2400 0-5 % Normal EO% 0.1 LAB L100.2500 0-1 % Normal BASO% 0.2 LAB L100.2550 0.0-0.9 % Normal IM GRAN % 0.200 Result Comment: IG% - Immature Granulocytes (promyelocytes, myelocytes and metamyelocytes) > 1% indicates that a LEFT SHIFT is Present. LAB L100.2620 2.0-7.7 X10 3/uL High Absolute Neut 16.8 LAB L100.2720 0.83-4.51 X10 3/ul Low Absolute Lymph 0.42 LAB L100.4500 Normal SMEAR COMMENT SCANNED Result Comment: LYMPHOPENIA NOTED LAB L100.7600 Normal HYPOCHROMASIA 1+ LAB L100.8000 Normal ACANTHOCYTE 1+ LAB L100.8100 Normal CRENATED RBC RARE LAB L100.8200 Normal OVALOCYTE 1+ LAB L100.8400 Normal SCHISTOCYTES RARE LAB L100.8600 Normal TARGET CELLS RARE Performed By: #### L100.0100 #### [facility] [address] [place], [address] PROTHROMBIN TIME W/INR Collected: 01/03/2018 Status: F Source: SEDALIA 6:10 PM [facility] REPOSITORY TYPE CODE TESTS RESULT OUT OF RANGE REFERENCE UNITS LAB L300.4150 11.7-14.9 SECONDS High PROTIME 15.7 LAB L300.4200 Normal INR 1.3 Performed By: #### L300.3900, L300.4310 #### [facility] [address] [place], [place], [address] PARTIAL THROMBOPLAST Collected: 01/03/2018 Status: F Source: [place] TIME 6:10 PM [facility] REPOSITORY TYPE CODE TESTS RESULT OUT OF RANGE REFERENCE UNITS LAB L300.4310 24.1-36.2 Seconds Normal PTT 32.6 Performed By: #### L300.3900, L300.4310 #### [facility] [address] [place], [address] COMPREHENSIVE METABOLIC Collected: 01/03/2018 Status: F Source: [place] PROFIL 6:10 PM [facility] REPOSITORY TYPE CODE TESTS RESULT OUT OF RANGE REFERENCE UNITS LAB L501.0100 74-106 mg/dL Normal GLU 98 Result Comment: Please note revised GLUCOSE reference range effective 2017. LAB L501.1000 7-18 mg/dL Normal BUN 7 LAB L501.1100 0.55-1.02 mg/dL Low CREAT,SERUM 0.33 Result Comment: The validity of the calculated GFR AND GFRAA in patients over 70 years has not been determined. Clinical correlation is essential. LAB L501.1110 >60 mL/min Normal EST GFR 203 Result Comment: Non- GFR Calc LAB L501.1115 >60 mL/min Normal EST GFR - AA 245 Result Comment: GFR Calc LAB L501.1255 ml/min Normal Estimated CRCL 34.30 LAB L501.1300 10-20 RATIO High BUN/CRE 21.2 LAB L501.1500 6.4-8. g/dL Low 2 T PROT 6.2 LAB L501.1800 3.2-5. g/dL Low 0 ALB 2.1 LAB L501.1950 2.2-4. g/dL Normal 2 GLOB 4.1 LAB L501.2000 0.9-2. RATIO Low 4 A/G 0.5 LAB L501.2200 8.5-10 mg/dL Low .1 CA 7.8 LAB L501.4100 15-37 U/L Normal AST 24 LAB L501.4305 45-117 U/L High ALK P 199 LAB L501.4405 13-56 U/L Low ALT 12 LAB L501.4600 0.20-1 mg/dL Normal .00 T BILI 0.60 LAB L501.5300 136-14 mmol/L Low 5 NA 132 LAB L501.5600 3.5-5. mmol/L Normal 1 K 4.1 LAB L501.5900 98-107 mmol/L Low CL 95 LAB L501.6100 21.0-3 mmol/L High 2.0 CO2 33.0 LAB L501.6200 5-15 Low GAP 4 Performed By: #### L500.4050 #### [facility] [address] [place] [address], [id number] LACTIC ACID Collected: 01/03/2018 Status: F Source: [place] 6:10 PM [facility] REPOSITORY Order Comment: Yes/No query for Sepsis Lactate Rule Y TYPE CODE TESTS RESULT OUT OF RANGE REFERENCE UNITS LAB L503.6005 0.4-2.0 mmol/L Normal LACTIC ACID 1.3 Performed By: #### L503.6005 #### [facility] [address] [place], [place], [id number] ERYTHROCYTE SED RATE Collected: 01/03/2018 Status: F Source: [place] 6:10 PM [facility] REPOSITORY TYPE CODE TESTS RESULT OUT OF RANGE REFERENCE UNITS LAB L102.0000 0-30 mm/hr High SED RATE 44 Performed By: #### L101.9900 #### [facility] [address] [facility] [place], [place], [address] HEMOGLOBIN A1C Collected: 01/03/2018 Status: F Source: [place] 6:10 PM [facility] REPOSITORY TYPE CODE TESTS RESULT OUT OF RANGE REFERENCE UNITS LAB L501.9985 4.2-6.3 % Normal HGB A1C 5.3 Performed By: #### L501.9985 #### [facility] [address] [place], [address] Observed: 01/03/2018 Status: F Source: [place] CULTURE, BLOOD (WB) 6:10 PM [facility] REPOSITORY BC No growth in 5 days. Performed By: #### M200.1000 #### [facility] [address] [place], [place], [address] CHEST 1 VIEW Observed: 01/03/2018 Status: F Source: AVNI (PORTABLE) 5:49 PM [facility] REPOSITORY [facility] Imaging Services [address] [place] [address] Chest 1 View (Portable) MR#: [id number] Acct: [id number] Name: JONELLE BARRAZA Rep #: [id number] : 1935 F 82 From: Gabriel Whipple MD PCP: Arnoldo HYATT,Sunday Chi Status: REG ER Study: Chest 1 View (Portable) Date of Exam: 01/03/18 Exam# [id number] Ordering Dr: Cholo Quintero MD STUDY: X-RAY CHEST REASON FOR EXAM: Female, 82 years old. Hypoxia TECHNIQUE: Single frontal view of the chest. COMPARISON: November 06, 2017 FINDINGS: As well as the right hemidiaphragm elevated. The lungs are clear and expanded. There is no demonstrated pleural abnormality. Normal size heart. Normal mediastinum and arlene. Normal visualized pulmonary arteries. Normal visualized aortic arch and descending thoracic aorta. Normal visualized thoracic spine. There is degenerative osteoarthritis of the bilateral shoulders. There is no demonstrated abnormality of the visualized soft tissue structures of the upper abdomen. RAD/Chest 1 View (Portable) IMPRESSION: No acute disease Electronically Signed: Gabriel Whipple MD at 18:40 EST , Service support , CC: Sunday Gutiérrez MD; Cholo Quintero MD Chrome Worker: Signed ANES POST Observed: 12/28/2017 Status: COMPLETED Source: [place] 3:06 PM [facility] OTHER CAMP[facility] REPOSITORY O ID: [id number] Author: Justin Hugo Service: Anesthesiology Author Type: Anesthesiologist Type: Anesthesia PostOp Filed: 12/28/2017 3:06 PM Note Text: POST ANESTHESIA EVALUATION NOTE SERVICE DATE: 12/28/2017 SERVICE TIME: 3:06 PM : 1935 Vitals: 12/28/17 1154 12/28/17 1450 Temp: 36.8 ?C (98.2 ?F) 36 ?C (96.8 ?F) 12/28/17 1154 12/28/17 1450 12/28/17 1500 BP: 143/69 109/58 130/83 12/28/17 1154 12/28/17 1450 12/28/17 1500 Pulse: 116 109 107 12/28/17 1154 12/28/17 1450 12/28/17 1500 Resp: 20 20 22 12/28/17 1154 12/28/17 1450 12/28/17 1500 SpO2: 95% 95% 98% Validated Vital Signs: Yes POST ANES STATUS: No apparent anesthetic complications. The patient is appropriately hydrated with stable respiratory and cardiovascular status. Patient has safe and adequate airway control. The patient has appropriate pain relief and no significant post operative nausea or vomiting. The patient has achieved baseline mental status. Further assessment by Anesthesia Service: None Other Remarks: SIGNATURE: Justin Hugo MD PATIENT NAME: Jonelle Barraza DATE: December 28, 2017 TIME: 3:06 PM PAGER/CONTACT #: [phone] SURGICAL PATHOLOGY Observed: 12/28/2017 Status: C Source: [place] 2:15 PM CLINIC OTHER CAMPUS REPOSITORY ADDENDUM PRESENT Specimen originated from [facility] Specimen #: [id number] Submitting Physician: LATOSHA CRAFT MD FINAL DIAGNOSIS Stomach, antrum, biopsy - Mild chronic inactive gastritis with reactive epithelial changes, see comment. - Negative for intestinal metaplasia. ES/dss 12/29/2017 COMMENT Given the presence of mild chronic inactive gastritis, a Helicobacter pylori immunohistochemical stain has been ordered, the results of which will be issued in an addendum. Coretta Pettit M.D. (Electronic Signature) SPECIMEN SUBMITTED A: GASTRIC ANTRAL, BIOPSY ADDENDUM Date Ordered: 12/30/2017 Date Reported: 12/30/2017 This addendum is issued to report the results of a Helicobacter pylori immunohistochemical stain that was performed on block A1 due to the presence of mild chronic inactive gastritis. The Helicobacter pylori immunohistochemical stain is negative for Helicobacter pylori organisms. The final diagnosis remains unchanged. Laboratory Developed Test (LDT) Disclaimer: Positive and negative controls stain appropriately. Performance characteristics of immunohistochemical, immunofluorescent and chromogenic in-situ hybridization tests have been determined by [facility]'s [facility] Pathology and Laboratory Medicine [place] ([facility]) in a manner consistent with CLIA requirements. One or more of these tests have not been cleared or approved by the FDA. [facility] is regulated under CLIA as qualified to perform high-complexity testing.These tests are used for clinical purposes. They should not be regarded as investigational or for research. ES 12/30/2017 Addendum Pathologist: Coretta Pettit M.D. Electronic Signature CLINICAL DATA R/O H PYLORI, LMP: NA GROSS DESCRIPTION A. Received in formalin is one piece of sanderson, soft tissue measuring 0.5 x 0.2 x 0.2 cm. Totally submitted in one cassette. Gross examination performed at [facility], [address] [place] [address] 12/28/2017 9:02:39 PM Date of Report: 12/29/2017 Date of Procedure: 12/28/2017 Date of Receipt: 12/28/2017 Submitted by: LATOSHA CRAFT MD Location: [place] Diagnostic interpretation performed at [facility], [address] [place] [address]. Performed By: #### PATHS #### [employer] [address] [place] [address] [phone] ANES PREOP Observed: 12/28/2017 Status: COMPLETED Source: [place] 1:36 PM [facility] OTHER CAMPUS REPOSITORY HNO ID: [id number] Author: Justin Hugo Service: Anesthesiology Author Type: Anesthesiologist Type: Anesthesia PreOp Filed: 12/28/2017 1:37 PM Note Text: ANESTHESIOLOGY DAY OF SURGERY NOTE SERVICE DATE: 12/28/2017 SERVICE TIME: 1:36 PM : 1935 Procedure(s) (LRB): COLONOSCOPY (N/A) EGD (N/A) Surgeon(s): Latosha Craft Estimated body mass index is 25.22 kg/m? as calculated from the following: Height as of 12/14/17: 154.9 cm (5' 1). Weight as of this encounter: 60.6 kg (133 lb 8 oz). Most recent hematocrit and potassium results: No results found for this basename: HCT,HEMATOCRIT,K,POTASSIUM ANES DOS/PREOP NOTE: Vitals: 12/28/17 1154 BP: 143/69 Pulse: 116 Resp: 20 Temp: 36.8 ?C (98.2 ?F) SpO2: 95% Weight: 60.6 kg (133 lb 8 oz) ACTIVE PROBLEM LIST GI Hemorrhage Anemia PAST MEDICAL HISTORY Diagnosis Date - Acute hypokalemia - Acute hypoxemic respiratory failure (HCC) - Anemia in chronic renal disease - Anxiety disorder - Cirrhosis of liver (HCC) - Esophageal reflux - Essential hypertension - IBS (irritable bowel syndrome) - Major depressive disorder - Muscle weakness - Need for assistance with personal care - OA (osteoarthritis) - OAB (overactive bladder) PAST SURGICAL HISTORY Procedure Laterality Date - COLONOSCOP W/ OR W/O BRSH SPEC 09/30/12 1 AVM, no obvious source - EGD W/O BRSH SPECIMEN W/BX 09/29/12 no obvious bleeding source, grade 2 esophageal vairces - HIATAL HERNIA REPAIR HX 2007 - PAST SURGICAL HISTORY OF Left 12/2016 inguinal hernia - TOTAL KNEE REPLACEMENT Right 1984 - TOTAL KNEE REPLACEMENT Right 2014 No family history on file. Social History: Social History Substance Use Topics - Smoking status: Never Smoker - Smokeless tobacco: Never Used - Alcohol use No No current facility-administered medications on file prior to encounter. Current Outpatient Prescriptions on File Prior to Encounter: potassium chloride ER (K-DUR, KLOR-CON) 20 mEq tablet DAILY senna-docusate (SENNA-S) 8.6-50 mg per tablet TWICE A DAY Omeprazole Magnesium 20 mg tablet Take 20 mg by mouth twice daily. oxyCODONE ER (OXYCONTIN) 15 mg 12 hr tablet Take 15 mg by mouth every 12 hours. hbjdfmn-ieqkczqhf-fkzkorj D3 (OS-MARC 500+D) 500 mg(1,250mg) -200 unit per tablet Take 1 tablet by mouth twice daily with meals. Menthol-Zinc Oxide (CALMOSEPTINE) 0.44-20.6 % Apply to affected area. KLOR-CON M20 20 mEq tablet Take 20 mEq by mouth three times daily. LORazepam (ATIVAN) 0.5 mg tab Take 0.5 mg by mouth once daily as needed. VIT C/VIT E AC/LUT/COPPER/ZINC (PRESERVISION LUTEIN ORAL) Take by mouth. Current Facility-Administered Medications: NaCl 0.9% iv infusion 30 mL/hr INTRAVENOUS CONTINUOUS Latosha Craft Last Rate: 30 mL/hr at 12/28/17 1222 30 mL/hr at 12/28/17 1222 Allergies: ALLERGIES Allergen Reactions - Belladonna Tincture Unknown - Celecoxib Unknown DOS EXAM: Adequate NPO status: Yes Anesthetic risks, benefits, alternatives, personnel and consent discussed: Yes Patient agrees to proceed: Yes Previous Anesthesia: No history of adverse event. Airway Assessment: MP 2; Neck ROM: Full ROM without neurologic symptoms; Airway Evaluation: No significant abnormalities Symptoms of Sleep Apnea: None Dentition: Teeth intact Additional Physical Exam: Lungs: Patient health status unchanged since recent history and physical. See history and physical for exam findings. Cardiac: Patient health status unchanged since recent history and physical. See history and physical for exam findings. Additional Pertinent Findings: N/A Blood Products: Not anticipated for this procedure. Anesthetic Plan: MAC with Sedation Pain Management Plan: Parenteral or Oral ASA Class: 3 Other Medical Problems: None I have interviewed and examined the patient. I have reviewed the medical record and/or the pre-anesthesia evaluation, pertinent labs, and test results. Significant changes in the patient's condition since the History and Physical, not otherwise documented in primary service progress notes: No This contains updated information obtained within 48 hours of Surgery/Procedure. SIGNATURE: Justin Hugo MD PATIENT NAME: Jonelle Barraza DATE: December 28, 2017 TIME: 1:36 PM CSN: [id number] HISTORY PHYSICAL Observed: 12/28/2017 Status: COMPLETED Source: [place] 12:32 PM CLINIC OTHER CAMPUS REPOSITORY O ID: [id number] Author: Latosha Craft Service: General Surgery Author Type: Physician Type: HANDP Filed: 12/28/2017 12:32 PM Note Text: HISTORY AND PHYSICAL ? Jonelle Barraza 1935 ? REFERRING PHYSICIAN: Sunday Gutiérrez Chi, MD ? CHIEF COMPLAINT: Consult (Consult Anemia) ? HPI: The patient is a 82 year old female referred for endoscopy. Jonelle notes blood per rectum and was found to be anemic. She had 1 unit of packed red cells transfused in the hospital and has since required 2 units of packed red cells transfused and her extended care facility at [facility]. ? She notes previous episodes of intermittent GI bleeding. I performed endoscopy in 2013 both upper and lower for GI bleeding episode with no obvious source at that time. 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 ? Jonelle was admitted to [facility] in early October after having a fall and fracturing both legs. It was elected not perform surgical intervention at that time for her fractures and it was elected not to perform endoscopy but the patient is had persistent anemia since that time with transfusions. ? The patient is being seen by me today at the request of Dr. Sunday Gutiérrez MD for my opinion and advice regarding previous history of GI bleeding and anemia. ? ? PAST MEDICAL HISTORY PAST MEDICAL HISTORY Diagnosis Date - Acute hypokalemia ? - Acute hypoxemic respiratory failure (HCC) ? - Anemia in chronic renal disease ? - Anxiety disorder ? - Cirrhosis of liver (HCC) ? - Esophageal reflux ? - Essential hypertension ? - IBS (irritable bowel syndrome) ? - Major depressive disorder ? - Muscle weakness ? - Need for assistance with personal care ? - OA (osteoarthritis) ? - OAB (overactive bladder) ? ? ? PAST SURGICAL HISTORY PAST SURGICAL HISTORY Procedure Laterality Date - COLONOSCOP W/ OR W/O BRSH SPEC ? 09/30/12 ? 1 AVM, no obvious source - EGD W/O BRSH SPECIMEN W/BX ? 09/29/12 ? no obvious bleeding source, grade 2 esophageal vairces - HIATAL HERNIA REPAIR HX ? 2007 - PAST SURGICAL HISTORY OF Left 12/2016 ? inguinal hernia - TOTAL KNEE REPLACEMENT Right 1984 - TOTAL KNEE REPLACEMENT Right 2014 ? ? ? CURRENT MEDICATIONS ? Current Outpatient Prescriptions: potassium chloride ER (K-DUR, KLOR-CON) 20 mEq tablet DAILY senna-docusate (SENNA-S) 8.6-50 mg per tablet TWICE A DAY cholestyramine-sucrose (QUESTRAN) 4 gram powder DAILY Omeprazole Magnesium 20 mg tablet Take 20 mg by mouth once daily. Menthol-Zinc Oxide (CALMOSEPTINE) 0.44-20.6 % Apply to affected area. oxyCODONE ER (OXYCONTIN) 15 mg 12 hr tablet Take 15 mg by mouth every 12 hours. pantoprazole (PROTONIX) 40 mg grps Take 40 mg by mouth DAILY (6 AM). xtzcdtu-mlkoagoxr-uquklid D3 (OS-MARC 500+D) 500 mg(1,250mg) -200 unit per tablet Take 1 tablet by mouth twice daily with meals. KLOR-CON M20 20 mEq tablet Take 20 mEq by mouth three times daily. cholestyramine-sucrose (QUESTRAN) 4 gram powder Use 4 Grams 2 times per Day. MYRBETRIQ 50 mg Tb24 Take 50 mg by mouth once daily. LORazepam (ATIVAN) 0.5 mg tab Take 0.5 mg by mouth once daily as needed. HYDROcodone-acetaminophen (NORCO) 5-325 mg per tablet ? famotidine (PEPCID) 40 mg tablet Take 40 mg by mouth once daily. furosemide (LASIX) 40 mg tablet Take 40 mg by mouth every morning. IRON, FERROUS SULFATE, ORAL Take by mouth once daily. VIT C/VIT E AC/LUT/COPPER/ZINC (PRESERVISION LUTEIN ORAL) Take by mouth. ? No current facility-administered medications for this visit. ? ALLERGIES: Belladonna Tincture; Celecoxib ? PERSONAL HISTORY: SOCIAL HISTORY Social History Marital status: Spouse name: Years of education: Number of children: ? Social History Main Topics Smoking status: Never Smoker ? Smokeless tobacco: Never Used Alcohol use: No Drug use: No ? FAMILY HISTORY: FAMILY HISTORY No family history on file. ? REVIEW OF SYMPTOMS: The review of systems data was entered by the nurse and reviewed by me ? There are no exam notes on file for this visit. ? PHYSICAL EXAMINATION: ? General: The patient is 82 year old female, well nourished, well hydrated in no acute distress. The patient is oriented to time, place, and person. The patient is debilitated and on a stretcher due to her bilateral fractures at the location of her previous knee replacements ? VITALS: Blood pressure 118/71, pulse 96, height 154.9 cm (5' 1), weight 57.4 kg (126 lb 9.6 oz). Body mass index is 23.92 kg/m?. ? HEENT: Normal cephalic, ataumatic, pupils are equally round, sclera are anicteric, mucous membranes are moist, oropharynx is clear. Neck has no masses, asymmetry or lymphadenopathy. Thyroid is unremarkable. ? Respiratory: Clear to auscultation and percussion. Normal respiratory excursion and pattern. ? Cardiac: Examination is regular rate and rhythm. ? Abdominal exam: Soft, nontender, with no palpable masses. No hepatosplenomegaly. No palpable hernias. ? Rectal exam: exam deferred ? Extremities: no clubbing, cyanosis or edema. No adenopathy. ? Other: ? LABORATORY VALUES: As Noted ? RADIOLOGIC STUDIES: As Noted ? Assessment IMPRESSION: GI bleed- ? PLAN: I plan to perform upper and lower endoscopy. We discussed the risks and benefits of the planned endoscopy. I have informed the patient that complications can occur including failure to complete the endoscopy and perforation. The patient had the opportunity to ask questions concerning the planned endoscopy. My staff has also explained the procedure to the patient in understandable terms and has given the patient printed material concerning the procedure. The patient freely consents to surgery. ? I plan to use golytely bowel preparation for endoscopy ? I plan for monitored anesthetic care. ? Diagnoses: (K92.2) Gastrointestinal hemorrhage, unspecified gastrointestinal hemorrhage type (primary encounter diagnosis) ? My findings have been communicated to Dr. Sunday Gutiérrez MD via shared medical record. This note will be forwarded to Dr. Sunday Gutiérrez MD. Return to Clinic: The patient is instructed to follow-up with me 1 week post operatively. ? Latosha Craft MD PT ED Observed: 12/28/2017 Status: COMPLETED Source: [place] 12:01 PM [facility] OTHER PLACITAS REPOSITORY HNO ID: [id number] Author: Micheline Painter RN Service: Nursing Author Type: Registered Nurse Type: Patient Education Filed: 12/28/2017 12:01 PM Note Text: PRE OP LEARNING ASSESSMENT PROCEDURE/SURGERY: GI PROCEDURES: Colonoscopy and EGD READINESS TO LEARN COGNITIVE ABILITY: Alert and oriented MOTIVATION TO LEARN: Eager Interested FAMILY SUPPORT: None - Unavailable/disinterested PATIENT LEARNS BEST BY: Individual Instruction Verbal Instruction Multiple Methods FACTORS AFFECTING LEARNING: None PHYSICAL LIMITATIONS AFFECTING LEARNING: None Electronically Signed By: Micheline Painter RN In Department: [facility] ENDOSCOPY ANES PREOP Observed: 12/28/2017 Status: COMPLETED Source: [place] 7:15 AM [facility] OTHER CAMPUS REPOSITORY HNO ID: [id number] Author: Bart Ramos Service: Anesthesiology Author Type: Anesthesiologist Type: Anesthesia PreOp Filed: 12/28/2017 7:16 AM Note Text: ANESTHESIOLOGY DAY OF SURGERY NOTE SERVICE DATE: 12/28/2017 SERVICE TIME: 7.16 : 1935 Procedure(s) (LRB): COLONOSCOPY (N/A) EGD (N/A) Surgeon(s): Latosha Craft Estimated body mass index is 23.92 kg/m? as calculated from the following: Height as of 12/14/17: 154.9 cm (5' 1). Weight as of 12/14/17: 57.4 kg (126 lb 9.6 oz). Most recent hematocrit and potassium results: No results found for this basename: HCT,HEMATOCRIT,K,POTASSIUM ANES DOS/PREOP NOTE: Vitals: There were no vitals filed for this visit. ACTIVE PROBLEM LIST GI Hemorrhage Anemia PAST MEDICAL HISTORY Diagnosis Date - Acute hypokalemia - Acute hypoxemic respiratory failure (HCC) - Anemia in chronic renal disease - Anxiety disorder - Cirrhosis of liver (HCC) - Esophageal reflux - Essential hypertension - IBS (irritable bowel syndrome) - Major depressive disorder - Muscle weakness - Need for assistance with personal care - OA (osteoarthritis) - OAB (overactive bladder) PAST SURGICAL HISTORY Procedure Laterality Date - COLONOSCOP W/ OR W/O BRSH SPEC 09/30/12 1 AVM, no obvious source - EGD W/O BRSH SPECIMEN W/BX 09/29/12 no obvious bleeding source, grade 2 esophageal vairces - HIATAL HERNIA REPAIR HX 2007 - PAST SURGICAL HISTORY OF Left 12/2016 inguinal hernia - TOTAL KNEE REPLACEMENT Right 1984 - TOTAL KNEE REPLACEMENT Right 2014 No family history on file. Social History: Social History Substance Use Topics - Smoking status: Never Smoker - Smokeless tobacco: Never Used - Alcohol use No No current facility-administered medications on file prior to encounter. Current Outpatient Prescriptions on File Prior to Encounter: potassium chloride ER (K-DUR, KLOR-CON) 20 mEq tablet DAILY senna-docusate (SENNA-S) 8.6-50 mg per tablet TWICE A DAY cholestyramine-sucrose (QUESTRAN) 4 gram powder DAILY Omeprazole Magnesium 20 mg tablet Take 20 mg by mouth once daily. Menthol-Zinc Oxide (CALMOSEPTINE) 0.44-20.6 % Apply to affected area. oxyCODONE ER (OXYCONTIN) 15 mg 12 hr tablet Take 15 mg by mouth every 12 hours. pantoprazole (PROTONIX) 40 mg grps Take 40 mg by mouth DAILY (6 AM). KLOR-CON M20 20 mEq tablet Take 20 mEq by mouth three times daily. cholestyramine-sucrose (QUESTRAN) 4 gram powder Use 4 Grams 2 times per Day. MYRBETRIQ 50 mg Tb24 Take 50 mg by mouth once daily. LORazepam (ATIVAN) 0.5 mg tab Take 0.5 mg by mouth once daily as needed. HYDROcodone-acetaminophen (NORCO) 5-325 mg per tablet famotidine (PEPCID) 40 mg tablet Take 40 mg by mouth once daily. furosemide (LASIX) 40 mg tablet Take 40 mg by mouth every morning. IRON, FERROUS SULFATE, ORAL Take by mouth once daily. VIT C/VIT E AC/LUT/COPPER/ZINC (PRESERVISION LUTEIN ORAL) Take by mouth. clvxvdn-wyakyyruy-acesgms D3 (OS-MARC 500+D) 500 mg(1,250mg) -200 unit per tablet Take 1 tablet by mouth twice daily with meals. No current facility-administered medications for this encounter. Current Outpatient Prescriptions: potassium chloride ER (K-DUR, KLOR-CON) 20 mEq tablet DAILY Disp: Rfl: senna-docusate (SENNA-S) 8.6-50 mg per tablet TWICE A DAY Disp: Rfl: cholestyramine-sucrose (QUESTRAN) 4 gram powder DAILY Disp: Rfl: Omeprazole Magnesium 20 mg tablet Take 20 mg by mouth once daily. Disp: Rfl: Menthol-Zinc Oxide (CALMOSEPTINE) 0.44-20.6 % Apply to affected area. Disp: Rfl: oxyCODONE ER (OXYCONTIN) 15 mg 12 hr tablet Take 15 mg by mouth every 12 hours. Disp: Rfl: pantoprazole (PROTONIX) 40 mg grps Take 40 mg by mouth DAILY (6 AM). Disp: Rfl: KLOR-CON M20 20 mEq tablet Take 20 mEq by mouth three times daily. Disp: Rfl: 11 cholestyramine-sucrose (QUESTRAN) 4 gram powder Use 4 Grams 2 times per Day. Disp: Rfl: 11 MYRBETRIQ 50 mg Tb24 Take 50 mg by mouth once daily. Disp: Rfl: 11 LORazepam (ATIVAN) 0.5 mg tab Take 0.5 mg by mouth once daily as needed. Disp: Rfl: 0 HYDROcodone-acetaminophen (NORCO) 5-325 mg per tablet Disp: Rfl: 0 famotidine (PEPCID) 40 mg tablet Take 40 mg by mouth once daily. Disp: Rfl: 11 furosemide (LASIX) 40 mg tablet Take 40 mg by mouth every morning. Disp: Rfl: 11 IRON, FERROUS SULFATE, ORAL Take by mouth once daily. Disp: Rfl: VIT C/VIT E AC/LUT/COPPER/ZINC (PRESERVISION LUTEIN ORAL) Take by mouth. Disp: Rfl: mbpweha-rjllxasjs-ldtgvaa D3 (OS-MARC 500+D) 500 mg(1,250mg) -200 unit per tablet Take 1 tablet by mouth twice daily with meals. Disp: Rfl: Allergies: ALLERGIES Allergen Reactions - Belladonna Tincture Unknown - Celecoxib Unknown DOS EXAM: Adequate NPO status: Yes Anesthetic risks, benefits, alternatives, personnel and consent discussed: Yes Patient agrees to proceed: Yes Previous Anesthesia: No history of adverse event. Airway Assessment: MP 2; Neck ROM: Full ROM without neurologic symptoms; Airway Evaluation: No significant abnormalities Symptoms of Sleep Apnea: None Dentition: Poor dentition Additional Physical Exam: Lungs: Patient health status unchanged since recent history and physical. See history and physical for exam findings. Lungs clear to auscultation. Good diaphragmatic excursion. Cardiac: Patient health status unchanged since recent history and physical. See history and physical for exam findings. normal S1 and S2; no rubs, no murmurs, and no gallops Additional Pertinent Findings: N/A Blood Products: Not anticipated for this procedure. Anesthetic Plan: MAC with Sedation Pain Management Plan: Parenteral or Oral ASA Class: 3 Other Medical Problems: None Chronic Beta Mariela medication administered within 24 hours: N/A I have interviewed and examined the patient. I have reviewed the medical record and/or the pre-anesthesia evaluation, pertinent labs, and test results. Significant changes in the patient's condition since the History and Physical, not otherwise documented in primary service progress notes: No This contains updated information obtained within 48 hours of Surgery/Procedure. SIGNATURE: Bart Ramos MD PATIENT NAME: Jonelle Barraza DATE: December 28, 2017 TIME: 7:16 AM CSN: [id number] NURSING PROG Observed: 12/26/2017 Status: COMPLETED Source: [place] 7:58 AM CLINIC OTHER CAMPUS REPOSITORY HNO ID: [id number] Author: Marleni (Rn) GABRIEL Strange Service: (none) Author Type: Registered Nurse Type: Nursing Progress Note Filed: 12/27/2017 8:17 AM Note Text: PACC Nurse Progress Note History AND Physical: PACC Visit Date: none Original HANDP Date: 12/14/2017- OV with Dr. Craft ED visit Date: see care everywhere- [facility] 10/2017 Outside HANDP Scanned Date: N/A Labs Within Last 6 Months: CBC: Date 11/09/2017 see narrative notes. External labs from 12/23/2017 scanned in [facility] 9.8/29.5 BMP/CMP: Date 11/09/2017 within acceptable limits for planned procedure . External BMP scanned in [facility] dated 12/23/2017 within acceptable limits for planned procedure Imaging Within Last 12 Months: N/A Cardiac Testing: ECHO Date: 11/08/2017, Comment: found in care everywhere- 12/14/2017 summarizarion of episode Last Menstrual Period: LMP Date: unknown Postmenopausal >1yr: Yes, S/P Hysterectomy: No BMI Percentile (PEDS): N/A Risk Assessment: N/A Anesthesia Review: N/A Narrative: Under care everywhere- 12/14/2017 summarization of episode- recent ED admit to [facility] for bilateral leg fractures See copy of HPI from Dr. Cali [facility] copied below HANDP 12/14/[address] Craft HPI: The patient is a 82 year old female referred for endoscopy. Jonelle notes blood per rectum and was found to be anemic. She had 1 unit of packed red cells transfused in the hospital and has since required 2 units of packed red cells transfused and her extended care facility at [facility]. She notes previous episodes of intermittent GI bleeding. I performed endoscopy in 2012 both upper and lower for GI bleeding episode with no obvious source at that time. 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 Jonelle was admitted to [facility] in early October after having a fall and fracturing both legs. It was elected not perform surgical intervention at that time for her fractures and it was elected not to perform endoscopy but the patient is had persistent anemia since that time with transfusions. The patient is being seen by me today at the request of Dr. Sunday Gutiérrez MD for my opinion and advice regarding previous history of GI bleeding and anemia. I called [facility] and spoke with Pennie patient's nurse. Pre op instructions given. 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 Has sore on Left leg calf being treated and dressed. Recent labs from 12/16/2017 scanned in epic Pre-op Considerations: Recent ED admit [facility] 10/2017 bilateral leg fractures. [facility] History of : Anemia- 12/23/2017 [facility] 9.8/29.5 OAB GERD Cirrhosis Right TKA 1984, 201411/09/2017 HAND 7.7/23.7 Recent blood transfusions I called [facility] and spoke with Pennie patient's nurse. Pre op instructions given. 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 Has sore on Left leg calf being treated and dressed. Recent labs from 12/16/2017 scanned in [facility] Chart Check: COMPLETED Marleni Strange RN December 27, 2017 8:11 AM PATIENT PREOPERATIVE INSTRUCTIONS No ref. provider found has scheduled you for your procedure at this surgery center: [facility]: [phone] -- [address] [facility] [id number]. Blood Thinning Medications: - not on any per [place] Nurse Pennie Dietary Restrictions: - No solid food after midnight. - You may have 12 ounces of clear liquids (water, clear juices such as apple juice or gatorade, carbonated beverages, clear tea, black coffee, jello) until 2 hours before scheduled arrival at facility. - Follow Dr. Craft's prep Pain Medications: - Please continue your current pain medications. Medications: Approved medications to take the morning of surgery with a sip of water: Oxycontin - Please continue your current pain medications. If you start any new medications after today's visit, please contact the surgeon's office. Important Reminders: - Candy, mints, gum and tobacco products are NOT permitted the morning of surgery. - Hearing aids, dentures and glasses may be worn the morning of surgery. - NO jewelry, body piercings, makeup, hairpins or contacts are to be worn the day of surgery. Bathe, send via cart, no lotions, no valuables If you develop symptoms such as a fever, cold, or flu, or have other changes to your health within TWO DAYS of scheduled surgery or the morning of surgery, please contact the surgery center above. Personal Belongings: - Leave ALL valuables and money at home or with family members. Arrival Time for Surgery: - The Surgery Center or hospital where you are having surgery will call the afternoon before surgery (or Tuesday for Tuesday surgery) with a scheduled arrival time. - If you have not heard by 4 pm, please contact the surgery center above. Please be aware that emergency situations arise, which may delay or change your surgical time. If this happens, we will notify you as soon as possible and regret any inconvenience. Marleni Strange RN HOSP Observed: 12/15/2017 Status: COMPLETED Source: [place] 12:00 AM CLINIC OTHER CAMPUS REPOSITORY Patient:Jonelle Barraza MRN: <[id number]> Height:5' 1(1.549 m) Weight:133 lb 8 oz (60.555 kg) Outpatient Medications as of 12/28/17: iron polysaccharide complex (FERREX 150 ORAL) polyethylene glycol 3350 (MIRALAX, GLYCOLAX) 17 gram packet oxyCODONE IR (ROXICODONE) 10 mg tab potassium chloride ER (K-DUR, KLOR-CON) 20 mEq tablet senna-docusate (SENNA-S) 8.6-50 mg per tablet Omeprazole Magnesium 20 mg tablet Menthol-Zinc Oxide (CALMOSEPTINE) 0.44-20.6 % oxyCODONE ER (OXYCONTIN) 15 mg 12 hr tablet KLOR-CON M20 20 mEq tablet LORazepam (ATIVAN) 0.5 mg tab VIT C/VIT E AC/LUT/COPPER/ZINC (PRESERVISION LUTEIN ORAL) uemyfgb-zhflqnkte-wtfsagw D3 (OS-MARC 500+D) 500 mg(1,250mg) -200 unit per tablet Admission/Clinic Administered Medications as of 12/28/17: NaCl 0.9% iv infusion Problem List: GI hemorrhage [K92.2] Anemia [D64.9] Allergies: Belladonna Tincture Celecoxib Date Verified: 12/28/17 Lab Values No results within the last 30 days for the following basenames: K,HCT Progress Notes ([facility]): Toni Decker 12/15/2017 9:12 AM Signed 12-28-2017 Colon EGD Progress Notes ([facility]): Latosha Craft MD 12/14/2017 2:33 PM Signed HISTORY AND PHYSICAL Jonelle Barraza 1935 REFERRING PHYSICIAN: Sunday Gutiérrez Chi, MD CHIEF COMPLAINT: Consult (Consult Anemia) HPI: The patient is a 82 year old female referred for endoscopy. Jonelle notes blood per rectum and was found to be anemic. She had 1 unit of packed red cells transfused in the hospital and has since required 2 units of packed red cells transfused and her extended care facility at [facility]. She notes previous episodes of intermittent GI bleeding. I performed endoscopy in 2012 both upper and lower for GI bleeding episode with no obvious source at that time. 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 Jonelle was admitted to [facility] in early October after having a fall and fracturing both legs. It was elected not perform surgical intervention at that time for her fractures and it was elected not to perform endoscopy but the patient is had persistent anemia since that time with transfusions. The patient is being seen by me today at the request of Dr. Sunday Gutiérrez MD for my opinion and advice regarding previous history of GI bleeding and anemia. PAST MEDICAL HISTORY Diagnosis Date - Acute hypokalemia - Acute hypoxemic respiratory failure (HCC) - Anemia in chronic renal disease - Anxiety disorder - Cirrhosis of liver (HCC) - Esophageal reflux - Essential hypertension - IBS (irritable bowel syndrome) - Major depressive disorder - Muscle weakness - Need for assistance with personal care - OA (osteoarthritis) - OAB (overactive bladder) PAST SURGICAL HISTORY Procedure Laterality Date - COLONOSCOP W/ OR W/O BRSH SPEC 09/30/12 1 AVM, no obvious source - EGD W/O BRSH SPECIMEN W/BX 09/29/12 no obvious bleeding source, grade 2 esophageal vairces - HIATAL HERNIA REPAIR HX 2007 - PAST SURGICAL HISTORY OF Left 12/2016 inguinal hernia - TOTAL KNEE REPLACEMENT Right 1984 - TOTAL KNEE REPLACEMENT Right 2014 Current Outpatient Prescriptions: potassium chloride ER (K-DUR, KLOR-CON) 20 mEq tablet DAILY senna-docusate (SENNA-S) 8.6-50 mg per tablet TWICE A DAY cholestyramine-sucrose (QUESTRAN) 4 gram powder DAILY Omeprazole Magnesium 20 mg tablet Take 20 mg by mouth once daily. Menthol-Zinc Oxide (CALMOSEPTINE) 0.44-20.6 % Apply to affected area. oxyCODONE ER (OXYCONTIN) 15 mg 12 hr tablet Take 15 mg by mouth every 12 hours. pantoprazole (PROTONIX) 40 mg grps Take 40 mg by mouth DAILY (6 AM). cxwqeai-tguthhbzz-rxiiivv D3 (OS-MARC 500+D) 500 mg(1,250mg) -200 unit per tablet Take 1 tablet by mouth twice daily with meals. KLOR-CON M20 20 mEq tablet Take 20 mEq by mouth three times daily. cholestyramine-sucrose (QUESTRAN) 4 gram powder Use 4 Grams 2 times per Day. MYRBETRIQ 50 mg Tb24 Take 50 mg by mouth once daily. LORazepam (ATIVAN) 0.5 mg tab Take 0.5 mg by mouth once daily as needed. HYDROcodone-acetaminophen (NORCO) 5-325 mg per tablet famotidine (PEPCID) 40 mg tablet Take 40 mg by mouth once daily. furosemide (LASIX) 40 mg tablet Take 40 mg by mouth every morning. IRON, FERROUS SULFATE, ORAL Take by mouth once daily. VIT C/VIT E AC/LUT/COPPER/ZINC (PRESERVISION LUTEIN ORAL) Take by mouth. No current facility-administered medications for this visit. ALLERGIES: Belladonna Tincture; Celecoxib PERSONAL HISTORY: Social History Marital status: Spouse name: Years of education: Number of children: Social History Main Topics Smoking status: Never Smoker Smokeless tobacco: Never Used Alcohol use: No Drug use: No FAMILY HISTORY: No family history on file. REVIEW OF SYMPTOMS: The review of systems data was entered by the nurse and reviewed by me There are no exam notes on file for this visit. PHYSICAL EXAMINATION: General: The patient is 82 year old female, well nourished, well hydrated in no acute distress. The patient is oriented to time, place, and person. The patient is debilitated and on a stretcher due to her bilateral fractures at the location of her previous knee replacements VITALS: Blood pressure 118/71, pulse 96, height 154.9 cm (5' 1), weight 57.4 kg (126 lb 9.6 oz). Body mass index is 23.92 kg/m?. HEENT: Normal cephalic, ataumatic, pupils are equally round, sclera are anicteric, mucous membranes are moist, oropharynx is clear. Neck has no masses, asymmetry or lymphadenopathy. Thyroid is unremarkable. Respiratory: Clear to auscultation and percussion. Normal respiratory excursion and pattern. Cardiac: Examination is regular rate and rhythm. Abdominal exam: Soft, nontender, with no palpable masses. No hepatosplenomegaly. No palpable hernias. Rectal exam: exam deferred Extremities: no clubbing, cyanosis or edema. No adenopathy. Other: LABORATORY VALUES: As Noted RADIOLOGIC STUDIES: As Noted Assessment IMPRESSION: GI bleed- PLAN: I plan to perform upper and lower endoscopy. We discussed the risks and benefits of the planned endoscopy. I have informed the patient that complications can occur including failure to complete the endoscopy and perforation. The patient had the opportunity to ask questions concerning the planned endoscopy. My staff has also explained the procedure to the patient in understandable terms and has given the patient printed material concerning the procedure. The patient freely consents to surgery. I plan to use golytely bowel preparation for endoscopy I plan for monitored anesthetic care. Diagnoses: (K92.2) Gastrointestinal hemorrhage, unspecified gastrointestinal hemorrhage type (primary encounter diagnosis) My findings have been communicated to Dr. Sunday Gutiérrez MD via shared medical record. This note will be forwarded to Dr. Sunday Gutiérrez MD. Return to Clinic: The patient is instructed to follow-up with me 1 week post operatively. MD Bhumi Patel LPN 12/23/2017 7:54 AM Signed REVIEW OF SYSTEMS: General: The patient NOTES fatigue, denies weight loss, denies weight gain, denies feeling hot, and denies feelings of cold. Eyes: The patient denies glaucoma, denies eye injury/surgery, wears glasses or contacts. Ear/Nose/Throat: The patient denies allergies, denies hayfever, denies ear infections, and denies bloody noses. Cardiovascular: The patient denies chest pain, denies heart disease, NOTES high blood pressure,denies cardiac stent, denies prior heart attack, denies irregular heart beat, denies high cholesterol, denies poor circulation, denies heart failure, other cardiac issues, denies claudication, denies cold feet, denies peripheral arterial stent. Respiratory: The patient denies tuberculosis, denies pneumonia, denies frequent cough, denies pulmonary embolism, denies shortness of breath, and denies coughing up blood. Gastrointestinal: The patient denies difficulty swallowing, NOTES acid reflux, denies ulcers, denies vomiting, denies jaundice/hepatitis, denies gallbladder problems, denies black or tarry stools, denies hemorrhoids, denies bleeding from rectum, denies diverticulitis, denies constipation, denies diarrhea, denies loss of stool control, and denies hernias. Kidney/Bladder: The patient denies kidney stones, denies urine infections, and denies bloody urine. Skin: The patient denies a history of skin cancer, denies bleeding/changing moles, and denies a history of skin rash. Neurologic: The patient denies a history of epilepsy/convulsions, denies headaches, denies head/spinal injuries, and denies stroke/TIA. Psychiatric: The patient denies psychiatric medications, NOTES depression, and denies voices, denies substance abuse. Endocrine: The patient denies thyroid disorders, denies diabetes, and denies hormonal problems. Hematologic: The patient denies a history of bruising, denies bleeding, and NOTES anemia, denies blood clots. Infections: The patient NOTES a history of measles and mumps, denies rheumatic fever, and denies sexually transmitted diseases. Musculoskeletal: The patient NOTES back pain/injury, NOTES back problems, denies sciatica, denies knee/foot trouble, denies arthritis, or denies gout. When was patient's last Mammogram screening? Unknown Last Colonoscopy: 2012 Bhumi Aviles LPN PROGRESS Observed: 12/14/2017 Status: COMPLETED Source: [place] 2:28 PM [facility] REPOSITORY HNO ID: [id number] Author: Latosha Craft Service: (none) Author Type: Physician Type: Progress Notes Filed: 12/14/2017 2:33 PM Note Text: HISTORY AND PHYSICAL Jonelle Barraza 1935 REFERRING PHYSICIAN: Sunday Gutiérrez Chi, MD CHIEF COMPLAINT: Consult (Consult Anemia) HPI: The patient is a 82 year old female referred for endoscopy. Jonelle notes blood per rectum and was found to be anemic. She had 1 unit of packed red cells transfused in the hospital and has since required 2 units of packed red cells transfused and her extended care facility at [facility]. She notes previous episodes of intermittent GI bleeding. I performed endoscopy in 2012 both upper and lower for GI bleeding episode with no obvious source at that time. 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 Jonelle was admitted to [facility] in early October after having a fall and fracturing both legs. It was elected not perform surgical intervention at that time for her fractures and it was elected not to perform endoscopy but the patient is had persistent anemia since that time with transfusions. The patient is being seen by me today at the request of Dr. Sunday Gutiérrez MD for my opinion and advice regarding previous history of GI bleeding and anemia. PAST MEDICAL HISTORY Diagnosis Date - Acute hypokalemia - Acute hypoxemic respiratory failure (HCC) - Anemia in chronic renal disease - Anxiety disorder - Cirrhosis of liver (HCC) - Esophageal reflux - Essential hypertension - IBS (irritable bowel syndrome) - Major depressive disorder - Muscle weakness - Need for assistance with personal care - OA (osteoarthritis) - OAB (overactive bladder) PAST SURGICAL HISTORY Procedure Laterality Date - COLONOSCOP W/ OR W/O BRSH SPEC 09/30/12 1 AVM, no obvious source - EGD W/O BRSH SPECIMEN W/BX 09/29/12 no obvious bleeding source, grade 2 esophageal vairces - HIATAL HERNIA REPAIR HX 2007 - PAST SURGICAL HISTORY OF Left 12/2016 inguinal hernia - TOTAL KNEE REPLACEMENT Right 1984 - TOTAL KNEE REPLACEMENT Right 2014 Current Outpatient Prescriptions: potassium chloride ER (K-DUR, KLOR-CON) 20 mEq tablet DAILY senna-docusate (SENNA-S) 8.6-50 mg per tablet TWICE A DAY cholestyramine-sucrose (QUESTRAN) 4 gram powder DAILY Omeprazole Magnesium 20 mg tablet Take 20 mg by mouth once daily. Menthol-Zinc Oxide (CALMOSEPTINE) 0.44-20.6 % Apply to affected area. oxyCODONE ER (OXYCONTIN) 15 mg 12 hr tablet Take 15 mg by mouth every 12 hours. pantoprazole (PROTONIX) 40 mg grps Take 40 mg by mouth DAILY (6 AM). kheegqx-pylkpuqmu-vudvzkl D3 (OS-MARC 500+D) 500 mg(1,250mg) -200 unit per tablet Take 1 tablet by mouth twice daily with meals. KLOR-CON M20 20 mEq tablet Take 20 mEq by mouth three times daily. cholestyramine-sucrose (QUESTRAN) 4 gram powder Use 4 Grams 2 times per Day. MYRBETRIQ 50 mg Tb24 Take 50 mg by mouth once daily. LORazepam (ATIVAN) 0.5 mg tab Take 0.5 mg by mouth once daily as needed. HYDROcodone-acetaminophen (NORCO) 5-325 mg per tablet famotidine (PEPCID) 40 mg tablet Take 40 mg by mouth once daily. furosemide (LASIX) 40 mg tablet Take 40 mg by mouth every morning. IRON, FERROUS SULFATE, ORAL Take by mouth once daily. VIT C/VIT E AC/LUT/COPPER/ZINC (PRESERVISION LUTEIN ORAL) Take by mouth. No current facility-administered medications for this visit. ALLERGIES: Belladonna Tincture; Celecoxib PERSONAL HISTORY: Social History Marital status: Spouse name: Years of education: Number of children: Social History Main Topics Smoking status: Never Smoker Smokeless tobacco: Never Used Alcohol use: No Drug use: No FAMILY HISTORY: No family history on file. REVIEW OF SYMPTOMS: The review of systems data was entered by the nurse and reviewed by me There are no exam notes on file for this visit. PHYSICAL EXAMINATION: General: The patient is 82 year old female, well nourished, well hydrated in no acute distress. The patient is oriented to time, place, and person. The patient is debilitated and on a stretcher due to her bilateral fractures at the location of her previous knee replacements VITALS: Blood pressure 118/71, pulse 96, height 154.9 cm (5' 1), weight 57.4 kg (126 lb 9.6 oz). Body mass index is 23.92 kg/m?. HEENT: Normal cephalic, ataumatic, pupils are equally round, sclera are anicteric, mucous membranes are moist, oropharynx is clear. Neck has no masses, asymmetry or lymphadenopathy. Thyroid is unremarkable. Respiratory: Clear to auscultation and percussion. Normal respiratory excursion and pattern. Cardiac: Examination is regular rate and rhythm. Abdominal exam: Soft, nontender, with no palpable masses. No hepatosplenomegaly. No palpable hernias. Rectal exam: exam deferred Extremities: no clubbing, cyanosis or edema. No adenopathy. Other: LABORATORY VALUES: As Noted RADIOLOGIC STUDIES: As Noted Assessment IMPRESSION: GI bleed- PLAN: I plan to perform upper and lower endoscopy. We discussed the risks and benefits of the planned endoscopy. I have informed the patient that complications can occur including failure to complete the endoscopy and perforation. The patient had the opportunity to ask questions concerning the planned endoscopy. My staff has also explained the procedure to the patient in understandable terms and has given the patient printed material concerning the procedure. The patient freely consents to surgery. I plan to use golytely bowel preparation for endoscopy I plan for monitored anesthetic care. Diagnoses: (K92.2) Gastrointestinal hemorrhage, unspecified gastrointestinal hemorrhage type (primary encounter diagnosis) My findings have been communicated to Dr. Sunday Gutiérrez MD via shared medical record. This note will be forwarded to Dr. Sunday Gutiérrez MD. Return to Clinic: The patient is instructed to follow-up with me 1 week post operatively. Latosha Craft MD CNOV Observed: 12/14/2017 Status: COMPLETED Source: [place] 2:00 PM [facility] REPOSITORY Office Visit (GENSWS) JONELLE BARRAZA ([id number]) 1935 F Date Time Provider Department 12/14/17 2:00 PM LATOSHA CRAFT During your visit today, we recorded the following information about you: Pulse Blood pressure Weight Height 96/minute 118/71 57.4 kg 1.549 m Latosha Craft MD 12/14/2017 2:33 PM Signed HISTORY AND PHYSICAL Jonelle Barraza 1935 REFERRING PHYSICIAN: Sunday Gutiérrez Chi, MD CHIEF COMPLAINT: Consult (Consult Anemia) HPI: The patient is a 82 year old female referred for endoscopy. Jonelle notes blood per rectum and was found to be anemic. She had 1 unit of packed red cells transfused in the hospital and has since required 2 units of packed red cells transfused and her extended care facility at [facility]. She notes previous episodes of intermittent GI bleeding. I performed endoscopy in 2012 both upper and lower for GI bleeding episode with no obvious source at that time. 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 Jonelle was admitted to [facility] in early October after having a fall and fracturing both legs. It was elected not perform surgical intervention at that time for her fractures and it was elected not to perform endoscopy but the patient is had persistent anemia since that time with transfusions. The patient is being seen by me today at the request of Dr. Sunday Gutiérrez MD for my opinion and advice regarding previous history of GI bleeding and anemia. PAST MEDICAL HISTORY Diagnosis Date - Acute hypokalemia - Acute hypoxemic respiratory failure (HCC) - Anemia in chronic renal disease - Anxiety disorder - Cirrhosis of liver (HCC) - Esophageal reflux - Essential hypertension - IBS (irritable bowel syndrome) - Major depressive disorder - Muscle weakness - Need for assistance with personal care - OA (osteoarthritis) - OAB (overactive bladder) PAST SURGICAL HISTORY Procedure Laterality Date - COLONOSCOP W/ OR W/O [facility] SPEC 09/30/12 1 AVM, no obvious source - EGD W/O [facility] SPECIMEN W/BX 09/29/12 no obvious bleeding source, grade 2 esophageal vairces - HIATAL HERNIA REPAIR HX 2007 - PAST SURGICAL HISTORY OF Left 12/2016 inguinal hernia - TOTAL KNEE REPLACEMENT Right 1984 - TOTAL KNEE REPLACEMENT Right 2014 Current Outpatient Prescriptions: potassium chloride ER (K-DUR, KLOR-CON) 20 mEq tablet DAILY senna-docusate (SENNA-S) 8.6-50 mg per tablet TWICE A DAY cholestyramine-sucrose (QUESTRAN) 4 gram powder DAILY Omeprazole Magnesium 20 mg tablet Take 20 mg by mouth once daily. Menthol-Zinc Oxide (CALMOSEPTINE) 0.44-20.6 % Apply to affected area. oxyCODONE ER (OXYCONTIN) 15 mg 12 hr tablet Take 15 mg by mouth every 12 hours. pantoprazole (PROTONIX) 40 mg grps Take 40 mg by mouth DAILY (6 AM). trjkilk-ysduiigfg-damxmem D3 (OS-MARC 500+D) 500 mg(1,250mg) -200 unit per tablet Take 1 tablet by mouth twice daily with meals. KLOR-CON M20 20 mEq tablet Take 20 mEq by mouth three times daily. cholestyramine-sucrose (QUESTRAN) 4 gram powder Use 4 Grams 2 times per Day. MYRBETRIQ 50 mg Tb24 Take 50 mg by mouth once daily. LORazepam (ATIVAN) 0.5 mg tab Take 0.5 mg by mouth once daily as needed. HYDROcodone-acetaminophen (NORCO) 5-325 mg per tablet famotidine (PEPCID) 40 mg tablet Take 40 mg by mouth once daily. furosemide (LASIX) 40 mg tablet Take 40 mg by mouth every morning. IRON, FERROUS SULFATE, ORAL Take by mouth once daily. VIT C/VIT E AC/LUT/COPPER/ZINC (PRESERVISION LUTEIN ORAL) Take by mouth. No current facility-administered medications for this visit. ALLERGIES: Belladonna Tincture; Celecoxib PERSONAL HISTORY: Social History Marital status: Spouse name: Years of education: Number of children: Social History Main Topics Smoking status: Never Smoker Smokeless tobacco: Never Used Alcohol use: No Drug use: No FAMILY HISTORY: No family history on file. REVIEW OF SYMPTOMS: The review of systems data was entered by the nurse and reviewed by me There are no exam notes on file for this visit. PHYSICAL EXAMINATION: General: The patient is 82 year old female, well nourished, well hydrated in no acute distress. The patient is oriented to time, place, and person. The patient is debilitated and on a stretcher due to her bilateral fractures at the location of her previous knee replacements VITALS: Blood pressure 118/71, pulse 96, height 154.9 cm (5' 1), weight 57.4 kg (126 lb 9.6 oz). Body mass index is 23.92 kg/m?. HEENT: Normal cephalic, ataumatic, pupils are equally round, sclera are anicteric, mucous membranes are moist, oropharynx is clear. Neck has no masses, asymmetry or lymphadenopathy. Thyroid is unremarkable. Respiratory: Clear to auscultation and percussion. Normal respiratory excursion and pattern. Cardiac: Examination is regular rate and rhythm. Abdominal exam: Soft, nontender, with no palpable masses. No hepatosplenomegaly. No palpable hernias. Rectal exam: exam deferred Extremities: no clubbing, cyanosis or edema. No adenopathy. Other: LABORATORY VALUES: As Noted RADIOLOGIC STUDIES: As Noted Assessment IMPRESSION: GI bleed- PLAN: I plan to perform upper and lower endoscopy. We discussed the risks and benefits of the planned endoscopy. I have informed the patient that complications can occur including failure to complete the endoscopy and perforation. The patient had the opportunity to ask questions concerning the planned endoscopy. My staff has also explained the procedure to the patient in understandable terms and has given the patient printed material concerning the procedure. The patient freely consents to surgery. I plan to use golytely bowel preparation for endoscopy I plan for monitored anesthetic care. Diagnoses: (K92.2) Gastrointestinal hemorrhage, unspecified gastrointestinal hemorrhage type (primary encounter diagnosis) My findings have been communicated to Dr. Sunday Gutiérrez MD via shared medical record. This note will be forwarded to Dr. Sunday Gutiérrez MD. Return to Clinic: The patient is instructed to follow-up with me 1 week post operatively. MD Bhuim Patel LPN 12/23/2017 7:54 AM Signed REVIEW OF SYSTEMS: General: The patient NOTES fatigue, denies weight loss, denies weight gain, denies feeling hot, and denies feelings of cold. Eyes: The patient denies glaucoma, denies eye injury/surgery, wears glasses or contacts. Ear/Nose/Throat: The patient denies allergies, denies hayfever, denies ear infections, and denies bloody noses. Cardiovascular: The patient denies chest pain, denies heart disease, NOTES high blood pressure,denies cardiac stent, denies prior heart attack, denies irregular heart beat, denies high cholesterol, denies poor circulation, denies heart failure, other cardiac issues, denies claudication, denies cold feet, denies peripheral arterial stent. Respiratory: The patient denies tuberculosis, denies pneumonia, denies frequent cough, denies pulmonary embolism, denies shortness of breath, and denies coughing up blood. Gastrointestinal: The patient denies difficulty swallowing, NOTES acid reflux, denies ulcers, denies vomiting, denies jaundice/hepatitis, denies gallbladder problems, denies black or tarry stools, denies hemorrhoids, denies bleeding from rectum, denies diverticulitis, denies constipation, denies diarrhea, denies loss of stool control, and denies hernias. Kidney/Bladder: The patient denies kidney stones, denies urine infections, and denies bloody urine. Skin: The patient denies a history of skin cancer, denies bleeding/changing moles, and denies a history of skin rash. Neurologic: The patient denies a history of epilepsy/convulsions, denies headaches, denies head/spinal injuries, and denies stroke/TIA. Psychiatric: The patient denies psychiatric medications, NOTES depression, and denies voices, denies substance abuse. Endocrine: The patient denies thyroid disorders, denies diabetes, and denies hormonal problems. Hematologic: The patient denies a history of bruising, denies bleeding, and NOTES anemia, denies blood clots. Infections: The patient NOTES a history of measles and mumps, denies rheumatic fever, and denies sexually transmitted diseases. Musculoskeletal: The patient NOTES back pain/injury, NOTES back problems, denies sciatica, denies knee/foot trouble, denies arthritis, or denies gout. When was patient's last Mammogram screening? Unknown Last Colonoscopy: 2012 Bhumi Aviles LPN Referring Provider: SUNDAY GUTIÉRREZ CHI [[id number]] Allergies As of Date: 12/14/2017 Noted Allergy Reaction BELLADONNA TINCTURE 01/31/2017 16 - Unknown CELECOXIB 01/31/2017 16 - Unknown Date Reviewed: 12/14/2017 Reviewed by: Latosha Craft - Fully Assessed Reason for Visit: Consult [173] Cmt: Consult Anemia Primary Visit Diagnosis:Gastrointestinal hemorrhage, unspecified gastrointestinal hemorrhage type [K92.2] Prescriptions as of 12/14/2017 Sig: POTASSIUM CHLORIDE ER 20 MEQ * DAILY SENNOSIDES 8.6 MG-DOCUSATE SO* TWICE A DAY CHOLESTYRAMINE (WITH SUGAR) 4* DAILY OMEPRAZOLE MAGNESIUM 20 MG TA* Take 20 mg by mouth once andres* MENTHOL 0.44 %-ZINC OXIDE 20.* Apply to affected area. OXYCODONE ER 15 MG TABLET,CRU* Take 15 mg by mouth every 12 * PANTOPRAZOLE 40 MG GRANULES F* Take 40 mg by mouth DAILY (6 * CALCIUM CARBONATE 500 MG (1,2* Take 1 tablet by mouth twice * KLOR-CON M20 MEQ TABLET,EXTEN* Take 20 mEq by mouth three ti* CHOLESTYRAMINE (WITH SUGAR) 4* Use 4 Grams 2 times per Day. MYRBETRIQ 50 MG TABLET,EXTEND* Take 50 mg by mouth once andres* LORAZEPAM 0.5 MG TABLET Take 0.5 mg by mouth once axel* HYDROCODONE 5 MG-ACETAMINOPHE* FAMOTIDINE 40 MG TABLET Take 40 mg by mouth once andres* FUROSEMIDE 40 MG TABLET Take 40 mg by mouth every mor* IRON (FERROUS SULFATE) ORAL Take by mouth once daily. PRESERVISION LUTEIN ORAL Take by mouth. Problem List As Of Date 12/14/2017 Noted Resolved GI hemorrhage [K92.2] INVALID FOR* Visit Notes: >> Bhumi Aviles LPN TueDec 23, 2017 7:52 AM Status: Signed REVIEW OF SYSTEMS: General: The patient NOTES fatigue, denies weight loss, denies weight gain, denies feeling hot, and denies feelings of cold. Eyes: The patient denies glaucoma, denies eye injury/surgery, wears glasses or contacts. Ear/Nose/Throat: The patient denies allergies, denies hayfever, denies ear infections, and denies bloody noses. Cardiovascular: The patient denies chest pain, denies heart disease, NOTES high blood pressure,denies cardiac stent, denies prior heart attack, denies irregular heart beat, denies high cholesterol, denies poor circulation, denies heart failure, other cardiac issues, denies claudication, denies cold feet, denies peripheral arterial stent. Respiratory: The patient denies tuberculosis, denies pneumonia, denies frequent cough, denies pulmonary embolism, denies shortness of breath, and denies coughing up blood. Gastrointestinal: The patient denies difficulty swallowing, NOTES acid reflux, denies ulcers, denies vomiting, denies jaundice/hepatitis, denies gallbladder problems, denies black or tarry stools, denies hemorrhoids, denies bleeding from rectum, denies diverticulitis, denies constipation, denies diarrhea, denies loss of stool control, and denies hernias. Kidney/Bladder: The patient denies kidney stones, denies urine infections, and denies bloody urine. Skin: The patient denies a history of skin cancer, denies bleeding/changing moles, and denies a history of skin rash. Neurologic: The patient denies a history of epilepsy/convulsions, denies headaches, denies head/spinal injuries, and denies stroke/TIA. Psychiatric: The patient denies psychiatric medications, NOTES depression, and denies voices, denies substance abuse. Endocrine: The patient denies thyroid disorders, denies diabetes, and denies hormonal problems. Hematologic: The patient denies a history of bruising, denies bleeding, and NOTES anemia, denies blood clots. Infections: The patient NOTES a history of measles and mumps, denies rheumatic fever, and denies sexually transmitted diseases. Musculoskeletal: The patient NOTES back pain/injury, NOTES back problems, denies sciatica, denies knee/foot trouble, denies arthritis, or denies gout. When was patient's last Mammogram screening? Unknown Last Colonoscopy: 2012 Bhumi Aviles [facility] Letter Text Encounter Status:Closed by LATOSHA CRAFT MD on 12/14/17 TYPE AND SCREEN Collected: 11/15/2017 Status: F Source: [place] 10:20 AM [facility] REPOSITORY Order Comment: CMV NEG?* N Give When? Type AND Hold Irradiated? N Leukodepleted? Y Reason for Type AND Screen/Red Cells: ANEMIA TYPE CODE TESTS RESULT OUT OF RANGE REFERENCE UNITS LAB B10.0800 A Normal BLOOD TYPE GEL POSITIVE LAB B100.4000 Normal Antibody NEGATIVE Screen Performed By: #### B101.7450 #### [facility] [address] [place], [address] Collected: 11/15/2017 Status: F Source: [place] 10:20 AM [facility] REPOSITORY TYPE CODE TESTS RESULT OUT OF REFERENCE UNITS RANGE LAB U100.0000 [id number] TRANSFUSED PRODUCT: T AND S with Crossmatch, Red Cells COUNT: 2 Performed By: #### U100.0000 #### [facility] - refer to report for specific site DISCHARGE SUMMARY Observed: 11/09/2017 Status: F Source: [place] 4:09 PM [facility] REPOSITORY [facility] Medical Records Department [address] [place] [address] Discharge Summary 11/09/17 1557 MR#: [id number] Acct: [id number] Name: JONELLE BARRAZA Rep #: [id number] : 1935 81 From: Orville Allen MD PCP: Arnoldo HYATT,Sunday Barbosa Status: ADM IN Y Location: [facility] [id number] 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; EGD 09/2012 - mild gastritis, grade 2 esophageal varices (liver biopsy no cirrhosis) History of Clostridium difficile infection (Chronic) Depression (Chronic) Anxiety (Chronic) Hypokalemia (Chronic) OAB (overactive bladder) (Chronic) GERD (gastroesophageal reflux disease) (Chronic) Constipation (Chronic) Diarrhea (Chronic) Edema (Chronic) Debility (Chronic) IBS (irritable bowel syndrome) (Chronic) Knee pain (Chronic) Generalized osteoarthritis (Chronic) GI bleed (Chronic) Esophageal varices (Chronic) Hypertension (Chronic) Hospital Course and Treatment orthopedic surgery Operations: None, - - Hernia repair. Procedures: None Summary of Care Provided: The patient is a 81 year old F who is essentially wheelchair bound and with significant contractures. unfortunately fell out of her wheelchair and landed on her knees and suffered bilateral fractures involving the left femur and right tibia. These were periprosthetic and likely pathological fractures. Patient was seen by orthopedic surgery but due to he contractures deemed not to be a candidate for surgery. Treatment therefore will be nonoperative and patient will be going to rehab in a SNF She is stable otherwise. Pain has been well controlled.[] Weight Bearing Status: No weight bearing Home Medications: Medications to take at Discharge Lorazepam [Ativan] 0.5 mg PO DAILY PRN PRN #3 tablet 01/13/17 Iron Polysaccharide Complex [Ferrex 150] 150 mg PO DAILYCM #30 capsule 01/24/17 Cholestyramine (with Sugar) [Cholestyramine Powder] 4 g PO DAILY 09/15/17 Megestrol Acetate [Megace Suspension] 400 mg PO DAILY 09/15/17 Mirabegron [Myrbetriq] 25 mg PO DAILY 09/15/17 Calcium Carbonate 500 mg PO TID 30 Days #90 tab 11/09/17 Cyanocobalamin [Vitamin B12] 1,000 mcg PO DAILY@0800 tablet 11/09/17 Ensure Enlive 120 ml PO 4X/DAY liquid 11/09/17 Ergocalciferol [Vitamin D] 50,000 unit PO Q7D capsule 11/09/17 Furosemide [Lasix] 20 mg PO DAILY #0 11/09/17 Magnesium Hydroxide [Milk Of Magnesia] 30 ml PO DAILY PRN PRN udc 11/09/17 Menthol/Lanolin/Calamine/Znox [Calmoseptine Ointment] 1 applic TOPICAL TID tube 11/09/17 Oxycodone CR [Oxycontin] 15 mg PO BID 7 Days #14 tablet 11/09/17 Oxycodone [Oxyir] 10 mg PO Q4H PRN PRN 7 Days #42 tablet 11/09/17 Pantoprazole Sodium [Protonix] 40 mg PO DAILY tablet 11/09/17 Polyethylene Glycol 3350 [Miralax] 17 gm PO DAILY packet 11/09/17 Potassium Chloride [Klor-Con M20] 20 meq PO DAILY #30 11/09/17 Senna/Docusate Sodium [Senokot-S] 2 tablet PO BID tablet 11/09/17 Following Prescrptions Were Given to Patient: Oxycodone [Oxyir] 10 mg PO Q4H PRN PRN 7 Days #42 tablet PRN Reason: Severe Pain (6-10) Oxycodone CR [Oxycontin] 15 mg PO BID 7 Days #14 tablet Calcium Carbonate 500 mg PO TID 30 Days #90 tab Primary Care Physician: Sunday Gutiérrez Chi, MD [Primary Care Provider] - Disposition: Intermediate facility Minutes spent on discharge:: 30 Patient Condition:: Fair Medical Necessity - Tobacco Use Smoking Status: Never smoker Meaningful Use Info Meaningful Use Diagnoses (Choose all that apply): None applicable Code Visit Inpatient E AND M: 25799 Disch Hosp 11/09/17 1609 <Electronically signed by Orville Allen MD> Date Orville Allen MD Cosigner Signature (if applicable): Date CC: Orville Allen M.D.; Sunday Gutiérrez MD Signed TRANSFER TO [facility]: 11/09/2017 Status: F Source: [facility] 3:57 PM [facility] REPOSITORY [facility] Medical Records Department [address] [place] [address] Transfer to [facility] MR#: [id number] Acct: [id number] Name: JONELLE BARRAZA Rep #: [id number] : 1935 81 From: Orville Allen MD PCP: Sunday Gutiérrez MD, Chi Status: ADM IN JONELLE BARRAZA (Patient) (Health Ins. Claim No.) (Day of Discharge to Facility) Certification of patient admission REQUIRED AT TIME OF ADMISSION. I CERTIFY THAT [facility] SERVICES ARE REQUIRED TO BE GIVEN ON AN IN-PATIENT BASIS BECAUSE OF THE ABOVE NAMED PATIENT'S NEED FOR SHELTER CARE ON A CONTINUING BASIS FOR THE CONDITION(S) FOR WHICH HE/SHE WAS RECEIVING IN-PATIENT HOSPITAL SERVICES PRIOR TO HIS/HER TRANSFER TO THE [facility]. 11/09/17 1557 <Electronically signed by Orville Allen MD> Date Orville Allen MD - Diet 11/04/17 04:09 Diet: Regular Diet Food consistency:: Regular Liquid Consistency:: Regular/Thin - Wound(s) Right Buttock/Hip Wound Type: Blisters - Therapies Weight Bearing: Non weight bearing Extremity Affected:: Bilateral Lower Physical Therapy: Eval and Treat Occupational Therapy: Eval and Treat - Allergies/Procedures Done in Hospital Allergies/Adverse Reactions: Allergies belladonna alkaloids [Belladonna Alkaloids] Allergy (Verified 11/04/17 00:31) Unknown celecoxib [From Celebrex] Adverse Reaction (Verified 11/04/17 00:31) Diarrhea - Type of Care/Length of Stay Estimated LOS: More Than 30 Days Type of Care Needed: Skilled Rehab Potential: Poor Prognosis: Fair - Additional Orders/Day of Discharge Day of Discharge: 11/09/17 - Dietary and Speech Recommendations Dietitian Recommendations/Changes: Continue Regular diet and ensure enlive on medpass. - Follow Up Care Primary Care Physician: Sunday Gutiérrez Chi, MD [Primary Care Provider] - 11/09/17 1557 <Electronically signed by Orville Allen MD> Date Orville Allen MD CC: KAILA Mo; Latosha Craft MD; Sunday Gutiérrez MD Signed DISCHARGE INSTRUCTION Observed: 11/09/2017 Status: F Source: [place] 3:56 PM [facility] REPOSITORY [facility] Medical Records Department [address] [place] [address] Instructions for Home/Discharge Instructions 11/09/17 1552 MR#: [id number] Acct: [id number] Name: JONELLE BARRAZA Rep #: [id number] : 1935 81 From: Orville Allen MD PCP: Sunday Gutiérrez MD, Chi Status: ADM IN - Discharge Diagnoses Current Active Problems: Current Active and Chronic Problems Left femur periprosthetic pathological fracture Right tibial periprosthetic pathological fracture failure to thrive Contractures Hyperkalemia (Acute) Hypocalcemia (Acute) You will use the following diet at home:: No restrictions, Regular Your food should be the consistency of: Regular Allergies/Adverse Reactions: Allergies belladonna alkaloids [Belladonna Alkaloids] Allergy (Verified 11/04/17 00:31) Unknown celecoxib [From Celebrex] Adverse Reaction (Verified 11/04/17 00:31) Diarrhea Medications to take at Discharge Lorazepam [Ativan] 0.5 mg PO DAILY PRN PRN #3 tablet 01/13/17 Iron Polysaccharide Complex [Ferrex 150] 150 mg PO DAILYCM #30 capsule 01/24/17 Cholestyramine (with Sugar) [Cholestyramine Powder] 4 g PO DAILY 09/15/17 Megestrol Acetate [Megace Suspension] 400 mg PO DAILY 09/15/17 Mirabegron [Myrbetriq] 25 mg PO DAILY 09/15/17 Calcium Carbonate 500 mg PO TID 30 Days #90 tab 11/09/17 Cyanocobalamin [Vitamin B12] 1,000 mcg PO DAILY@0800 tablet 11/09/17 Ensure Enlive 120 ml PO 4X/DAY liquid 11/09/17 Ergocalciferol [Vitamin D] 50,000 unit PO Q7D capsule 11/09/17 Furosemide [Lasix] 20 mg PO DAILY #0 11/09/17 Magnesium Hydroxide [Milk Of Magnesia] 30 ml PO DAILY PRN PRN udc 11/09/17 Menthol/Lanolin/Calamine/Znox [Calmoseptine Ointment] 1 applic TOPICAL TID tube 11/09/17 Oxycodone CR [Oxycontin] 15 mg PO BID 7 Days #14 tablet 11/09/17 Oxycodone [Oxyir] 10 mg PO Q4H PRN PRN 7 Days #42 tablet 11/09/17 Pantoprazole Sodium [Protonix] 40 mg PO DAILY tablet 11/09/17 Polyethylene Glycol 3350 [Miralax] 17 gm PO DAILY packet 11/09/17 Potassium Chloride [Klor-Con M20] 20 meq PO DAILY #30 11/09/17 Senna/Docusate Sodium [Senokot-S] 2 tablet PO BID tablet 11/09/17 The following prescriptions were given: Oxycodone [Oxyir] 10 mg PO Q4H PRN PRN 7 Days #42 tablet PRN Reason: Severe Pain (6-10/10) Oxycodone CR [Oxycontin] 15 mg PO BID 7 Days #14 tablet Calcium Carbonate 500 mg PO TID 30 Days #90 tab Primary Care Physician: Sunday Gutiérrez Chi, MD [Primary Care Provider] - Test Results: Test results from this visit will be discussed in further detail at your follow-up appointment, if applicable. Proposed Discharge Date: 11/09/17 11/09/17 1556 <Electronically signed by Orville Allen MD> Date Orville Allen MD CC: KAILA Mo; Latosha Craft MD; Sunday Gutiérrez MD BASIC METABOLIC Collected: 11/09/2017 Status: F Source: [place] PROFILE ([facility]) 5:36 AM [facility] REPOSITORY TYPE CODE TESTS RESULT OUT OF RANGE REFERENCE UNITS LAB L501.0100 74-106 mg/dL Normal GLU 96 Result Comment: Please note revised GLUCOSE reference range effective 2017. LAB L501.1000 7-18 mg/dL Normal BUN 16 LAB L501.1100 0.55-1.02 mg/dL Low CREAT,SERUM 0.32 Result Comment: The validity of the calculated GFR AND GFRAA in patients over 70 years has not been determined. Clinical correlation is essential. LAB L501.1110 >60 mL/min Normal EST GFR 209 Result Comment: Non- GFR Calc LAB L501.1115 >60 mL/min Normal EST GFR - AA 252 Result Comment: GFR Calc LAB L501.1255 ml/min Normal Estimated CRCL 39.70 LAB L501.1300 10-20 RATIO High BUN/CRE 49.7 LAB L501.2200 8.5-10 mg/dL Low .1 CA 8.1 LAB L501.5300 136-14 mmol/L Low 5 NA 131 LAB L501.5600 3.5-5. mmol/L Normal 1 K 4.6 LAB L501.5900 98-107 mmol/L Low CL 95 LAB L501.6100 21.0-3 mmol/L Normal 2.0 CO2 30.0 LAB L501.6200 5-15 Normal GAP 6 Performed By: #### L500.2500 #### [facility] [address] [place], [address] CBC W/DIFF, AUTOMATED Collected: 11/09/2017 Status: C Source: [facility] 5:36 AM [facility] REPOSITORY TYPE CODE TESTS RESULT OUT OF RANGE REFERENCE UNITS LAB L100.1000 4.4-11.0 K/mm3 High WBC 16.0 LAB L100.1200 4.2-5.4 M/mm3 Low RBC 2.62 LAB L100.1300 12.0-15.0 g/dl Low HGB 7.7 LAB L100.1400 37-47 % Low HCT 23.7 LAB L100.1500 81-99 fL Normal MCV 90.5 LAB L100.1600 27.0-32.0 pg Normal MCH 29.4 LAB L100.1700 32-36 g/gl Normal MCHC 32.5 LAB L100.1810 11.6-14.6 % High RDW CV 16.5 LAB L100.1820 35.1-43.9 fl High RDW SD 51.8 LAB L100.1900 150-450 K/mm3 Normal PLT 251 LAB L100.2000 6.2-12.0 fl Normal MPV 10.3 LAB L100.2100 47-70 % High NEUT% 76.1 LAB L100.2200 19-41 % Low LY% 7.2 LAB L100.2300 0-10 % High MONO% 14.6 LAB L100.2400 0-5 % Normal EO% 1.5 LAB L100.2500 0-1 % Normal BASO% 0.1 LAB L100.2550 0.0-0.9 % Normal IM GRAN % 0.500 Result Comment: IG% - Immature Granulocytes (promyelocytes, myelocytes and metamyelocytes) > 1% indicates that a LEFT SHIFT is Present. LAB L100.2620 2.0-7.7 X10 3/uL High Absolute Neut 12.2 LAB L100.2720 0.83-4.51 X10 3/ul Normal Absolute Lymph 1.15 LAB L100.9900 Normal PATH REV Reviewed Result Comment: Neutrophilic leukocytosis. Normocytic anemia. Clinical correlation necessary. Richi Hess M.D. 11/10/17 AMENDED REPORT 11/10/17 1418 PATH REV previously reported as: June awa Performed By: #### L100.0100 #### [facility] [address] [place], [address] ECHOCARDIOGRAM COMPLETE Observed: 11/08/2017 Status: F Source: [place] 6:00 PM [facility] REPOSITORY [facility] Cardiovascular Services [address] [place] [address] Echo Complete 11/08/17 1548 MR#: [id number] Acct: [id number] Name: JONELLE BARRAZA Rep #: [id number] : 1935 81 From: Kehinde Ortiz MD Attending Dr: Reid Yanez MD Status: ADM IN Ordering Dr: Reid Yanez MD Date: 11/08/17 Location: [facility]3 Sex: F C Admitted: 11/04/17 Reason For Study: MURMUR Procedure This was a 2D Doppler, Color Flow transthoracic echocardiogram. The study was technically difficult. Pt supine and tachycardic. Exam performed portable in patient room. Left Ventricle Normal LV size. Left ventricular systolic function is hyperdynamic. The estimated ejection fraction is 70 %. Transmitral and pulmonary venous doppler flow suggestive of impaired relaxation of left ventricle. Transmitral diastolic flow velocities suggest mild (stage 1) diastolic dysfunction (reversed pattern). No regional wall motion abnormalities noted. Right Ventricle Normal RV size. Normal systolic function. Atria Normal left atrium. Normal right atrium. Mitral Valve Normal mitral valve. Tricuspid Valve Normal tricuspid valve. Mild (1+) tricuspid valve insufficiency. Pulmonary artery systolic pressure is 33 mmHg. Aortic Valve Trisinus/trileaflet aortic valve. Moderate focal aortic valve calcification. Mild to moderate aortic stenosis. Peak aortic valve gradient 38 mmHg. Mean aortic valve gradient 27 mmHg. Calculated aortic valve area (continuity equation) is 1.4 cm2. Pulmonic Valve Normal pulmonic valve. Great Vessels Normal aortic root. The pulmonary artery is normal size. Normal inferior vena cava. Pericardium/Pleural No pericardial effusion. MMode/2D Measurements AND Calculations LVIDd: 3.3 cm IVSd: 1.1 cm LVOT diam: 2.0 cm LVIDs: 1.9 cm LVPWd: 1.0 cm LVOT area: 3.1 cm2 FS: 43.2 % Ao root diam: 3.4 cm LAV(MOD-bp): 82.5 ml Aortic Valve Planimetry: 1.4 cm2 LA dimension: 4.3 cm LAV(MOD-bp) Indexed: 50.3 ml/m2 LAV(MOD-sp2): 107.3 ml LAV(MOD-sp4): 50.6 ml LA A4 area: 18.2 cm2 RA A4 area: 12.7 cm2 Time Measurements MV dec time: 0.22 sec Doppler Measurements AND Calculations MV E max jaguar: 92.6 cm/sec Lat Peak E' Jaguar: 9.4 cm/sec Med Peak E' Jaguar: 6.2 cm/sec MV A max jaguar: 205.0 cm/sec E/E' lat: 9.9 E/E' med: 14.8 MV E/A: 0.45 MV V2 max: 238.4 cm/sec Ao V2 max: 308.8 cm/sec TR max jaguar: 264.6 cm/sec MV max P.8 mmHg Ao max P.6 mmHg TR max P.0 mmHg MV V2 mean: 137.4 cm/sec Ao V2 mean: 251.7 cm/sec MV mean P.1 mmHg Ao mean P.8 mmHg MV V2 VTI: 32.6 cm Ao V2 VTI: 44.7 cm Interpretation Summary Normal LV size. Left ventricular systolic function is hyperdynamic. The estimated ejection fraction is 70 %. Transmitral diastolic flow velocities suggest mild (stage 1) diastolic dysfunction (reversed pattern). Moderate focal aortic valve calcification. Mild to moderate aortic stenosis. Calculated aortic valve area (continuity equation) is 1.4 cm2. Ordering Physician: Reid Yanez Referring Physician: SUNDAY GUTIÉRREZ CHI Performed By: Margaret Mccarthy, RDCS, RVT 11/08/171758 Date Kehinde Ortiz MD CC: Reid Yanez MD; Shamika Story DO; Sunday Gutiérrez MD Date Dictated: 11/08/17 1548 Date Transcribed: 11/08/171758 Chrome Worker: Signed CONSULTATION Observed: 11/08/2017 Status: F Source: [place] 5:27 PM [facility] REPOSITORY [facility] Medical Records Department [address] [place] [address] Consultation 11/08/17 171 MR#: [id number] Acct: [id number] Name: JONELLE BARRAZA Rep #: [id number] : 1935 81 From: Latosha Craft MD PCP: Sunday Gutiérrez MD, Chi Status: ADM IN Location: [facility] OK523-0 Reason for Consult Date of Consultation: 11/08/17 Reason for Consultation: Hemoccult positive stools, anemia History of Present Illness: The patient is a 81 year old F with a complex medical history. She fell last week on both knees. She sustained a right tibial fracture and a left distal femur fracture. the patient was noted to have anemia when she presented. Since hospitalization, her hemoglobin has dropped mildly, but continuously. she received one unit of packed red cells yesterday but her hemoglobin did not respond appropriately. Stool was obtained for Hemoccult and this was Hemoccult positive. The patient denies abdominal pain. She notes no nausea or vomiting or other GI complaints. She noted darker stools a few months previously, but now notes relatively normal to slightly yuriy-colored stools. She denies true melena, hematochezia, or hematemesis. I performed upper and lower endoscopy for GI bleeding in 2012. At that time, the patient was found to have mild gastritis and mild duodenitis with what appeared to be some old blood in the stomach. She was also noted to have grade 2 esophageal varices but those were not felt to have been a cause of recent bleeding. Colonoscopy was performed which was normal save for a very small AVM in the ascending colon. Currently, the patient notes significant leg pain with moving. Due to her overall debilitated status, the fact that she is pretty much wheelchair dependent, and that she cannot straighten her legs currently due to contractures, it was not felt that splinting or surgical repair would be advisable. The patient notes pain with attempts to move her bowels just from movement trying to get on and off the commode. 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; EGD 09/2012 - mild gastritis, grade 2 esophageal varices (liver biopsy no cirrhosis) History of Clostridium difficile infection (Chronic) Depression (Chronic) Anxiety (Chronic) Hypokalemia (Chronic) OAB (overactive bladder) (Chronic) GERD (gastroesophageal reflux disease) (Chronic) Constipation (Chronic) Diarrhea (Chronic) Edema (Chronic) Debility (Chronic) IBS (irritable bowel syndrome) (Chronic) Knee pain (Chronic) Generalized osteoarthritis (Chronic) GI bleed (Chronic) Esophageal varices (Chronic) Hypertension (Chronic) Allergies belladonna alkaloids [Belladonna Alkaloids] Allergy (Verified 11/04/17 00:31) Unknown celecoxib [From Celebrex] Adverse Reaction (Verified 11/04/17 00:31) Diarrhea Home Medications: Ambulatory Orders Medication Instructions Recorded Surgical History: appendectomy, cataract, cholecystectomy, herniorrhaphy, hysterectomy, total knee arthroplasty - Bilateral. 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 Lives: With Family Smoking Status: Never smoker Alcohol: None - *Family History Maternal History Items: No pertinent history Review of Systems Constitutional: Reports: Weakness, Fatigue Cardiovascular: Denies: Chest Pain, Palpitations Respiratory: Denies: Cough, Shortness of breath at rest, Sputum production Gastrointestinal: Denies: Abdominal Pain, Nausea, Vomiting Patient Problems: Active and Suspected Problems Hyperkalemia (Acute) Hypocalcemia (Acute) - Physical Exam General: Alert, Oriented x3, Cooperative Lungs: Clear to auscultation, Normal air movement Cardiovascular: Regular rate, Murmur - loud systolic murmur which seems to radiate to both carotid arteries Abdomen: Bowel Sounds Present, Soft, Non Tender Vital Signs Temp Pulse Resp BP Pulse Ox 98.2 F 101 H 18 136/84 H 97 11/08/17 15:00 11/08/17 15:00 11/08/17 15:00 11/08/17 15:00 11/08/17 15:00 Oxygen Flow Rate (L/min) 2 Oxygen Delivery Method Nasal Cannula Weight: 58.8 kg Body Mass Index (BMI) 21.5 Intake and Output for Last 24 Hours Intake Total 1000 / 1000 1475 / 1475 750 / 750 Output Total 550 / 550 250 / 250 Balance 450 / 450 1225 / 1225 750 / 750 Microbiology Past 72 Hours 11/06/17 16:30 Urine Culture - Final Urine Catheter - Catheter Gabi albicans 11/07/17 12:10 Stool Occult Blood (GRIS) - Final Laboratory Tests Past 24 Hrs WBC 15.1 H RBC 2.46 L Hgb 7.2 L WBC 16.5 H RBC 2.67 L Hgb 8.1 L Hct 24.1 L MCV 90.3 MCH 30.3 MCHC 33.6 Assessment/Plan All Active Problems Hyperkalemia (Acute) Hypocalcemia (Acute) Cellulitis of right lower extremity (Resolved) Abdominal pain (Resolved) Incarcerated left inguinal hernia (Resolved) Hemoccult positive stools, questionable chronic GI bleed, GI history as noted above, bilateral lower extremity fractures, questionable murmur consistent with aortic stenosis. the patient was found to be Hemoccult-positive, but does not seem to be have any significant active bleeding currently. Bowel preparation would be a challenge given the patient's lower leg fractures and mobility difficulties. She does not seem to clinically have bleeding consistent with variceal bleeding, or even a true ulcer. At this point in time, I would be inclined to place her on a proton pump inhibitor and follow her clinical hemoglobin level. I agree that some of the drop in hematocrit could be due to her femur fracture. The exact etiology of the anemia is therefore somewhat challenging. I would ask that an echocardiogram be obtained to assess if this truly is a murmur consistent with aortic stenosis, as this would increase her risk for sedation. If the patient's hemoglobin seemed to drop more precipitously, I would consider/recommend a bleeding scan to see if this did seem to be more lower in origin or upper. If her hemoglobin continues to decrease more quickly than we expect at this point, I would be comfortable performing upper endoscopy. I discussed with the patient the options of bowel prep for colonoscopy, upper endoscopy, bleeding scan, or doing no active treatment at this time other than proton pump inhibitors. The patient was uncertain which way she wished to proceed.- I will reevaluate the patient the morning and ask her opinion that time. 11/08/17 1727 <Electronically signed by Latosha Craft MD> Date Latosha Craft MD Cosigner Signature (if applicable): Date CC: KAILA Mo; Shamika Story DO; Latosha Craft MD; Sunday Gutiérrez MD Signed CBC W/DIFF, AUTOMATED Collected: 11/08/2017 Status: C Source: AVNI 2:45 PM [facility] REPOSITORY TYPE CODE TESTS RESULT OUT OF RANGE REFERENCE UNITS LAB L100.1000 4.4-11.0 K/mm3 High WBC 16.5 LAB L100.1200 4.2-5.4 M/mm3 Low RBC 2.67 LAB L100.1300 12.0-15.0 g/dl Low HGB 8.1 LAB L100.1400 37-47 % Low HCT 24.1 LAB L100.1500 81-99 fL Normal MCV 90.3 LAB L100.1600 27.0-32.0 pg Normal MCH 30.3 LAB L100.1700 32-36 g/gl Normal MCHC 33.6 LAB L100.1810 11.6-14.6 % High RDW CV 16.5 LAB L100.1820 35.1-43.9 fl High RDW SD 51.2 LAB L100.1900 150-450 K/mm3 Normal PLT 252 LAB L100.2000 6.2-12.0 fl Normal MPV 9.8 LAB L100.2100 47-70 % High NEUT% 84.5 LAB L100.2200 19-41 % Low LY% 4.1 LAB L100.2300 0-10 % High MONO% 10.3 LAB L100.2400 0-5 % Normal EO% 0.5 LAB L100.2500 0-1 % Normal BASO% 0.1 LAB L100.2550 0.0-0.9 % Normal IM GRAN % 0.500 Result Comment: IG% - Immature Granulocytes (promyelocytes, myelocytes and metamyelocytes) > 1% indicates that a LEFT SHIFT is Present. LAB L100.2620 2.0-7.7 X10 3/uL High Absolute Neut 14.0 LAB L100.2720 0.83-4.51 X10 3/ul Low Absolute Lymph 0.67 LAB L100.9900 Normal PATH REV Reviewed Result Comment: Neutrophilic leukocytosis. Normocytic anemia. Clinical correlation necessary. Richi Hess M.D. 11/10/17 AMENDED REPORT 11/10/17 1415 PATH REV previously reported as: June Performed By: #### L100.0100 #### [facility] [address] [place], [place], [address] CBC W/DIFF, AUTOMATED Collected: 11/08/2017 Status: C Source: AVNI 5:20 AM [facility] REPOSITORY TYPE CODE TESTS RESULT OUT OF RANGE REFERENCE UNITS LAB L100.1000 4.4-11.0 K/mm3 High WBC 15.1 LAB L100.1200 4.2-5.4 M/mm3 Low RBC 2.46 LAB L100.1300 12.0-15.0 g/dl Low HGB 7.2 LAB L100.1400 37-47 % Low HCT 22.0 LAB L100.1500 81-99 fL Normal MCV 89.4 LAB L100.1600 27.0-32.0 pg Normal MCH 29.3 LAB L100.1700 32-36 g/gl Normal MCHC 32.7 LAB L100.1810 11.6-14.6 % High RDW CV 16.4 LAB L100.1820 35.1-43.9 fl High RDW SD 50.6 LAB L100.1900 150-450 K/mm3 Normal PLT 234 LAB L100.2000 6.2-12.0 fl Normal MPV 10.3 LAB L100.2100 47-70 % High NEUT% 77.4 LAB L100.2200 19-41 % Low LY% 5.3 LAB L100.2300 0-10 % High MONO% 15.0 LAB L100.2400 0-5 % Normal EO% 1.7 LAB L100.2500 0-1 % Normal BASO% 0.1 LAB L100.2550 0.0-0.9 % Normal IM GRAN % 0.500 Result Comment: IG% - Immature Granulocytes (promyelocytes, myelocytes and metamyelocytes) > 1% indicates that a LEFT SHIFT is Present. LAB L100.2620 2.0-7.7 X10 3/uL High Absolute Neut 11.7 LAB L100.2720 0.83-4.51 X10 3/ul Low Absolute Lymph 0.80 LAB L100.4500 Normal SMEAR COMMENT SCANNED Result Comment: MONOCYTOSIS NOTED LAB L100.9900 Normal Reviewed PATH REV Result Comment: Neutrophilic leukocytosis. Normocytic anemia. Clinical correlation necessary. Richi Hess M.D. 11/08/17 AMENDED REPORT 11/08/17 1516 PATH REV previously reported as: June awa Performed By: #### L100.0100 #### [facility] [address] [place], [address] BASIC METABOLIC Collected: 11/08/2017 Status: F Source: AVNI PROFILE ([facility]) 5:20 AM [facility] REPOSITORY TYPE CODE TESTS RESULT OUT OF RANGE REFERENCE UNITS LAB L501.0100 74-106 mg/dL Normal GLU 104 Result Comment: Fasting Glucose result from 100 to 125 mg/dL suggests IMPAIRED HOMEOSTASIS per A.D.A. criteria. Please note revised GLUCOSE reference range effective 2017. LAB L501.1000 7-18 mg/dL High BUN 19 LAB L501.1100 0.55-1.02 mg/dL Low CREAT,SERUM 0.35 Result Comment: The validity of the calculated GFR AND GFRAA in patients over 70 years has not been determined. Clinical correlation is essential. LAB L501.1110 >60 mL/min Normal EST GFR 191 Result Comment: Non- GFR Calc LAB L501.1115 >60 mL/min Normal EST GFR - AA 231 Result Comment: GFR Calc LAB L501.1255 ml/min Normal Estimated CRCL 39.70 LAB L501.1300 10-20 RATIO High BUN/CRE 54.6 LAB L501.2200 8.5-10 mg/dL Low .1 CA 7.8 LAB L501.5300 136-14 mmol/L Low 5 NA 134 LAB L501.5600 3.5-5. mmol/L Normal 1 K 4.5 LAB L501.5900 98-107 mmol/L Low CL 97 LAB L501.6100 21.0-3 mmol/L Normal 2.0 CO2 30.0 LAB L501.6200 5-15 Normal GAP 7 Performed By: #### L500.2500 #### [facility] [address] [place], [address] Observed: 11/07/2017 Status: F Source: AVNI STOOL OCCULT BLOOD 12:10 PM [facility] IFOB REPOSITORY STOB iFOB Occult Blood Positive ORGANISM 1: OCCULT BLOOD POSITIVE Performed By: #### M100.7900 #### [facility] [address] [place], [address] TYPE AND SCREEN Collected: 11/07/2017 Status: F Source: AVNI 8:10 AM [facility] REPOSITORY Order Comment: CMV NEG? N Number of units to transfuse: 1 Is there a >20% drop in pt's BP? N Is the pt's CVP (central venous pressure) <3 cm/H2O? N Is the EBL >/= 1000ml in adults or >/= 12ml/kg in children? N Is there an orthostatic change in pt's BP(SBP drop >10mmHg)? N Is pt's HR > 100 bpm? N Reason for Ordering Blood: Acute Are the blood/blood products to be transfused? Y Is the patient having/had surgery? N Give When? When Ready Irradiated? N Leukodepleted? Y TYPE CODE TESTS RESULT OUT OF RANGE REFERENCE UNITS LAB B10.0800 A Normal BLOOD TYPE GEL POSITIVE LAB B100.4000 Normal Antibody NEGATIVE Screen Performed By: #### B101.7450 #### [facility] [address] [place], [address] Collected: 11/07/2017 Status: F Source: SEDALIA 8:10 AM [facility] REPOSITORY TYPE CODE TESTS RESULT OUT OF REFERENCE UNITS RANGE LAB U100.0000 [id number] TRANSFUSED PRODUCT: T AND S with Crossmatch, Red Cells COUNT: 1 Performed By: #### U100.0000 #### [facility] - refer to report for specific site CBC W/DIFF, AUTOMATED Collected: 11/07/2017 Status: C Source: SEDALIA 6:04 AM [facility] REPOSITORY TYPE CODE TESTS RESULT OUT OF RANGE REFERENCE UNITS LAB L100.1000 4.4-11.0 K/mm3 High WBC 13.4 LAB L100.1200 4.2-5.4 M/mm3 Low RBC 2.39 LAB L100.1300 12.0-15.0 g/dl Low HGB 7.1 LAB L100.1400 37-47 % Low HCT 21.5 LAB L100.1500 81-99 fL Normal MCV 90.0 LAB L100.1600 27.0-32.0 pg Normal MCH 29.7 LAB L100.1700 32-36 g/gl Normal MCHC 33.0 LAB L100.1810 11.6-14.6 % High RDW CV 16.5 LAB L100.1820 35.1-43.9 fl High RDW SD 50.9 LAB L100.1900 150-450 K/mm3 Normal PLT 259 LAB L100.2000 6.2-12.0 fl Normal MPV 10.5 LAB L100.2100 47-70 % High NEUT% 77.8 LAB L100.2200 19-41 % Low LY% 6.3 LAB L100.2300 0-10 % High MONO% 14.0 LAB L100.2400 0-5 % Normal EO% 0.9 LAB L100.2500 0-1 % Normal BASO% 0.1 LAB L100.2550 0.0-0.9 % Normal IM GRAN % 0.900 Result Comment: IG% - Immature Granulocytes (promyelocytes, myelocytes and metamyelocytes) > 1% indicates that a LEFT SHIFT is Present. LAB L100.2620 2.0-7.7 X10 3/uL High Absolute Neut 10.4 LAB L100.2720 0.83-4.51 X10 3/ul Normal Absolute Lymph 0.85 LAB L100.4500 Normal SMEAR COMMENT SCANNED LAB L100.9900 Normal PATH REV Reviewed Result Comment: Neutrophilic leukocytosis. Normocytic anemia. Clinical correlation necessary. Richi Hess M.D. 11/07/17 AMENDED REPORT 11/07/17 1402 PATH REV previously reported as: June waa Performed By: #### L100.0100 #### [facility] [place], [address] BASIC METABOLIC Collected: 11/07/2017 Status: F Source: SEDALIA PROFILE (BMP) 6:04 AM [facility] REPOSITORY TYPE CODE TESTS RESULT OUT OF RANGE REFERENCE UNITS LAB L501.0100 74-106 mg/dL Normal GLU 104 Result Comment: Fasting Glucose result from 100 to 125 mg/dL suggests IMPAIRED HOMEOSTASIS per A.D.A. criteria. Please note revised GLUCOSE reference range effective 2017. LAB L501.1000 7-18 mg/dL High BUN 19 LAB L501.1100 0.55-1.02 mg/dL Low CREAT,SERUM 0.40 Result Comment: The validity of the calculated GFR AND GFRAA in patients over 70 years has not been determined. Clinical correlation is essential. LAB L501.1110 >60 mL/min Normal EST GFR 164 Result Comment: Non- GFR Calc LAB L501.1115 >60 mL/min Normal EST GFR - AA 198 Result Comment: GFR Calc LAB L501.1255 ml/min Normal Estimated CRCL 39.70 LAB L501.1300 10-20 RATIO High BUN/CRE 47.9 LAB L501.2200 8.5-10 mg/dL Low .1 CA 7.9 LAB L501.5300 136-14 mmol/L Low 5 NA 132 LAB L501.5600 3.5-5. mmol/L Normal 1 K 4.7 LAB L501.5900 98-107 mmol/L Low CL 95 LAB L501.6100 21.0-3 mmol/L Normal 2.0 CO2 28.0 LAB L501.6200 5-15 Normal GAP 9 Performed By: #### L500.2500, L506.0250 #### [facility] [address] [facility] [place], [address] FOLATES, (FOLIC ACID) Collected: 11/07/2017 Status: F Source: SEDALIA 6:04 [facility] [place]POS[place] TYPE CODE TESTS RESULT OUT OF RANGE REFERENCE UNITS LAB L506.0250 3.1-55.4 ng/mL Normal FOLATES 14.50 Performed By: #### L500.2500, L506.0250 #### [facility] [address] [facility] [place], [address] VITAMIN B12 Collected: 11/07/2017 Status: F Source: SEDALIA 6:04 [facility] [place] TYPE CODE TESTS RESULT OUT OF REFERENCE UNITS RANGE LAB L503.0105 211-911 pg/mL Low Vitamin B12 200 Performed By: #### L503.0105, L506.1000 #### [facility] [address] [facility] [place], [address] VITAMIN D,25 HYDROXY Collected: 11/07/2017 Status: F Source: SEDALIA 6:04 [facility] [place] TYPE CODE TESTS RESULT OUT OF REFERENCE UNITS RANGE LAB L506.1000 29.95-100.01 ng/mL Low Vitamin D 12.0 25-OH Result Comment: Vitamin D 25(OH) Status Range Deficiency <20 ng/mL (50nmol/L) Insuffciency 20 - 30 ng/mL (50 - 75 nmol/L) Sufficiency 30 - 100 ng/mL (75 - 250 nmol/L) Toxicity >100 ng/mL (>250 nmol/L) Performed By: #### L503.0105, L506.1000 #### [facility] [place], [address] HH, HEMOGLOBIN AND Collected: 11/06/2017 Status: F Source: AVNI HEMATOCRIT 7:57 PM [facility] REPOSITORY TYPE CODE TESTS RESULT OUT OF RANGE REFERENCE UNITS LAB L100.1300 12.0-15.0 g/dl Low HGB 7.3 LAB L100.1400 37-47 % Low HCT 22.3 Performed By: #### L100.0600 #### [facility] [place], [address] M R STAPH AUREUS Collected: 11/06/2017 Status: F Source: SEDALIA DNA BY PCR 4:40 PM [facility] REPOSITORY TYPE CODE TESTS RESULT OUT OF RANGE REFERENCE UNITS LAB L8200.1100 Negative Normal MRSA Negative RESULT Performed By: #### L8200.1000 #### [facility] [place], [address] Observed: 11/06/2017 Status: F Source: SEDALIA LEGIONELLA ANTIGEN 4:30 PM [facility] URINE REPOSITORY Specimen Source: URINE, CATHETER Legionella, UR Legionella Antigen result interpretation: Negative Presumptive negative for Legionella pneumophila serogroup 1 antigen in urine, suggesting no recent or current infection. Legionella Ag, Urine Negative (See interpretation below) Performed By: #### M300.4500 #### [facility] [address] [place] [address]. [place], [address] STREP Observed: 11/06/2017 Status: F Source: SEDALIA PNEUMONIAE ANTIG(UR,CSF) 4:30 PM [facility] REPOSITORY S pneumo Ag URINE INTERPRETATION Negative Urine Presumptive negative for pneumococcal pneumonia, suggesting no current or recent pneumococcal infection. Infection due to S pneumoniae cannot be ruled out since the antigen present in the sample may be below the detection limit of the test. Strep pneumo Test Negative URINE (See interpretation below) Performed By: #### M300.4600 #### [facility] [place], [place], [address] URINALYSIS, COMPLETE Collected: 11/06/2017 Status: F Source: AVNI 4:30 PM [facility] REPOSITORY Order Comment: How was Urine Obtained? CATHETER SPECIMEN TYPE CODE TESTS RESULT OUT OF RANGE REFERENCE UNITS LAB L400.3000 Yellow COLOR Normal Yellow LAB L400.3050 Clear Normal CLARITY Clear LAB L400.3200 Normal mg/dl Normal GLUCOSE, UR Normal LAB L400.3300 Negative mg/dL Normal BILIRUBIN URINE Negative LAB L400.3400 Negative mg/dl Normal KETONE UR Negative LAB L400.3465 1.002-1.030 Normal SP.GR. DIPSTX 1.010 LAB L400.3550 5.0 - 8.0 pH UR Normal 6.0 LAB L400.3600 Negative mg/dl PROT Normal DIPSTX Negative LAB L400.3700 Normal mg/dl Normal UROBILI Normal LAB L400.3750 Negative Normal NITRITE UR Negative LAB L400.3780 Negative /ul Normal OCCULT BLOOD-UR Negative LAB L400.3800 Negative /ul High LEUK 25 ESTERASE LAB L400.4050 0-5 /hpf WBC Normal 0-5 SEEN LAB L400.4100 0-5 /hpf 0 Normal RBC-UA SEEN LAB L400.4150 5-10 /hpf SQUAM 0 Normal EPI SEEN LAB L400.4300 None Seen /hpf 0 Normal BACTERIA SEEN LAB L400.4350 <or=2+ /hpf 0 Normal MUCUS, URINE SEEN Performed By: #### L400.0001 #### [facility] [address] [place], [place], [address] Observed: 11/06/2017 Status: F Source: AVNI CULTURE, URINE 4:30 PM [facility] REPOSITORY Urine Culture [place] Count 1300 cfu/mL ORGANISM 1: Gabi albicans [place] Count 1000-10,000 Performed By: #### M100.0650 #### [facility] [address] [facility] [place], [place], [address] CBC W/DIFF, AUTOMATED Collected: 11/06/2017 Status: C Source: AVNI 12:03 PM [facility] REPOSITORY TYPE CODE TESTS RESULT OUT OF RANGE REFERENCE UNITS LAB L100.1000 4.4-11.0 K/mm3 High WBC 14.5 LAB L100.1200 4.2-5.4 M/mm3 Low RBC 2.54 LAB L100.1300 12.0-15.0 g/dl Low HGB 7.5 LAB L100.1400 37-47 % Low HCT 22.4 LAB L100.1500 81-99 fL Normal MCV 88.2 LAB L100.1600 27.0-32.0 pg Normal MCH 29.5 LAB L100.1700 32-36 g/gl Normal MCHC 33.5 LAB L100.1810 11.6-14.6 % High RDW CV 16.3 LAB L100.1820 35.1-43.9 fl High RDW SD 51.4 LAB L100.1900 150-450 K/mm3 Normal PLT 235 LAB L100.2000 6.2-12.0 fl Normal MPV 9.8 LAB L100.2100 47-70 % High NEUT% 77.7 LAB L100.2200 19-41 % Low LY% 5.3 LAB L100.2300 0-10 % High MONO% 15.6 LAB L100.2400 0-5 % Normal EO% 0.8 LAB L100.2500 0-1 % Normal BASO% 0.0 LAB L100.2550 0.0-0.9 % Normal IM GRAN % 0.600 Result Comment: IG% - Immature Granulocytes (promyelocytes, myelocytes and metamyelocytes) > 1% indicates that a LEFT SHIFT is Present. LAB L100.2620 2.0-7.7 X10 3/uL High Absolute Neut 11.3 LAB L100.2720 0.83-4.51 X10 3/ul Low Absolute Lymph 0.76 LAB L100.9900 Normal PATH REV Reviewed Result Comment: Neutrophilic leukocytosis. Normocytic anemia. Clinical correlation necessary. Richi Hess M.D. 11/07/17 AMENDED REPORT 11/07/17 1359 PATH REV previously reported as: June awa Performed By: #### L100.0100 #### [facility] [address] [place], [address] LIVER PROFILE Collected: 11/06/2017 Status: F Source: AVNI 12:03 PM [facility] REPOSITORY Order Comment: Comments: ADD ON TYPE CODE TESTS RESULT OUT OF RANGE REFERENCE UNITS LAB L501.1500 6.4-8.2 g/dL Low T PROT 5.3 LAB L501.1800 3.2-5.0 g/dL Low ALB 2.4 LAB L501.1950 2.2-4.2 g/dL Normal GLOB 2.9 LAB L501.4100 15-37 U/L Normal AST 27 LAB L501.4305 45-117 U/L Normal ALK P 65 LAB L501.4405 13-56 U/L Normal ALT 21 LAB L501.4600 0.20-1.00 mg/dL Normal T BILI 0.60 LAB L501.4700 0.00-0.30 mg/dL Normal D BILI 0.16 Performed By: #### L500.3400, L500.4050 #### [facility] [address] [place], [address] COMPREHENSIVE METABOLIC Collected: 11/06/2017 Status: F Source: [facility] 12:03 PM [facility] REPOSITORY Order Comment: Comments: ADD ON TYPE CODE TESTS RESULT OUT OF RANGE REFERENCE UNITS LAB L501.0100 74-106 mg/dL High GLU 116 Result Comment: Fasting Glucose result from 100 to 125 mg/dL suggests IMPAIRED HOMEOSTASIS per A.D.A. criteria. Please note revised GLUCOSE reference range effective 2017. LAB L501.1000 7-18 mg/dL High BUN 20 LAB L501.1100 0.55-1.02 mg/dL Low CREAT,SERUM 0.38 Result Comment: The validity of the calculated GFR AND GFRAA in patients over 70 years has not been determined. Clinical correlation is essential. LAB L501.1110 >60 mL/min Normal EST GFR 173 Result Comment: Non- GFR Calc LAB L501.1115 >60 mL/min Normal EST GFR - AA 210 Result Comment: GFR Calc LAB L501.1255 ml/min Normal Estimated CRCL 39.70 LAB L501.1300 10-20 RATIO High BUN/CRE 52.9 LAB L501.2000 0.9-2. RATIO Low 4 A/G 0.8 LAB L501.2200 8.5-10 mg/dL Low .1 CA 7.7 LAB L501.5300 136-14 mmol/L Low 5 NA 132 LAB L501.5600 3.5-5. mmol/L Normal 1 K 4.1 LAB L501.5900 98-107 mmol/L Low CL 96 LAB L501.6100 21.0-3 mmol/L Normal 2.0 CO2 28.0 LAB L501.6200 5-15 Normal GAP 8 Performed By: #### L500.3400, L500.4050 #### [facility] [address] [place], [address] CHEST 1 VIEW Observed: 11/06/2017 Status: F Source: SEDALIA (PORTABLE) 10:48 AM [facility] REPOSITORY [facility] Imaging Services [address] [place] [address] Chest 1 View (Portable) MR#: [id number] Acct: [id number] Name: JONELLE BARRAZA Rep #: [id number] : 1935 F 81 From: Latosha Castaneda MD PCP: Arnoldo HYATT,Sunday Barbosa Status: ADM IN Study: Chest 1 View (Portable) Date of Exam: 11/06/17 Exam# [id number] Ordering Dr: Elieser Nicholson MD STUDY: X-RAY CHEST REASON FOR EXAM: Female, 81 years old. Shortness of breath TECHNIQUE: Portable semierect chest COMPARISON: 07/20/2017. FINDINGS: Marked elevation of the right hemidiaphragm. Obscuring detail of the right lung base. Visualized portions of the lungs are clear. Left lung clear. No significant cardiomegaly. Unremarkable mediastinal silhouette. Moderate aortic arch and descending thoracic aorta atherosclerotic calcifications. No pneumothorax. Stool and gas-filled large bowel is interposed between the diaphragm and the liver. Consistent with Chilaiditi Syndrome. Cholecystectomy. RAD/Chest 1 View (Portable) IMPRESSION: No definitive acute cardiopulmonary process. Elevated right hemidiaphragm obscures the right lung base. Somewhat prominent stool burden of large bowel. Correlate for constipation. Electronically Signed: Latosha Castaneda, at 15:19 EDT Tel , Service support , CC: Elieser Nicholson MD; Sunday Gutiérrez MD Chrome Worker: Signed CBC-COMPLETE BLOOD CNT Collected: 11/05/2017 Status: F Source: AVNI NO DIFF 6:30 AM [facility] REPOSITORY TYPE CODE TESTS RESULT OUT OF RANGE REFERENCE UNITS LAB L100.1000 4.4-11.0 K/mm3 High WBC 12.6 LAB L100.1200 4.2-5.4 M/mm3 Low RBC 2.61 LAB L100.1300 12.0-15.0 g/dl Low HGB 7.6 LAB L100.1400 37-47 % Low HCT 22.8 LAB L100.1500 81-99 fL Normal MCV 87.4 LAB L100.1600 27.0-32.0 pg Normal MCH 29.1 LAB L100.1700 32-36 g/gl Normal MCHC 33.3 LAB L100.1810 11.6-14.6 % High RDW CV 16.2 LAB L100.1820 35.1-43.9 fl High RDW SD 51.0 LAB L100.1900 150-450 K/mm3 Normal PLT 234 LAB L100.2000 6.2-12.0 fl Normal MPV 9.9 Performed By: #### L100.0500 #### [facility] [address] [place], [place] [address]debbie. [place], [address] BASIC METABOLIC Collected: 11/05/2017 Status: F Source: AVNI PROFILE (BMP) 6:30 AM [facility] REPOSITORY TYPE CODE TESTS RESULT OUT OF RANGE REFERENCE UNITS LAB L501.0100 74-106 mg/dL Normal GLU 92 Result Comment: Please note revised GLUCOSE reference range effective 2017. LAB L501.1000 7-18 mg/dL High BUN 28 LAB L501.1100 0.55-1.02 mg/dL Low CREAT,SERUM 0.42 Result Comment: The validity of the calculated GFR AND GFRAA in patients over 70 years has not been determined. Clinical correlation is essential. LAB L501.1110 >60 mL/min Normal EST GFR 154 Result Comment: Non- GFR Calc LAB L501.1115 >60 mL/min Normal EST GFR - AA 187 Result Comment: GFR Calc LAB L501.1255 ml/min Normal Estimated CRCL 39.70 LAB L501.1300 10-20 RATIO High BUN/CRE 67.0 LAB L501.2200 8.5-10 mg/dL Low .1 CA 7.5 LAB L501.5300 136-14 mmol/L Low 5 NA 132 LAB L501.5600 3.5-5. mmol/L Normal 1 K 4.3 LAB L501.5900 98-107 mmol/L Normal CL 98 LAB L501.6100 21.0-3 mmol/L Normal 2.0 CO2 26.0 LAB L501.6200 5-15 Normal GAP 8 Performed By: #### L500.2500 #### [facility] [address] [facility] [place], [address] CONSULTATION Observed: 11/04/2017 Status: F Source: SEDALIA 12:06 PM [facility] REPOSITORY [facility] Medical Records Department [address] [place] [address] Consultation 11/04/17 1155 MR#: [id number] Acct: [id number] Name: JONELLE BARRAZA Rep #: [id number] : 1935 81 From: Martin Hunt DO PCP: Arnoldo HYATT,Sunday Barbosa Status: ADM ROBYN Y Location: [place] [address] 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; EGD 09/2012 - mild gastritis, grade 2 esophageal varices (liver biopsy no cirrhosis) History of Clostridium difficile infection (Chronic) Depression (Chronic) Anxiety (Chronic) Hypokalemia (Chronic) OAB (overactive bladder) (Chronic) GERD (gastroesophageal reflux disease) (Chronic) Constipation (Chronic) Diarrhea (Chronic) Edema (Chronic) Debility (Chronic) IBS (irritable bowel syndrome) (Chronic) Knee pain (Chronic) Generalized osteoarthritis (Chronic) GI bleed (Chronic) Esophageal varices (Chronic) Hypertension (Chronic) Allergies belladonna alkaloids [Belladonna Alkaloids] Allergy (Verified 11/04/17 00:31) Unknown celecoxib [From Celebrex] Adverse Reaction (Verified 11/04/17 00:31) Diarrhea Home Medications: Ambulatory Orders Medication Instructions Recorded Surgical History: appendectomy, cataract, cholecystectomy, herniorrhaphy, hysterectomy, total knee arthroplasty - Bilateral. 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 Lives: With Family Smoking Status: Never smoker Alcohol: None - *Family History Maternal History Items: No pertinent history Review of Systems Musculoskeletal: Reports: Joint stiffness, Leg Pain Neurological: Reports: Numbness - denies Patient Problems: Active and Suspected Problems Hyperkalemia (Acute) Hypocalcemia (Acute) - Physical Exam General: Alert, Oriented x3, Cooperative Extremities: Edema - 2-3+chronic b/l LE, Tenderness - Left femur and right tibia, R>L Psych/Mental Status: Normal Affect, Appropriate Vital Signs Temp Pulse Resp BP Pulse Ox 98.3 F 78 12 118/57 L 96 11/04/17 08:06 11/04/17 08:06 11/04/17 08:06 11/04/17 08:06 11/04/17 08:06 Oxygen Delivery Method Room Air Weight: 129 lb 10.109 oz Body Mass Index (BMI) 21.5 Intake and Output for Last 24 Hours Intake Total 300 / 300 Balance 300 / 300 Assessment/Plan All Active Problems Hyperkalemia (Acute) Hypocalcemia (Acute) Cellulitis of right lower extremity (Resolved) Abdominal pain (Resolved) Incarcerated left inguinal hernia (Resolved) Left periprosthetic femur fracture Right periprosthetic tibia fracture 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 No operative intervention for either fracture at this time. NWB b/l LE Follow up in office 1 week post discharge for new xrays of b/l knees. DVT prophylaxis would be appropriate per hospitalist. 11/04/17 1206 <Electronically signed by Martin Hunt DO> Date Martin Skelton Signature (if applicable): Date CC: KAILA Mo; Shamika Story DO; Sunday Gutiérrez MD Signed HISTORY AND PHYSICAL Observed: 11/04/2017 Status: F Source: SEDALIA EXAM 8:25 AM [facility] REPOSITORY [facility] Medical Records Department [address] [place] [address] History and Physical 11/04/17 0256 MR#: [id number] Acct: [id number] Name: JONELLE BARRAZA Rep #: [id number] : 1935 81 From: Bart Steiner MD PCP: Arnoldo HYATT,Sunday Barbosa Status: ADM ROBYN Y Location: AR3 [id number] ADDENDUM by Bart Steiner MD on 11/04/17 at 0825 Code Visit Neutrophilic leukocytosis; unclear etiology; likely reactive; trend CBC. 11/04/17 0825 <Electronically signed by Bart Steiner MD> Date Bart Steiner MD cc: Bart Steiner MD; Sunday Gutiérrez MD * Signed Problem List (1) HTN (hypertension), benign Status: Chronic (2) Depression Status: Chronic (3) Anxiety Status: Chronic (4) Hypertension Status: Chronic (5) Hyperkalemia Status: Acute (6) Hypocalcemia Status: Acute (7) Abdominal pain Status: Resolved (8) Cellulitis of right lower extremity Status: Resolved (9) Incarcerated left inguinal hernia Status: Resolved History of Present Illness Date of Admission: 11/04/17 Chief Complaint: Fall The patient is a 81 year old F with a significant history of hypertension, depression, anxiety; bilateral knee; replacements and wheelchair-bound who presents with a fall. Patient was being wheeled by family and she slipped out of her wheelchair landing on her knees. She complained of bilateral knee pain of 10 out of 10. 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; EGD 09/2012 - mild gastritis, grade 2 esophageal varices (liver biopsy no cirrhosis) History of Clostridium difficile infection (Chronic) Depression (Chronic) Anxiety (Chronic) Hypokalemia (Chronic) OAB (overactive bladder) (Chronic) GERD (gastroesophageal reflux disease) (Chronic) Constipation (Chronic) Diarrhea (Chronic) Edema (Chronic) Debility (Chronic) IBS (irritable bowel syndrome) (Chronic) Knee pain (Chronic) Generalized osteoarthritis (Chronic) GI bleed (Chronic) Esophageal varices (Chronic) Hypertension (Chronic) Allergies belladonna alkaloids [Belladonna Alkaloids] Allergy (Verified 11/04/17 00:31) Unknown celecoxib [From Celebrex] Adverse Reaction (Verified 11/04/17 00:31) Diarrhea Home Medications: Ambulatory Orders Medication Instructions Recorded Surgical History: appendectomy, cataract, cholecystectomy, herniorrhaphy, hysterectomy, total knee arthroplasty - Bilateral. 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 Skin: Denies: Rash, Wounds Neurological: Denies: Numbness, Tingling, Focal weakness Psychiatric: Denies: Anxiety, Depression, Homicidal Ideations, Suicidal Ideations Hematologic/ Lymphatic: Denies: Easy Bruising, Easy Bleeding VTE Information - Inpt Only VTE Present on Admission: No VTE Mechan Device Prophylaxis: None VTE Pharm Prophylaxis ordered?: Yes Patient Problems: Active and Suspected Problems Hyperkalemia (Acute) Hypocalcemia (Acute) - Physical Exam General: Alert, Oriented x3, Cooperative HEENT: Atraumatic, PERRLA, EOMI, Normocephalic Neck: Supple, No JVD, Negative Carotid Bruits Lungs: Clear to auscultation, Normal air movement Cardiovascular: Normal S1, Normal S2, Tachycardic Abdomen: Bowel Sounds Present, Soft, Non Tender Extremities: Tenderness - Bilateral sosa proximal to knee. Skin: No rashes, No breakdown, - - Ecchymosis of right sosa proximal to the knee. Musculoskeletal: - - Deformed bilateral legs. Neurological: Cranial nerves II-XII grossly intact Psych/Mental Status: Normal Affect, Appropriate Vital Signs Temp Pulse Resp BP Pulse Ox 98.7 F 108 H 18 150/90 H 94 11/04/17 00:27 11/04/17 00:27 11/04/17 00:27 11/04/17 00:27 11/04/17 00:27 Oxygen Delivery Method Room Air Weight: 66.3 kg Body Mass Index (BMI) 28.5 Assessment/Plan All Active Problems Hyperkalemia (Acute) Hypocalcemia (Acute) Cellulitis of right lower extremity (Resolved) Abdominal pain (Resolved) Incarcerated left inguinal hernia (Resolved) The patient is a 81 year old F with a significant history of hypertension, depression, anxiety; bilateral knee; replacements and wheelchair-bound who slipped out of her wheelchair; complaining of excruciating pain; and with radiographic findings of acute oblique proximal tibia fracture; and nondisplaced distal femur fracture. Fall with acute oblique proximal tibia fracture; and nondisplaced distal femur fracture Home hydrocodone-acetaminophen as needed continued Morphine as needed ordered. Orthopedic consult. Hyperkalemia Potassium on admission was 5.4 Home potassium held Home Lasix continued Trend BMP Hypocalcemia Calcium on admit was 7.9 We will check albumin level. Anxiety Ativan continued GERD Pepcid continue DVT prophylaxis with subcutaneous heparin. Code Visit OBSV E AND M: 10039 Initial observation care L3 11/04/17812 <Electronically signed by Bart Steiner MD> Date Bart Steiner MD Cosigner Signature: Date (if applicable) CC: Bart Steiner MD; Sunday Gutiérrez MD Signed CBC W/DIFF, AUTOMATED Collected: 11/04/2017 Status: F Source: AVNI 2:58 AM [facility] REPOSITORY TYPE CODE TESTS RESULT OUT OF RANGE REFERENCE UNITS LAB L100.1000 4.4-11.0 K/mm3 High WBC 13.9 LAB L100.1200 4.2-5.4 M/mm3 Low RBC 2.94 LAB L100.1300 12.0-15.0 g/dl Low HGB 8.8 LAB L100.1400 37-47 % Low HCT 25.8 LAB L100.1500 81-99 fL Normal MCV 87.8 LAB L100.1600 27.0-32.0 pg Normal MCH 29.9 LAB L100.1700 32-36 g/gl Normal MCHC 34.1 LAB L100.1810 11.6-14.6 % High RDW CV 15.8 LAB L100.1820 35.1-43.9 fl High RDW SD 49.0 LAB L100.1900 150-450 K/mm3 Normal PLT 298 LAB L100.2000 6.2-12.0 fl Normal MPV 10.6 LAB L100.2100 47-70 % High NEUT% 77.1 LAB L100.2200 19-41 % Low LY% 5.6 LAB L100.2300 0-10 % High MONO% 16.0 LAB L100.2400 0-5 % Normal EO% 0.1 LAB L100.2500 0-1 % Normal BASO% 0.1 LAB L100.2550 0.0-0.9 % High IM GRAN % 1.100 Result Comment: IG% - Immature Granulocytes (promyelocytes, myelocytes and metamyelocytes) > 1% indicates that a LEFT SHIFT is Present. LAB L100.2620 2.0-7.7 X10 3/uL High Absolute Neut 10.7 LAB L100.2720 0.83-4.51 X10 3/ul Low Absolute Lymph 0.77 LAB L100.4500 Normal SMEAR COMMENT SCANNED Result Comment: MONOCYTOSIS NOTED Performed By: #### L100.0100 #### [facility] [address] [place], [place], [address] BASIC METABOLIC Collected: 11/04/2017 Status: F Source: AVNI PROFILE (BMP) 2:58 AM [facility] REPOSITORY TYPE CODE TESTS RESULT OUT OF RANGE REFERENCE UNITS LAB L501.0100 74-106 mg/dL Normal GLU 102 Result Comment: Fasting Glucose result from 100 to 125 mg/dL suggests IMPAIRED HOMEOSTASIS per A.D.A. criteria. Please note revised GLUCOSE reference range effective 2017. LAB L501.1000 7-18 mg/dL High BUN 34 LAB L501.1100 0.55-1.02 mg/dL Normal CREAT,SERUM 0.62 Result Comment: The validity of the calculated GFR AND GFRAA in patients over 70 years has not been determined. Clinical correlation is essential. LAB L501.1110 >60 mL/min Normal EST GFR 99 Result Comment: Non- GFR Calc LAB L501.1115 >60 mL/min Normal EST GFR - AA 120 Result Comment: GFR Calc LAB L501.1255 ml/min Normal Estimated CRCL 31.69 LAB L501.1300 10-20 RATIO High BUN/CRE 55.3 LAB L501.2200 8.5-10 mg/dL Low .1 CA 7.9 LAB L501.5300 136-14 mmol/L Low 5 NA 135 LAB L501.5600 3.5-5. mmol/L High 1 K 5.4 LAB L501.5900 98-107 mmol/L Normal CL 101 LAB L501.6100 21.0-3 mmol/L Normal 2.0 CO2 27.0 LAB L501.6200 5-15 Normal GAP 7 Performed By: #### L500.2500 #### [facility] [address] [place], [place], [address] ALBUMIN, SERUM Collected: 11/04/2017 Status: F Source: AVNI 2:58 AM [facility] REPOSITORY TYPE CODE TESTS RESULT OUT OF RANGE REFERENCE UNITS LAB L501.1800 3.2-5.0 g/dL Low ALB 2.9 Performed By: #### L501.1800 #### [facility] [address] [place], [address] EMERGENCY DEPARTMENT Observed: 11/04/2017 Status: F Source: SEDALIA SUMMARY 2:56 AM [facility] REPOSITORY [facility] Medical Records Department [address] [place] [address] Emergency Department Summary 11/04/17 0254 MR#: [id number] Acct: [id number] Name: JONELLE BARRAZA Rep #: [id number] : 1935 81 From: Shamika Story DO PCP: Arnoldo HYATT,Sunday Chi Status: REG ER - ER Visit Summary Date of Service: 11/04/17 Chief Complaint: [Fall and injury to both knees] History of Present Illness: The patient is a 81 F [presents the emergency department after sustaining a fall from her wheelchair this evening. Patient's family member was pushing her in the wheelchair when she slipped out and fell onto both knees. Patient denies striking her head. She had no loss of consciousness. Patient is normally wheelchair-bound and unable to extend her legs at the knees. Patient denies any neck pain. She denies chest pain. She denies abdominal pain. Patient denies back pain.] Physical Examination: [HEENT-PERRLA, EOMI. Cranial nerves II through XII grossly intact. TMs clear. Mucous membranes moist. No adenopathy. No C-spine tenderness on palpation. No external evidence of trauma to her head. Cardiovascular-regular rate and rhythm without murmur or ectopy Lungs-clear to auscultation, chest wall stable without crepitus or subcu emphysema Abdomen-normoactive bowel sounds, soft, nontender, no rebound or rigidity, no peritoneal signs. Extremities-intact 4, normal range of motion, normal pulses. Right knee-patient has tenderness diffusely about the right knee with some ecchymosis and bruising noted. Patient has some mild soft tissue swelling. Patient has tenderness over the proximal tibia. She has normal range of motion at the knee. Left knee-patient has diffuse tenderness with soft tissue swelling noted. Patient has some faint ecchymosis noted. She is nervously intact distally. Again patient unable to move the knees. Test Results: [X-ray of the right knee showed a fracture of the proximal tibia. X-rays of the left knee showed a fracture of the distal femur. Pelvis x- rays were unremarkable.] Emergency Department Course and Treatment: [Patient on arrival was medicated with morphine 4 mg IM and Zofran 4 mg IM] Treatment Plan: [Admit for pain control and orthopedic evaluation.] Disposition: [Admit] Impression: [Right proximal tibia fracture Left distal femur fracture Fall] This note was generated with Teburu dictation software. It may contain incorrect words, spelling, and punctuation that were not noted in review of the chart prior to signing ED Disposition - Plan for ED Patient: Chief Complaint: Fall Referrals: Sunday Gutiérrez Chi, MD [Primary Care Provider] - What to do if you have Problems For any increased pain, shortness of breath, bleeding, nausea or vomiting, chest pain, or any unexpected problems, contact your Primary Care Provider. Call [facility] ([phone]) or report to the closest Emergency Room. Call 911 if necessary. 11/04/17 0256 <Electronically signed by Shamika Story DO> Date Shamika Story DO Cosigner Signature (If Indicated): Date CC: Sunday Gutiérrez MD KNEE 3 VIEWS Observed: 11/04/2017 Status: F Source: SEDALIA 12:57 AM [facility] REPOSITORY [facility] Imaging Services [address] [place] [address] Knee 3 Views MR#: [id number] Acct: [id number] Name: CHRISTIJONELLE Nasir Rep #: [id number] : 1935 F 81 From: Rk Rivas MD PCP: Sunday Gutiérrez MD, Chi Status: REG ER Study: Knee 3 Views Date of Exam: 11/04/17 Exam# [id number] Ordering Dr: Shamika Story DO STUDY: X-RAY - LEFT KNEE REASON FOR EXAM: Female, 81 years old. Swelling and bruising from fall TECHNIQUE: 3 view(s) of the knee. COMPARISON: None. FINDINGS: Age-indeterminate patella janett is noted. Total knee arthroplasty with normal alignment. Nondisplaced fracture of the distal femur is noted at the level of the metaphysis just above the prosthesis. Arterial calcifications. RAD/Knee 3 Views IMPRESSION: Nondisplaced distal femur fracture. Age-indeterminate patella janett. Electronically Signed: Rk Rivas MD at 2:34 EDT Tel , Service support , CC: Shamika Story DO; Sunday Gutiérrez MD Chrome Worker: Signed PELVIS 1 OR 2 VIEWS Observed: 11/04/2017 Status: F Source: SEDALIA 12:54 AM [facility] REPOSITORY [facility] Imaging Services [address] [place] [address] Pelvis 1 or 2 Views MR#: [id number] Acct: [id number] Name: JONELLE BARRAZA Rep #: [id number] : 1935 F 81 From: Toni Cabrera MD PCP: Sunday Gutiérrez MD, Chi Status: REG ER Study: Pelvis 1 or 2 Views Date of Exam: 11/04/17 Exam# [id number] Ordering Dr: Shamika Story DO STUDY: X-RAY - PELVIS REASON FOR EXAM: Female, 81 years old. Trauma TECHNIQUE: One view of the pelvis was obtained. COMPARISON: None. FINDINGS: Osteopenia. Overlying artifact somewhat limits evaluation. There is no displaced fracture or dislocation identified. Vascular calcifications are seen. Evaluation the sacrum is also limited by gas and stool. RAD/Pelvis 1 or 2 Views IMPRESSION: Limited evaluation by overlying artifact. There is no displaced fracture or dislocation identified. If there is continuing clinical concern consider removal of the artifact and repeat radiograph. Alternatively CT scan can be performed to further evaluate. Electronically Signed: Toni Cabrera, at 2:26 EDT Tel , Service support , CC: Shamika Story DO; Sunday Gutiérrez MD Chrome Worker: Signed KNEE 3 VIEWS Observed: 11/04/2017 Status: F Source: SEDALIA 12:54 AM [facility] REPOSITORY [facility] Imaging Services [address] [place] [address] [place] [address] Knee 3 Views MR#: [id number] Acct: [id number] Name: JONELLE BARRAZA Rep #: [id number] : 1935 F 81 From: Rk Rivas MD PCP: Sunday Gutiérrez MD, Chi Status: REG ER Study: Knee 3 Views Date of Exam: 11/04/17 Exam# [id number] Ordering Dr: Shamika Story DO STUDY: X-RAY - RIGHT KNEE REASON FOR EXAM: Female, 81 years old. Swelling and bruising from fall TECHNIQUE: 3 view(s) of the knee. COMPARISON: 10/16/2014 FINDINGS: Stable chronic patella janett. Stable total knee arthroplasty. Diffuse demineralization. Soft tissue calcifications. An acute oblique fracture of the proximal tibia is noted located below the prosthesis laterally and extending obliquely above the prosthesis stem medially. RAD/Knee 3 Views IMPRESSION: Acute oblique fracture of the proximal tibia as described. Electronically Signed: Rk Rivas MD at 2:40 EDT Tel , Service support , CC: Shamika Story DO; Sunday Gutiérrez MD Chrome Worker: Signed Observed: 10/26/2017 Status: F Source: AVNI CULTURE, URINE 2:09 PM [facility] REPOSITORY Urine Culture ORGANISM 1: Mixed Gram Pos AND Gram Neg Org [place] Count 80,000-100,000 MIX CULTURE Mixed contaminants. Submit a new specimen if indicated. Performed By: #### M100.0650 #### [facility] [address] [facility] [place], [address] L/S SPINE W BEND Observed: 10/25/2017 Status: F Source: AVNI MIN 6 VW 2:57 PM [facility] REPOSITORY [facility] Imaging Services [address] [place] [address] L/S Spine w Bend Min 6 Vw MR#: [id number] Acct: [id number] Name: JONELLE BARRAZA Rep #: [id number] : 1935 F 81 From: Latosha Castaneda MD PCP: Sunday Gutiérrez MD, Chi Status: REG CLI Study: L/S Spine w Bend Min 6 Vw Date of Exam: 10/25/17 Exam# [id number] Ordering Dr: Sunday Gutiérrez MD STUDY: X-RAY - LUMBOSACRAL SPINE REASON FOR EXAM: Female, 81 years old. Lower back pain, 2 weeks, right-sided without known injury. TECHNIQUE: 7 view(s) of the lumbosacral spine were obtained. COMPARISON: 02/04/2016. FINDINGS: Prominent osteopenia. Mild levoscoliosis of the lumbar spine. There is mild multilevel facet arthropathy visible in the oblique views of the lumbar spine, more prominent at L4-L5 and L5-S1. There is mild grade 1 anterior listhesis of L4-L5, more prominent grade 2 at L5-S1. Alignment is otherwise normal. There is mild superior endplate compression of L1, without significant wedging, stable compared to prior imaging of 02/04/2016. There is moderately severe disc narrowing at L4-L5, mild to moderate at L5-S1. Extension view, no evidence of abnormal motion. Flexion view, no evidence of abnormal motion. On flexion and extension there is no significant change in the degree of spondylolisthesis of L4-L5 and L5-S1. RAD/L/S Spine w Bend Min 6 Vw IMPRESSION: Lumbar spondylosis and spondylolisthesis as described above, stable compared to prior imaging with no evidence of abnormal motion on flexion and extension views. Electronically Signed: Latosha Castaneda, at 15:36 EDT Tel , Service support , CC: Sunday Gutiérrez MD Chrome Worker: Signed EMERGENCY DEPARTMENT Observed: 09/16/2017 Status: F Source: SEDALIA SUMMARY 12:06 AM [facility] Medical Records Department [address] [place] [address] Emergency Department Summary 09/15/17 1513 MR#: [id number] Acct: [id number] Name: JONELLE BARRAZA Rep #: [id number] : 1935 81 From: Aries Garay MD PCP: Sunday Gutiérrez MD, Chi Status: DEP ER - ER Visit Summary Date of Service: 09/15/17 Chief Complaint: Atraumatic left elbow pain History of Present Illness: The patient is a 81 F hand dominant. Said yesterday morning she noticed pain in her left elbow worse with movement. Denies any redness, fever, chills or swelling. Absolutely no trauma. She is right-hand dominant. She denies ever having any surgery on the entire left upper extremity. She has normal left hand inspector toys strength and sensation. Physical Examination: Well-appearing older female. Vital signs are stable afebrile. No distress. H EENT exam unremarkable. Neck nontender no lymphadenopathy. Lungs clear to auscultation bilaterally. Heart regular rhythm rate about 95. 3/6 systolic ejection murmur. Abdomen is soft and nontender. Normal bowel sounds no peritoneal signs. Extremities she is moving all 4. Neurovascularly intact. She has trace edema both lower extremities. The left elbow is bent at about 45 . She does not do full extension. There is no gross bony deformity. There appears to be some chronic bone changes. There is no significant swelling. No redness or warmth. She has increasing discomfort trying to do full extension but she does not do full extension. The left shoulder is nontender. There is no lymphadenopathy. No deformity. The left forearm wrist and hand are nontender neurovascular intact with 5 out of 5 inspector toys strength. Normal touch sensation. Strong radial pulse. Test Results: X-ray was obtained of the left elbow multiple views which showed some soft tissue swelling and significant degenerative arthrosis consistent with arthritis. Cannot rule out old healed fractures but no obvious acute fracture. That would also go along with her history of trauma. This was read both by myself and radiologist. Emergency Department Course and Treatment: 1 p.o. [facility] here. Treatment Plan: [facility] for pain. Ice to decrease inflammation. And follow-up with orthopedic surgeon. Dr. Samm Decker is on-call today. Disposition: Discharge Impression: Acute left elbow pain secondary to degenerative arthritis This note was generated with Teburu dictation software. It may contain incorrect words, spelling, and punctuation that were not noted in review of the chart prior to signing ED Disposition - Plan for ED Patient: Chief Complaint: Upper Extremity Injury Referrals: Sunday Gutiérrez Chi, MD [Primary Care Provider] - What to do if you have Problems For any increased pain, shortness of breath, bleeding, nausea or vomiting, chest pain, or any unexpected problems, contact your Primary Care Provider. Call [facility] ([phone]) or report to the closest Emergency Room. Call 911 if necessary. 09/16/17 0006 <Electronically signed by Aries Garay MD> Date Aries Garay MD Cosigner Signature (If Indicated): Date CC: Sunday Gutiérrez MD DISCHARGE INSTRUCTION Observed: 09/16/2017 Status: F Source: AVNI 12:06 AM [facility] REPOSITORY [facility] Medical Records Department [address] [place] [address] Discharge Instruction 09/15/17 1622 MR#: [id number] Acct: [id number] Name: JONELLE BARRAZA Rep #: [id number] : 1935 81 From: Aries Garay MD PCP: Sunday Gutiérrez MD, Chi Status: DEP ER ED Disposition - Plan for ED Patient: Disposition: Home or Assisted Living Chief Complaint: Upper Extremity Injury Instructions: ED Degenerative Joint Disease Prescriptions: Hydrocodone/Acetaminophen [[facility] 5-325 Tablet] 1 ea PO Q4H PRN PRN #20 tab PRN Reason: Pain Referrals: Sunday Gutiérrez Chi, MD [Primary Care Provider] - As Needed Samm Decker MD [STAFF PHYSICIAN] - Additional Instructions: Ice 2 left elbow pain and swelling. [facility] for pain. Call and follow-up with the orthopedic surgeon for further evaluation. What to do if you have Problems For any increased pain, shortness of breath, bleeding, nausea or vomiting, chest pain, or any unexpected problems, contact your Primary Care Provider. Call [facility] ([phone]) or report to the closest Emergency Room. Call 911 if necessary. 09/16/17 0006 <Electronically signed by Aries Garay MD> Date Aries Garay MD Cosigner Signature (If Indicated): Date CC: Sunday Gutiérrez MD ELBOW MIN 3 VIEWS Observed: 09/15/2017 Status: F Source: [place] 3:13 PM [facility] REPOSITORY [facility] Imaging Services [address] [place] [address] Elbow min 3 Views MR#: [id number] Acct: [id number] Name: CHRISTIJONELLE L Rep #: [id number] : 1935 F 81 From: Melecio Solitario MD PCP: Sunday Gutiérrez MD, Chi Status: REG ER Study: Elbow min 3 Views Date of Exam: 09/15/17 Exam# [id number] Ordering Dr: Aries Garay MD STUDY: X-RAY - LEFT ELBOW REASON FOR EXAM: Female, 81 years old. Pain swelling TECHNIQUE: For view(s) of the elbow. COMPARISON: None. FINDINGS: The bones are diffusely demineralized, contour abnormality is noted in the distal humerus and proximal radius and ulna consistent with old healed fractures. There is degenerative arthrosis. No demonstrated acute fracture but there is diffuse soft tissue swelling and a subtle occult fracture cannot be excluded. If fracture is a strong clinical concern, recommend further evaluation with cross-sectional imaging. RAD/Elbow min 3 Views IMPRESSION: Diffuse osteopenia with contour abnormality suggesting old healed fractures of the distal humerus in both the proximal radius and ulna. Degenerative arthrosis, no demonstrated fracture but there is soft tissue swelling if acute fracture is a strong clinical suspicion, recommend further evaluation with cross-sectional imaging Electronically Signed: Vladimir Solitario MD at 16:09 EDT , Service support , CC: Aries Garay MD; Sunday Gutiérrez MD Chrome Worker: Signed Observed: 07/20/2017 Status: F Source: [place] RESPIRATORY PANEL 3:15 PM [facility] MOLECULAR REPOSITORY RP PANEL ADENOVIRUS Not Detected HUMAN METAPHNEUMO Not Detected INFLUENZA A Not Detected INFLUENZA A (SUBTYPE H1) Not Detected INFLUENZA A (SUBTYPE H3) Not Detected INFLUENZA B Not Detected PARAINFLUENZA 1 Not Detected PARAINFLUENZA 2 Not Detected PARAINFLUENZA 3 Not Detected PARAINFLUENZA 4 Not Detected RHINOVIRUS Not Detected RSV A Not Detected RSV B Not Detected NAAT METHOD Testing was performed using nucleic acid amplification Performed By: #### M100.638 #### [facility] [address] [place], [address] CHEST PA AND LATERAL Observed: 07/20/2017 Status: F Source: SEDALIA 2:55 PM [facility] REPOSITORY [facility] Imaging Services [address] [place] [address] Chest PA and Lateral MR#: [id number] Acct: [id number] Name: JONELLE BARRAZA Rep #: [id number] : 1935 F 81 From: Latosha Castaneda MD PCP: Arnoldo HYATT,Sunday Barbosa Status: REG CLI Study: Chest PA and Lateral Date of Exam: 07/20/17 Exam# [id number] Ordering Dr: Sunday Gutiérrez MD STUDY: X-RAY CHEST REASON FOR EXAM: Female, 81 years old. Productive cough, bronchitis. TECHNIQUE: PA and lateral chest COMPARISON: 01/13/2017 FINDINGS: Cholecystectomy. There is chronic prominent elevation of the right hemidiaphragm, bowel interposed between the hemidiaphragm and the superior surface of the liver (Chilaiditi sign). Stable compared to prior imaging of 2017. The right lung appears to be otherwise clear. The right lung base is obscured. On the left very mild hazy interstitial opacities in the lung without dense focal infiltrate or consolidation and without effusion or pneumothorax. These features may be chronic. They may also reflect mild pneumonitis. There is no significant cardiomegaly. Mildly ectatic aortic arch with mild atherosclerosis and tortuous descending thoracic aorta. Normal arlene and pleural margins. No acute osseous or upper abdominal process. RAD/Chest PA and Lateral IMPRESSION: Minimal hazy interstitial opacities of the left lung, probably chronic. Mild pneumonitis may be present. No dense focal pneumonia. Electronically Signed: Latosha Castaneda, at 16:46 EDT Tel , Service support , CC: Sunday Gutiérrez MD Chrome Worker: Signed CBC W/DIFF, AUTOMATED Collected: 06/23/2017 Status: F Source: [place] 3:16 PM [facility] REPOSITORY TYPE CODE TESTS RESULT OUT OF RANGE REFERENCE UNITS LAB L100.1000 4.4-11.0 K/mm3 Normal WBC 4.7 LAB L100.1200 4.2-5.4 M/mm3 Low RBC 4.10 LAB L100.1300 12.0-15.0 g/dl Low HGB 11.7 LAB L100.1400 37-47 % Low HCT 35.6 LAB L100.1500 81-99 fL Normal MCV 86.8 LAB L100.1600 27.0-32.0 pg Normal MCH 28.5 LAB L100.1700 32-36 g/gl Normal MCHC 32.9 LAB L100.1810 11.6-14.6 % High RDW CV 16.8 LAB L100.1820 35.1-43.9 fl High RDW SD 52.7 LAB L100.1900 150-450 K/mm3 Normal PLT 269 LAB L100.2000 6.2-12.0 fl Normal MPV 11.1 LAB L100.2100 47-70 % Low NEUT% 40.0 LAB L100.2200 19-41 % Normal LY% 40.7 LAB L100.2300 0-10 % High MONO% 15.7 LAB L100.2400 0-5 % Normal EO% 2.5 LAB L100.2500 0-1 % High BASO% 1.1 LAB L100.2550 0.0-0.9 % Normal IM GRAN % 0.000 Result Comment: IG% - Immature Granulocytes (promyelocytes, myelocytes and metamyelocytes) > 1% indicates that a LEFT SHIFT is Present. LAB L100.2620 2.0-7.7 X10 3/uL Low Absolute Neut 1.9 LAB L100.2720 0.83-4.51 X10 3/ul Normal Absolute Lymph 1.92 Performed By: #### L100.0100 #### [facility] [address] [place], [address] COMPREHENSIVE METABOLIC Collected: 06/23/2017 Status: F Source: [place] PARMAR 3:16 PM [facility] REPOSITORY TYPE CODE TESTS RESULT OUT OF RANGE REFERENCE UNITS LAB L501.0100 74-106 mg/dL Normal GLU 79 Result Comment: Please note revised GLUCOSE reference range effective 2017. LAB L501.1000 7-18 mg/dL Normal BUN 13 LAB L501.1100 0.55-1.02 mg/dL Low CREAT,SERUM 0.53 Result Comment: The validity of the calculated GFR AND GFRAA in patients over 70 years has not been determined. Clinical correlation is essential. LAB L501.1110 >60 mL/min Normal EST GFR 117 Result Comment: Non- GFR Calc LAB L501.1115 >60 mL/min Normal EST GFR - AA 142 Result Comment: GFR Calc LAB L501.1300 10-20 RATIO High BUN/CRE 24.4 LAB L501.1500 6.4-8.2 g/dL T Normal PROT 7.4 LAB L501.1800 3.2-5.0 g/dL Normal ALB 3.4 LAB L501.1950 2.2-4.2 g/dL Normal GLOB 4.0 LAB L501.2000 0.9-2.4 RATIO Low A/G 0.8 LAB L501.2200 8.5-10.1 mg/dL CA Normal 8.8 LAB L501.4100 15-37 U/L Normal AST 22 LAB L501.4305 45-117 U/L Normal ALK P 83 LAB L501.4405 13-56 U/L Normal ALT 17 LAB L501.4600 0.20-1.00 mg/dL T Normal BILI 0.50 LAB L501.5300 136-145 mmol/L NA Normal 138 LAB L501.5600 3.5-5.1 mmol/L K Normal 3.8 LAB L501.5900 98-107 mmol/L CL Normal 101 LAB L501.6100 21.0-32.0 mmol/L Normal CO2 28.0 LAB L501.6200 5-15 Normal GAP 9 Performed By: #### L500.4050, L501.9520 #### [facility] [address] [place], [address] THYROID STIM HORMONE Collected: 06/23/2017 Status: F Source: [place] (TSH) 3:16 PM [facility] REPOSITORY TYPE CODE TESTS RESULT OUT OF RANGE REFERENCE UNITS LAB L501.9520 0.358-3.74 uIU/mL Normal TSH 1.51 Performed By: #### L500.4050, L501.9520 #### [facility] [address] [place], [address] VITAMIN D,25 HYDROXY Collected: 06/23/2017 Status: F Source: [place] 3:16 PM [facility] REPOSITORY TYPE CODE TESTS RESULT OUT OF REFERENCE UNITS RANGE LAB L506.1000 29.95-100.01 ng/mL Low Vitamin D 19.9 25-OH Result Comment: Vitamin D 25(OH) Status Range Deficiency <20 ng/mL (50nmol/L) Insuffciency 20 - 30 ng/mL (50 - 75 nmol/L) Sufficiency 30 - 100 ng/mL (75 - 250 nmol/L) Toxicity >100 ng/mL (>250 nmol/L) Performed By: #### L506.1000 #### [facility] [address] [place], [address] ALLERGIES ALLERGIES DATE TYPE / CODE NAME / CODE REACTION SEVERITY SOURCE 01/03/2018 Drug belladonna Unknown Unknown [place] Allergy/416 alkaloids/U997404 [facility] 536500([facility] 714(RXNONor-[facility] ED CT) Repository 01/03/2018 Drug halobetasol/F0060 Unknown Unknown [place] Allergy/416 75313(RXNORM) Community 366777([facility] ED CT) Repository 01/03/2018 Drug celecoxib/B555449 Diarrhea Unknown [place] Allergy/416 731(RXNORM) [facility] 545392([facility] ED CT) Repository 01/31/2017 DRUG/641227 BELLADONNA UNKNOWN [facility] 003(SNOMED TINCTURE [facility] [place] [facility]) Repository 01/31/2017 DRUG CELECOXIB UNKNOWN [facility] INGREDI/419 [place] 769409([facility] Repository ED CT) ENCOUNTERS ENCOUNTERS ADMIT/DISCHARGE ACCOUNT ADMITTING ENCOUNTER LOCATION SOURCE NUMBER CLASS 03/22/2018 [id number] Ambulatory [facility] ing:[facility] Repository 03/19/2018 [id number] Ambulatory [facility] ing:[facility] Repository 03/10/2018 [id number] Ambulatory [facility] ing:[facility] Repository 01/03/2018/01/07/20 [id number] Bharat, Inpatient Daisy Avnicyn Mon Encounter [facility] ing:YB2Zudn: Repository GU786Kou: 1 01/03/2018 [id number] Bharat, Ambulatory BMSBuilding:Joseline Mno [facility] Repository 01/03/[id number] [facility], Ambulatory BMSBuilding:Joseline Mon [facility] Repository 01/03/[id number] [facility], Ambulatory BMSBuilding:Joseline Mon [facility] Repository 01/03/[id number] [facility], Ambulatory BMSBuilding:Joseline Mon [facility] Repository 12/28/2017/12/29/19 [id number] LUANA, Ambulatory [address] [place] Repository 12/14/2017/12/17/19 [id number] Ambulatory [address] Repository 11/16/2017 [id number] Ambulatory [facility] ing:MEDOUT Repository 11/04/2017/11/10/19 [id number] Agyepon, Inpatient [place] Arriaga [facility] ing:UU3Skmw: Repository HT249Sye: 1 11/04/2017 [id number] Agyepong, Ambulatory BMSBuilding:Joseline Arriaga [facility] Repository 11/04/2017 [id number] Agyepong, Ambulatory BMSBuilding:Joseline Arriaga [facility] Repository 11/04/2017 [id number] Agyepong, Ambulatory BMSBuilding:Joseline Arriaga [facility] Repository 11/04/2017 [id number] Agyepong, Ambulatory BMSBuilding:Joseline Arriaga [facility] Repository 11/04/2017 [id number] Agyepong, Ambulatory BMSBuilding:Joselien Arriaga [facility] Repository 11/04/2017/11/09/19 [id number] Ambulatory BMSBuilding:Waldemar Herrera [facility] Repository 11/04/2017 [id number] Agyepong, Ambulatory BMSBuilding:Joseline Arriaga [facility] Repository 10/26/2017 [id number] Ambulatory [facility] ing:LABSPEC Repository 10/25/2017 [id number] Ambulatory [facility] ing:RAD Repository 09/15/2017/09/16/19 [id number] Emergency [address] ing:ED Repository 07/20/2017 [id number] Ambulatory [facility] ing:RAD Repository 06/23/2017 [id number] [facility] ing:POLAB3 Repository PAYERS PAYERS ENCOUNTER GUARANTOR PAYER SUBSCRIBER SOURCE 03/22/2018 JONELLE L Primary NOT [place]IV[place]UNK [place] Insurance:SELF PAY [address] Number: Effective Repository [place], [place] [address]Mqn: Date:2018-03-22 () 03/19/2018 JONELLE L Primary NOT GIVENUNK [place] Insurance:SELF PAY [address] Number: [place] [address]Ryd: Date:2018-03-19 () 03/10/2018 JONELLE L Primary NOT GIVENUNK [place] Insurance:SELF PAY [address] Number: [place], [place] [address]Czk: Date:2018-03-10 () 01/03/2018 JONELLE L Primary JONELLE L [place] Insurance:DINA YIB: Community [facility] MEDICARE PPOPolicy [id number] Number: [place] [address]Kkf: [id number] (HP) ve Date:7357-82-17JA [address] [place] [address]IK: 01/03/2018 Secondary JONELLE L Daisy Insurance:CARESOURC CORNELIUSDOB: [facility] Number: [id number] Hospital [id number] Repository e Date:2018-01-03 [address]ATTN: [place] [address]HA: 01/03/2018 Tertiary NOT GIVENUNK Daisy Insurance:SELF PAY [facility] Number: Effective Repository Date:2018-01-03 01/03/2018 JONELLE L Primary JONELLE L [place] Insurance:[facility] Community [facility] MEDICARE PPOPolicy [id number] Number: [place] [address]Gcm: [id number] () ve Date:4609-92-49YE [address] [place] [address]XC: 01/03/2018 Secondary JONELLE L Daisy Insurance:CARESOURC CORNELIUSDOB: [facility] Number: [id number] Hospital [id number] Repository e Date:2018-01-03 [address]ATTN: [place] [address]XU: 01/03/2018 Tertiary NOT GIVENUNK [place] Insurance:SELF PAY [facility] Number: Effective Repository Date:2018-01-03 01/03/2018 JONELLE L Primary JONELLE L [place] Insurance:[facility] Community [facility] MEDICARE PPOPolicy [id number] Number: [place] [address]Olo: [id number] (HP) ve Date:2218-19-35[address], [place] [address]UN: 01/03/2018 Secondary JONELLE L [place] Insurance:CARESOURC CORNELIUSDOB: [facility] Number: [id number] Hospital [id number] Repository e Date:2018-01-03 [address]ATTN: [place] [address]HB: 01/03/2018 Tertiary NOT GIVENUNK Daisy Insurance:SELF PAY [facility] Number: Effective Repository Date:2018-01-03 01/03/2018 JONELLE L Primary JONELLE L [place] Insurance:[facility]: Community [facility] MEDICARE PPOPolicy [id number] Number: Repository [place] [address]Jle: [id number] (HP) ve Date:1706-26-18WC [address], [place] [address]AE: 01/03/2018 Secondary JONELLE L [place] Insurance:CARESOURC CORNELIUSDOB: [facility] Number: [id number] Hospital [id number] Repository e Date:2018-01-03 [address]ATTN: [place] [address]RP: 01/03/2018 Tertiary NOT GIVENUNK [place] Insurance:SELF PAY [facility] Number: Effective Repository Date:2018-01-03 01/03/2018 JONELLE L Primary JONELLE L [place] Insurance:[facility]: Community [facility] MEDICARE PPOPolicy [id number] [facility] Number: [place] [address]Kxn: [id number] (HP) ve Date:0643-08-69LJ [address], [place] [address]ZY: 01/03/2018 Secondary JONELLE L [place] Insurance:CARESOURC CORNELIUSDOB: Community EPolicy Number: [id number] Hospital [id number] Repository e Date:2018-01-03P [address]ATTN: [place] [address]DC: 01/03/2018 Tertiary NOT GIVENUNK Daisy Insurance:SELF PAY [facility] Number: Effective Repository Date:2018-01-03 11/16/2017 JONELLE L Primary JONELLE L [place] [id number] [place] Insurance:ANTHEM CORNELIUSDOB: [facility] [place], [place] [address]Efn: MEDICARE [facility] [id number] Hospital () Number: Repository [id number] ve Date:1346-33-61XQ [address] [place] [address]EE: 11/16/2017 Secondary JONELLE L Daisy Insurance:CARESOURC CORNELIUSDOB: [facility] Number: [id number] Hospital [id number] Repository e Date:2017-11-15P [address]ATTN: [place] [address]YL: 11/16/2017 Tertiary NOT GIVENUNK Daisy Insurance:SELF PAY [facility] Number: Effective Repository Date:2017-11-15 11/04/2017 JONELLE L Primary JONELLE L Daisy [id number] [place] Insurance:ANTHEM CORNELIUSDOB: [place] [address]Xjx: MEDICARE PPOPolicy [id number] Hospital () Number: Repository [id number] ve Date:7851-31-37HX [address]HMMGJBY, [place] [address]LN: 11/04/2017 Secondary JONELLE L [place] Insurance:[place]ES[place]C CORNELIUSDOB: [facility] EPolic Number: [id number] Hospital [id number] Repository e Date:2017-11-04 [address]ATTN: [place] [address]CW: 11/04/2017 Tertiary NOT GIVENUNK [place] Insurance:SELF PAY [facility] Number: Effective Repository Date:2017-11-04 11/04/2017 JONELLE L Primary JONELLE L Daisy [id number] [place] Insurance:ANTHEM CORNELIUSDOB: [place] [address]Byc: MEDICARE PPOPolicy [id number] Hospital () Number: Repository [id number] ve Date:5890-14-78SR [address] [place] [address] [place] [address]US: 11/04/2017 Secondary JONELLE L Daisy Insurance:CARESOURC CORNELIUSDOB: [facility] Number: [id number] Hospital [id number] Repository e Date:2017-11-04 [address]ATTN: [place] [address]ZH: 11/04/2017 Tertiary NOT GIVENUNK Daisy Insurance:SELF PAY [facility] Number: Effective Repository Date:2017-11-04 11/04/2017 JONELLE L Primary JONELLE L [place] [id number] [place] Insurance:ANTHEM CORNELIUSDOB: [place] [address]Rcs: MEDICARE PPOPolicy [id number] Hospital () Number: Repository [id number] ve Date:9354-43-78LV [address]VH[address]QFO [place] [address]DU: 11/04/2017 Secondary JONELLE L Daisy Insurance:CARESOURC CORNELIUSDOB: [facility] Number: [id number] Hospital [id number] Repository e Date:2017-11-04 [address]ATTN: [place] [address]HD: 11/04/2017 Tertiary NOT GIVENUNK [place] Insurance:SELF PAY [facility] Number: Effective Repository Date:2017-11-04 11/04/2017 JONELLE L Primary JONELLE L [place] [id number] [place] Insurance:ANTHEM CORNELIUSDOB: [place] [address]Qfq: MEDICARE PPOPolicy [id number] Hospital () Number: Repository [id number] ve Date:9151-76-[address] [address]SY: 11/04/2017 Secondary JONELLE L [place] Insurance:CARESOURC CORNELIUSDOB: [facility] EPolic Number: [id number] Hospital [id number] Repository e Date:2017-11-04 [address]ATTN: [place] [address]GF: 11/04/2017 Tertiary NOT GIVENUNK [place] Insurance:SELF PAY [facility] Number: Effective Repository Date:2017-11-04 11/04/2017 JONELLE L Primary JONELLE L [place] [id number] [place] Insurance:ANTHEM CORNELIUSDOB: [place] [address]Zmg: MEDICARE PPOPolicy [id number] Hospital () Number: Repository [id number] ve Date:8579-24-94WD[address] [address]VO: 11/04/2017 Secondary JONELLE L Daisy Insurance:CARESOURC CORNELIUSDOB: [facility] EPolic Number: [id number] Hospital [id number] Repository e Date:2017-11-04 [address]N: [place] [address]EO: 11/04/2017 Tertiary NOT GIVENUNK Daisy Insurance:SELF PAY [facility] Number: Effective Repository Date:2017-11-04 11/04/2017 JONELLE L Primary JONELLE L Daisy [id number] [place] Insurance:ANTHEM CORNELIUSDOB: [facility] [place], [place] [address]Qen: MEDICARE PPOPolicy [id number] Hospital () Number: Repository [id number] ve Date:0219-52-42IU [address]CRJDRQT, [place] [address]TO: 11/04/2017 Secondary JONELLE L Daisy Insurance:CARESOURC CORNELIUSDOB: [facility] EPolic Number: [id number] Hospital [id number] Repository e Date:2017-11-04 [address]N: [place] [address]SG: 11/04/2017 Tertiary NOT GIVENUNK Daisy Insurance:SELF PAY [facility] Number: Effective Repository Date:2017-11-04 11/04/2017 JONELLE L Primary JONELLE L Daisy [id number] [place] Insurance:ANTHEM CORNELIUSDOB: [place], [place] [address]Nfg: MEDICARE PPOPolicy [id number] Hospital () Number: Repository [id number] ve Date:7168-30-19QS [address]HDRIFNL, [place] [address]SQ: 11/04/2017 Secondary JONELLE L [place] Insurance:CARESOURC CORNELIUSDOB: [facility] Number: [id number] Hospital [id number] Repository e Date:2017-11-04 [address]ATTN: [place] [address]IH: 11/04/2017 Tertiary NOT GIVENUNK [place] Insurance:SELF PAY [facility] Number: Effective Repository Date:2017-11-04 11/04/2017 JONELLE L Primary JONELLE L Daisy [id number] [place] Insurance:ANTHEM CORNELIUSDOB: [facility] [place], [place] [address]Zvg: MEDICARE PPOPolicy [id number] Hospital () Number: Repository [id number] ve Date:2298-23-11NN [address]GK[place], [place] [address]YS: 11/04/2017 Secondary JONELLE L [place] Insurance:CARESOURC CORNELIUSDOB: [facility] Number: [id number] Hospital [id number] Repository e Date:2017-11-04P [address]ATTN: [place] [address]UL: 11/04/2017 Tertiary NOT GIVENUNK [place] Insurance:SELF PAY [facility] Number: Effective Repository Date:2017-11-04 10/26/2017 JONELLE L Primary JONELLE L Daisy [id number] [place] Insurance:ANTHEM CORNELIUSDOB: [place], [place] [address]Dgu: MEDICARE PPOPolicy [id number] Hospital () Number: Repository [id number] ve Date:7117-83-80[address]ICAVEJE, [place] [address]FV: 10/26/2017 Secondary JONELLE L [place] Insurance:CARESOURC CORNELIUSDOB: [facility] Number: [id number] Hospital [id number] Repository e Date:2017-10-26P [address]ATTN: [place] [address]YC: 10/26/2017 Tertiary NOT GIVENUNK Daisy Insurance:SELF PAY [facility] Number: Effective Repository Date:2017-10-26 10/25/2017 JONELLE L Primary JONELLE L Daisy [id number] [place] Insurance:ANTHEM CORNELIUSDOB: [facility] [place], [place] [address]Ryz: MEDICARE PPOPolicy [id number] () Number: Repository [id number] ve Date:8064-14-92YK [address] [place] [address]CH: 10/25/2017 Secondary JONELLE L [place] Insurance:CARESOURC CORNELIUSDOB: Community EPolicy Number: [id number] Hospital [id number] Repository e Date:2017-10-25P [address]ATTN: [place] [address]CJ: 10/25/2017 Tertiary NOT GIVENUNK [place] Insurance:SELF PAY [facility] Number: Effective Repository Date:2017-10-25 09/15/2017 JONELLE L Primary JONELLE L [place] [id number] [place] Insurance:ANTHEM CORNELIUSDOB: [place] [address]Olz: MEDICARE PPOPolicy [id number] Hospital () Number: Repository [id number] ve Date:8894-41-24LF[address] [address]VW: 09/15/2017 Secondary JONELLE L [place] Insurance:CARESOURC CORNELIUSDOB: [facility] EPolic Number: [id number] Hospital [id number] Repository e Date:2017-09-15P [address]ATTN: [place] [address]SX: 09/15/2017 Tertiary NOT GIVENUNK Daisy Insurance:SELF PAY [facility] Number: Effective Repository Date:2017-09-15 07/20/2017 Jonelle L Primary Jonelle L Daisy [id number] Mikki Insurance:ANTHEM CorneliusDOB: [facility] [place], [place] [address]Clb: MEDICARE PPOPolicy [id number] Hospital () Number: Repository [id number] ve Date:3926-83-69[address]ZZHLKWS, [place] [address]HT: 07/20/2017 Secondary Jonelle L [place] Insurance:CARESOURC CorneliusDOB: Community EPolic Number: [id number] Hospital [id number] Repository e Date:2017-07-20P [address]N: [place] [address]ZQ: 07/20/2017 Tertiary NOT GIVENUNK Avni Insurance:SELF PAY [facility] Number: Effective Repository Date:2017-07-20 06/23/2017 Jonelle L Primary Jonelle L Daisy [id number] Mikki Insurance:DINA Everett: [place], [place] [address]Bht: MEDICARE PPOPolicy [id number] () Number: Repository [id number] Date:6430-37-52[address], [place] [address]XT: 06/23/2017 Secondary Jonelle L Daisy Insurance:CAREROSALVA YiB: [facility] [facility] Number: [id number] [id number] Repository e Date:2017-06-13[address]ATTN: [place] [id number]: 06/23/2017 Tertiary NOT GIVENUNK Daisy Insurance:SELF PAY [facility] Number: Effective Repository Date:2017-06-13
== END ==
LOC: OLS.WCC 19:30
PROVIDERS: Visit Provider Family Medicine
DX: Z16.12 Extended spectrum beta lactamase (ESBL) resistance (principal); Z79.899 Other long term (current) drug therapy
CPT/HCPCS: 87070; 87077; 87186; 87205

== ENCOUNTER → 2018-03-22 05:00 | Outpatient (REF) | payer MEDICARE, MEDICAID, SELFPAY ==
[2018-03-22 08:33] LABS: Albumin, Serum 1.7 g/dL (3.2-5.0); Anion Gap 8 (5-15); BUN 6 mg/dL (7-18); BUN/Creat Ratio 13.2 RATIO (10-20); Calcium,Total 7.6 mg/dL (8.5-10.1); Chloride 98 mmol/L (98-107); Creatinine, Serum 0.45 mg/dL (0.55-1.02); EST Glomerular Filtration Rate 141 mL/min (>60); Est Glom Filt Rate - Afr Amer 170 mL/min (>60); Glucose 70 mg/dL (74-106); Hematocrit 22.8 % (37-47); Hemoglobin 7.7 g/dl (12.0-15.0); Mean Corp Hgb Conc 33.8 g/gl (32-36); Mean Corpuscular Hgb 27.3 pg (27.0-32.0); Mean Corpuscular Volume 80.9 fL (81-99); Mean Platelet Vol. 11.5 fl (6.2-12.0); Platelet Count 367 K/mm3 (150-450); Potassium 3.6 mmol/L (3.5-5.1); RBC Distribution Width CV 18.6 % (11.6-14.6); RBC Distribution Width SD 51.5 fl (35.1-43.9); Red Blood Count 2.82 M/mm3 (4.2-5.4); Sodium Level 137 mmol/L (136-145); White Blood Count 4.7 K/mm3 (4.4-11.0)
[2018-03-22 08:53] LABS: Scan Indicated on CBC? Y/N NO
[2018-03-23 10:31] LABS: Immunoglobulin M 26 mg/dL (26-217)
--- OUTSIDE RECORDS SUMMARY | 2018-05-24 00:51 | XMS RPT_ITS ---
:1935 Author Organization OHIP Support Name Relationship Address Phone Rhianna Barrazaoy Unavailable [address] + [place] [address] Kearnes, Thang Unavailable [address] + [place] [address] R Unavailable Unavailable Unavailable [place], Juanito Unavailable [address] + [place] [address] Kearnes, Thang Unavailable [address] + [place] [address] R Unavailable Unavailable Unavailable [place], Juanito Unavailable [address] + [place] [address] Kearnes, Thang Unavailable [address] + [place] [address] R Unavailable Unavailable Unavailable CHRISTI, JUANITO Unavailable [address] + [place] [address] KEARNES, THANG Unavailable [address] + [place] [address] R Unavailable Unavailable Unavailable CHRISTI, JUANITO Unavailable [address] + [place] [address] KEARNES, THANG Unavailable [address] + [place] [address] R Unavailable Unavailable Unavailable CHRISTI, JUANITO Unavailable [address] + [place] [address] KEARNES, THANG Unavailable [address] + [place] [address] R Unavailable Unavailable Unavailable CHRISTI, JUANITO Unavailable [address] + [place] [address] KEARNES, THANG Unavailable [address] + [place] [address] R Unavailable Unavailable Unavailable CHRISTI, JUANITO Unavailable [address] + [place] [address] KEARAVIS, THANG Unavailable [address] + [place] [address] R Unavailable Unavailable Unavailable CHRISTI, UJANITO Unavailable [address] + [place] [address] KEARNES, THANG Unavailable [address] + [place] [address] R Unavailable Unavailable Unavailable CHRISTI, JUANITO Unavailable [address] + [place] [address] KEARNES THANG Unavailable [address] + [place] [address] R Unavailable Unavailable Unavailable CHRISTI, JUANITO Unavailable [address] + [place] [address] KECASSYNES THANG Unavailable [address] + [place] [address] R Unavailable Unavailable Unavailable CHRISTI, JUANITO Unavailable [address] + [place] [address] KEARNES THANG Unavailable [address] + [place] [address] R Unavailable Unavailable Unavailable CHRISTI, JUANITO Unavailable [address] + [place] [address] KECASSYNES THANG Unavailable [address] + [place] [address] R Unavailable Unavailable Unavailable CHRISTI, JUANITO Unavailable [address] + [place] [address] KEARNES, THANG Unavailable [address] + [place] [address] R Unavailable Unavailable Unavailable CHRISTI, JUANITO Unavailable [address] + [place] [address] KEARNES, THANG Unavailable [address] + [place] [address] R Unavailable Unavailable Unavailable CHRISTI, JUANITO Unavailable [address] + [place] [address] KEARNES, THANG Unavailable [address] + [place] [address] R Unavailable Unavailable Unavailable CHRISTI, JUNAITO Unavailable [address] + [place] [address] KEARNES, THANG Unavailable [address] + [place] [address] R Unavailable Unavailable Unavailable CHRISTI, JUANITO Unavailable [address] + [place] [address] KEARNES, THANG Unavailable [address] + [place] [address] R Unavailable Unavailable Unavailable CHRISTI, JUANITO Unavailable [address] + [place] [address] KEARNES, THANG Unavailable [address] + [place] [address] R Unavailable Unavailable Unavailable CHRISTI, JUANITO Unavailable [address] + [place] [address] KEARNES, THANG Unavailable [address] + [place] [address] R Unavailable Unavailable Unavailable CHRISTI, JUANITO Unavailable [address] + [place] [address] KEARNES, THANG Unavailable [address] + [place] [address] R Unavailable Unavailable Unavailable CHRISTI, JUANITO Unavailable [address] + [place] [address] KEARNES, THANG Unavailable [address] + [place] [address] R Unavailable Unavailable Unavailable Care Team Providers Name Role Phone LATOSHA CRAFT Admitting Unavailable LATOSHA CRAFT Attending Unavailable LATOSHA CRAFT Attending Unavailable ARNOLDO, SUNDAY CHI Referring Unavailable [facility] Attending Unavailable Fabien Decker Attending Unavailable [facility] Attending Unavailable Arnoldo, Sunday Chi Primary Care Unavailable Aries Garay Attending Unavailable Bart Steiner Admitting Unavailable Elieser Nicholson Attending Unavailable Shamika tSory Referring Unavailable Arnoldo, Sunday Chi Primary Care Unavailable Levar Mo Consulting Unavailable Elieser Nicholson Consulting Unavailable Mj Card Attending Unavailable Mj Card Referring Unavailable Arnoldo, Sunday Chi Primary Care Unavailable Arnoldo, Sunday Chi Primary Care Unavailable [facility], Elieser Admitting Unavailable [facility], [facility] Referring Unavailable Payam Guerra Consulting Unavailable Koram, Gely Jacquelyn Attending Unavailable VenkataRex catalan Consulting Unavailable [facility], Elieser Admitting Unavailable Koram, Gely Jacquelyn Attending Unavailable [facility], Elieser Referring Unavailable Arnoldo, Sunday Chi Primary Care Unavailable Payam Guerra Consulting Unavailable VenkataRex catalan Consulting Unavailable Koram, Gely Jacquelyn Consulting Unavailable Arnoldo, Sunday Chi Attending Unavailable Arnoldo, Sunday Chi Primary Care Unavailable [facility], Elieser Admitting Unavailable Koram, Gely Jacquelyn Attending Unavailable [facility], [facility] Referring Unavailable Arnoldo, Sunday Chi Primary Care Unavailable Payam Guerra Consulting Unavailable Venkata, Rex Consulting Unavailable Koram, Gely Jacquelyn Consulting Unavailable [facility], [facility] Admitting Unavailable Koram, Gely Jacquelyn Attending Unavailable [facility], [facility] Referring Unavailable Arnoldo, Sunday Chi Primary Care Unavailable Payam Guerra Consulting Unavailable Samm Decker Consulting Unavailable Venkata, Rex Consulting Unavailable Koram, Gely Jacquelyn Consulting Unavailable [facility], [facility] Admitting Unavailable [facility], [facility] Attending Unavailable [facility], [facility] Referring Unavailable Arnoldo, Sunday Chi Primary Care Unavailable [facility], [facility] Consulting Unavailable Bart Steiner Admitting Unavailable Ungur, Remus Referring Unavailable Arnoldo, Sunday Chi Primary Care Unavailable Levar Mo Consulting Unavailable Colleen Edmonds Attending Unavailable Latosha Craft Unavailable Orville Allen Consulting Unavailable Bart Steiner Admitting Unavailable Reid Yanez Attending Unavailable Ungur, Remus Referring Unavailable Arnoldo, Sunday Chi Primary Care Unavailable Levar Mo Consulting Unavailable Reid Yanez Consulting Unavailable Agyesteveng, Bart Admitting Unavailable Reid Yanez Attending Unavailable Ungur, Remus Referring Unavailable Arnoldo, Sunday Chi Primary Care Unavailable Levar Mo Consulting Unavailable Reid Yanez Consulting Unavailable Agyeponnisa, Bart Admitting Unavailable [facility], Elieser Attending Unavailable Ungur, Remus Referring Unavailable Arnoldo, Sunday Chi Primary Care Unavailable Levar Mo Consulting Unavailable [facility], [facility] Consulting Unavailable AgyeBart irby Admitting Unavailable AgyeponBart paula Attending Unavailable Ungur, Remus Referring Unavailable Arnoldo, Sunday Chi Primary Care Unavailable Levar Mo Consulting Unavailable Elieser Nicholson Consulting Unavailable Orville Allen Attending Unavailable Arnoldo, Sunday Chi Primary Care Unavailable Ungur, Remus Referring Unavailable Bart Steiner Admitting Unavailable Levar Mo Consulting Unavailable Latosha Craft Consulting Unavailable Arnoldo, Sunday Chi Attending Unavailable Arnoldo, Sunday Chi Primary Care Unavailable Arnoldo, Sunday Chi Attending Unavailable Arnoldo, Sunday Chi Referring Unavailable Arnoldo, Sunday Chi Primary Care Unavailable AngelJerry turnerril Attending Unavailable Reid Yanez Referring Unavailable Arnoldo, Sunday Chi Attending Unavailable Arnoldo, Sunday Chi Referring Unavailable Arnoldo, Sunday Chi Primary Care Unavailable PROBLEMS PROBLEMS DATE TYPE CONDITION / CODE ATTENDING STATUS SOURCE 01/20/2018 Unknown A41.9 - Sepsis, Koram, Gely Jacquelyn Active [place] unspecified Community organism / Hospital A41.9(ICD-10) Repository 12/15/2017 Active Anemia, unspecified LUANA, Active [facility] / D64.9(ICD-10) LATOSHA Coffman Other [place] Repository 11/18/2017 Unknown S72.92XA - Sementi, Active [place] Unspecified [facility] Community fracture of left Hospital femur, initial Repository encounter for closed fracture / S72.92XA(ICD-10) 12/06/2017 Unknown 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, 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 / Repository I36.1(ICD-10) 10/26/2017 Unknown N39.0 - Urinary Arnoldo, Sunday Chi Active [place] tract infection, Community site not specified Hospital / N39.0(ICD-10) Repository 10/25/2017 Unknown M54.9 - Dorsalgia, Arnoldo, Sunday Chi Active [place] unspecified / Community M54.9(ICD-10) Hospital Repository 09/15/2017 Unknown M19.90 - Aries Garay Active [place] Unspecified Community osteoarthritis, Hospital unspecified site / Repository M19.90(ICD-10) 07/20/2017 Unknown J40 - Bronchitis, Arnoldo, Sunday Chi Active [place] not specified as Community acute or chronic / Hospital J40(ICD-10) Repository 07/20/2017 Unknown R68.83 - Chills Arnoldo, Sunday Chi Active [place] (without fever) / Community R68.83(ICD-10) Hospital Repository 06/23/2017 Unknown E55.9 - Vitamin D Arnoldo, Sunday Chi Active [place] deficiency, Community unspecified / Hospital E55.9(ICD-10) Repository 06/23/2017 Unknown I10 - Essential Arnoldo, Sunday Chi Active [place] (primary) Community hypertension / Hospital I10(ICD-10) Repository PROCEDURES PROCEDURES No Procedure Records FoundRESULTS RESULTS BASIC METABOLIC Collected: 03/22/2018 Status: F Source: [place] PROFILE (BMP) 5:45 AM [facility] REPOSITORY Order Comment: 110-2 TYPE CODE TESTS [...] 8 Performed By: #### L500.2500, L501.1800 #### [facility] [address] [place], [address] ALBUMIN, SERUM Collected: 03/22/2018 Status: F Source: [place] 5:45 AM [facility] REPOSITORY Order Comment: 110-2 TYPE CODE TESTS RESULT OUT OF RANGE REFERENCE UNITS LAB L501.1800 3.2-5.0 g/dL Low ALB 1.7 Performed By: #### L500.2500, L501.1800 #### [facility] [address], [place], [address] CBC-COMPLETE BLOOD CNT Collected: 03/22/2018 Status: F Source: [place] NO DIFF 5:45 AM [facility] REPOSITORY TYPE CODE TESTS RESULT OUT OF [...] MPV 11.5 Performed By: #### L100.0500 #### [facility] [address] [place], [place], [address] IMMUNOGLOBULIN M Collected: 03/22/2018 Status: F Source: [place] 5:45 AM [facility] REPOSITORY Order Comment: Is Patient Fasting? Y TYPE CODE TESTS RESULT OUT OF RANGE REFERENCE UNITS LAB L3200.1500 26-217 mg/dL Normal IMMUNOGL M 26 Result Comment: Performed at: - [facility] [address] [id number] Textile Supervisor: Richard Sneed PhD, Phone: [phone] Performed By: #### L3200.1500 #### [facility] (refer to report for specific site) refer to report for address and phone number Observed: 03/19/2018 Status: F Source: [place] CULTURE, WOUND 7:30 PM [facility] REPOSITORY RIGHT BALL OF FOOT Gram Stain [...] >=320 R (NF) indicates non-formulary drug at [facility]. Approval by Infectious Disease Specialist required before non-formulary drugs may be ordered and/or dispensed. Performed By: #### M100.1400 #### [facility] [address] [facility] [address] [facility] [address] [place], [place], [address] Observed: 03/19/2018 Status: F Source: [place] CULTURE, WOUND 7:30 PM [facility] REPOSITORY RIGHT KNEE Gram Stain Gram Stain Rare Red Blood Cells 2+ Gram positive rods Wound Culture There are no CLSI standards for interpretation of this Drug/Organism combination. ORGANISM 1: Corynebacterium striatum Amount Growth 3+ Performed By: #### M100.1400 #### [facility] [address] [place], [address] Observed: 03/10/2018 Status: F Source: [place] CULTURE, DEEP WOUND 10:00 AM [facility] REPOSITORY Comments: PURULENT DRAINAGE Gram Stain Gram Stain 4+ Gram positive cocci 2+ Gram negative rods 2+ Gram positive rods No White Blood Cells Wound Culture #4 There are no CLSI standards for interpretation of this Drug/Organism combination. ESBL/MRSA RESULTS CALLED TO [facility] 03/14/18 0742 Almita Pina. REPORT [...] <=0.25 S (NF) indicates non-formulary drug at [facility]. Approval by Infectious Disease Specialist [...] <=20 S (NF) indicates non-formulary drug at [facility]. Approval by Infectious Disease Specialist [...] >=320 R (NF) indicates non-formulary drug at [facility]. Approval by Infectious Disease Specialist [...] 1 S (NF) indicates non-formulary drug at [facility]. Approval by Infectious Disease Specialist [...] Anaerobic cocci Performed By: #### M100.1500 #### [facility] [address] [place], [address] Observed: 03/10/2018 Status: F Source: [place] CULTURE, DEEP WOUND 10:00 AM [facility] REPOSITORY Comments: PURULENT DRAINAGE Gram Stain Gram Stain 1+ Gram positive rods 1+ Red Blood Cells No White Blood Cells Wound Culture RESULTS CALLED TO [facility] 03/13/18 0739 Almita Pina. REPORT [...] <=0.5 S (NF) indicates non-formulary drug at [facility]. Approval by Infectious Disease Specialist required before non-formulary drugs may be ordered and/or dispensed. * CLSI guidelines does not recommend testing of cephalosporins. This interpretation is deduced from Beta-lactam/penicillin results. Cult, Anaerobic No anaerobic bacteria isolated. Performed By: #### M100.1500 #### [facility] [address] [place], [address] DISCHARGE SUMMARY Observed: 01/06/2018 Status: F Source: [place] 2:57 PM [facility] REPOSITORY [facility] Medical Records Department [address] [place] [address] Discharge Summary 01/06/18 1031 MR#: [id number] Acct: [id number] Name: JONELLE BARRAZA Rep #: [id number] : 1935 82 From: Gely Haynes MD PCP: Arnoldo HYATT,Sunday Barbosa Status: ADM IN Y Location: [place] [address] Discharge Date and Diagnosis - Problem List [...] Signed: Zain Shin, at 23:18 EST Tel [phone], Service support , Consultations 01/03/18 21:10 Consult: Onc/Wound/drama teacher Routine Comment: ID- Dr Guerra orthopedic surgery- Dr Decker Operations: None, - - Hernia repair. Procedures: None Summary of Care Provided: Patient is an 82-year-old female with an extensive past medical history as listed below. She was [facility] complaint of shortness of breath and right [...] was made to discharge patient to a penitentiary with hospice. Wound culture MRSA and Proteus mirabilis. Per discussion with ID, patient was discharged to penitentiary with hospice on a 10-day course of [...] Patient does have concerns about going to [facility] as she said she was not sure that could provide level of care that she needed. However per discussion with supportive employment case manager, her insurance is not covering the penitentiary that she wants to go to. He had been discussed with patient and daughter extensively and they had agreed to go to [facility] again. Home medications reveiwed and reconciled [...] Primary Care Physician in: one week Disposition: [facility] facility - with hospice Minutes spent on discharge:: 35 Patient Condition:: Fair Medical Necessity - Tobacco Use Smoking Status: Former smoker Meaningful Use Info Meaningful Use Diagnoses (Choose all that apply): None applicable Code Visit Inpatient E AND M: 93572 Disch Hosp 01/06/18 1457 <Electronically signed by Gely Haynes MD> Date Gely Haynes MD Cosigner Signature (if applicable): Date CC: Gely Haynes MD; Sunday Gutiérrez MD Signed TRANSFER TO [facility] Observed: 01/06/2018 Status: F Source: [facility] 10:31 AM [facility] REPOSITORY [facility] Medical Records Department [address] [place] [address] Transfer to [facility] MR#: [id number] Acct: [id number] Name: JONELLE BARRAZA Nasir Rep #: [id number] : 1935 82 From: Gely Haynes MD PCP: Sunday Gutiérrez MD, Chi Status: ADM IN [place]ST[place]ONELLE [place] (Patient) (Health Ins. Claim No.) (Day of Discharge to Facility) Certification of patient admission REQUIRED AT TIME OF ADMISSION. I CERTIFY THAT [facility] ARE REQUIRED TO BE GIVEN ON AN IN-PATIENT BASIS BECAUSE OF THE ABOVE NAMED PATIENT'S NEED FOR [facility] CARE ON A CONTINUING BASIS FOR THE CONDITION(S) FOR WHICH HE/SHE WAS RECEIVING IN-PATIENT HOSPITAL SERVICES PRIOR TO HIS/HER TRANSFER TO THE [facility]. 01/06/18 1031 <Electronically signed by Gely [...] 01/06/2018 Status: F Source: [place] 5:48 AM [facility] REPOSITORY TYPE CODE TESTS RESULT OUT OF [...] Lymph 0.80 Performed By: #### L100.0100 #### [facility] [address] [place], [place], [address] BASIC METABOLIC Collected: 01/06/2018 Status: F Source: [place] PROFILE ([facility]) 5:48 AM [facility] REPOSITORY TYPE CODE TESTS RESULT OUT OF [...] GAP 8 Performed By: #### L500.2500 #### [facility] [address] [facility] [place], [address] VANCOMYCIN, TROUGH Collected: 01/05/2018 Status: F Source: [place] LEVEL 7:28 PM [facility] REPOSITORY Order Comment: Comments: Draw 30 min [...] (Ventilator/Healt[facility]) -Sepsis PLEASE CONTACT PHARMACY SERVICES (#[id number]) FOR INTERPRETATION OF RESULTS. Performed By: #### L501.8820 #### [facility] [address] [facility] [place], [address] 12 LEAD ELECTROCARDIOGRAM Observed: 01/05/2018 Status: F Source: [place] 3:17 PM [facility] REPOSITORY [facility] Cardiovascular Services [address] [facility] [place] [address] 12 Lead EKG 11/06/18 1738 MR#: [id number] Acct: [id number] Name: JONELLE BARRAZA Rep #: [id number] : 1935 82 From: Kehinde Ortiz MD Attending Dr: Gely Haynes MD Status: ADM IN Ordering Dr: Cholo Quintero MD Date: 01/03/18 Location: [place] Sex: F C Admitted: 01/03/18 Test Reason [...] ECG Confirmed by ANGEL HYATT, KEHINDE ([id number]), acquisition editor NU DECKER ([id number]) on 01/05/2018 3:17:41 PM Referred By: Elieser Nicholson Confirmed By:KEHINDE ORTIZ MD 01/05/18 1517 Date Kehinde Ortiz MD CC: Gely Haynes MD; Elieser Nicholson MD; Sunday Gutiérrez MD; Cholo Quintero MD Signed BASIC METABOLIC Collected: 01/05/2018 Status: F Source: [place] PROFILE (BMP) 5:16 AM [facility] REPOSITORY TYPE CODE TESTS RESULT OUT OF [...] GAP 8 Performed By: #### L500.2500 #### [facility] [address] [place], [address] CBC W/DIFF, AUTOMATED Collected: 01/05/2018 Status: F Source: [place] 5:16 AM [facility] REPOSITORY TYPE CODE TESTS RESULT OUT OF [...] Lymph 0.61 Performed By: #### L100.0100 #### [facility] [address] [facility] [place], [address] CHEST 1 VIEW Observed: 01/04/2018 Status: F Source: [place] (PORTABLE) 10:46 PM [facility] REPOSITORY [facility] Imaging Services [address] [place] [address] Chest 1 View (Portable) MR#: [id number] Acct: [id number] Name: JONELLE BARRAZA Rep #: [id number] : 1935 F 82 From: Zain Shin DO PCP: Arnoldo HYATT,[facility] Status: ADM IN Study: Chest 1 View (Portable) Date of Exam: 01/04/18 Exam# [id number] Ordering Dr: Elieser Nicholson MD STUDY: X-RAY [...] Zain Shin DO at 23:18 EST Tel [phone], Service support , CC: Elieser Nicholson MD; Sunday Gutiérrez MD Behavioral Health Aide: Signed CONSULTATION Observed: 01/04/2018 Status: F Source: [place] 12:35 PM [facility] REPOSITORY [facility] Medical Records Department [address] [place] [address] Consultation 01/04/18 1231 MR#: [id number] Acct: [id number] Name: JONELLE BARRAZA Rep #: [id number] : 1935 82 From: Payam Guerra MD PCP: Sunday Gutiérrez MD, Chi Status: ADM IN Y Location: [place] [address] Problem List (1) Cellulitis Status: Acute Reason [...] 01/04/2018 Status: F Source: [place] 5:14 AM [facility] REPOSITORY TYPE CODE TESTS RESULT OUT OF [...] Lymph 1.06 Performed By: #### L100.0100 #### [facility] [address] [place], [place], [address] BASIC METABOLIC Collected: 01/04/2018 Status: F Source: [place] PROFILE (BMP) 5:14 AM [facility] REPOSITORY TYPE CODE TESTS RESULT OUT OF [...] GAP 7 Performed By: #### L500.2500 #### [facility] [address] [facility] [address] [place], [place], [address] OPERATIVE REPORT Observed: 01/03/2018 Status: F Source: [place] 9:23 PM [facility] REPOSITORY [facility] Medical Records Department [address] [place] [address] Operative Report 01/03/182121 MR#: [id number] Acct: [id number] Name: JONELLE BARRAZA Rep #: [id number] : 1935 82 From: Elieser Nicholson MD PCP: Arnoldo HYATT,Sunday Barbosa Status: ADM IN Y Location: [place] [id number] Problem List (1) Cellulitis Status: Acute (2) [...] Status: F Source: [place] EXAM 9:21 PM [facility] REPOSITORY [facility] Medical Records Department [address] [place] [address] History and Physical 01/03/182026 MR#: [id number] Acct: [id number] Name: JONELLE BARRAZA Rep #: [id number] : 1935 82 From: Elieser Nicholson MD PCP: Sunday Gutiérrez MD, Chi Status: ADM IN Y Location: [place] [id number] Problem List (1) Cellulitis Status: Acute (2) [...] but not diabetes mellitus was sent from [facility] for shortness of breath, right arm [...] l of oxygen and probably as per penitentiary documentation was 88% on 2 L of [...] knee arthroplasty - Bilateral. 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 STEWARD DISHWASHER history Smoking Status: Former smoker - *Family [...] but not diabetes mellitus was sent from [facility] for shortness of breath, right arm [...] l of oxygen and probably as per penitentiary documentation was 88% on 2 L of [...] daily Code Visit Inpatient E AND M: 02754 Init Hosp L3 Procedures: 97782 Drn/Inj jnt/brsa w/o us 01/03/182120 <Electronically signed by Elieser Nicholson MD> Date Elieser Nicholson MD Cosigner Signature: Date (if applicable) CC: Elieser Nicholson MD; Sunday Gutiérrez MD Signed MRSA WOUND DNA BY Collected: 01/03/2018 Status: F Source: [place] PCR 8:50 PM [facility] REPOSITORY TYPE CODE TESTS RESULT OUT OF REFERENCE UNITS RANGE LAB L8200.1100 Negative High MRSA POSITIVE RESULT Result Comment: CRITICAL VALUE VERIFIED. CALLED TO [employer] 01/03/18 2234 Rosi Javier. RESULTS READ BACK BY SAME. LAB L8200.1150 Negative High SA RESULT POSITIVE Performed By: #### L8200.1075 #### [facility] [address] [place], [address] Observed: 01/03/2018 Status: F Source: [place] CULTURE, DEEP WOUND 8:50 PM [facility] REPOSITORY Copy of report sent to Infection [...] >=320 R (NF) indicates non-formulary drug at [facility]. Approval by Infectious Disease Specialist [...] 1 S (NF) indicates non-formulary drug at [facility]. Approval by Infectious Disease Specialist required before non-formulary drugs may be ordered and/or dispensed. * CLSI guidelines does not recommend testing of cephalosporins. This interpretation is deduced from Beta-lactam/penicillin results. Cult, Anaerobic No anaerobic bacteria isolated. Performed By: #### M100.1500 #### [facility] [address] [facility] [place], [address] KNEE 1 OR 2 VIEWS Observed: 01/03/2018 Status: F Source: BOND 8:33 PM [facility] REPOSITORY [facility] Imaging Services [address] [place] [address] Knee 1 or 2 Views MR#: [id number] Acct: [id number] Name: JONELLE BARRAZA Rep #: [id number] : 1935 F 82 From: Morgan Greenberg PCP: Arnoldo HYATT,freshbag Status: ADM IN Study: Knee 1 or 2 Views Date of Exam: 01/03/18 Exam# [id number] Ordering Dr: Elieser Nicholson MD STUDY: X-RAY [...] CC: Elieser Nicholson MD; Sunday Gutiérrez MD Behavioral Health Aide: Signed KNEE 1 OR 2 VIEWS Observed: 01/03/2018 Status: F Source: BOND 8:33 PM [facility] REPOSITORY [facility] Imaging Services [address] [place] [address] Knee 1 or 2 Views MR#: [id number] Acct: [id number] Name: JONELLE BARRAZA Rep #: [id number] : 1935 F 82 From: Morgan Greenberg PCP: Arnoldo HYATT,Sunday Barbosa Status: ADM IN Study: Knee 1 or 2 Views Date of Exam: 01/03/18 Exam# [id number] Ordering Dr: Elieser Nicholson MD STUDY: X-RAY [...] CC: Elieser Nicholson MD; Sunday Gutiérrez MD Behavioral Health Aide: Signed EMERGENCY DEPARTMENT Observed: 01/03/2018 Status: F Source: BOND SUMMARY 7:51 PM [facility] REPOSITORY [facility] Medical Records Department [address] [place] [address] Emergency Department Summary 01/03/181945 MR#: [id number] Acct: [id number] Name: JONELLE BARRAZA Rep #: [id number] : 1935 82 From: Cholo Quintero MD PCP: Sunday Gutiérrez MD, Chi Status: REG ER - ER Visit Summary Date of Service: 01/03/18 Chief Complaint: Sent from [facility] facility because of low pulse ox. History [...] rate of 124 with low voltage. The LA interval is normal. QRS durations are normal. QT interval is normal and axis is normal. Lactate is normal at 1.2 Emergency Department Course and Treatment: Sepsis workup was undertaken. Presume this is secondary to scan will obtain chest x-ray because she is tachypnic and pulse ox was low at the [facility] facility. Since her source is scant and concern for streptococcal versus staphylococcal source she was treated with vancomycin. Treatment Plan: The hospitalist was contacted for admission. She is DNR CC arrest. Disposition: Admission medical surgical floor Impression: 1. Sepsis 2. Cellulitis left knee 3. Chronic respiratory failure with hypoxia This note was generated with Sistemic dictation software. It may contain incorrect words, [...] your Primary Care Provider. Call [facility] ([phone]) or report to the closest Emergency Room. Call 911 if necessary. 01/03/181950 <Electronically signed by Cholo Quintero MD> Date Cholo Quintero MD Cosigner Signature (If Indicated): Date CC: Sunday Gutiérrez MD URINALYSIS, COMPLETE Collected: 01/03/2018 Status: F Source: AVNI 6:52 PM [facility] REPOSITORY Order Comment: How was Urine Obtained? INSTRUCTOR APPAREL MANUFACTURE TO SPECIFY TYPE CODE TESTS RESULT OUT [...] Normal YEAST-URINE Performed By: #### L400.0001 #### [facility] [address] [facility] [place], [place], [address] Observed: 01/03/2018 Status: F Source: AVNI CULTURE, URINE 6:52 PM [facility] REPOSITORY Urine Culture ORGANISM 1: Presumptive C albicans [place] Count 50,000-80,000 Performed By: #### M100.0650 #### [facility] [address] [facility] [place], [address] Observed: 01/03/2018 Status: F Source: AVNI CULTURE, BLOOD (WB) 6:16 PM [facility] REPOSITORY BC No growth in 5 days. Performed By: #### M200.1000 #### [facility] [address] [place], [address] CBC W/DIFF, AUTOMATED Collected: 01/03/2018 Status: F Source: AVNI 6:10 PM [facility] REPOSITORY TYPE CODE TESTS RESULT OUT OF [...] CELLS RARE Performed By: #### L100.0100 #### [facility] [address] [place], [address] PROTHROMBIN TIME W/INR Collected: 01/03/2018 Status: F Source: BOND 6:10 PM [facility] REPOSITORY TYPE CODE TESTS RESULT OUT OF RANGE REFERENCE UNITS LAB L300.4150 11.7-14.9 SECONDS High PROTIME 15.7 LAB L300.4200 Normal INR 1.3 Performed By: #### L300.3900, L300.4310 #### [facility] [address] [place], [place], [address] PARTIAL THROMBOPLAST Collected: 01/03/2018 Status: F Source: BOND TIME 6:10 PM [facility] REPOSITORY TYPE CODE TESTS RESULT OUT OF RANGE REFERENCE UNITS LAB L300.4310 24.1-36.2 Seconds Normal PTT 32.6 Performed By: #### L300.3900, L300.4310 #### [facility] [address] [place], [address] COMPREHENSIVE METABOLIC Collected: 01/03/2018 Status: F Source: BOND PROFIL 6:10 PM [facility] REPOSITORY TYPE CODE TESTS RESULT OUT OF [...] GAP 4 Performed By: #### L500.4050 #### [facility] [address] [place] [address], [id number] LACTIC ACID Collected: 01/03/2018 Status: F Source: BOND 6:10 PM [facility] REPOSITORY Order Comment: Yes/No query for Sepsis Lactate Rule Y TYPE CODE TESTS RESULT OUT OF RANGE REFERENCE UNITS LAB L503.6005 0.4-2.0 mmol/L Normal LACTIC ACID 1.3 Performed By: #### L503.6005 #### [facility] [address] [place], [place], [id number] ERYTHROCYTE SED RATE Collected: 01/03/2018 Status: F Source: BOND 6:10 PM [facility] REPOSITORY TYPE CODE TESTS RESULT OUT OF RANGE REFERENCE UNITS LAB L102.0000 0-30 mm/hr High SED RATE 44 Performed By: #### L101.9900 #### [facility] [address] [facility]. [place], [place], [address] HEMOGLOBIN A1C Collected: 01/03/2018 Status: F Source: BOND 6:10 PM [facility] REPOSITORY TYPE CODE TESTS RESULT OUT OF RANGE REFERENCE UNITS LAB L501.9985 4.2-6.3 % Normal HGB A1C 5.3 Performed By: #### L501.9985 #### [facility] [address] [facility] [place], [address] Observed: 01/03/2018 Status: F Source: BOND CULTURE, BLOOD (WB) 6:10 PM [facility] REPOSITORY BC No growth in 5 days. Performed By: #### M200.1000 #### [facility] [address] [place], [place], [address] CHEST 1 VIEW Observed: 01/03/2018 Status: F Source: AVNI (PORTABLE) 5:49 PM [facility] REPOSITORY [facility] Imaging Services [address] [place] [address] Chest 1 View (Portable) MR#: [id number] Acct: [id number] Name: JONELLE BARRAZA Rep #: [id number] : 1935 F 82 From: Gabriel Whipple MD PCP: Arnoldo HYATT,Sunday Chi Status: REG ER Study: Chest 1 View (Portable) Date of Exam: 01/03/18 Exam# [id number] Ordering Dr: Cholo Quintero MD STUDY: X-RAY [...] CC: Sunday Gutiérrez MD; Cholo Quintero MD Behavioral Health Aide: Signed ANES POST Observed: 12/28/2017 Status: COMPLETED Source: IVANHOE 3:06 PM [facility] OTHER CAMPUS REPOSITORY O ID: [id number] Author: Justin Hugo Service: Anesthesiology Author Type: [...] 28, 2017 TIME: 3:06 PM PAGER/CONTACT #: [phone] SURGICAL PATHOLOGY Observed: 12/28/2017 Status: C Source: IVANHOE 2:15 PM CLINIC OTHER CAMPUS REPOSITORY ADDENDUM PRESENT Specimen originated from [facility] Specimen #: [id number] Submitting Physician: LATOSHA CRAFT MD FINAL DIAGNOSIS [...] in-situ hybridization tests have been determined by [facility]'s [facility] Pathology and Laboratory Medicine [place] ([facility]) in a manner consistent with CLIA requirements. One or more of these tests have not been cleared or approved by the FDA. [facility] is regulated under CLIA as qualified to [...] in one cassette. Gross examination performed at [facility], [address] [place] [address] 12/28/2017 9:02:39 PM Date of Report: 12/29/2017 Date of Procedure: 12/28/2017 Date of Receipt: 12/28/2017 Submitted by: LATOSHA CRAFT MD Location: [place] Diagnostic interpretation performed at [facility], [address] [place] [address]. Performed By: #### PATHS #### [facility] [address] [place] [address] [phone] ANES PREOP Observed: 12/28/2017 Status: COMPLETED Source: IVANHOE 1:36 PM [facility] OTHER CAMPUS REPOSITORY HNO ID: [id number] Author: Justin Hugo Service: Anesthesiology Author Type: [...] 15 mg by mouth every 12 hours. xusnfbz-yyjyjwqei-lcikrkq D3 (OS-MARC 500+D) 500 mg(1,250mg) -200 unit [...] December 28, 2017 TIME: 1:36 PM CSN: [id number] HISTORY PHYSICAL Observed: 12/28/2017 Status: COMPLETED Source: IVANHOE 12:32 PM CLINIC OTHER CAMPUS REPOSITORY O ID: [id number] Author: Latosha Craft Service: General Surgery Author [...] transfused and her extended care facility at [facility]. ? She notes previous episodes of intermittent GI bleeding. I performed endoscopy in 2013 both upper and lower for GI bleeding episode with no obvious source at that time. 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 ? Jonelle was admitted to [facility] in early October after having a [...] 40 mg by mouth DAILY (6 AM). dlezfds-doatxdsvy-vfmlhbo D3 (OS-MARC 500+D) 500 mg(1,250mg) -200 unit [...] PT ED Observed: 12/28/2017 Status: COMPLETED Source: IVANHOE 12:01 PM [facility] OTHER [place] REPOSITORY HNO ID: [id number] Author: Micheline Painter RN Service: Nursing Author [...] Signed By: Micheline Painter RN In Department: [facility] ENDOSCOPY ANES PREOP Observed: 12/28/2017 Status: COMPLETED Source: IVANHOE 7:15 AM [facility] OTHER CAMPUS REPOSITORY HNO ID: [id number] Author: Bart Ramos Service: Anesthesiology Author Type: [...] AC/LUT/COPPER/ZINC (PRESERVISION LUTEIN ORAL) Take by mouth. xoiipyl-ejirwcnzz-bvqbzrt D3 (OS-MARC 500+D) 500 mg(1,250mg) -200 unit [...] LUTEIN ORAL) Take by mouth. Disp: Rfl: tyozbns-hmjixlbqh-jrwedmn D3 (OS-MARC 500+D) 500 mg(1,250mg) -200 unit [...] December 28, 2017 TIME: 7:16 AM CSN: [id number] NURSING PROG Observed: 12/26/2017 Status: COMPLETED Source: IVANHOE 7:58 AM CLINIC OTHER CAMPUS REPOSITORY HNO ID: [id number] Author: Marleni (Rn) GABRIEL Strange Service: (none) Author Type: Registered Nurse Type: Nursing Progress Note Filed: 12/27/2017 8:17 AM Note Text: PACC Nurse Progress Note History AND Physical: PACC Visit Date: none Original HANDP Date: 12/14/2017- OV with Dr. Craft ED visit Date: see care everywhere- [place] [facility] 10/2017 Outside HANDP Scanned Date: N/A Labs Within Last 6 Months: CBC: Date 11/09/2017 see narrative notes. External labs from 12/23/2017 scanned in [facility]. [facility] 9.8/29.5 BMP/CMP: Date 11/09/2017 within acceptable limits for planned procedure . External BMP scanned in [facility] dated 12/23/2017 within acceptable limits for planned procedure Imaging Within Last 12 Months: N/A Cardiac Testing: ECHO Date: 11/08/2017, Comment: found in care everywhere- 12/14/2017 summarizarion of episode Last Menstrual Period: LMP Date: unknown Postmenopausal >1yr: Yes, S/P Hysterectomy: No BMI Percentile (PEDS): N/A Risk Assessment: N/A Anesthesia Review: N/A Narrative: Under care everywhere- 12/14/2017 summarization of episode- recent ED admit to [facility] for bilateral leg fractures See copy of HPI from Dr. Cali [facility] copied below HANDP 12/14/[address] Craft HPI: The patient is a 82 year old female referred for endoscopy. Jonelle notes blood per rectum and was found to be anemic. She had 1 unit of packed red cells transfused in the hospital and has since required 2 units of packed red cells transfused and her extended care facility at [facility]. She notes previous episodes of intermittent GI bleeding. I performed endoscopy in 2012 both upper and lower for GI bleeding episode with no obvious source at that time. 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 Jonelle was admitted to [facility] in early October after having a [...] of GI bleeding and anemia. I called [facility] and spoke with Pennie patient's nurse. Pre [...] [place] 10/2017 bilateral leg fractures. Residing at [facility] History of : Anemia- 12/23/2017 HANDH 9.8/29.5 OAB GERD Cirrhosis Right TKA 1984, 201411/09/2017 HAND 7.7/23.7 Recent blood transfusions I called [facility] and spoke with Pennie patient's nurse. Pre op instructions given. 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 Has sore on Left leg calf being treated and dressed. Recent labs from 12/16/2017 scanned in [facility] Chart Check: COMPLETED Marleni Strange RN December 27, 2017 8:11 AM PATIENT PREOPERATIVE INSTRUCTIONS No ref. provider found has scheduled you for your procedure at this surgery center: [facility]: [phone] -- [address] [facility] [id number]. Blood Thinning Medications: - not on any per [place] Nurse Pennie Dietary Restrictions: - No solid [...] RN HOSP Observed: 12/15/2017 Status: COMPLETED Source: IVANHOE 12:00 AM CLINIC OTHER CAMPUS REPOSITORY Patient:Jonelle Barraza MRN: <[id number]> Height:5' 1(1.549 m) Weight:133 lb 8 oz [...] VIT C/VIT E AC/LUT/COPPER/ZINC (PRESERVISION LUTEIN ORAL) uhtpkyc-xjknbiduo-xskukvl D3 (OS-MARC 500+D) 500 mg(1,250mg) -200 unit per tablet Admission/Clinic Administered Medications as of 12/28/17: NaCl 0.9% iv infusion Problem List: GI hemorrhage [K92.2] Anemia [D64.9] Allergies: Belladonna Tincture Celecoxib Date Verified: 12/28/17 Lab Values No results within the last 30 days for the following basenames: K,HCT Progress Notes ([facility]): Toni Decker 12/15/2017 9:12 AM Signed 12-28-2017 Colon EGD Progress Notes ([facility]): Latosha Craft MD 12/14/2017 2:33 PM [...] transfused and her extended care facility at [facility]. She notes previous episodes of intermittent GI bleeding. I performed endoscopy in 2012 both upper and lower for GI bleeding episode with no obvious source at that time. 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 Jonelle was admitted to [facility] in early October after having a [...] 40 mg by mouth DAILY (6 AM). wetannm-yycfwhqxl-uubykls D3 (OS-MARC 500+D) 500 mg(1,250mg) -200 unit [...] LPN PROGRESS Observed: 12/14/2017 Status: COMPLETED Source: IVANHOE 2:28 PM [facility] REPOSITORY HNO ID: [id number] Author: Latosha Craft Service: (none) Author Type: [...] transfused and her extended care facility at [facility]. She notes previous episodes of intermittent GI bleeding. I performed endoscopy in 2012 both upper and lower for GI bleeding episode with no obvious source at that time. 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 Jonelle was admitted to [facility] in early October after having a [...] 40 mg by mouth DAILY (6 AM). fwrxtdl-lxgyxxegi-uwwmbmi D3 (OS-MARC 500+D) 500 mg(1,250mg) -200 unit [...] MD CNOV Observed: 12/14/2017 Status: COMPLETED Source: IVANHOE 2:00 PM [facility] REPOSITORY Office Visit (GENSWS) JONELLE BARRAZA ([id number]) 1935 F Date Time Provider Department 12/14/17 [...] transfused and her extended care facility at [facility]. She notes previous episodes of intermittent GI bleeding. I performed endoscopy in 2012 both upper and lower for GI bleeding episode with no obvious source at that time. 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 Jonelle was admitted to [facility] in early October after having a [...] Laterality Date - COLONOSCOP W/ OR W/O [facility] SPEC 09/30/12 1 AVM, no obvious source - EGD W/O [facility] SPECIMEN W/BX 09/29/12 no obvious bleeding source, [...] 40 mg by mouth DAILY (6 AM). pchdpwb-ezegsberf-diwonlc D3 (OS-MARC 500+D) 500 mg(1,250mg) -200 unit [...] This note will be forwarded to Dr. Snuday Gutiérrez MD. Return to Clinic: The patient [...] [place] LPN Referring Provider: SUNDAY GUTIÉRREZ CHI [[id number]] Allergies As of Date: 12/14/2017 Noted Allergy [...] screening? Unknown Last Colonoscopy: 2012 Bhumi Aviles [facility] Letter Text Encounter Status:Closed by LATOSHA CRAFT MD on 12/14/17 TYPE AND SCREEN Collected: 11/15/2017 Status: F Source: BOND 10:20 AM [facility] REPOSITORY Order Comment: CMV NEG?* N Give When? Type AND Hold Irradiated? N Leukodepleted? Y Reason for Type AND Screen/Red Cells: ANEMIA TYPE CODE TESTS RESULT OUT OF RANGE REFERENCE UNITS LAB B10.0800 A Normal BLOOD TYPE GEL POSITIVE LAB B100.4000 Normal Antibody NEGATIVE Screen Performed By: #### B101.7450 #### [facility] [address] [place], [address] Collected: 11/15/2017 Status: F Source: BOND 10:20 AM [facility] REPOSITORY TYPE CODE TESTS RESULT OUT OF REFERENCE UNITS RANGE LAB U100.0000 [id number] TRANSFUSED PRODUCT: T AND S with Crossmatch, Red Cells COUNT: 2 Performed By: #### U100.0000 #### Non-[facility] - refer to report for specific site DISCHARGE SUMMARY Observed: 11/09/2017 Status: F Source: BOND 4:09 PM [facility] REPOSITORY [facility] Medical Records Department [address] [place] [address] Discharge Summary 11/09/17 1557 MR#: [id number] Acct: [id number] Name: JONELLE BARRAZA Rep #: [id number] : 1935 81 From: Orville Allen MD PCP: Arnoldo HYATT,Sunday Barbosa Status: ADM IN Y [place] [facility] Discharge Date and Diagnosis - Problem List [...] Chi, MD [Primary Care Provider] - Disposition: [facility] facility Minutes spent on discharge:: 30 Patient Condition:: Fair Medical Necessity - Tobacco Use Smoking Status: Never smoker Meaningful Use Info Meaningful Use Diagnoses (Choose all that apply): None applicable Code Visit Inpatient E AND M: 67359 Disch Hosp 11/09/17 1609 <Electronically signed by Orville Allen MD> Date Orville Allen MD Cosigner Signature (if applicable): Date CC: Orville Allen M.D.; Sunday Gutiérrez MD Signed TRANSFER TO [facility]: 11/09/2017 Status: F Source: [facility] 3:57 PM [facility] REPOSITORY [facility] Medical Records Department [address] [facility] [place] [address] Transfer to [facility] MR#: [id number] Acct: [id number] Name: JONELLE BARRAZA Rep #: [id number] : 1935 81 From: Orville Allen MD PCP: Sunday Gutiérrez MD, Chi Status: ADM IN JONELLE BARRAZA (Patient) (Health Ins. Claim No.) (Day of Discharge to Facility) Certification of patient admission REQUIRED AT TIME OF ADMISSION. I CERTIFY THAT [facility] ARE REQUIRED TO BE GIVEN ON AN IN-PATIENT BASIS BECAUSE OF THE ABOVE NAMED PATIENT'S NEED FOR [facility] CARE ON A CONTINUING BASIS FOR THE CONDITION(S) FOR WHICH HE/SHE WAS RECEIVING IN-PATIENT HOSPITAL SERVICES PRIOR TO HIS/HER TRANSFER TO THE [facility]. 11/09/17 1557 <Electronically signed by Orville [...] DISCHARGE INSTRUCTION Observed: 11/09/2017 Status: F Source: BOND 3:56 PM [facility] REPOSITORY [facility] Medical Records Department [address] [place] [address] Instructions for Home/Discharge Instructions 11/09/17 1552 MR#: [id number] Acct: [id number] Name: JONELLE BARRAZA Rep #: [id number] : 1935 81 From: Orville Allen MD [...] BASIC METABOLIC Collected: 11/09/2017 Status: F Source: BOND PROFILE ([facility]) 5:36 AM [facility] REPOSITORY TYPE CODE TESTS RESULT OUT OF [...] GAP 6 Performed By: #### L500.2500 #### [facility] [address] [place], [address] CBC W/DIFF, AUTOMATED Collected: 11/09/2017 Status: C Source: AVNI 5:36 AM [facility] REPOSITORY TYPE CODE TESTS RESULT OUT OF [...] awa Performed By: #### L100.0100 #### [facility] [address] [place], [address] ECHOCARDIOGRAM COMPLETE Observed: 11/08/2017 Status: F Source: BOND 6:00 PM [facility] REPOSITORY [facility] Cardiovascular Services [address] [place] [address] Echo Complete 11/08/17 1548 MR#: [id number] Acct: [id number] Name: JONELLE BARRAZA Rep #: [id number] : 1935 81 From: Kehinde Ortiz MD [...] Date Dictated: 11/08/17 1548 Date Transcribed: 11/08/171758 Behavioral Health Aide: Signed CONSULTATION Observed: 11/08/2017 Status: F Source: BOND 5:27 PM [facility] REPOSITORY [facility] Medical Records Department [address] [facility] [place] [address] Consultation 11/08/17 171 MR#: [id number] Acct: [id number] Name: JONELLE BARRAZA Rep #: [id number] : 1935 81 From: Latosha Craft MD PCP: Sunday Gutiérrez MD, Chi Status: ADM IN [place] [facility] [place] Reason for Consult Date of Consultation: 11/08/17 [...] knee arthroplasty - Bilateral. 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 [place], [place], [address] CBC W/DIFF, AUTOMATED Collected: 11/08/2017 Status: C Source: AVNI 5:20 AM [facility] REPOSITORY TYPE CODE TESTS RESULT OUT OF [...] June awa Performed By: #### L100.0100 #### [facility] [address], [address] BASIC METABOLIC Collected: 11/08/2017 Status: F Source: AVNI PROFILE ([facility]) 5:20 AM [facility] REPOSITORY TYPE CODE TESTS RESULT OUT OF [...] GAP 7 Performed By: #### L500.2500 #### [facility] [address] [place], [address] Observed: 11/07/2017 Status: F Source: AVNI STOOL OCCULT BLOOD 12:10 PM [facility] IFOB REPOSITORY STOB iFOB Occult Blood Positive ORGANISM 1: OCCULT BLOOD POSITIVE Performed By: #### M100.7900 #### [facility] [address] [place], [address] TYPE AND SCREEN Collected: 11/07/2017 Status: F Source: AVNI 8:10 AM [facility] REPOSITORY Order Comment: CMV NEG? N Number [...] NEGATIVE Screen Performed By: #### B101.7450 #### [facility] [address] [place], [address] Collected: 11/07/2017 Status: F Source: BOND 8:10 AM [facility] REPOSITORY TYPE CODE TESTS RESULT OUT OF REFERENCE UNITS RANGE LAB U100.0000 [id number] TRANSFUSED PRODUCT: T AND S with Crossmatch, Red Cells COUNT: 1 Performed By: #### U100.0000 #### Non-[facility] - refer to report for specific site CBC W/DIFF, AUTOMATED Collected: 11/07/2017 Status: C Source: BOND 6:04 AM [facility] REPOSITORY TYPE CODE TESTS RESULT OUT OF [...] 1402 PATH REV previously reported as: June awa Performed By: #### L100.0100 #### [facility] [place], [address] BASIC METABOLIC Collected: 11/07/2017 Status: F Source: BOND PROFILE (BMP) 6:04 AM [facility] REPOSITORY TYPE CODE TESTS RESULT OUT OF [...] 9 Performed By: #### L500.2500, L506.0250 #### [facility] [address] [facility] [place], [address] FOLATES, (FOLIC ACID) Collected: 11/07/2017 Status: F Source: BOND 6:04 [facility] REPOSITORY TYPE CODE TESTS RESULT OUT OF RANGE REFERENCE UNITS LAB L506.0250 3.1-55.4 ng/mL Normal FOLATES 14.50 Performed By: #### L500.2500, L506.0250 #### [facility] [address] [facility] [place], [address] VITAMIN B12 Collected: 11/07/2017 Status: F Source: BOND 6:04 [facility] REPOSITORY TYPE CODE TESTS RESULT OUT OF REFERENCE UNITS RANGE LAB L503.0105 211-911 pg/mL Low Vitamin B12 200 Performed By: #### L503.0105, L506.1000 #### [facility] [address] [facility] [place], [address] VITAMIN D,25 HYDROXY Collected: 11/07/2017 Status: F Source: BOND 6:04 [facility] REPOSITORY TYPE CODE TESTS RESULT OUT OF REFERENCE UNITS RANGE LAB L506.1000 29.95-100.01 ng/mL Low Vitamin D 12.0 25-OH Result Comment: Vitamin D 25(OH) Status Range Deficiency <20 ng/mL (50nmol/L) Insuffciency 20 - 30 ng/mL (50 - 75 nmol/L) Sufficiency 30 - 100 ng/mL (75 - 250 nmol/L) Toxicity >100 ng/mL (>250 nmol/L) Performed By: #### L503.0105, L506.1000 #### [facility] [facility] [place], [address] HH, HEMOGLOBIN AND Collected: 11/06/2017 Status: F Source: AVNI HEMATOCRIT 7:57 PM [facility] REPOSITORY TYPE CODE TESTS RESULT OUT OF RANGE REFERENCE UNITS LAB L100.1300 12.0-15.0 g/dl Low HGB 7.3 LAB L100.1400 37-47 % Low HCT 22.3 Performed By: #### L100.0600 #### [facility] [place], [address] M R STAPH AUREUS Collected: 11/06/2017 Status: F Source: BOND DNA BY PCR 4:40 PM [facility] REPOSITORY TYPE CODE TESTS RESULT OUT OF RANGE REFERENCE UNITS LAB L8200.1100 Negative Normal MRSA Negative RESULT Performed By: #### L8200.1000 #### [facility] [place], [address] Observed: 11/06/2017 Status: F Source: BOND LEGIONELLA ANTIGEN 4:30 PM [facility] URINE REPOSITORY Specimen Source: URINE, CATHETER Legionella, UR Legionella Antigen result interpretation: Negative Presumptive negative for Legionella pneumophila serogroup 1 antigen in urine, suggesting no recent or current infection. Legionella Ag, Urine Negative (See interpretation below) Performed By: #### M300.4500 #### [facility] [address] [place] [address]. [place], [address] STREP Observed: 11/06/2017 Status: F Source: BOND PNEUMONIAE ANTIG(UR,CSF) 4:30 PM [facility] REPOSITORY S pneumo Ag URINE INTERPRETATION Negative Urine Presumptive negative for pneumococcal pneumonia, suggesting no current or recent pneumococcal infection. Infection due to S pneumoniae cannot be ruled out since the antigen present in the sample may be below the detection limit of the test. Strep pneumo Test Negative URINE (See interpretation below) Performed By: #### M300.4600 #### [facility] [place], [place], [address] URINALYSIS, COMPLETE Collected: 11/06/2017 Status: F Source: AVNI 4:30 PM [facility] REPOSITORY Order Comment: How was Urine Obtained? [...] URINE SEEN Performed By: #### L400.0001 #### [facility] [address] [place], [place], [address] Observed: 11/06/2017 Status: F Source: AVNI CULTURE, URINE 4:30 PM [facility] REPOSITORY Urine Culture [place] Count 1300 cfu/mL ORGANISM 1: Gabi albicans [place] Count 1000-10,000 Performed By: #### M100.0650 #### [facility] [address] [facility] [place], [place], [address] CBC W/DIFF, AUTOMATED Collected: 11/06/2017 Status: C Source: AVNI 12:03 PM [facility] REPOSITORY TYPE CODE TESTS RESULT OUT OF [...] June awa Performed By: #### L100.0100 #### [facility] [address] [place], [address] LIVER PROFILE Collected: 11/06/2017 Status: F Source: AVNI 12:03 PM [facility] REPOSITORY Order Comment: Comments: ADD ON TYPE [...] 0.16 Performed By: #### L500.3400, L500.4050 #### [facility] [address] [place], [address] COMPREHENSIVE METABOLIC Collected: 11/06/2017 Status: F Source: [facility] 12:03 PM [facility] REPOSITORY Order Comment: Comments: ADD ON TYPE [...] 8 Performed By: #### L500.3400, L500.4050 #### [facility] [address] [place], [address] CHEST 1 VIEW Observed: 11/06/2017 Status: F Source: BOND (PORTABLE) 10:48 AM [facility] REPOSITORY [facility] Imaging Services [address] [place] [address] Chest 1 View (Portable) MR#: [id number] Acct: [id number] Name: JONELLE BARRAZA Rep #: [id number] : 1935 F 81 From: Latosha Castaneda MD PCP: Arnoldo HYATT,Sunday Barbosa Status: ADM IN Study: Chest 1 View (Portable) Date of Exam: 11/06/17 Exam# [id number] Ordering Dr: Elieser Nicholson MD STUDY: X-RAY [...] CC: Elieser Nicholson MD; Sunday Gutiérrez MD Behavioral Health Aide: Signed CBC-COMPLETE BLOOD CNT Collected: 11/05/2017 Status: F Source: AVNI NO DIFF 6:30 AM [facility] REPOSITORY TYPE CODE TESTS RESULT OUT OF [...] MPV 9.9 Performed By: #### L100.0500 #### [facility] [address] [place], [place] [address]de[place], [address] BASIC METABOLIC Collected: 11/05/2017 Status: F Source: AVNI PROFILE (BMP) 6:30 AM [facility] REPOSITORY TYPE CODE TESTS RESULT OUT OF [...] GAP 8 Performed By: #### L500.2500 #### [facility] [address] [facility] [place], [address] CONSULTATION Observed: 11/04/2017 Status: F Source: BOND 12:06 PM [facility] REPOSITORY [facility] Medical Records Department [address] [place] [address] Consultation 11/04/17 1155 MR#: [id number] Acct: [id number] Name: JONELLE BARRAZA Rep #: [id number] : 1935 81 From: Martin Hunt DO PCP: Arnoldo HYATT,Sunday Barbosa Status: ADM ROBYN Y Location: [place] [address] Reason for Consult Date of Consultation: 11/04/17 [...] knee arthroplasty - Bilateral. 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 Code Visit OBSV E AND M: 72715 Initial observation care L3 11/04/17812 <Electronically signed by Bart Steiner MD> Date Bart Steiner MD Cosigner Signature: Date (if applicable) CC: Bart Steiner MD; Sunday Gutiérrez MD Signed CBC W/DIFF, AUTOMATED Collected: 11/04/2017 Status: F Source: AVNI 2:58 AM [facility] REPOSITORY TYPE CODE TESTS RESULT OUT OF [...] MONOCYTOSIS NOTED Performed By: #### L100.0100 #### [facility] [address] [place], [place], [address] BASIC METABOLIC Collected: 11/04/2017 Status: F Source: AVNI PROFILE (BMP) 2:58 AM [facility] REPOSITORY TYPE CODE TESTS RESULT OUT OF [...] GAP 7 Performed By: #### L500.2500 #### [facility] [address] [place], [place], [address] ALBUMIN, SERUM Collected: 11/04/2017 Status: F Source: AVNI 2:58 AM [facility] REPOSITORY TYPE CODE TESTS RESULT OUT OF RANGE REFERENCE UNITS LAB L501.1800 3.2-5.0 g/dL Low ALB 2.9 Performed By: #### L501.1800 #### [facility] [address] [place], [address] EMERGENCY DEPARTMENT Observed: 11/04/2017 Status: F Source: BOND SUMMARY 2:56 AM [facility] REPOSITORY [facility] Medical Records Department [address] [place] [address] Emergency Department Summary 11/04/17 0254 MR#: [id number] Acct: [id number] Name: JONELLE BARRAZA Rep #: [id number] : 1935 81 From: Shamika Story DO [...] fracture Fall] This note was generated with Sistemic dictation software. It may contain incorrect words, [...] your Primary Care Provider. Call [facility] ([phone]) or report to the closest Emergency Room. Call 911 if necessary. 11/04/17 0256 <Electronically signed by Shamika Story DO> Date Shamika Story DO Cosigner Signature (If Indicated): Date CC: Sunday Gutiérrez MD KNEE 3 VIEWS Observed: 11/04/2017 Status: F Source: BOND 12:57 AM [facility] REPOSITORY [facility] Imaging Services [address] [place] [address] Knee 3 Views MR#: [id number] Acct: [id number] Name: CHRISTIJONELLE Nasir Rep #: [id number] : 1935 F 81 From: Rk Rivas MD PCP: Sunday Gutiérrez MD, Chi Status: REG ER Study: Knee 3 Views Date of Exam: 11/04/17 Exam# [id number] Ordering Dr: Shamika Story DO STUDY: X-RAY [...] CC: Shamika Story DO; Sunday Gutiérrez MD Behavioral Health Aide: Signed PELVIS 1 OR 2 VIEWS Observed: 11/04/2017 Status: F Source: BOND 12:54 AM [facility] REPOSITORY [facility] Imaging Services [address] [place] [address] Pelvis 1 or 2 Views MR#: [id number] Acct: [id number] Name: JONELLE BARRAZA Rep #: [id number] : 1935 F 81 From: Toni Cabrera MD PCP: Sunday Gutiérrez MD, Chi Status: REG ER Study: Pelvis 1 or 2 Views Date of Exam: 11/04/17 Exam# [id number] Ordering Dr: Shamika Story DO STUDY: X-RAY [...] CC: Shamika Story DO; Sunday Gutiérrez MD Behavioral Health Aide: Signed KNEE 3 VIEWS Observed: 11/04/2017 Status: F Source: BOND 12:54 AM [facility] REPOSITORY [facility] Imaging Services [address] [place] [address] [place] [address] Knee 3 Views MR#: [id number] Acct: [id number] Name: JONELLE BARRAZA Rep #: [id number] : 1935 F 81 From: Rk Rivas MD PCP: Sunday Gutiérrez MD, Chi Status: REG ER Study: Knee 3 Views Date of Exam: 11/04/17 Exam# [id number] Ordering Dr: Shamika Story DO STUDY: X-RAY [...] CC: Shamika Story DO; Sunday Gutiérrez MD Behavioral Health Aide: Signed Observed: 10/26/2017 Status: F Source: AVNI CULTURE, URINE 2:09 PM [facility] REPOSITORY Urine Culture ORGANISM 1: Mixed Gram Pos AND Gram Neg Org [place] Count 80,000-100,000 MIX CULTURE Mixed contaminants. Submit a new specimen if indicated. Performed By: #### M100.0650 #### [facility] [address] [facility] [place], [address] L/S SPINE W BEND Observed: 10/25/2017 Status: F Source: AVNI MIN 6 VW 2:57 PM [facility] REPOSITORY [facility] Imaging Services [address] [place] [address] L/S Spine w Bend Min 6 Vw MR#: [id number] Acct: [id number] Name: JONELLE BARRAZA Rep #: [id number] : 1935 F 81 From: Latosha Castaneda MD PCP: Sunday Gutiérrez MD, Chi Status: REG CLI Study: L/S Spine w Bend Min 6 Vw Date of Exam: 10/25/17 Exam# [id number] Ordering Dr: Sunday Gutiérrez MD STUDY: X-RAY [...] Service support , CC: Sunday Gutiérrez MD Behavioral Health Aide: Signed EMERGENCY DEPARTMENT Observed: 09/16/2017 Status: F Source: BOND SUMMARY 12:[address] [facility] Medical Records Department [address] [place] [address] Emergency Department Summary 09/15/17 1513 MR#: [id number] Acct: [id number] Name: JONELLE BARRAZA Rep #: [id number] : 1935 81 From: Aries Garay MD [...] upper extremity. She has normal left hand blending tank helper strength and sensation. Physical Examination: Well-appearing older [...] neurovascular intact with 5 out of 5 blending tank helper strength. Normal touch sensation. Strong radial pulse. [...] Emergency Department Course and Treatment: 1 p.o. Rapidan here. Treatment Plan: Rapidan for pain. Ice to decrease inflammation. And follow-up with orthopedic surgeon. Dr. Samm Decker is on-call today. Disposition: Discharge Impression: Acute left elbow pain secondary to degenerative arthritis This note was generated with Sistemic dictation software. It may contain incorrect words, [...] your Primary Care Provider. Call [facility] ([phone]) or report to the closest Emergency Room. Call 911 if necessary. 09/16/17 0006 <Electronically signed by Aries Garay MD> Date Aries Garay MD Cosigner Signature (If Indicated): Date CC: Sunday Gutiérrez MD DISCHARGE INSTRUCTION Observed: 09/16/2017 Status: F Source: AVNI 12:06 AM [facility] REPOSITORY [facility] Medical Records Department [address] [place] [address] Discharge Instruction 09/15/17 1622 MR#: [id number] Acct: [id number] Name: JONELLE BARRAZA Rep #: [id number] : 1935 81 From: Aries Garay MD PCP: Sunday Gutiérrez MD, Chi Status: DEP ER ED Disposition - Plan for ED Patient: Disposition: Home or Assisted Living Chief Complaint: Upper Extremity Injury Instructions: ED Degenerative Joint Disease Prescriptions: Hydrocodone/Acetaminophen [Rapidan 5-325 Tablet] 1 ea PO Q4H PRN PRN #20 tab PRN Reason: Pain Referrals: Sunday Gutiérrez Chi, MD [Primary Care Provider] - As Needed Samm Decker MD [STAFF PHYSICIAN] - Additional Instructions: Ice 2 left elbow pain and swelling. Rapidan for pain. Call and follow-up with the orthopedic surgeon for further evaluation. What to do if you have Problems For any increased pain, shortness of breath, bleeding, nausea or vomiting, chest pain, or any unexpected problems, contact your Primary Care Provider. Call [facility] ([phone]) or report to the closest Emergency Room. Call 911 if necessary. 09/16/17 0006 <Electronically signed by Aries Garay MD> Date Aries Garay MD Cosigner Signature (If Indicated): Date CC: Sunday Gutiérrez MD ELBOW MIN 3 VIEWS Observed: 09/15/2017 Status: F Source: AVNI 3:13 PM [facility] REPOSITORY [facility] Imaging Services [address] [place] [address] Elbow min 3 Views MR#: [id number] Acct: [id number] Name: CHRISTIJONELLE L Rep #: [id number] : 1935 F 81 From: Melecio Solitario MD PCP: Sunday Gutiérrez MD, Chi Status: REG ER Study: Elbow min 3 Views Date of Exam: 09/15/17 Exam# [id number] Ordering Dr: Aries Garay MD STUDY: X-RAY [...] CC: Aries Garay MD; Sunday Gutiérrez MD Behavioral Health Aide: Signed Observed: 07/20/2017 Status: F Source: AVNI RESPIRATORY PANEL 3:15 PM [facility] MOLECULAR REPOSITORY RP PANEL ADENOVIRUS Not Detected [...] acid amplification Performed By: #### M100.638 #### [facility] [address] [place], [address] CHEST PA AND LATERAL Observed: 07/20/2017 Status: F Source: BOND 2:55 PM [facility] REPOSITORY [facility] Imaging Services [address] [place] [address] Chest PA and Lateral MR#: [id number] Acct: [id number] Name: JONELLE BARRAZA Rep #: [id number] : 1935 F 81 From: Latosha Castaneda MD PCP: Arnoldo HYATT,Sunday Barbosa Status: REG CLI Study: Chest PA and Lateral Date of Exam: 07/20/17 Exam# [id number] Ordering Dr: Sunday Gutiérrez MD STUDY: X-RAY [...] Service support , CC: Sunday Gutiérrez MD Behavioral Health Aide: Signed CBC W/DIFF, AUTOMATED Collected: 06/23/2017 Status: F Source: AVNI 3:16 PM [facility] REPOSITORY TYPE CODE TESTS RESULT OUT OF [...] Lymph 1.92 Performed By: #### L100.0100 #### [facility] [place], [address] COMPREHENSIVE METABOLIC Collected: 06/23/2017 Status: F Source: AVNI PARMAR 3:16 PM [facility] REPOSITORY TYPE CODE TESTS RESULT OUT OF [...] 9 Performed By: #### L500.4050, L501.9520 #### [facility] [address] [place], [address] THYROID STIM HORMONE Collected: 06/23/2017 Status: F Source: AVNI (TSH) 3:16 PM [facility] REPOSITORY TYPE CODE TESTS RESULT OUT OF RANGE REFERENCE UNITS LAB L501.9520 0.358-3.74 uIU/mL Normal TSH 1.51 Performed By: #### L500.4050, L501.9520 #### [facility] [address] [place], [address] VITAMIN D,25 HYDROXY Collected: 06/23/2017 Status: F Source: AVNI 3:16 PM [facility] REPOSITORY TYPE CODE TESTS RESULT OUT OF REFERENCE UNITS RANGE LAB L506.1000 29.95-100.01 ng/mL Low Vitamin D 19.9 25-OH Result Comment: Vitamin D 25(OH) Status Range Deficiency <20 ng/mL (50nmol/L) Insuffciency 20 - 30 ng/mL (50 - 75 nmol/L) Sufficiency 30 - 100 ng/mL (75 - 250 nmol/L) Toxicity >100 ng/mL (>250 nmol/L) Performed By: #### L506.1000 #### [facility] [address] [place], [address] ALLERGIES ALLERGIES DATE TYPE / CODE NAME / CODE REACTION SEVERITY SOURCE 01/03/2018 Drug belladonna Unknown Unknown [place] Allergy/416 alkaloids/B479450 [facility] 492040([facility] 714(RXNORM) [facility] ED CT) Repository 01/03/2018 Drug halobetasol/F0060 Unknown Unknown [place] Allergy/416 58247(RXNORM) Community 625761([facility] ED CT) Repository 01/03/2018 Drug celecoxib/Y888331 Diarrhea Unknown [place] Allergy/416 731(RXNORM) [facility] 322362([facility] ED CT) Repository 01/31/2017 DRUG/365726 BELLADONNA UNKNOWN [facility] 003(SNOMED TINCTURE Other [place] CT) Repository 01/31/2017 DRUG CELECOXIB UNKNOWN [facility] INGREDI/419 Other [place] 966267([facility] ED CT) ENCOUNTERS ENCOUNTERS ADMIT/DISCHARGE ACCOUNT ADMITTING ENCOUNTER LOCATION SOURCE NUMBER CLASS 03/22/2018 [id number] Ambulatory [facility] ing:PATRICIA.[facility] Repository 03/19/2018 [id number] Ambulatory [facility] Hospital ing:OLS.[facility] Repository 03/10/2018 [id number] Ambulatory [facility] ing:OLS.[facility] Repository 01/03/2018/01/07/20 [id number] Bharat, Inpatient [place] Mon [facility] ing:DB9Qbgj: Repository BX865Cdx: 1 01/03/2018 [id number] Bharat, Ambulatory BMSBuilding:Joseline Mon [facility] Repository 01/03/2018 [id number] [facility], Ambulatory BMSBuilding:Joseline Mon [facility] Repository 01/03/2018 [id number] Bharat, Ambulatory BMSBuilding:[facility] Mon [facility] Repository 01/03/2018 [id number] [facility], Ambulatory BMSBuilding:Joseline Mon [facility] Repository 12/28/2017/12/29/19 [id number] LUANA, Ambulatory [address] Other [place] Repository 12/14/2017/12/17/19 [id number] Ambulatory [address] Repository 11/16/2017 [id number] Ambulatory [facility] ing:MEDOUT Repository 11/04/2017 [id number] Agyepong, Ambulatory BMSBuilding:Joseline Arriaga [facility] Repository 11/04/2017 [id number] Agyepong, Ambulatory BMSBuilding:Joseline Arriaga [facility] Repository 11/04/2017 [id number] Agyepong, Ambulatory BMSBuilding:Joseline Arriaga [facility] Repository 11/04/2017 [id number] Agyepong, Ambulatory BMSBuilding:Joseline Arriaga [facility] Repository 11/04/2017 [id number] Agyepong, Ambulatory BMSBuilding:Joseline Arriaga [facility] Repository 11/04/2017/11/10/19 [id number] Agyepong, Inpatient [place] Arra[facility] ing:AC4Neoz: Repository XI737Aym: 1 11/04/2017/11/09/19 [id number] Ambulatory B[place]Building:[address] [place] Repository 11/04/2017 [id number] Agsunshineg, Ambulatory BMSBuilding:Joseline Arriaga [facility] Repository 10/26/2017 [id number] Ambulatory [facility] ing:LABSPEC Repository 10/25/2017 [id number] Ambulatory [facility] ing:RAD Repository 09/15/2017/09/16/19 [id number] Emergency [address] ing:ED Repository 07/20/2017 [id number] Ambulatory [facility] ing:RAD Repository 06/23/2017 [id number] [facility] ing:POLAB3 Repository PAYERS PAYERS ENCOUNTER GUARANTOR PAYER SUBSCRIBER SOURCE 03/22/2018 JONELLE L Primary NOT GIVENUNK [place] Insurance:SELF PAY [address] Number: Effective Repository [place], [place] [address]Yhs: Date:2018-03-22 () 03/19/2018 JONELLE L Primary NOT GIVENUNK [place] Insurance:SELF PAY [address] Number: Effective [place] [address]Cbb: Date:2018-03-19 () 03/10/2018 JONELLE L Primary NOT GIVENUNK [place] Insurance:SELF PAY [address] Number: Effective [place], [place] [address]Vxi: Date:2018-03-10 () 01/03/2018 JONELLE L Primary JONELLE L [place] Insurance:DINA YIB: Community [id number] MEDICARE PPOPolicy [id number] Affairs [facility] Number: [place] [address]Jes: [id number] (HP) ve Date:9512-47-09NL [address] [place] [address]VX: 01/03/2018 Secondary JONELLE L [place] Insurance:CARESOURC CORNELIUSDOB: [facility] Number: [id number] [id number] Repository e Date:2018-01-03 [address]ATTN: [place] [address]JM: 01/03/2018 Tertiary NOT GIVENUNK [place] Insurance:SELF PAY [facility] Number: Effective Repository Date:2018-01-03 01/03/2018 JONELLE L Primary JONELLE L [place] Insurance:[facility]: Community [id number] MEDICARE PPOPolicy [id number] Affairs [facility] Number: [place]ository [place], [place] [address]Fjz: [id number] () ve Date:5892-30-16QE [address] [place] [address]GQ: 01/03/2018 Secondary JONELLE L [place] Insurance:CARESOURC CORNELIUSDOB: [facility] Number: [id number] Hospital [id number] Repository e Date:2018-01-03 [address]ATTN: [place] [address]KT: 01/03/2018 Tertiary NOT GIVENUNK [place] Insurance:SELF PAY [facility] Number: Effective Repository Date:2018-01-03 01/03/2018 JONELLE L Primary JONELLE L [place] Insurance:[facility]: Community [id number] MEDICARE PPOPolicy [id number] Affairs [facility] Number: [place]ository [place] [address]Nnu: [id number] (HP) ve Date:6519-66-61[address]EW[place], [place] [address]SY: 01/03/2018 Secondary JONELLE L [place] Insurance:CARESOURC CORNELIUSDOB: [facility] Number: [id number] [facility] [id number] Repository e Date:2018-01-03 [address]ATTN: [place] [address]OE: 01/03/2018 Tertiary NOT GIVENUNK [place] Insurance:SELF PAY [facility] Number: Effective Repository Date:2018-01-03 01/03/2018 JONELLE L Primary JONELLE L [place] Insurance[id number] MEDICARE PPOPolicy [id number] Affairs [facility] Number: Repository [place], [place] [address]Hsy: [id number] (HP) ve Date:2216-03-74TZ [address]GVOBVTE, [place] [address]RU: 01/03/2018 Secondary JONELLE L [place] Insurance:CARESOURC CORNELIUSDOB: [facility] Number: [id number] Hospital [id number] Repository e Date:2018-01-03 [address]ATTN: [place] [address]HN: 01/03/2018 Tertiary NOT GIVENUNK [place] Insurance:SELF PAY [facility] Number: Effective Repository Date:2018-01-03 01/03/2018 JONELLE L Primary JONELLE L [place] Insurance:[facility]: Community [id number] MEDICARE PPOPolicy [id number] Affairs [facility] Number: [place], [place] [address]Xxy: [id number] (HP) ve Date:7955-41-63[address], [place] [address]BV: 01/03/2018 Secondary JONELLE L [place] Insurance:CARESOURC CORNELIUSDOB: Community EPolicy Number: [id number] Hospital [id number] Repository e Date:2018-01-03P [address]ATTN: [place] [address]HU: 01/03/2018 Tertiary NOT GIVENUNK Avni Insurance:SELF PAY [facility] Number: Effective Repository Date:2018-01-03 11/16/2017 JONELLE L Primary JONELLE L Avni [id number] [place] Insurance:ANTHEM CORNELIUSDOB: [facility] [place], [place] [address]Xml: MEDICARE [facility] [id number] Hospital () Number: Repository [id number] ve Date:7907-95-40NG [address] [place] [address]FL: 11/16/2017 Secondary JONELLE L Av[place] Insurance:CARESOURC CORNELIUSDOB: [facility] [place] Number: [id number] Hospital [id number] Repository e Date:2017-11-15P [address]ATTN: [place] [address]OE: 11/16/2017 Tertiary NOT GIVENUNK [place] Insurance:SELF PAY [facility] Number: Effective Repository Date:2017-11-15 11/04/2017 JONELLE L Primary JONELLE L Avni [id number] [place] Insurance:ANTHEM CORNELIUSDOB: [place], [place] [address]Wad: MEDICARE PPOPolicy [id number] Hospital () Number: Repository [id number] ve Date:6267-07-50BF [address]GI[place]B, [place] [address]PV: 11/04/2017 Secondary JONELLE L Av[place] Insurance:CARESOURC CORNELIUSDOB: [facility] EPolic Number: [id number] Hospital [id number] Repository e Date:2017-11-04 [address]ATTN: [place] [address]CX: 11/04/2017 Tertiary NOT GIVENUNK [place] Insurance:SELF PAY [facility] Number: Effective Repository Date:2017-11-04 11/04/2017 JONELLE L Primary JONELLE L [place] [id number] [place] Insurance:ANTHEM CORNELIUSDOB: [place], [place] [address]Pcg: MEDICARE PPOPolicy [id number] Hospital () Number: Repository [id number] ve Date:9673-16-83MS [address] [place] [address] [place] [address]RE: 11/04/2017 Secondary JONELLE L [place] Insurance:CARESOURC CORNELIUSDOB: [facility] Number: [id number] Hospital [id number] Repository e Date:2017-11-04 [address]ATTN: [place] [address]TU: 11/04/2017 Tertiary NOT GIVENUNK Avni Insurance:SELF PAY [facility] Number: Effective Repository Date:2017-11-04 11/04/2017 JONELLE L Primary JONELLE L Avni [id number] [place] Insurance:ANTHEM CORNELIUSDOB: [place], [place] [address]Gwk: MEDICARE PPOPolicy [id number] Hospital () Number: Repository [id number] ve Date:2700-62-27NT [address]JX[address] [place] [address]VJ: 11/04/2017 Secondary JONELLE L [place] Insurance:CARESOURC CORNELIUSDOB: [facility] Number: [id number] Hospital [id number] Repository e Date:2017-11-04 [address]ATTN: [place] [address]TV: 11/04/2017 Tertiary NOT GIVENUNK Avni Insurance:SELF PAY [facility] Number: Effective Repository Date:2017-11-04 11/04/2017 JONELLE L Primary JONELLE L Avni [id number] [place] Insurance:ANTHEM CORNELIUSDOB: [place], [place] [address]Csz: MEDICARE PPOPolicy [id number] Hospital () Number: Repository [id number] ve Date:9539-90-38JC[address] [address]XX: 11/04/2017 Secondary JONELLE L [place] Insurance:CARESOURC CORNELIUSDOB: [facility] EPolic Number: [id number] Hospital [id number] Repository e Date:2017-11-04 [address]ATTN: [place] [address]JJ: 11/04/2017 Tertiary NOT GIVENUNK [place] Insurance:SELF PAY [facility] Number: Effective Repository Date:2017-11-04 11/04/2017 JONELLE L Primary JONELLE L Avni [id number] [place] Insurance:ANTHEM CORNELIUSDOB: [place], [place] [address]Gnp: MEDICARE PPOPolicy [id number] Hospital () Number: Repository [id number] ve Date:4303-51-01GV[address] [address]CO: 11/04/2017 Secondary JONELLE L Avni Insurance:CARESOURC CORNELIUSDOB: [facility] EPolic Number: [id number] Hospital [id number] Repository e Date:2017-11-04 [address]ATTN: [place] [address]CY: 11/04/2017 Tertiary NOT GIVENUNK Avni Insurance:SELF PAY [facility] Number: Effective Repository Date:2017-11-04 11/04/2017 JONELLE L Primary JONELLE L [place] [id number] [place] Insurance:ANTHEM CORNELIUSDOB: [facility] [place], [place] [address]Ktj: MEDICARE PPOPolicy [id number] Hospital () Number: Repository [id number] ve Date:8446-66-21UB [address]BPEAUHF, [place] [address]PE: 11/04/2017 Secondary JONELLE L [place] Insurance:CARESOURC CORNELIUSDOB: [facility] EPolic Number: [id number] Hospital [id number] Repository e Date:2017-11-04 [address]ATTN: [place] [address]YV: 11/04/2017 Tertiary NOT GIVENUNK [place] Insurance:SELF PAY [facility] Number: Effective Repository Date:2017-11-04 11/04/2017 JONELLE L Primary JONELLE L Avni [id number] [place] Insurance:ANTHEM CORNELIUSDOB: [place] [address]Upv: MEDICARE PPOPolicy [id number] Hospital () Number: Repository [id number] ve Date:1015-52-04TH [address]VMNMO, [place] [address]XM: 11/04/2017 Secondary JONELLE L [place] Insurance:CARESOURC CORNELIUSDOB: [facility] [place] Number: [id number] Hospital [id number] Repository e Date:2017-11-04 [address]ATTN: [place] [address]JD: 11/04/2017 Tertiary NOT GIVENUNK [place] Insurance:SELF PAY [facility] Number: Effective Repository Date:2017-11-04 11/04/2017 JONELLE L Primary JONELLE L Avni [id number] [place] Insurance:ANTHEM CORNELIUSDOB: [facility] [place] [address]Gnn: MEDICARE PPOPolicy [id number] Hospital () Number: Repository [id number] ve Date:6152-66-38WM [address]LMPRQNT, [place] [address]AQ: 11/04/2017 Secondary JONELLE L [place] Insurance:CARESOURC CORNELIUSDOB: [facility] Number: [id number] Hospital [id number] Repository e Date:2017-11-04P [address]ATTN: [place] [address]NA: 11/04/2017 Tertiary NOT GIVENUNK Avni Insurance:SELF PAY [facility] Number: Effective Repository Date:2017-11-04 10/26/2017 JONELLE L Primary JONELLE L [place] [id number] [place] Insurance:ANTHEM CORNELIUSDOB: [place], [place] [address]Imp: MEDICARE PPOPolicy [id number] Hospital () Number: Repository [id number] ve Date:7634-99-25QH [address]YZJEE, [place] [address]WU: 10/26/2017 Secondary JONELLE L [place] Insurance:CARESOURC CORNELIUSDOB: [facility] Number: [id number] Hospital [id number] Repository e Date:2017-10-26P [address]ATTN: [place] [address]KG: 10/26/2017 Tertiary NOT GIVENUNK Avni Insurance:SELF PAY [facility] Number: Effective Repository Date:2017-10-26 10/25/2017 JONELLE L Primary JONELLE L Avni [id number] [place] Insurance:ANTHEM CORNELIUSDOB: [facility] [place], [place] [address]Ate: MEDICARE PPOPolicy [id number] () Number: Repository [id number] ve Date:4920-79-08LR [address] [place] [address]JY: 10/25/2017 Secondary JONELLE L [place] Insurance:CARESOURC CORNELIUSDOB: Community EPolicy Number: [id number] Hospital [id number] Repository e Date:2017-10-25P [address]ATTN: [place] [address]XI: 10/25/2017 Tertiary NOT GIVENUNK Avni Insurance:SELF PAY [facility] Number: Effective Repository Date:2017-10-25 09/15/2017 JONELLE L Primary JONELLE L Avni [id number] [place] Insurance:ANTHEM CORNELIUSDOB: [place], [place] [address]Hqu: MEDICARE PPOPolicy [id number] Hospital () Number: Repository [id number] ve Date:0685-70-02FI[address] [address]XF: 09/15/2017 Secondary JONELLE L [place] Insurance:CARESOURC CORNELIUSDOB: [facility] EPolic Number: [id number] Hospital [id number] Repository e Date:2017-09-15P [address]ATTN: [place] [address]BP: 09/15/2017 Tertiary NOT GIVENUNK [place] Insurance:SELF PAY [facility] Number: Effective Repository Date:2017-09-15 07/20/2017 Jonelle L Primary Jonelle L [place] [id number] [place] Insurance:ANTHEM CorneliusDOB: [facility] [place], [place] [address]Cxz: MEDICARE PPOPolicy [id number] Hospital () Number: Repository [id number] ve Date:5156-89-88LM [address]HELDFMJ, [place] [address]QK: 07/20/2017 Secondary Jonelle L [place] Insurance:CARESOURC CorneliusDOB: Community EPolic Number: [id number] Hospital [id number] Repository e Date:2017-07-20P [address]N: [place] [address]SD: 07/20/2017 Tertiary NOT GIVENUNK Avni Insurance:SELF PAY [facility] Number: Effective Repository Date:2017-07-20 06/23/2017 Jonelle L Primary Jonelle L [place] [id number] [place] Insurance:DINA [place]: [place], [place] [address]Tca: MEDICARE PPOPolicy [id number] Hospital () Number: Repository [id number] ve Date:6027-81-60GB [address]Q, [place] [address]AN: 06/23/2017 Secondary Jonelle L Avni Insurance:CAREROSALVA YiB: [facility] Number: [id number] Hospital [id number] Repository e Date:2017-06-13P [address]N: [place] [address]ZN: 06/23/2017 Tertiary NOT GIVENUNK Avni Insurance:SELF PAY [facility] Number: Effective Repository Date:2017-06-13
== END ==
LOC: OLS.WCC 05:00
PROVIDERS: Visit Provider Orthopaedic Surgery
DX: M97.12XA Periprosthetic fracture around internal prosthetic left knee joint, initial encounter (principal)
CPT/HCPCS: 36415; 80048; 82040; 82784; 85027

== ENCOUNTER → 2018-03-30 05:00 | Outpatient (REF) | payer MEDICARE, MEDICAID, SELFPAY ==
[2018-03-30 08:23] LABS: Hematocrit 22.2 % (37-47); Hemoglobin 7.4 g/dl (12.0-15.0); Mean Corp Hgb Conc 33.3 g/gl (32-36); Mean Corpuscular Hgb 26.9 pg (27.0-32.0); Mean Corpuscular Volume 80.7 fL (81-99); Mean Platelet Vol. 12.2 fl (6.2-12.0); Platelet Count 291 K/mm3 (150-450); RBC Distribution Width CV 18.5 % (11.6-14.6); RBC Distribution Width SD 50.6 fl (35.1-43.9); Red Blood Count 2.75 M/mm3 (4.2-5.4); White Blood Count 4.1 K/mm3 (4.4-11.0)
[2018-03-30 08:26] LABS: Scan Indicated on CBC? Y/N NO
== END ==
LOC: OLS.WCC 05:00
PROVIDERS: Visit Provider Family Medicine
DX: D64.9 Anemia, unspecified (principal)
CPT/HCPCS: 36415; 85027